=== PATIENT | female | born 1990 | race Caucasian/White ===

== ENCOUNTER 2023-03-25 12:40 | Emergency (ER) | payer OTHER, SELFPAY ==
[2023-03-25 12:46] VITALS: BP 124/87; PULSE 88; RESP 16; TEMP 36.7; O2SAT 98; BMI 32.5
--- NOTE | 2023-03-25 12:54 | PC.NURSE ---
sore throat and ear pain started yesterday, pt did not call her PCP
[2023-03-25] MEDS: DEXAMETHASONE SODIUM PHOSPHATE 10 MG/ML VIAL PO (13:25)
--- NOTE | 2023-03-25 13:35 | ED.URI1 ---
HPI - URI/Sore Throat General Chief Complaint: Upper Respiratory Infection Stated Complaint: SORE THROAT/EAR PAIN Time Seen by Provider: 03/25/23 13:11 Source: patient History of Present Illness HPI Narrative: patient is a 32-year-old female who presents to the emergency department for a one-day history of right ear pain, sore throat. She states her symptoms were much worse today. She has had no objective fevers, vomiting, diarrhea. She was states that her nose feels stuffy today and she has had a mild nonproductive cough. No sick contacts in the home. She is not concerned for . No medications taken prior to arrival. Related Data Home Medications Medication Instructions Recorded Confirmed atogepant 10 mg tablet (Qulipta) 10 mg PO DAILY 03/25/23 03/25/23 esomeprazole magnesium 40 mg 40 mg PO DAILY 03/25/23 03/25/23 capsule,delayed release fluoxetine 20 mg capsule 20 mg PO DAILY 03/25/23 03/25/23 hydroxyzine HCl 50 mg tablet 50 mg PO Q6H PRN itching 03/25/23 03/25/23 topiramate 100 mg tablet 100 mg PO BID 03/25/23 03/25/23 Previous Rx's Medication Instructions Recorded sofkhaeeruzydsy-jkupzahfqgntavr-LC 10 ml PO Q6H PRN cold symptoms 03/25/23 2 mg-30 mg-10 mg/5 mL oral syrup #200 mL (Bromfed DM) Allergies Allergy/AdvReac Type Severity Reaction Status Date / Time ciprofloxacin [From Cipro] Allergy Severe Verified 03/25/23 12:46 Review of Systems ROS Constitutional Denies: fever or chills Ears, nose, mouth, and throat Reports: throat pain and nasal congestion Cardiovascular Denies: chest pain Respiratory Reports: cough; Denies: shortness of breath Gastrointestinal Denies: nausea or vomiting Musculoskeletal Denies: back pain or neck pain Integumentary/Breast Denies: rash Neurological Denies: headache Allergic/Immunologic Denies: hives Exam Narrative Exam Narrative: Gen.: Awake, alert, in no distress Head: Normocephalic, atraumatic ENT: Moist mucous membranes, minimal pharyngeal erythema in the posterior pharynx with no tonsillar edema or exudate. Clear speech with no trismus or drooling. Airway widely open and patent with uvula midline. Left tympanic membrane with no erythema or drainage, green tympanic membrane tube visible in the left ear. Right tympanic membrane is clear, bulging Respiratory: No respiratory distress, lungs clear bilaterally Cardio: Regular rate and rhythm Extremities: Moves extremities equally Psych: Normal mood and affect Neuro: No focal neuro deficit Skin: Warm, dry, intact Constitutional Vital Signs, click to edit/add: Last Vital Signs Temp 98.1 F 03/25/23 12:46 Pulse 88 03/25/23 12:46 Resp 16 03/25/23 12:46 BP 124/87 03/25/23 12:46 Pulse Ox 98 03/25/23 12:46 O2 Del Method Room Air 03/25/23 12:55 Course Vital Signs Vital signs: Vital Signs Temperature 98.1 F 03/25/23 12:46 Pulse Rate 88 03/25/23 12:46 Respiratory Rate 16 03/25/23 12:46 Blood Pressure 124/87 03/25/23 12:46 Pulse Oximetry 98 03/25/23 12:46 Oxygen Delivery Method Room Air 03/25/23 12:46 Temperature 98.1 F 03/25/23 12:46 Pulse Rate 88 03/25/23 12:46 Respiratory Rate 16 03/25/23 12:46 Blood Pressure 124/87 03/25/23 12:46 Pulse Oximetry 98 03/25/23 12:46 Oxygen Delivery Method Room Air 03/25/23 12:55 MDM - URI/Sore Throat MDM Narrative Medical decision making narrative: strep screen is negative, vital signs are unremarkable and the patient has had symptoms for one day. Consistent with viral upper respiratory infection and the patient is discharged home to follow-up with PCP. Bromfed-DM given for home. Return to the Emergency Room if symptoms change or worsen. Medical Records Attestation: I reviewed the patient's medical records. Lab Data Attestation: I reviewed the patient's lab results. Labs: Lab Results 03/25/23 Range/Units 13:15 Streptococcus Screen Negative Discharge Plan Discharge Chief Complaint: Upper Respiratory Infection Clinical Impression: Upper respiratory infection Patient Disposition: Home, Self-Care Time of Disposition Decision: 14:03 Condition: Good Prescriptions / Home Meds: New xkmgrcroafcxjbr-xhyqekyxk-VG [Bromfed DM] 2-30-10 mg/5 mL syrup 10 ml PO Q6H PRN (Reason: cold symptoms) Qty: 200 0RF No Action Qulipta 10 mg tablet 10 mg PO DAILY esomeprazole magnesium 40 mg capsule,delayed release(DR/EC) 40 mg PO DAILY fluoxetine 20 mg capsule 20 mg PO DAILY hydroxyzine HCl 50 mg tablet 50 mg PO Q6H PRN (Reason: itching) topiramate 100 mg tablet 100 mg PO BID Instructions: Upper Respiratory Infection (ED) Stand Alone Forms: Portal Instructions Referrals: Dillon Shipman MD [Primary Care Provider] - 1 week
[2023-03-25 14:01] LABS: Internal Control Within Normal Limits; Strep A Antigen Screen Negative
== END 2023-03-25 14:19 | disposition home or self-care (01) ==
PROVIDERS: Physician Assistant; Emergency Provider Emergency Medicine Emergency Medical Services; PCP Family Medicine
DX: J06.9 Acute upper respiratory infection, unspecified (principal); Z79.899 Other long term (current) drug therapy
CPT/HCPCS: 87070; 87880; 99283; J1100

== ENCOUNTER 2023-03-30 14:25 | Emergency (ER) | payer OTHER, SELFPAY ==
[2023-03-30 14:31] VITALS: BP 121/76; PULSE 87; RESP 16; TEMP 36.6; O2SAT 100; BMI 32.7
[2023-03-30 15:02] LABS: Internal Control Within Normal Limits; Strep A Antigen Screen Negative
[2023-03-30 15:07] LABS: SARS-CoV-2 Ag NEGATIVE (NEGATIVE)
--- NOTE | 2023-03-30 15:23 | ED.URI1 ---
HPI - URI/Sore Throat General Chief Complaint: Upper Respiratory Infection Stated Complaint: COUGH AND SORE THROAT Time Seen by Provider: 03/30/23 14:27 Source: patient Limitations: no limitations History of Present Illness HPI Narrative: nasal congestion and cough started 5 days ago. No fever but she had night sweats each of the last 3 nights. NO GI or symptoms. No skin rash. No meds taken for her symptoms. He daughter is sick with similar symptoms. Related Data Home Medications Medication Instructions Recorded Confirmed atogepant 10 mg tablet (Qulipta) 10 mg PO DAILY 03/25/23 03/25/23 esomeprazole magnesium 40 mg 40 mg PO DAILY 03/25/23 03/25/23 capsule,delayed release fluoxetine 20 mg capsule 20 mg PO DAILY 03/25/23 03/25/23 hydroxyzine HCl 50 mg tablet 50 mg PO Q6H PRN itching 03/25/23 03/25/23 topiramate 100 mg tablet 100 mg PO BID 03/25/23 03/25/23 Previous Rx's Medication Instructions Recorded lydttiqooiizbfl-gflbdodqjpymllz-ZQ 10 ml PO Q6H PRN cold symptoms 03/25/23 2 mg-30 mg-10 mg/5 mL oral syrup #200 mL (Bromfed DM) Allergies Allergy/AdvReac Type Severity Reaction Status Date / Time ciprofloxacin [From Cipro] Allergy Severe Verified 03/25/23 12:46 PFSH PFS Social History Smoking status: Current some day smoker Exam Narrative Exam Narrative: Nurses notes and vital signs reviewed and patient is not hypoxic. afebrile General: Well-appearing and in no apparent distress. Skin: Warm, dry, no pallor noted. No rash. Head: Normocephalic, atraumatic. Neck: Supple, non-tender. mild anterior cervical lymphadenopathy Eye: Pupils are equal, round and EOMI. No scleral icterus. Ears, Nose, Mouth, and Throat: TM are dull bilaterally, left tympanic membrane has tympanoplasty tube. Mild nasal mucosal hypertrophy. Oral mucosa is moist, no posterior oropharynx erythema, uvula is mid-line Cardiovascular: Regular Rate and Rhythm without murmur, gallop or rub. Respiratory: No accessory muscle use or respiratory distress. Lungs are clear to auscultation, no wheezing, rales or rhonchi Musculoskeletal: normal ROM, no calf or popliteal tenderness, no lower extremity edema/swelling GI: Abdomen is soft, non-distended. Normal bowel sounds. No tenderness to palpation. No rebound, guarding, or rigidity noted. Neurological: A&O x4. No cranial nerve dysfunction observed. No truncal ataxia. Moves all extremities. Sensation intact. Psychiatric: Cooperative and interactive. Normal mood and affect. Constitutional Vital Signs, click to edit/add: Last Vital Signs Temp 98 F 03/30/23 14:31 Pulse 87 03/30/23 14:31 Resp 16 03/30/23 14:31 BP 121/76 03/30/23 14:31 Pulse Ox 100 03/30/23 14:31 O2 Del Method Room Air 03/30/23 14:31 Course Vital Signs Vital signs: Vital Signs Temperature 98 F 03/30/23 14:31 Pulse Rate 87 03/30/23 14:31 Respiratory Rate 16 03/30/23 14:31 Blood Pressure 121/76 03/30/23 14:31 Pulse Oximetry 100 03/30/23 14:31 Oxygen Delivery Method Room Air 03/30/23 14:31 Temperature 98 F 03/30/23 14:31 Pulse Rate 87 03/30/23 14:31 Respiratory Rate 16 03/30/23 14:31 Blood Pressure 121/76 03/30/23 14:31 Pulse Oximetry 100 03/30/23 14:31 Oxygen Delivery Method Room Air 03/30/23 14:31 MDM - URI/Sore Throat MDM Narrative Medical decision making narrative: screens for both cold and strep were negative. The patient is informed of the negative results, diagnosis was discussed and I recommended mmip-qpf-jymyytn treatment for symptoms. Primary care physician follow-up as needed or emergency Department return if she worsens. Lab Data Labs: Lab Results 03/30/23 Range/Units 14:36 SARS-CoV-2 (PCR) Negative (NEGATIVE) Streptococcus Screen Negative Discharge Plan Discharge Chief Complaint: Upper Respiratory Infection Clinical Impression: Upper respiratory infection Patient Disposition: Home, Self-Care Time of Disposition Decision: 15:23 Prescriptions / Home Meds: No Action Qulipta 10 mg tablet 10 mg PO DAILY esomeprazole magnesium 40 mg capsule,delayed release(DR/EC) 40 mg PO DAILY fluoxetine 20 mg capsule 20 mg PO DAILY hydroxyzine HCl 50 mg tablet 50 mg PO Q6H PRN (Reason: itching) topiramate 100 mg tablet 100 mg PO BID iwsvztilseabvch-ytlkhniwf-HA [Bromfed DM] 2-30-10 mg/5 mL syrup 10 ml PO Q6H PRN (Reason: cold symptoms) Qty: 200 0RF Instructions: Upper Respiratory Infection (ED) Stand Alone Forms: Portal Instructions Referrals: Dillon Shipman MD [Primary Care Provider] - 1 week
[2023-04-01 15:30] LABS: SARS-CoV-2 NAA NOT DETECTED (NOT DETECTE)
== END 2023-03-30 15:32 | disposition home or self-care (01) ==
PROVIDERS: Emergency Provider Emergency Medicine; PCP Family Medicine
DX: J06.9 Acute upper respiratory infection, unspecified (principal); Z79.899 Other long term (current) drug therapy; F17.210 Nicotine dependence, cigarettes, uncomplicated; Z20.822 Contact with and (suspected) exposure to COVID-19
CPT/HCPCS: 87070; 87635; 87811; 87880; 99283; U0003

== ENCOUNTER 2024-08-10 19:43 | Emergency (ER) | payer SELFPAY ==
[2024-08-10 19:54] VITALS: BP 113/69; PULSE 70; TEMP 36.7; O2SAT 100; BMI 32.7
--- NOTE | 2024-08-10 20:11 | US_ITS ---
The [address] [address] Patient Name: LORIE ADAMS MRN: [id number] date: 1990 Sex: F Assigned Patient Location: ER Current Patient Location: ER Accession/Order Number: [id number] Exam Date: 08/10/2024 20:49 Report Date: 08/10/2024 21:24 At the request of: HEDY MARKER Procedure: US OB transvaginal EXAM: Pelvic ultrasound ultrasound CLINICAL INDICATION: + preg test, lower abd pain. COMPARISON: None TECHNIQUE: Transvaginal OB pelvic ultrasound was performed with grayscale and color Doppler images were obtained. FINDINGS: Intrauterine with gestational sac, yolk sac and fetus present. cardiac activity is present at [address] [place]-rump length measures 2.4 for estimated gestational age of 9 weeks 0 days. Cervix is closed and measures 3.1 cm length. No placental hematoma evident. Neither ovary was able to be visualized during the exam. No free fluid in the pelvis. US/US OB transvaginal IMPRESSION: 1. Single intrauterine with cardiac activity present and estimated gestational age of 9 weeks 0 days. 2. No acute sonographic abnormalities in the pelvis, however neither ovary was able to be visualized. Electronically authenticated by: MARCIO GLORIA Date: 08/10/2024 21:24
--- NOTE | 2024-08-10 20:12 | ED.ABDPAIN1 ---
HPI - Abdominal Pain General Chief Complaint: Abdominal Pain Stated Complaint: STOMACHE PAIN Time Seen by Provider: 08/10/24 20:01 Source: patient Mode of arrival: walk-in History of Present Illness HPI narrative: This 33-year-old female who recently found out she was presents for evaluation of intermittent lower abdominal pain. The patient states she does not have normal periods and her last menstrual period was in April. She took a home test that was positive. She called Dr. Malik's office and is supposed to have blood work done and see him but has not done this yet. The patient states that earlier tonight she was on the toilet trying to have a bowel movement and she felt nauseated like she may pass out. She did not pass out at that time. She denies that she is constipated. She is not having any pain at this time. She has not had any fevers or chills. She denies any chest pain or shortness of breath. She does have some mild breast tenderness. Her last was 15 years ago. She denies any vaginal bleeding odor or discharge. Related Data Home Medications ?Medication ?Instructions ?Recorded ?Confirmed atogepant 10 mg tablet (Qulipta) 10 mg PO DAILY 03/25/23 03/25/23 esomeprazole magnesium 40 mg 40 mg PO DAILY 03/25/23 03/25/23 capsule,delayed release fluoxetine 20 mg capsule 20 mg PO DAILY 03/25/23 03/25/23 hydroxyzine HCl 50 mg tablet 50 mg PO Q6H PRN itching 03/25/23 03/25/23 topiramate 100 mg tablet 100 mg PO BID 03/25/23 03/25/23 Previous Rx's ?Medication ?Instructions ?Recorded fuhxkeayerxbylv-zfrucadqgnldmcb-XQ 10 ml PO Q6H PRN cold symptoms 03/25/23 2 mg-30 mg-10 mg/5 mL oral syrup #200 mL (Bromfed DM) Allergies Allergy/AdvReac Type Severity Reaction Status Date / Time ciprofloxacin (From Cipro) Allergy Severe Verified 03/25/23 12:46 Review of Systems ROS Status of ROS 10 or more systems reviewed and unremarkable except as noted in history and below PFSH PFSH Social History Smoking status: Current some day smoker Little interest or pleasure in doing things: not at all Feeling down, depressed, or hopeless: not at all Exam Narrative Exam Narrative: Vital signs and Nursing Notes reviewed: Vital signs are stable, the patient is not hypoxic with pulse ox of 100% on room air General: Awake, alert, oriented, no acute distress, lying comfortably on the stretcher HEENT: Normocephalic atraumatic, mucous membranes are moist and pink, eyes are clear, normal conjunctiva, vision is grossly intact Chest: Lungs are clear to auscultation with good air entry, there is no wheezing rhonchi or rales appreciated no accessory muscle use, patient is speaking in complete sentences-no chest wall tenderness to palpation CVS: Regular rate and rhythm S1-S2, no murmurs rubs or gallops, pulses are brisk and equal bilaterally ABD: Soft, nondistended, mild tenderness over the urinary bladder and pelvis with no rebound guarding or rigidity, there is no right lower quadrant tenderness or tenderness at McBurney's point and there is a negative Cervantes sign. Extremities: Moving all extremities, no lower extremity tenderness or swelling noted, negative Homans' sign, pulses are brisk and equal bilaterally Skin: Normal in appearance without rash,pallor, petechiae or purpura Neuro: No focal deficits Constitutional Vital Signs, click to edit/add: Last Vital Signs Temp 98.0 F 08/10/24 19:54 Pulse 70 08/10/24 19:54 Resp 18 08/10/24 19:54 BP 113/69 08/10/24 19:54 Pulse Ox 100 08/10/24 19:54 O2 Del Method Room Air 08/10/24 19:54 Course Vital Signs Vital signs: Vital Signs Temperature 98.0 F 08/10/24 19:54 Pulse Rate 70 08/10/24 19:54 Respiratory Rate 18 08/10/24 19:54 Blood Pressure 113/69 08/10/24 19:54 Pulse Oximetry 100 08/10/24 19:54 Oxygen Delivery Method Room Air 08/10/24 19:54 Temperature 98.0 F 08/10/24 19:54 Pulse Rate 70 08/10/24 19:54 Respiratory Rate 18 08/10/24 19:54 Blood Pressure 113/69 08/10/24 19:54 Pulse Oximetry 100 08/10/24 19:54 Oxygen Delivery Method Room Air 08/10/24 19:54 MDM - Abdominal Pain MDM Narrative Medical decision making narrative: This 33-year-old female who recently found out she was presents for evaluation of lower abdominal pain. She denies any vomiting or diarrhea but has some mild nausea. She denied any pain upon arrival and declined the need for any pain medication. She has not had any blood work done but was supposed to get blood work done for confirmation of her and dating purposes. Her urine is negative for infection but her urine test was positive. She has a normal white count hemoglobin. Electrolytes are normal. Ultrasound was ordered and shows a single live intrauterine at 9 weeks with a normal heart rate. The results of the ultrasound were discussed with her and she was given a copy of the report. She requested some Tylenol prior to discharge. She was encouraged to follow-up with Dr. Malik. Lab Data Labs: Lab Results 08/10/24 08/10/24 Range/Units 20:21 20:24 WBC 9.0 (4.0-11.0) 10^3/uL RBC 4.22 (4.20-5.40) 10^6/uL Hgb 12.9 (12.0-16.0) g/dL Hct 39.2 (36.0-48.0) % MCV 92.9 (81.0-99.0) fL MCH 30.6 (26.7-34.0) pg MCHC 32.9 (29.9-35.2) g/dL RDW 13.2 (11.0-15.0) % Plt Count 283 (150-450) 10^3/uL MPV 9.5 (9.5-13.5) fL Neut % (Auto) 68.0 (43.0-75.0) % Lymph % (Auto) 19.6 L (20.5-60.0) % [place] % (Auto) 10.9 (1.7-12.0) % Eos % (Auto) 0.9 (0.9-7.0) % Baso % (Auto) 0.4 (0.2-2.0) % Neut # (Auto) 6.1 (1.4-6.5) 10^3/uL Lymph # (Auto) 1.8 (1.2-3.8) 10^3/uL [place] # (Auto) 1.0 H (0.3-0.8) 10^3/uL Eos # (Auto) 0.1 (0.0-0.7) 10^3/uL Baso # (Auto) 0.0 (0.0-0.1) 10^3/uL Abs Immat Gran (auto) 0.02 (0.00-0.03) 10^3/uL Imm/Tot Granulo (auto) 0.2 (0.0-0.5) % Sodium 140 (136-145) mmol/L Potassium 3.6 (3.5-5.1) mmol/L Chloride 107 (98-107) mmol/L Carbon Dioxide 22.2 (21.0-32.0) mmol/L Anion Gap 14.4 BUN 11.0 (7.0-18.0) mg/dL Creatinine 0.91 (0.55-1.02) mg/dL Est GFR ( Amer) >60 (>=60 mL/min/1.73m^2) Est GFR (Non-Af Amer) >60 (>=60 mL/min/1.73m^2) BUN/Creatinine Ratio 12.1 Glucose 61 L (74-106) mg/dL Calcium 8.6 (8.5-10.1) mg/dL Total Bilirubin 0.2 (0.2-1.0) mg/dL AST 7 L (15-37) U/L ALT 15 (14-59) U/L Alkaline Phosphatase 86 (46-116) U/L Total Protein 7.5 (6.4-8.2) g/dL Albumin 3.7 (3.4-5.0) g/dL Globulin 3.8 g/dL Albumin/Globulin Ratio 1.0 HCG, Quant 95038 mIU/mL Urine Color Yellow (YELLOW) Urine Clarity Clear (CLEAR) Urine pH 6.0 (5.0-9.0) Ur Specific [place] >=1.030 A (1.005-1.025) Urine Protein Negative (NEG/TRACE) mg/dL Urine Glucose (UA) Negative (NEGATIVE) mg/dL Urine Ketones Negative (NEGATIVE) mg/dL Urine Occult Blood Negative (NEGATIVE) Urine Nitrite Negative (NEGATIVE) Urine Bilirubin Negative (NEGATIVE) Urine Urobilinogen 0.2 (0.2-1.0) EU/dL Ur Leukocyte Esterase Negative (NEGATIVE) Urine RBC 0-2 (0-2) #/HPF Urine WBC 0-2 A (NONE SEEN) #/HPF Ur Squamous Epith Cells Few A (NONE/RARE) #/LPF Urine Crystals None seen (None Seen) #/HPF Urine Bacteria Small A (NONE SEEN) #/HPF Urine Casts None seen (NONE SEEN) #/LPF Urine Mucus Trace A (NONE SEEN) Ur Culture Indicated? Yes Urine HCG, Qual Positive A (NEGATIVE) Discharge Plan Discharge Chief Complaint: Abdominal Pain Clinical Impression: and not yet delivered in first trimester Patient Disposition: Home, Self-Care Time of Disposition Decision: 21:36 Condition: Good Prescriptions / Home Meds: No Action Qulipta 10 mg tablet 10 mg PO DAILY esomeprazole magnesium 40 mg capsule,delayed release(DR/EC) 40 mg PO DAILY fluoxetine 20 mg capsule 20 mg PO DAILY hydroxyzine HCl 50 mg tablet 50 mg PO Q6H PRN (Reason: itching) topiramate 100 mg tablet 100 mg PO BID rjjruwphpvzzisg-vdxtpdoyg-MP [Bromfed DM] 2-30-10 mg/5 mL syrup 10 ml PO Q6H PRN (Reason: cold symptoms) Qty: 200 0RF Print Language: Hungarian Instructions: at 7 to 10 Weeks (ED) Referrals: Dillon Shipman MD [Primary Care Provider] - 1 week
[2024-08-10 20:38] LABS: Basophils Percent Auto 0.4 % (0.2-2.0); Eosinophils Absolute Auto 0.1 10^3/uL (0.0-0.7); Eosinophils Percent Auto 0.9 % (0.9-7.0); Hematocrit 39.2 % (36.0-48.0); Hemoglobin 12.9 g/dL (12.0-16.0); Immature Granulocytes Abs Auto 0.02 10^3/uL (0.00-0.03); Immature Granulocytes Pct Auto 0.2 % (0.0-0.5); Lymphocytes Absolute Auto 1.8 10^3/uL (1.2-3.8); Lymphocytes Percent Auto 19.6 % (20.5-60.0); Mean Corpuscular HGB Conc 32.9 g/dL (29.9-35.2); Mean Corpuscular Hemoglobin 30.6 pg (26.7-34.0); Mean Corpuscular Volume 92.9 fL (81.0-99.0); Mean Platelet Volume 9.5 fL (9.5-13.5); Monocytes Percent Auto 10.9 % (1.7-12.0); Neutrophils Absolute Auto 6.1 10^3/uL (1.4-6.5); Platelet Count 283 10^3/uL (150-450); Red Blood Count 4.22 10^6/uL (4.20-5.40); Red Cell Distribution Width 13.2 % (11.0-15.0)
[2024-08-10 20:39] LABS: Bilirubin Urine NEGATIVE (NEGATIVE); Blood Urine NEGATIVE (NEGATIVE); Clarity Urine CLEAR (CLEAR); Color Urine YELLOW (YELLOW); Glucose Urine UA NEGATIVE (NEGATIVE); Ketones Urine NEGATIVE (NEGATIVE); Leukocyte Esterase Urine NEGATIVE (NEGATIVE); Nitrite Urine NEGATIVE (NEGATIVE); Protein Urine NEGATIVE (NEG/TRACE); Specific Gravity Urine >=1.030 (1.005-1.025); Urobilinogen Urine 0.2 EU/dL (0.2-1.0)
[2024-08-10 20:42] LABS: HCG Qualitative Urine* POSITIVE (NEGATIVE); Internal Control Within Normal Limits
[2024-08-10 20:46] LABS: Bacteria Urine SMALL #/HPF (NONE SEEN); Cast Seen? NONE SEEN #/LPF (NONE SEEN); Crystals Seen? None Seen #/HPF (None Seen); Mucus Urine TRACE (NONE SEEN); RBC Urine 0-2 #/HPF (0-2); Squamous Epithelial Cell Urine FEW #/LPF (NONE/RARE); Urine Culture Indicated YES; WBC Urine 0-2 #/HPF (NONE SEEN)
[2024-08-10 20:55] LABS: Alanine Aminotransferase 15 U/L (14-59); Albumin Level 3.7 g/dL (3.4-5.0); Alkaline Phosphatase 86 U/L (46-116); Anion Gap 14.4; Aspartate Amino Transferase 7 U/L (15-37); BUN Creatinine Ratio 12.1; Bilirubin Total 0.2 mg/dL (0.2-1.0); Calcium 8.6 mg/dL (8.5-10.1); Carbon Dioxide 22.2 mmol/L (21.0-32.0); Chloride 107 mmol/L (98-107); Estimated GFR (African America >60 (>=60 mL/min/1.73m^2); Estimated GFR (Non-African Ame >60 (>=60 mL/min/1.73m^2); Globulin 3.8 g/dL; Glucose 61 mg/dL (74-106); Potassium 3.6 mmol/L (3.5-5.1); Sodium 140 mmol/L (136-145); Total Protein 7.5 g/dL (6.4-8.2)
[2024-08-10 21:16] LABS: HCG Quantitative 96478 mIU/mL
[2024-08-10] MEDS: ACETAMINOPHEN 325 MG TABLET 650 MG PO (21:47)
== END 2024-08-10 21:49 | disposition home or self-care (01) ==
PROVIDERS: Emergency Provider Emergency Medicine; PCP Family Medicine
DX: O99.891 Other specified diseases and conditions complicating pregnancy (principal); R10.30 Lower abdominal pain, unspecified; O99.331 Smoking (tobacco) complicating pregnancy, first trimester; F17.200 Nicotine dependence, unspecified, uncomplicated; Z3A.09 9 weeks gestation of pregnancy
CPT/HCPCS: 36415; 76817; 80053; 81001; 84702; 84703; 85025; 87086; 99285

== ENCOUNTER 2024-10-08 09:38 | Outpatient (OUT) | payer OTHER, MEDICAID, SELFPAY ==
--- OUTSIDE RECORDS SUMMARY | 2024-10-08 09:52 | XMS_ITS | CCD ---
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 [Mass/Vol] 2.0 mg/dL 1.8 - 2.6 mg/dL [facility] Comment on above: PERFORMED AT [facility] [address],[place] [address] No Panel Informationon 05-04 [facility] TSH WITH REFLEXon 05-04-2024 TSH 1.40 uIU/mL Normal 0.49-4.67 [facility] Comment on above: Performed By: #### B MP, LIVR, 91472-6, TSHR, CBCA #### [facility] ([id number]) [address], [address] [place] [address] ER URINE PROFILEon 3 Bilirubin Ql (U) Negative Normal NEGATIVE [facility] Comment on above: Performed By: #### E RUR, PREGU, DRUGRPD #### [facility] [address] [place] [address] Dr. Gino Holt Clarity (U) CLEAR Normal CLEAR [facility] Comment on above: Performed By: #### E RUR, PREGU, DRUGRPD #### [facility] [address] [place] [address] Dr. Gino Holt Color (U) LT. YELLOW Normal YELLOW [facility] Comment on above: Performed By: #### E RUR, PREGU, DRUGRPD #### [facility] [address] [address] [address] Gino Holt ERUAHD A micrscopic examination will be performed if indicated. Normal [facility] Comment on above: Performed By: #### E RUR, PREGU, DRUGRPD #### [facility] [address] [address] [address] Gino Holt Glucose Ql (U) Negative Normal NEGATIVE [facility] Comment on above: Performed By: #### E RUR, PREGU, DRUGRPD #### [facility] [address] [address] [address] Gino Holt Hemoglobin Ql (U) Negative Normal NEGATIVE [facility] Comment on above: Performed By: #### E RUR, PREGU, DRUGRPD #### [facility] [address] [address] [address] Gino Holt Ketones Ql (U) Negative Normal NEGATIVE [facility] Comment on above: Performed By: #### E RUR, PREGU, DRUGRPD #### [facility] [address] [address] [address] Gino Holt LEUKOCYTES Negative Normal NEGATIVE [facility] Comment on above: Performed By: #### E RUR, PREGU, DRUGRPD #### [facility] [address] [place] [address] Dr. Gino Holt Nitrite Ql (U) Negative Normal NEGATIVE [facility] Comment on above: Performed By: #### E RUR, PREGU, DRUGRPD #### [facility] [address] [place] [address] Dr. Gino Holt pH (U) 6.5 [pH] Normal 5-9 [facility] Comment on above: Performed By: #### E RUR, PREGU, DRUGRPD #### [facility] [address] [place] [address] Dr. Gino Holt SPEC GRAVITY 1.020 Normal 1.005-<=1.025 [facility] Comment on above: Performed By: #### E RUR, PREGU, DRUGRPD #### [facility] [address] [place] [address] Dr. Gino Holt UA PROTEIN Negative Normal NEGATIVE/ TRACE [facility] Comment on above: Performed By: #### E RUR, PREGU, DRUGRPD #### [facility] [address] [place] [address] Dr. Gino Holt UR MICRO IND NOT INDICATED Normal [facility] Comment on above: Performed By: #### E RUR, PREGU, DRUGRPD #### [facility] [address] [address] [address] Gino Holt Urobilinogen Qn (U) 0.2 {Phillip'U}/dL Normal 0.2 - 1. 0 [facility] Comment on above: Performed By: #### E RUR, PREGU, DRUGRPD #### [facility] [address] [address] [address] Gino Holt URon 11-19-2022 , QUAL Negative Normal NEGATIVE [facility] Comment on above: Performed By: #### E RUR, PREGU, DRUGRPD #### [facility] [address] [address] [address] Gino Holt XR ABD FLAT UP_PA Courtney 11-19 XR ABD FLAT UP_PA CH EXAMINATION: XR ABD FLAT UP_PA CH HISTORY: CONSTIPATION, UNSPECIFIED ; left lower quadrant pain COMPARISON: No relevant comparison available. FINDINGS: LUNGS: No infiltrate, pneumothorax, or pleural effusion. MEDIASTINUM: No abnormal widening. BOWEL GAS PATTERN: Non-obstructed. Moderate stool burden. FREE AIR: None. CALCIFICATIONS: None significant. BONES: No fracture or visible bone lesion. OTHER: Negative. IMPRESSION: 1. No acute cardiopulmonary process. 2. No bowel obstruction or suspicious abdominal findings. Electronically authenticated by: KIN MORALES Date: 2022-11-19 08:53 Normal [facility] CBC W MANUAL DIFFon 10-26-19 23 ATYPICAL LYMPH # Normal [facility] Comment on above: Performed By: #### E RUR, PREGU, DRUGRPD #### [facility] [address] [place] [address] Dr. Gino Holt ATYPICAL LYMPH % Normal [facility] Comment on above: Performed By: #### E RUR, PREGU, DRUGRPD #### [facility] [address] [place] [address] Dr. Gino Holt BAND # 0.0 103/ul Normal 0.0-0.3 [facility] Comment on above: Performed By: #### E RUR, PREGU, DRUGRPD #### [facility] [address] [place] [address] Dr. Gino Holt BAND % 0 % Normal 0-5 [facility] Comment on above: Performed By: #### E RUR, PREGU, DRUGRPD #### [facility] [address] [place] [address] Dr. Gino Holt BASOM # 0.08 103/ul Normal 0.00-0.10 [facility] Comment on above: Performed By: #### E RUR, PREGU, DRUGRPD #### [facility] [address] [place] [address] Dr. Gino Holt BASOM % 1.0 % Normal 0.2-2.0 [facility] Comment on above: Performed By: #### E RUR, PREGU, DRUGRPD #### [facility] [address] [place] [address] Dr. Gino Holt BLAST # Normal [facility] Comment on above: Performed By: #### E RUR, PREGU, DRUGRPD #### [facility] [address] [place] [address] Dr. Gino Holt BLAST % Normal [facility] Comment on above: Performed By: #### E RUR, PREGU, DRUGRPD #### [facility] [address] [place] [address] Dr. Gino Holt CORRECTED WBC Normal 4.0-11.0 [facility] Comment on above: Performed By: #### E RUR, PREGU, DRUGRPD #### [facility] [address] [place] [address] Dr. Gino Holt EOS # 0.00 103/ul Normal 0.00-0.70 [facility] Comment on above: Performed By: #### E RUR, PREGU, DRUGRPD #### [facility] [address] [place] [address] Dr. Gino Holt EOS% 0.0 % Critically low 0.9-7.0 [facility] Comment on above: Performed By: #### E RUR, PREGU, DRUGRPD #### [facility] [address] [place] [address] Dr. Gino Holt HCT 39.0 % Normal 36.0-48.0 [facility] Comment on above: Performed By: #### E RUR, PREGU, DRUGRPD #### [facility] [address] [place] [address] Dr. Gino Holt HGB 13.0 g/dl Normal 12.0-16.0 [facility] Comment on above: Performed By: #### E RUR, PREGU, DRUGRPD #### [facility] [address] [address] [address] Gino Holt LYMPHM # 0.24 103/ul Critically low 1.20-3.80 [facility] Comment on above: Performed By: #### E RUR, PREGU, DRUGRPD #### [facility] [address] [place] [address] Dr. Gino Holt LYMPHM% 3.0 % Critically low 20.5-60.0 [facility] Comment on above: Performed By: #### E RUR, PREGU, DRUGRPD #### [facility] [address] [place] [address] Dr. Gino Holt MCH 30.0 pg Normal 26.7-34.0 [facility] Comment on above: Performed By: #### E RUR, PREGU, DRUGRPD #### [facility] [address] [place] [address] Dr. Gino Holt MCHC 33.3 g/dl Normal 29.9-35.2 [facility] Comment on above: Performed By: #### E RUR, PREGU, DRUGRPD #### [facility] [address] [place] [address] Dr. Gino Holt MCV 90.1 fL Normal 81.0-99.0 [facility] Comment on above: Performed By: #### E RUR, PREGU, DRUGRPD #### [facility] [address] [place] [address] Dr. Gino Holt METAMYELOCYTE # Normal [facility] Comment on above: Performed By: #### E RUR, PREGU, DRUGRPD #### [facility] [address] [place] [address] Dr. Gino Holt METAMYELOCYTE % Normal [facility] Comment on above: Performed By: #### E RUR, PREGU, DRUGRPD #### [facility] [address] [place] [address] Dr. Gino Holt MONOM# 0.00 103/ul Critically low 0.30-0.80 [facility] Comment on above: Performed By: #### E RUR, PREGU, DRUGRPD #### [facility] [address] [place] [address] Dr. Gino Holt MONOM% 0.0 % Critically low 1.7-12.0 [facility] Comment on above: Performed By: #### E RUR, PREGU, DRUGRPD #### [facility] [address] [place] [address] Dr. Gino Holt MPV 9.1 fL Critically low 9.5-13.5 [facility] Comment on above: Performed By: #### E RUR, PREGU, DRUGRPD #### [facility] [address] [place] [address] Dr. Gino Holt MYELOCYTE # Normal [facility] Comment on above: Performed By: #### E RUR, PREGU, DRUGRPD #### [facility] [address] [place] [address] Dr. Gino Holt MYELOCYTE % Normal [facility] Comment on above: Performed By: #### E RUR, PREGU, DRUGRPD #### [facility] [address] [place] [address] Dr. Gino Holt NRBC Normal [facility] Comment on above: Performed By: #### E RUR, PREGU, DRUGRPD #### [facility] [address] [place] [address] Dr. Gino Holt PLT 288 103/ul Normal 150-450 [facility] Comment on above: Performed By: #### E RUR, PREGU, DRUGRPD #### [facility] [address] [place] [address] Dr. Gino Holt RBC 4.33 106/ul Normal 4.20-5.40 [facility] Comment on above: Performed By: #### E RUR, PREGU, DRUGRPD #### [facility] [address] [address] [address] Gino Holt RDW 13.4 % Normal 11.0-15.0 [facility] Comment on above: Performed By: #### E RUR, PREGU, DRUGRPD #### [facility] [address] [address] [address] Gino Holt SEG # 7.58 103/ul Critically high 1.40-6.50 [facility] Comment on above: Performed By: #### E RUR, PREGU, DRUGRPD #### [facility] [address] [place] [address] Dr. Gino Holt SEG % 96.0 % Critically high 43.0-75.0 [facility] Comment on above: Performed By: #### E RUR, PREGU, DRUGRPD #### [facility] [address] [address] [address] Gino Holt WBC 7.9 103/ul Normal 4.0-11.0 [facility] Comment on above: Performed By: #### E RUR, PREGU, DRUGRPD #### [facility] [address] [place] [address] Dr. Gino Holt PROF 14(COMP METB)on 023 Albumin [Mass/Vol] 4.0 g/dL Normal 3.4-5.0 [facility] Comment on above: Performed By: #### E RUR, PREGU, DRUGRPD #### [facility] [address] [address] [address] Gino Holt Albumin/Globulin [Mass ratio] 1.0 {ratio} Normal [facility] Comment on above: Performed By: #### E RUR, PREGU, DRUGRPD #### [facility] [address] [address] [address] Gino Holt ALP [Catalytic activity/Vol] 90 U/L Normal 46-116 [facility] Comment on above: Performed By: #### E RUR, PREGU, DRUGRPD #### [facility] [address] [place] [address] Dr. Gino Holt ALT [Catalytic activity/Vol] 17 U/L Normal 14-59 [facility] Comment on above: Performed By: #### E RUR, PREGU, DRUGRPD #### [facility] [address] [place] [address] Dr. Gino Holt Anion gap [Moles/Vol] 15.6 mmol/L Normal [facility] Comment on above: Performed By: #### E RUR, PREGU, DRUGRPD #### [facility] [address] [place] [address] Dr. Gino Holt AST [Catalytic activity/Vol] 12 U/L Critically low 15-37 [facility] Comment on above: Performed By: #### E RUR PREGU, DRUGRPD #### [facility] [address] [place] [address] Dr. Gino Holt Bilirubin [Mass/Vol] 0.1 mg/dL Critically low 0.2-1.0 [facility] Comment on above: Performed By: #### E RUR, PREGU, DRUGRPD #### [facility] [address] [place] [address] Dr. Gino Holt Calcium [Mass/Vol] 9.0 mg/dL Normal 8.5-10.1 [facility] Comment on above: Performed By: #### E RUR, PREGU, DRUGRPD #### [facility] [address] [place] [address] Dr. Gino Holt Chloride [Moles/Vol] 108 mmol/L Critically high 98-107 [facility] Comment on above: Performed By: #### E RUR, PREGU, DRUGRPD #### [facility] [address] [place] [address] Dr. Gino Holt CO2 [Moles/Vol] 21.4 mmol/L Normal 21.0-32.0 [facility] Comment on above: Performed By: #### E RUR, PREGU, DRUGRPD #### [facility] [address] [address] [address] Gino Holt Creatinine [Mass/Vol] 0.82 mg/dL Normal 0.55-1.02 [facility] Comment on above: Performed By: #### E RUR, PREGU, DRUGRPD #### [facility] [address] [place] [address] Dr. Gino Holt EGFR-AF [place] >60 Normal >=60 [facility] Comment on above: Performed By: #### E RUR, PREGU, DRUGRPD #### [facility] [address] [place] [address] Dr. Gino Holt EGFR-NON AF [place] >60 Normal >=60 [facility] Comment on above: Performed By: #### E RUR, PREGU, DRUGRPD #### [facility] [address] [place] [address] Dr. Gino Holt Globulin (S) [Mass/Vol] 4.0 g/dL Normal [facility] Comment on above: Performed By: #### E RUR, PREGU, DRUGRPD #### [facility] [address] [place] [address] Dr. Gino Holt Glucose [Mass/Vol] 136 mg/dL Critically high 74-106 [facility] Comment on above: Performed By: #### E RUR, PREGU, DRUGRPD #### [facility] [address] [place] [address] Dr. Gino Holt Potassium [Moles/Vol] 4.0 mmol/L Normal 3.5-5.1 [facility] Comment on above: Performed By: #### E RUR, PREGU, DRUGRPD #### [facility] [address] [place] [address] Dr. Gino Holt Protein [Mass/Vol] 8.0 g/dL Normal 6.4-8.2 [facility] Comment on above: Performed By: #### E RUR, PREGU, DRUGRPD #### [facility] [address] [place] [address] Dr. Gino Holt Sodium [Moles/Vol] 141 mmol/L Normal 136-145 [facility] Comment on above: Performed By: #### E RUR, PREGU, DRUGRPD #### [facility] [address] [place] [address] Dr. Gino Holt Urea nitrogen [Mass/Vol] 18.0 mg/dL Normal 7.0-18.0 [facility] Comment on above: Performed By: #### E RUR, PREGU, DRUGRPD #### [facility] [address] [place] [address] Dr. Gino Holt Urea nitrogen/Creatinine [Mass ratio] 22.0 mg/mg Normal [facility] Comment on above: Performed By: #### E RUR, PREGU, DRUGRPD #### [facility] [address] [place] [address] Dr. Gino Holt CBC AUTO DIFFon 10-12-2022 BASO # 0.0 103/ul Normal 0.0-0.1 [facility] Comment on above: Performed By: #### E RUR, PREGU, DRUGRPD #### [facility] [address] [place] [address] Dr. Gino Holt Basophils/100 WBC (Bld) 0.7 % Normal 0.2-2.0 [facility] Comment on above: Performed By: #### E RUR, PREGU, DRUGRPD #### [facility] [address] [place] [address] Dr. Gino Holt EO # 0.1 103/ul Normal 0.0-0.7 [facility] Comment on above: Performed By: #### E RUR, PREGU, DRUGRPD #### [facility] [address] [place] [address] Dr. Gino Holt Eosinophils/100 WBC (Bld) 1.6 % Normal 0.9-7.0 [facility] Comment on above: Performed By: #### E RUR, PREGU, DRUGRPD #### [facility] [address] [place] [address] Dr. Gino Holt Erythrocyte distribution width (RBC) [Ratio] 13.7 % Normal 11.0-15.0 [facility] Comment on above: Performed By: #### E RUR, PREGU, DRUGRPD #### [facility] [address] [place] [address] Dr. Gino Holt Hematocrit (Bld) [Volume fraction] 37.2 % Normal 36.0-48.0 [facility] Comment on above: Performed By: #### E RUR, PREGU, DRUGRPD #### [facility] [address] [place] [address] Dr. Gino Holt Hemoglobin (Bld) [Mass/Vol] 12.0 g/dL Normal 12.0-16.0 [facility] Comment on above: Performed By: #### E RUR, PREGU, DRUGRPD #### [facility] [address] [place] [address] Dr. Gino Holt IG # 0.02 10e3/ul Normal 0.00-0.03 [facility] Comment on above: Performed By: #### E RUR, PREGU, DRUGRPD #### [facility] [address] [place] [address] Dr. Gino Holt IG % 0.3 % Normal 0.0-0.5 [facility] Comment on above: Performed By: #### E RUR, PREGU, DRUGRPD #### [facility] [address] [place] [address] Dr. Gino Holt LYMPH # 2.3 103/ul Normal 1.2-3.8 [facility] Comment on above: Performed By: #### E RUR, PREGU, DRUGRPD #### [facility] [address] [place] [address] Dr. Gino Holt Lymphocytes/100 WBC (Bld) 37.3 % Normal 20.5-60.0 [facility] Comment on above: Performed By: #### E RUR, PREGU, DRUGRPD #### [facility] [address] [place] [address] Dr. Gino Holt MANUAL DIFF REQ NO Normal [facility] Comment on above: Performed By: #### E RUR, PREGU, DRUGRPD #### [facility] [address] [place] [address] Dr. Gino Holt MCH (RBC) [Entitic mass] 29.9 pg Normal 26.7-34.0 [facility] Comment on above: Performed By: #### E RUR, PREGU, DRUGRPD #### [facility] [address] [place] [address] Dr. Gino Holt MCHC (RBC) [Mass/Vol] 32.3 g/dL Normal 29.9-35.2 [facility] Comment on above: Performed By: #### E RUR, PREGU, DRUGRPD #### [facility] [address] [place] [address] Dr. Gino Holt MCV (RBC) [Entitic vol] 92.8 fL Normal 81.0-99.0 [facility] Comment on above: Performed By: #### E RUR, PREGU, DRUGRPD #### [facility] [address] [place] [address] Dr. Gino Holt MONO # 0.7 103/ul Normal 0.3-0.8 [facility] Comment on above: Performed By: #### E RUR, PREGU, DRUGRPD #### [facility] [address] [place] [address] Dr. Gino Holt Monocytes/100 WBC (Bld) 11.3 % Normal 1.7-12.0 [facility] Comment on above: Performed By: #### E RUR, PREGU, DRUGRPD #### [facility] [address] [place] [address] Dr. Gino Holt NEUT # 3.0 103/ul Normal 1.4-6.5 [facility] Comment on above: Performed By: #### E RUR, PREGU, DRUGRPD #### [facility] [address] [place] [address] Dr. Gino Holt Neutrophils/100 WBC (Bld) 48.8 % Normal 43.0-75.0 [facility] Comment on above: Performed By: #### E RUR, PREGU, DRUGRPD #### [facility] [address] [place] [address] Dr. Gino Holt Platelet mean volume (Bld) [Entitic vol] 8.9 fL Critically low 9.5-13.5 [facility] Comment on above: Performed By: #### E RUR, PREGU, DRUGRPD #### [facility] [address] [place] [address] Dr. Gino Holt PLT 312 103/ul Normal 150-450 [facility] Comment on above: Performed By: #### E RUR, PREGU, DRUGRPD #### [facility] [address] [place] [address] Dr. Gino Holt RBC 4.01 106/ul Critically low 4.20-5.40 [facility] Comment on above: Performed By: #### E RUR, PREGU, DRUGRPD #### [facility] [address] [place] [address] Dr. Gino Holt WBC 6.1 103/ul Normal 4.0-11.0 [facility] Comment on above: Performed By: #### E RUR, PREGU, DRUGRPD #### [facility] [address] [place] [address] Dr. Gino Holt CRPon 10-12-2022 CRP 0.6 mg/dL Normal <=1.0 [facility] Comment on above: Performed By: #### E RUR, PREGU, DRUGRPD #### [facility] [address] [place] [address] Dr. Gino Holt DRUG SCREEN RAPID (URINE)on 10-12-2022 AMP Negative Normal NEGATIVE [facility] Comment on above: Performed By: #### E RUR, PREGU, DRUGRPD #### [facility] [address] [place] [address] Dr. Gino Holt BAR Negative Normal NEGATIVE [facility] Comment on above: Performed By: #### E RUR, PREGU, DRUGRPD #### [facility] [address] [place] [address] Dr. Gino Holt BUP Negative Normal NEGATIVE [facility] Comment on above: Performed By: #### E RUR, PREGU, DRUGRPD #### [facility] [address] [place] [address] Dr. Gino Holt BZO Negative Normal NEGATIVE [facility] Comment on above: Performed By: #### E RUR, PREGU, DRUGRPD #### [facility] [address] [place] [address] Dr. Gino Holt RAMONA Negative Normal NEGATIVE [facility] Comment on above: Performed By: #### E RUR, PREGU, DRUGRPD #### [facility] [address] [place] [address] Dr. Gino Holt CUT-OFFS SEE BELOW Normal [facility] Comment on above: Result Comment: AMP (Amphetamine): 500ng/mL, BAR (Barbituates): 200 ng/mL, BZO (Benzodiazepines): 150 ng/mL, BUP (Buprenorphine): 10 ng/mL, RAMONA (Cocaine): 150 ng/mL, mAMP (Methamphetamine): 500 ng/mL, MTD (Methadone): 200 ng/mL, OPI (Opiates): 100 ng/mL, OXY (Oxycodone): 100 ng/mL, PCP (Phencyclidine): 25 ng/mL, PPX (Propoxyphene): 300 ng/mL, THC (Cannabinoids): 50 ng/mL, TCA (Trycyclic Antidepressants): 300 ng/mL Performed By: #### E RUR, PREGU, DRUGRPD #### [facility] [address] [place] [address] Dr. Gino Holt DRUG CUT HEADER DRUG CLASS TEST SYST EM CUT-OFF CONCENTRATIONS ARE FOLLOWS: Normal [facility] Comment on above: Performed By: #### E RUR, PREGU, DRUGRPD #### [facility] [address] [place] [address] Dr. Gino Holt mAMP Negative Normal NEGATIVE [facility] Comment on above: Performed By: #### E RUR, PREGU, DRUGRPD #### [facility] [address] [place] [address] Dr. Gino Holt MTD Negative Normal NEGATIVE [facility] Comment on above: Performed By: #### E RUR, PREGU, DRUGRPD #### [facility] [address] [place] [address] Dr. Gino Holt OPI Positive Abnormal NEGATIVE [facility] Comment on above: Performed By: #### E RUR, PREGU, DRUGRPD #### [facility] [address] [address] [address] Gino Holt OXY Negative Normal NEGATIVE [facility] Comment on above: Performed By: #### E RUR, PREGU, DRUGRPD #### [facility] [address] [place] [address] Dr. Gino Holt PCP Negative Normal NEGATIVE [facility] Comment on above: Performed By: #### E RUR, PREGU, DRUGRPD #### [facility] [address] [place] [address] Dr. Gino Holt PPX Negative Normal NEGATIVE [facility] Comment on above: Performed By: #### E RUR, PREGU, DRUGRPD #### [facility] [address] [place] [address] Dr. Gino Holt TCA Negative Normal NEGATIVE [facility] Comment on above: Performed By: #### E RUR, PREGU, DRUGRPD #### [facility] [address] [place] [address] Dr. Gino Holt THC Negative Normal NEGATIVE [facility] Comment on above: Performed By: #### E RUR, PREGU, DRUGRPD #### [facility] [address] [place] [address] Dr. Gino Holt ER URINE PROFILEon 3 Bilirubin Ql (U) Negative Normal NEGATIVE [facility] Comment on above: Performed By: #### E RUR, PREGU, DRUGRPD #### [facility] [address] [place] [address] Dr. Gino Holt Clarity (U) CLEAR Normal CLEAR [facility] Comment on above: Performed By: #### E RUR, PREGU, DRUGRPD #### [facility] [address] [address] [address] Gino Holt Color (U) LT. YELLOW Normal YELLOW [facility] Comment on above: Performed By: #### E RUR, PREGU, DRUGRPD #### [facility] [address] [place] [address] Dr. Gino Holt ERUARNIE A micrscopic examination will be performed if indicated. Normal [facility] Comment on above: Performed By: #### E RUR, PREGU, DRUGRPD #### [facility] [address] [address] [address] Gino Holt Glucose Ql (U) Negative Normal NEGATIVE [facility] Comment on above: Performed By: #### E RUR, PREGU, DRUGRPD #### [facility] [address] [place] [address] Dr. Gino Holt Hemoglobin Ql (U) Negative Normal NEGATIVE [facility] Comment on above: Performed By: #### E RUR, PREGU, DRUGRPD #### [facility] [address] [place] [address] Dr. Gino Holt Ketones Ql (U) Negative Normal NEGATIVE [facility] Comment on above: Performed By: #### E RUR, PREGU, DRUGRPD #### [facility] [address] [place] [address] Dr. Gino Holt LEUKOCYTES Negative Normal NEGATIVE [facility] Comment on above: Performed By: #### E RUR, PREGU, DRUGRPD #### [facility] [address] [address] [address] Gino Holt Nitrite Ql (U) Negative Normal NEGATIVE [facility] Comment on above: Performed By: #### E RUR, PREGU, DRUGRPD #### [facility] [address] [address] [address] Gino Holt pH (U) 7.0 [pH] Normal 5-9 [facility] Comment on above: Performed By: #### E RUR, PREGU, DRUGRPD #### [facility] [address] [place] [address] Dr. Gino Holt SPEC GRAVITY 1.010 Normal 1.005-<=1.025 [facility] Comment on above: Performed By: #### E RUR, PREGU, DRUGRPD #### [facility] [address] [place] [address] Dr. Gino Holt UA PROTEIN Negative Normal NEGATIVE/ TRACE [facility] Comment on above: Performed By: #### E RUR, PREGU, DRUGRPD #### [facility] [address] [address] [address] Gino Holt UR MICRO IND NOT INDICATED Normal [facility] Comment on above: Performed By: #### E RUR, PREGU, DRUGRPD #### [facility] [address] [place] [address] Dr. Gino Holt Urobilinogen Qn (U) 0.2 {Phillip'U}/dL Normal 0.2 - 1. 0 [facility] Comment on above: Performed By: #### Snehal RUR, PREGU, DRUGRPD #### [facility] [address] [place] [address] Dr. Gino Holt URon 10-12-2022 , QUAL Negative Normal NEGATIVE [facility] Comment on above: Performed By: #### Snehal RUR, PREGU, DRUGRPD #### [facility] [address] [place] [address] Dr. Gino Holt PROF CHEM 8 (BAS METB)on Anion gap [Moles/Vol] 12.9 mmol/L Normal [facility] Comment on above: Performed By: #### E RUR, PREGU, DRUGRPD #### [facility] [address] [place] [address] Dr. Gino Holt Calcium [Mass/Vol] 8.6 mg/dL Normal 8.5-10.1 [facility] Comment on above: Performed By: #### E RUR, PREGU, DRUGRPD #### [facility] [address] [address] [address] Gino Holt Chloride [Moles/Vol] 106 mmol/L Normal 98-107 [facility] Comment on above: Performed By: #### E RUR, PREGU, DRUGRPD #### [facility] [address] [place] [address] Dr. Gino Holt CO2 [Moles/Vol] 24.0 mmol/L Normal 21.0-32.0 [facility] Comment on above: Performed By: #### E RUR, PREGU, DRUGRPD #### [facility] [address] [place] [address] Dr. Gino Holt Creatinine [Mass/Vol] 0.61 mg/dL Normal 0.55-1.02 [facility] Comment on above: Performed By: #### E RUR, PREGU, DRUGRPD #### [facility] [address] [place] [address] Dr. Gino Holt EGFR-AF [place] >60 Normal >=60 [facility] Comment on above: Performed By: #### E RUR, PREGU, DRUGRPD #### [facility] [address] [place] [address] Dr. Gino Holt EGFR-NON AF [place] >60 Normal >=60 [facility] Comment on above: Performed By: #### Snehal RUR PREGU, DRUGRPD #### [facility] [address] [place] [address] Dr. Gino Holt Glucose [Mass/Vol] 80 mg/dL Normal 74-106 [facility] Comment on above: Performed By: #### E RUR, PREGU, DRUGRPD #### [facility] [address] [place] [address] Dr. Gino Holt Potassium [Moles/Vol] 3.9 mmol/L Normal 3.5-5.1 [facility] Comment on above: Performed By: #### E RUR, PREGU, DRUGRPD #### [facility] [address] [place] [address] Dr. Gino Holt Sodium [Moles/Vol] 139 mmol/L Normal 136-145 [facility] Comment on above: Performed By: #### E RUR, PREGU, DRUGRPD #### [facility] [address] [place] [address] Dr. Gino Holt Urea nitrogen [Mass/Vol] 15.0 mg/dL Normal 7.0-18.0 [facility] Comment on above: Performed By: #### JACOB GUDINO DRUGRPD #### [facility] [address] [place] [address] Dr. Gino Holt Urea nitrogen/Creatinine [Mass ratio] 24.6 mg/mg Normal [facility] Comment on above: Performed By: #### JACOB GUDINO DRUGRPD #### [facility] [address] [place] [address] Dr. Gino Holt XR CHEST 2 Von 10-12-2022 XR CHEST 2 V XR CHEST 2 V 10/13/19 12:48 AM EDT CLINICAL INDICATION: Chest pain COMPARISON: 02/07/2022 TECHNIQUE: PA and lateral views of the chest. FINDINGS: There are no tubes or implants noted. The cardiomediastinal silhouette and pulmonary vasculature are within normal limits. No focal parenchymal opacities. No pneumothorax or pleural effusion. No displaced rib fractures. Osseous structures demonstrate mild degenerative changes. Soft tissues are grossly normal. IMPRESSION: No acute cardiopulmonary abnormality. Electronically authenticated by: DOMINIK JOSHI Date: 2022-10-12 02:46 Normal [facility] CBC AUTO DIFFon 08-24-2022 BASO # 0.0 103/ul Normal 0.0-0.1 [facility] Comment on above: Performed By: #### JACOB GUDINO DRUGRPD #### [facility] [address] [place] [address] Dr. Gino Holt Basophils/100 WBC (Bld) 0.7 % Normal 0.2-2.0 [facility] Comment on above: Performed By: #### JACOB GUDINO DRUGRPD #### [facility] [address] [place] [address] Dr. Gino Holt EO # 0.0 103/ul Normal 0.0-0.7 [facility] Comment on above: Performed By: #### JACOB GUDINO DRUGRPD #### [facility] [address] [place] [address] Dr. Gino Holt Eosinophils/100 WBC (Bld) 0.6 % Critically low 0.9-7.0 [facility] Comment on above: Performed By: #### E RUR, PREGU, DRUGRPD #### [facility] [address] [place] [address] Dr. Gino Holt Erythrocyte distribution width (RBC) [Ratio] 13.2 % Normal 11.0-15.0 [facility] Comment on above: Performed By: #### E RUR, PREGU, DRUGRPD #### [facility] [address] [place] [address] Dr. Gino Holt Hematocrit (Bld) [Volume fraction] 37.5 % Normal 36.0-48.0 [facility] Comment on above: Performed By: #### E RUR, PREGU, DRUGRPD #### [facility] [address] [place] [address] Dr. Gino Holt Hemoglobin (Bld) [Mass/Vol] 12.8 g/dL Normal 12.0-16.0 [facility] Comment on above: Performed By: #### Snehal RUR PREGU, DRUGRPD #### [facility] [address] [place] [address] Dr. Gino Holt IG # 0.02 10e3/ul Normal 0.00-0.03 [facility] Comment on above: Performed By: #### E RUR, PREGU, DRUGRPD #### [facility] [address] [place] [address] Dr. Gino Holt IG % 0.4 % Normal 0.0-0.5 [facility] Comment on above: Performed By: #### E RUR, PREGU, DRUGRPD #### [facility] [address] [place] [address] Dr. Gino Holt LYMPH # 1.7 103/ul Normal 1.2-3.8 [facility] Comment on above: Performed By: #### E RUR, PREGU, DRUGRPD #### [facility] [address] [place], [place] [id number] Dr. Gino Holt Lymphocytes/100 WBC (Bld) 30.6 % Normal 20.5-60.0 [facility] Comment on above: Performed By: #### E RUR, PREGU, DRUGRPD #### [facility] [address] [place] [address] Dr. Gino Holt MANUAL DIFF REQ NO Normal [facility] Comment on above: Performed By: #### E RUR, PREGU, DRUGRPD #### [facility] [address] [place] [address] Dr. Gino Holt MCH (RBC) [Entitic mass] 28.9 pg Normal 26.7-34.0 [facility] Comment on above: Performed By: #### E RUR, PREGU, DRUGRPD #### [facility] [address] [place] [address] Dr. Gino Holt MCHC (RBC) [Mass/Vol] 34.1 g/dL Normal 29.9-35.2 [facility] Comment on above: Performed By: #### E RUR, PREGU, DRUGRPD #### [facility] [address] [place] [address] Dr. Gino Holt MCV (RBC) [Entitic vol] 84.7 fL Normal 81.0-99.0 [facility] Comment on above: Performed By: #### E RUR, PREGU, DRUGRPD #### [facility] [address] [place] [address] Dr. Gino Holt MONO # 0.4 103/ul Normal 0.3-0.8 [facility] Comment on above: Performed By: #### E RUR, PREGU, DRUGRPD #### [facility] [address] [place] [address] Dr. Gino Holt Monocytes/100 WBC (Bld) 7.2 % Normal 1.7-12.0 [facility] Comment on above: Performed By: #### E RUR, PREGU, DRUGRPD #### [facility] [address] [place] [address] Dr. Gino Holt NEUT # 3.3 103/ul Normal 1.4-6.5 [facility] Comment on above: Performed By: #### MERRICK GUDINOU, DRUGRPD #### [facility] [address] [address] [address] Gino Holt Neutrophils/100 WBC (Bld) 60.5 % Normal 43.0-75.0 [facility] Comment on above: Performed By: #### Snehal IBANEZ PREGU, DRUGRPD #### [facility] [address] [address] [address] Gino Holt Platelet mean volume (Bld) [Entitic vol] 8.6 fL Critically low 9.5-13.5 [facility] Comment on above: Performed By: #### MERRICK GUDINOU, DRUGRPD #### [facility] [address] [place] [address] Dr. Gino Holt PLT 301 103/ul Normal 150-450 [facility] Comment on above: Performed By: #### Snehal IBANEZ PREGU, DRUGRPD #### [facility] [address] [place] [address] Dr. Gino Holt RBC 4.43 106/ul Normal 4.20-5.40 [facility] Comment on above: Performed By: #### Snehal IBANEZ PREGU, DRUGRPD #### [facility] [address] [place] [address] Dr. Gino Holt WBC 5.4 103/ul Normal 4.0-11.0 [facility] Comment on above: Performed By: #### Snehal IBANEZ PREGU, DRUGRPD #### [facility] [address] [place] [address] CSPINE WO CONon 3 CT CSPINE WO CON CT CERVICAL SPINE WITHOUT CONTRAST HISTORY: UNSPECIFIED INJURY OF HEAD, INITIAL ENCOUNTER. COMPARISON: None available. TECHNIQUE: Helical CT images were performed of the cervical spine without intravenous contrast. Dose reduction techniques were achieved by using automated exposure control and/or adjustment of mA and/or kV according to patient size and/or use of iterative reconstruction technique. FINDINGS: MINERALIZATION: Normal. No evidence of destructive lesions. CRANIOCERVICAL AND ATLANTOAXIAL ARTICULATIONS: Intact with no traumatic subluxation. VERTEBRAL BODIES: Normal in height with no acute compression fracture. DISC SPACES: Normal. ALIGNMENT: Normal. POSTERIOR ELEMENTS: Intact. ODONTOID PROCESS: Intact. VISUALIZED SKULL BASE: Unremarkable. SPINAL CANAL/NEURAL FORAMEN: No critical osseous spinal canal or neural foraminal stenosis seen. SOFT TISSUES OF THE NECK: Unremarkable. UPPER THORAX: No acute infiltrate or pneumothorax in the lung apices. IMPRESSION: No acute cervical spine fracture or traumatic malalignment. Electronically authenticated by: GAURAV ABDI Date: 2022-08-24 02:53 Normal [facility] CT FACIAL BONES WO CONon CT FACIAL BONES WO CON EXAM: CT FACIAL BONES WO CON HISTORY: UNSPECIFIED INJURY OF FACE, INITIAL ENCOUNTER COMPARISON: None. TECHNIQUE: CT examination of the facial bones without IV contrast. Multiplanar reformats generated. Dose reduction techniques were achieved by using automated exposure control and/or adjustment of mA and/or kV according to patient size and/or use of iterative reconstruction technique. FINDINGS: Facial bones: No evidence of an acute fracture in the visualized facial bones. Orbits: No evidence of an acute fracture. The globes appear intact. The soft tissue planes of the orbits are maintained. No retrobulbar hematoma is seen. Paranasal Sinuses: Mild mucosal thickening of the maxillary sinuses. Soft Tissues: Soft tissue laceration noted over the right forehead. No evidence of radiopaque foreign bodies. Other: None. IMPRESSION: No evidence of acute facial bone fracture. Soft tissue laceration over the right forehead. Electronically authenticated by: GAURAV ABDI Date: 2022-08-24 02:49 Normal [facility] CT HEAD WO CONon 08-24-2022 CT HEAD WO CON EXAMINATION: CT HEAD WO CON HISTORY: UNSPECIFIED INJURY OF HEAD, INITIAL ENCOUNTER COMPARISON: 02/07/2022 TECHNIQUE: CT examination of the head without IV contrast. Multiplanar reformats generated. Dose reduction techniques were achieved by using automated exposure control and/or adjustment of mA and/or kV according to patient size and/or use of iterative reconstruction technique. FINDINGS: Acute Findings: No evidence of acute intracranial hemorrhage, large acute territorial infarct, or suggestion of mass effect. No midline shift. MRI is more sensitive for detecting acute processes such as infarct, and may be considered if clinically warranted. Chronic Changes: None. White matter appears within normal limits for age. Ventricles and sulci: Appear within normal limits. Other: The skull appears grossly intact, without visualized fracture. No significant fluid is seen in the visualized paranasal sinuses. Mastoid air cells are clear. Visualized portions of the orbits show no gross abnormality. Soft tissue laceration noted over the right forehead. IMPRESSION: No CT evidence of an acute intracranial abnormality. Soft tissue laceration noted over the right forehead. Electronically authenticated by: GAURAV ABDI Date: 2022-08-24 02:43 Normal [facility] ETHANOL (BLD ALC)on 08-24-19 23 ALC NOTE NOTE: 80 mg/dl is th e legal limit for a blood alcohol level Normal [facility] Comment on above: Performed By: #### E JACOB IBANEZ, DRUGRPD #### [facility] [address] [place] [address] Dr. Gino Holt Ethanol [Mass/Vol] 271 mg/dL Normal [facility] Comment on above: Performed By: #### E JACOB IBANEZ DRUGRPD #### [facility] [address] [place] [address] Dr. Gino Holt URon 08-24-2022 , QUAL Negative Normal NEGATIVE [facility] Comment on above: Performed By: #### P REGU #### [facility] [address] [place] [address] Dr. Gino Holt PROF 14(COMP METB)on 023 Albumin [Mass/Vol] 4.1 g/dL Normal 3.4-5.0 [facility] Comment on above: Performed By: #### C MP #### [facility] [address] [place] [address] Dr. Gino Holt Albumin/Globulin [Mass ratio] 1.0 {ratio} Normal [facility] Comment on above: Performed By: #### C MP #### [facility] [address] [place] [address] Dr. Gino Holt ALP [Catalytic activity/Vol] 100 U/L Normal 46-116 [facility] Comment on above: Performed By: #### C MP #### [facility] [address] [address] [address] Gino Holt ALT [Catalytic activity/Vol] 29 U/L Normal 14-59 [facility] Comment on above: Performed By: #### C MP #### [facility] [address] [address] [address] Gino Holt Anion gap [Moles/Vol] 13.3 mmol/L Normal [facility] Comment on above: Performed By: #### C MP #### [facility] [address] [address] [address] Gino Holt AST [Catalytic activity/Vol] 22 U/L Normal 15-37 [facility] Comment on above: Performed By: #### C MP #### [facility] [address] [place] [address] Dr. Gino Holt Bilirubin [Mass/Vol] 0.1 mg/dL Critically low 0.2-1.0 [facility] Comment on above: Performed By: #### C MP #### [facility] [address] [address] [address] Gino Holt Calcium [Mass/Vol] 9.0 mg/dL Normal 8.5-10.1 [facility] Comment on above: Performed By: #### C MP #### [facility] [address] [address] [address] Gino Holt Chloride [Moles/Vol] 111 mmol/L Critically high 98-107 [facility] Comment on above: Performed By: #### C MP #### [facility] [address] [address] [address] Gino Holt CO2 [Moles/Vol] 26.5 mmol/L Normal 21.0-32.0 [facility] Comment on above: Performed By: #### C MP #### [facility] [address] [address] [address] Gino Holt Creatinine [Mass/Vol] 0.65 mg/dL Normal 0.55-1.02 [facility] Comment on above: Performed By: #### C MP #### [facility] [address] [address] [address] Gino Holt EGFR-AF [place]ORE[place] >60 Normal >=60 [facility] Comment on above: Performed By: #### C MP #### [facility] [address] [place] [address] Dr. Gino Holt EGFR-NON AF [place] >60 Normal >=60 [facility] Comment on above: Performed By: #### C MP #### [facility] [facility] [address] [address] [address] Gino Holt Globulin (S) [Mass/Vol] 4.1 g/dL Normal [facility] Comment on above: Performed By: #### C MP #### [facility] [address] [place] [address] Dr. Gino Holt Glucose [Mass/Vol] 95 mg/dL Normal 74-106 [facility] Comment on above: Performed By: #### C MP #### [facility] [address] [place] [address] Dr. Gino Holt Potassium [Moles/Vol] 4.8 mmol/L Normal 3.5-5.1 [facility] Comment on above: Performed By: #### C MP #### [facility] [address] [place] [address] Dr. Gino Holt Protein [Mass/Vol] 8.2 g/dL Normal 6.4-8.2 [facility] Comment on above: Performed By: #### C MP #### [facility] [address] [place] [address] Dr. Gino Holt Sodium [Moles/Vol] 146 mmol/L Critically high 136-145 [facility] Comment on above: Performed By: #### C MP #### [facility] [address] [place] [address] Dr. Gino Holt Urea nitrogen [Mass/Vol] 11.0 mg/dL Normal 7.0-18.0 [facility] Comment on above: Performed By: #### C MP #### [facility] [address] [place] [address] Dr. Gino Holt Urea nitrogen/Creatinine [Mass ratio] 16.9 mg/mg Normal [facility] Comment on above: Performed By: #### C MP #### [facility] [address] [address] [address] Gino Holt XR KNEE RT 4V or >on 023 XR KNEE RT 4V or > EXAM: XR KNEE RT 4V or > HISTORY: Pain COMPARISON: None. TECHNIQUE: 4 views of the knee. FINDINGS: No evidence of fracture or significant malalignment. Joint spaces are maintained. Soft tissues are unremarkable. No sizable knee joint effusion suggested. No radiopaque foreign body is seen. IMPRESSION: No evidence of acute fracture or dislocation. Electronically authenticated by: GAURAV ABDI Date: 2022-08-24 03:02 Normal [facility] CBC AUTO DIFFon 02-07-2022 BASO # 0.1 103/ul Normal 0.0-0.1 [facility] Comment on above: Performed By: #### C BC #### [facility] [address] [place] [address] Dr. Gino Holt Basophils/100 WBC (Bld) 0.6 % Normal 0.2-2.0 [facility] Comment on above: Performed By: #### C BC #### [facility] [address] [place] [address] Dr. Gino Holt EO # 0.1 103/ul Normal 0.0-0.7 [facility] Comment on above: Performed By: #### C BC #### [facility] [address] [address] [address] Gino Holt Eosinophils/100 WBC (Bld) 0.7 % Critically low 0.9-7.0 [facility] Comment on above: Performed By: #### C BC #### [facility] [address] [place] [address] Dr. Gino Holt Erythrocyte distribution width (RBC) [Ratio] 12.8 % Normal 11.0-15.0 [facility] Comment on above: Performed By: #### C BC #### [facility] [address] [place] [address] Dr. Gino Holt Hematocrit (Bld) [Volume fraction] 38.9 % Normal 36.0-48.0 [facility] Comment on above: Performed By: #### C BC #### [facility] [address] [place] [address] Dr. Gino Holt Hemoglobin (Bld) [Mass/Vol] 12.7 g/dL Normal 12.0-16.0 [facility] Comment on above: Performed By: #### C BC #### [facility] [address] [place] [address] Dr. Gino Holt IG # 0.01 10e3/ul Normal 0.00-0.03 [facility] Comment on above: Performed By: #### C BC #### [facility] [address] [place] [address] Dr. Gino Holt IG % 0.1 % Normal 0.0-0.5 [facility] Comment on above: Performed By: #### C BC #### [facility] [address] [place] [address] Dr. Gino Holt LYMPH # 2.7 103/ul Normal 1.2-3.8 [facility] Comment on above: Performed By: #### C BC #### [facility] [address] [place] [address] Dr. Gino Holt Lymphocytes/100 WBC (Bld) 33.2 % Normal 20.5-60.0 [facility] Comment on above: Performed By: #### C BC #### [facility] [address] [place] [address] Dr. Gino Holt MANUAL DIFF REQ NO Normal [facility] Comment on above: Performed By: #### C BC #### [facility] [address] [place] [address] Dr. Gino Holt MCH (RBC) [Entitic mass] 29.3 pg Normal 26.7-34.0 [facility] Comment on above: Performed By: #### C BC #### [facility] [address] [place] [address] Dr. Gino Holt MCHC (RBC) [Mass/Vol] 32.6 g/dL Normal 29.9-35.2 [facility] Comment on above: Performed By: #### C BC #### [facility] [address] [address] [address] Gino Holt MCV (RBC) [Entitic vol] 89.8 fL Normal 81.0-99.0 [facility] Comment on above: Performed By: #### C BC #### [facility] [address] [address] [address] Gino Holt MONO # 0.7 103/ul Normal 0.3-0.8 [facility] Comment on above: Performed By: #### C BC #### [facility] [address] [address] [address] Gino Holt Monocytes/100 WBC (Bld) 8.4 % Normal 1.7-12.0 [facility] Comment on above: Performed By: #### C BC #### [facility] [address] [address] [address] Gino Holt NEUT # 4.7 103/ul Normal 1.4-6.5 [facility] Comment on above: Performed By: #### C BC #### [facility] [address] [address] [address] Gino Holt Neutrophils/100 WBC (Bld) 57.0 % Normal 43.0-75.0 [facility] Comment on above: Performed By: #### C BC #### [facility] [address] [address] [address] Gino Holt Platelet mean volume (Bld) [Entitic vol] 8.9 fL Critically low 9.5-13.5 [facility] Comment on above: Performed By: #### C BC #### [facility] [address] [address] [address] Gino Holt PLT 305 103/ul Normal 150-450 [facility] Comment on above: Performed By: #### C BC #### [facility] [address] [address] [address] Gino Holt RBC 4.33 106/ul Normal 4.20-5.40 [facility] Comment on above: Performed By: #### C BC #### [facility] [address] [address] [address] Gino Holt WBC 8.2 103/ul Normal 4.0-11.0 [facility] Comment on above: Performed By: #### C BC #### [facility] [id number] Gino Holt CRPon 02-07-2022 CRP 0.3 mg/dL Normal <=1.0 [facility] Comment on above: Performed By: #### H STROPN, CRP, CMP #### [facility] [address] [address] HEAD WO CONon 02-07-2022 CT HEAD WO CON EXAMINATION: CT HEAD WO CON HISTORY: WEAKNESS COMPARISON: None. TECHNIQUE: CT examination of the head without IV contrast. Dose reduction techniques were achieved by using automated exposure control and/or adjustment of mA and/or kV according to patient size and/or use of iterative reconstruction technique. FINDINGS: The structures of the posterior fossa and supratentorial space are developmentally normal. Lomeli/white matter differentiation is preserved throughout. No evident skull fracture, hemorrhage or acute ischemia. No midline shift or mass. Normal size of the ventricles and sulci for age. Normal orbits. Pneumatized portions of the skull are clear. IMPRESSION: No acute intracranial abnormality. Electronically authenticated by: ROSA VALENTINE Date: 2022-02-07 05:17 Normal [facility] D-DIMERon 02-07-2022 D-DIMER 0.44 mg/L FEU Normal <=0.59 [facility] Comment on above: Performed By: #### E RUR, PREGU, DRUGRPD #### [facility] [address] [address] [address] Gino Holt D-DIMER COMMENTS SEE BELOW Normal [facility] Comment on above: Result Comment: Incr eases in D-Dimer concentration observed with thromboembolic events can be variable due to localization, size, and age of the thrombus. Therefore, a thromboembolic event cannot be diagnosed with certainty on the basis of the reference range. D-Dimers may also be elevated for a variety of disorders including: advanced age, , coronary disease, cancer, liver disease, infection, inflammation, hematoma, DIC, trauma, post-surgery, diabetes, thrombolytic or anticoagulant therapy, stress, and generalized hospitalization. Performed By: #### E RUR, PREGU, DRUGRPD #### [facility] [address] [place] [address] Dr. Gino Holt PREG HCG QUALon 02-07-2022 , QUAL Negative Normal NEGATIVE [facility] Comment on above: Performed By: #### P REG #### [facility] [address] [place] [address] Dr. Gino Holt PROF 14(COMP METB)on 022 Albumin [Mass/Vol] 3.9 g/dL Normal 3.4-5.0 [facility] Comment on above: Performed By: #### H STROPN, CRP, CMP #### [facility] [address] [place] [address] Dr. Gino Holt Albumin/Globulin [Mass ratio] 0.9 {ratio} Normal [facility] Comment on above: Performed By: #### H STROPN, CRP, CMP #### [facility] [address] [place] [address] Dr. Gino Holt ALP [Catalytic activity/Vol] 84 U/L Normal 46-116 [facility] Comment on above: Performed By: #### H STROPN, CRP, CMP #### [facility] [address] [place] [address] Dr. Gino Holt ALT [Catalytic activity/Vol] 20 U/L Normal 14-59 [facility] Comment on above: Performed By: #### H STROPN, CRP, CMP #### [facility] [address] [place] [address] Dr. Gino Holt Anion gap [Moles/Vol] 14.6 mmol/L Normal [facility] Comment on above: Performed By: #### H STROPN, CRP, CMP #### [facility] [address] [place] [address] Dr. Gino Holt AST [Catalytic activity/Vol] 10 U/L Critically low 15-37 [facility] Comment on above: Performed By: #### H STROPN, CRP, CMP #### [facility] [address] [address] [address] Gino Holt Bilirubin [Mass/Vol] 0.3 mg/dL Normal 0.2-1.0 [facility] Comment on above: Performed By: #### H STROPN, CRP, CMP #### [facility] [address] [address] [address] Gino Holt Calcium [Mass/Vol] 8.6 mg/dL Normal 8.5-10.1 [facility] Comment on above: Performed By: #### H STROPN, CRP, CMP #### [facility] [address] [address] [address] Gino Holt Chloride [Moles/Vol] 106 mmol/L Normal 98-107 [facility] Comment on above: Performed By: #### H STROPN, CRP, CMP #### [facility] [address] [address] [address] Gino Holt CO2 [Moles/Vol] 24.8 mmol/L Normal 21.0-32.0 [facility] Comment on above: Performed By: #### H STROPN, CRP, CMP #### [facility] [address] [address] [address] Gino Holt Creatinine [Mass/Vol] 0.83 mg/dL Normal 0.55-1.02 [facility] Comment on above: Performed By: #### H STROPN, CRP, CMP #### [facility] [address] [address] [address] Gino Holt EGFR-AF [place] >60 Normal >=60 [facility] Comment on above: Performed By: #### H STROPN, CRP, CMP #### [facility] [address] [address] [address] Gino Holt EGFR-NON AF [place] >60 Normal >=60 [facility] Comment on above: Performed By: #### H STROPN, CRP, CMP #### [facility] [address] [address] [address] Gino Holt Globulin (S) [Mass/Vol] 4.2 g/dL Normal [facility] Comment on above: Performed By: #### H STROPN, CRP, CMP #### [facility] [address] [address] [address] Gino Holt Glucose [Mass/Vol] 105 mg/dL Normal 74-106 [facility] Comment on above: Performed By: #### H STROPN, CRP, CMP #### [facility] [address] [address] [address] Gino Holt Potassium [Moles/Vol] 3.4 mmol/L Critically low 3.5-5.1 [facility] Comment on above: Performed By: #### H STROPN, CRP, CMP #### [facility] [address] [address] [address] Gino Holt Protein [Mass/Vol] 8.1 g/dL Normal 6.4-8.2 [facility] Comment on above: Performed By: #### H STROPN, CRP, CMP #### [facility] [address] [address] [address] Gino Holt Sodium [Moles/Vol] 142 mmol/L Normal 136-145 [facility] Comment on above: Performed By: #### H STROPN, CRP, CMP #### [facility] [address] [address] [address] Gino Holt Urea nitrogen [Mass/Vol] 15.0 mg/dL Normal 7.0-18.0 [facility] Comment on above: Performed By: #### H STROPN, CRP, CMP #### [facility] [address] [address] [address] Gino Holt Urea nitrogen/Creatinine [Mass ratio] 18.1 mg/mg Normal [facility] Comment on above: Performed By: #### H STROPN, CRP, CMP #### [facility] [address] [address] [address] Gino Holt TROPONIN, HIGH SENSITIVITYon 02-07-2022 HSTROP 4.6 pg/mL Normal 4.0-51.3 [facility] Comment on above: Result Comment: CUT- OFF POINTS HAVE BEEN ESTABLISHED BASED ON THE FOURTH UNIVERSAL DEFINITIONS OF MYOCARDIAL INFARCTION. THE UPPER REFERENCE LIMIT (URL) OF TROPONIN, DEFINED THE 99TH PERCENTILE OF cTnI DISTRIBUTION IN A REFERENCE POPULATION, HAS BEEN CONFIRMED THE DECISION THRESHOLD FOR MD DIAGNOSIS. Performed By: #### H STROPN, CRP, CMP #### [facility] [address] [place] [address] Dr. Gino Holt XR CHEST 1 Von 02-07-2022 XR CHEST 1 V XR CHEST 1 V 02/07/2022 4:44 AM EDT Indication: CHEST PAIN, UNSPECIFIED Technique: Portable AP radiograph of the chest was obtained. Comparison: None. Findings: The lungs are adequately inflated. No acute rib fractures, pneumothorax or mediastinal shift. No consolidation, edema, or effusion. Heart is normal in size and contour. Impression: No acute findings. Electronically authenticated by: ROAS VALENTINE Date: 2022-02-07 05:18 Normal [facility] CBC AUTO DIFFon 11-26-2021 BASO # 0.0 103/ul Normal 0.0-0.1 [facility] Comment on above: Performed By: #### E RUR PREGU, DRUGRPD #### [facility] [address] [place] [address] Dr. Gino Holt Basophils/100 WBC (Bld) 0.4 % Normal 0.2-2.0 [facility] Comment on above: Performed By: #### E RUR PREGU, DRUGRPD #### [facility] [address] [place] [address] Dr. Gino Holt EO # 0.1 103/ul Normal 0.0-0.7 [facility] Comment on above: Performed By: #### E RUR, PREGU, DRUGRPD #### [facility] [address] [place] [address] Dr. Gino Holt Eosinophils/100 WBC (Bld) 1.1 % Normal 0.9-7.0 [facility] Comment on above: Performed By: #### E RUR, PREGU, DRUGRPD #### [facility] [address] [place] [address] Dr. Gino Holt Erythrocyte distribution width (RBC) [Ratio] 12.5 % Normal 11.0-15.0 [facility] Comment on above: Performed By: #### E RUR, PREGU, DRUGRPD #### [facility] [address] [place] [address] Dr. Gino Holt Hematocrit (Bld) [Volume fraction] 40.9 % Normal 36.0-48.0 [facility] Comment on above: Performed By: #### E RUR, PREGU, DRUGRPD #### [facility] [address] [place] [address] Dr. Gino Holt Hemoglobin (Bld) [Mass/Vol] 13.3 g/dL Normal 12.0-16.0 [facility] Comment on above: Performed By: #### E RUR, PREGU, DRUGRPD #### [facility] [address] [place] [address] Dr. Gino Holt IG # 0.01 10e3/ul Normal 0.00-0.03 [facility] Comment on above: Performed By: #### E RUR, PREGU, DRUGRPD #### [facility] [address] [place] [address] Dr. Gino Holt IG % 0.2 % Normal 0.0-0.5 [facility] Comment on above: Performed By: #### E RUR, PREGU, DRUGRPD #### [facility] [address] [place] [address] Dr. Gino Holt LYMPH # 1.5 103/ul Normal 1.2-3.8 [facility] Comment on above: Performed By: #### E RUR, PREGU, DRUGRPD #### [facility] [address] [place] [address] Dr. Gino Holt Lymphocytes/100 WBC (Bld) 32.1 % Normal 20.5-60.0 [facility] Comment on above: Performed By: #### E RUR, PREGU, DRUGRPD #### [facility] [address] [place] [address] Dr. Gino Holt MANUAL DIFF REQ NO Normal [facility] Comment on above: Performed By: #### E RUR, PREGU, DRUGRPD #### [facility] [address] [place] [address] Dr. Gino Hotl MCH (RBC) [Entitic mass] 29.8 pg Normal 26.7-34.0 [facility] Comment on above: Performed By: #### E RUR, PREGU, DRUGRPD #### [facility] [address] [place] [address] Dr. Gino Holt MCHC (RBC) [Mass/Vol] 32.5 g/dL Normal 29.9-35.2 [facility] Comment on above: Performed By: #### E RUR, PREGU, DRUGRPD #### [facility] [address] [place] [address] Dr. Gino Holt MCV (RBC) [Entitic vol] 91.7 fL Normal 81.0-99.0 [facility] Comment on above: Performed By: #### E RUR, PREGU, DRUGRPD #### [facility] [address] [place] [address] Dr. Gino Holt MONO # 0.5 103/ul Normal 0.3-0.8 [facility] Comment on above: Performed By: #### E RUR, PREGU, DRUGRPD #### [facility] [address] [place] [address] Dr. Gino Holt Monocytes/100 WBC (Bld) 9.7 % Normal 1.7-12.0 [facility] Comment on above: Performed By: #### E RUR, PREGU, DRUGRPD #### [facility] [address] [place] [address] Dr. Gino Holt NEUT # 2.7 103/ul Normal 1.4-6.5 [facility] Comment on above: Performed By: #### E RUR, PREGU, DRUGRPD #### [facility] [address] [place] [address] Dr. Gino Holt Neutrophils/100 WBC (Bld) 56.5 % Normal 43.0-75.0 [facility] Comment on above: Performed By: #### E RUR, PREGU, DRUGRPD #### [facility] [address] [place] [address] Dr. Gino Holt Platelet mean volume (Bld) [Entitic vol] 9.9 fL Normal 9.5-13.5 [facility] Comment on above: Performed By: #### E RUR, PREGU, DRUGRPD #### [facility] [address] [place] [address] Dr. Gino Holt PLT 243 103/ul Normal 150-450 [facility] Comment on above: Performed By: #### E RUR, PREGU, DRUGRPD #### [facility] [address] [place] [address] Dr. Gino Holt RBC 4.46 106/ul Normal 4.20-5.40 [facility] Comment on above: Performed By: #### E RUR, PREGU, DRUGRPD #### [facility] [address] [place] [address] Dr. Gino Holt WBC 4.7 103/ul Normal 4.0-11.0 [facility] Comment on above: Performed By: #### Snehal RUR, PREGU, DRUGRPD #### [facility] [address] [place] [address] Dr. Gino Holt CULTURE URINEon 11-26-2021 CULTURE URINE Culture Observations : LIGHT GROWTH OF MIXED GENITAL KLAUDIA. NO POTENTIAL PATHOGENS SEEN. Normal [facility] Comment on above: Performed By: #### E RUR, PREGU, DRUGRPD #### [facility] [address] [place] [address] Dr. Gino Holt ER URINE PROFILEon 2 Bilirubin Ql (U) Negative Normal NEGATIVE [facility] Comment on above: Performed By: #### E RUR, PREGU, DRUGRPD #### [facility] [address] [place] [address] Dr. Gino Holt Clarity (U) CLEAR Normal CLEAR [facility] Comment on above: Performed By: #### E RUR, PREGU, DRUGRPD #### [facility] [address] [place] [address] Dr. Gino Holt Color (U) LT. YELLOW Normal YELLOW [facility] Comment on above: Performed By: #### E RUR, PREGU, DRUGRPD #### [facility] [address] [address] [address] Gino Holt ERUARNIE A micrscopic examination will be performed if indicated. Normal [facility] Comment on above: Performed By: #### E RUR, PREGU, DRUGRPD #### [facility] [address] [address] [address] Gino Holt Glucose Ql (U) Negative Normal NEGATIVE [facility] Comment on above: Performed By: #### E RUR, PREGU, DRUGRPD #### [facility] [address] [address] [address] Gino Holt Hemoglobin Ql (U) Negative Normal NEGATIVE [facility] Comment on above: Performed By: #### E RUR, PREGU, DRUGRPD #### [facility] [address] [address] [address] Gino Holt Ketones Ql (U) Negative Normal NEGATIVE [facility] Comment on above: Performed By: #### E RUR, PREGU, DRUGRPD #### [facility] [address] [address] [address] Gino Holt LEUKOCYTES TRACE Abnormal NEGATIVE [facility] Comment on above: Performed By: #### E RUR, PREGU, DRUGRPD #### [facility] [address] [address] [address] Gino Holt Nitrite Ql (U) Negative Normal NEGATIVE [facility] Comment on above: Performed By: #### E RUR, PREGU, DRUGRPD #### [facility] [address] [address] [address] Gino Holt pH (U) 7.0 [pH] Normal 5-9 [facility] Comment on above: Performed By: #### E RUR, PREGU, DRUGRPD #### [facility] [address] [address] [address] Gino Holt SPEC GRAVITY 1.010 Normal 1.005-<=1.025 [facility] Comment on above: Performed By: #### E RUR, PREGU, DRUGRPD #### [facility] [address] [place] [address] Dr. Gino Holt UA PROTEIN Negative Normal NEGATIVE/ TRACE [facility] Comment on above: Performed By: #### E RUR, PREGU, DRUGRPD #### [facility] [address] [place] [address] Dr. Gino Holt UR MICRO IND INDICATED Normal [facility] Comment on above: Performed By: #### E RUR, PREGU, DRUGRPD #### [facility] [address] [place] [address] Dr. Gino Holt Urobilinogen Qn (U) 0.2 {Phillip'U}/dL Normal 0.2 - 1. 0 [facility] Comment on above: Performed By: #### E RUR, PREGU, DRUGRPD #### [facility] [address] [place] [address] Dr. Gino Holt LIPASEon 11-26-2021 Lipase [Catalytic activity/Vol] 80.0 U/L Normal 73.0-393.0 [facility] Comment on above: Performed By: #### E RUR, PREGU, DRUGRPD #### [facility] [facility] [address] [place] [address] Dr. Gino Holt URon 11-26-2021 , QUAL Negative Normal NEGATIVE [facility] Comment on above: Performed By: #### E RUR, PREGU, DRUGRPD #### [facility] [address] [place] [address] Dr. Gino Holt PROF 14(COMP METB)on 022 Albumin [Mass/Vol] 4.0 g/dL Normal 3.4-5.0 [facility] Comment on above: Performed By: #### E RUR, PREGU, DRUGRPD #### [facility] [address] [place] [address] Dr. Gino Holt Albumin/Globulin [Mass ratio] 1.0 {ratio} Normal [facility] Comment on above: Performed By: #### E RUR, PREGU, DRUGRPD #### [facility] [address] [place] [address] Dr. Gino Holt ALP [Catalytic activity/Vol] 105 U/L Normal 46-116 [facility] Comment on above: Performed By: #### E RUR, PREGU, DRUGRPD #### [facility] [address] [place] [address] Dr. Gino Holt ALT [Catalytic activity/Vol] 26 U/L Normal 14-59 [facility] Comment on above: Performed By: #### E RUR, PREGU, DRUGRPD #### [facility] [address] [place] [address] Dr. Gino Holt Anion gap [Moles/Vol] 12.2 mmol/L Normal [facility] Comment on above: Performed By: #### E RUR, PREGU, DRUGRPD #### [facility] [address] [place] [address] Dr. Gino Holt AST [Catalytic activity/Vol] 16 U/L Normal 15-37 [facility] Comment on above: Performed By: #### E RUR, PREGU, DRUGRPD #### [facility] [address] [place] [address] Dr. Gino Holt Bilirubin [Mass/Vol] 0.5 mg/dL Normal 0.2-1.0 [facility] Comment on above: Performed By: #### E RUR, PREGU, DRUGRPD #### [facility] [address] [place] [address] Dr. Gino Holt Calcium [Mass/Vol] 8.3 mg/dL Critically low 8.5-10.1 [facility] Comment on above: Performed By: #### E RUR, PREGU, DRUGRPD #### [facility] [address] [place] [address] Dr. Gino Holt Chloride [Moles/Vol] 105 mmol/L Normal 98-107 [facility] Comment on above: Performed By: #### E RUR, PREGU, DRUGRPD #### [facility] [address] [address] [address] Gino Holt CO2 [Moles/Vol] 23.6 mmol/L Normal 21.0-32.0 [facility] Comment on above: Performed By: #### E RUR, PREGU, DRUGRPD #### [facility] [address] [address] [address] Gino Holt Creatinine [Mass/Vol] 0.85 mg/dL Normal 0.55-1.02 [facility] Comment on above: Performed By: #### E RUR, PREGU, DRUGRPD #### [facility] [address] [address] [address] Gino Holt EGFR-AF [place]OUTH [place]OREAN >60 Normal >=60 [facility] Comment on above: Performed By: #### E RUR, PREGU, DRUGRPD #### [facility] [address] [place] [address] Dr. Gino Holt EGFR-NON AF [place]ORE[place] >60 Normal >=60 [facility] Comment on above: Performed By: #### E RUR, PREGU, DRUGRPD #### [facility] [address] [address] [address] Gino Holt Globulin (S) [Mass/Vol] 4.1 g/dL Normal [facility] Comment on above: Performed By: #### E RUR, PREGU, DRUGRPD #### [facility] [address] [place] [address] Dr. Gino Holt Glucose [Mass/Vol] 84 mg/dL Normal 74-106 [facility] Comment on above: Performed By: #### E RUR, PREGU, DRUGRPD #### [facility] [address] [address] [address] Gino Holt Potassium [Moles/Vol] 3.8 mmol/L Normal 3.5-5.1 [facility] Comment on above: Performed By: #### E RUR, PREGU, DRUGRPD #### [facility] [address] [address] [address] Gino Holt Protein [Mass/Vol] 8.1 g/dL Normal 6.1-8.2 [facility] Comment on above: Performed By: #### E RUR PREGU, DRUGRPD #### [facility] [address] [place] [address] Dr. Gino Holt Sodium [Moles/Vol] 137 mmol/L Normal 136-145 [facility] Comment on above: Performed By: #### E RUR PREGU, DRUGRPD #### [facility] [address] [place] [address] Dr. Gino Holt Urea nitrogen [Mass/Vol] 10.0 mg/dL Normal 7.0-18.0 [facility] Comment on above: Performed By: #### Snehal IBANEZ PREGU, DRUGRPD #### [facility] [address] [place] [address] Dr. Gino Holt Urea nitrogen/Creatinine [Mass ratio] 11.8 mg/mg Normal [facility] Comment on above: Performed By: #### E RUR PREGU, DRUGRPD #### [facility] [address] [place] [address] Dr. Gino Holt URINE MICROSCOPIC ONLYon BACTERIA SMALL Abnormal NONE SEEN [facility] Comment on above: Performed By: #### Snehal RUR, PREGU, DRUGRPD #### [facility] [address] [place] [address] Dr. Gino Holt Bacteria identified Cx Nom (U) INDICATED Normal [facility] Comment on above: Performed By: #### E RUR, PREGU, DRUGRPD #### [facility] [address] [place] [address] Dr. Gino Holt CAST NONE SEEN Normal NONE SEEN [facility] Comment on above: Performed By: #### E RUR, PREGU, DRUGRPD #### [facility] [address] [place] [address] Dr. Gino Holt Crystals LM Nom (Urine sed) NONE SEEN Normal NONE SEEN [facility] Comment on above: Performed By: #### E RUR, PREGU, DRUGRPD #### [facility] [address] [place] [address] Dr. Gino Holt Epithelial cells LM Ql (Urine sed) FEW Abnormal NONE SEEN /RARE [facility] Comment on above: Performed By: #### E RUR, PREGU, DRUGRPD #### [facility] [address] [address] [address] Gino Holt MUCOUS MODERATE Abnormal NONE SEEN [facility] Comment on above: Performed By: #### E RUR, PREGU, DRUGRPD #### [facility] [address] [address] [address] Gino Holt RBC NONE SEEN Abnormal 0-2 [facility] Comment on above: Performed By: #### E RUR, PREGU, DRUGRPD #### [facility] [address] [address] [address] Gino Holt WBC 2-5 Abnormal NONE SEEN [facility] Comment on above: Performed By: #### E RUR, PREGU, DRUGRPD #### [facility] [address] [address] [address] Gino Holt XR KUB 1 VIEWon 11-26-2021 XR KUB 1 VIEW EXAM: XR KUB 1 VIEW HISTORY: Pain COMPARISON: None. TECHNIQUE: 2 views FINDINGS: The bowel gas pattern is nonobstructed. No free intraperitoneal air. No intra-abdominal calcification. The osseous structures are normal IMPRESSION: Normal x-ray Electronically authenticated by: ROBBY FORBES Date: 2021-11-26 15:50 Normal [facility] Vital Signs Date Time Vital Sign Value Performing Clinician Faci lity 05-18-2024 11:44-0400 Body mass index (BMI) [Ratio] 32.54 kg/m2 Dillon Silva MD Work Phone: [facility] 05-18-2024 11:44-0400 Body temperature 97.5 [degF] Dillon Silva MD Work Phone: [facility] 05-18-2024 11:44-0400 Body weight 97.07 kg Dillon Silva MD Work Phone: [facility] 05-18-2024 11:44-0400 Diastolic blood pressure 70 mm[Hg] Dillon Silva MD Work Phone: [facility] 05-18-2024 11:44-0400 Heart rate 78 /min Dillon Silva MD Work Phone: [facility] 05-18-2024 11:44-0400 SaO2% (BldA) [Mass fraction] 99 % Dillon Silva MD Work Phone: [facility] 05-18-2024 11:44-0400 Systolic blood pressure 118 mm[Hg] Dillon Silva MD Work Phone: [facility] 04-21-2024 09:35-0400 Body height 172.7 cm Dillon Silva MD Work Phone: [facility] 04-21-2024 09:35-0400 Body mass index (BMI) [Ratio] 32.39 kg/m2 Dillon Silva MD Work Phone: [facility] 04-21-2024 09:35-0400 Body temperature 97.5 [degF] Dillon Silva MD Work Phone: [facility] 04-21-2024 09:35-0400 Body weight 96.62 kg Dillon Silva MD Work Phone: [facility] 04-21-2024 09:35-0400 Diastolic blood pressure 58 mm[Hg] Dillon Silva MD Work Phone: [facility] 04-21-2024 09:35-0400 Heart rate 79 /min Dillon Silva MD Work Phone: [facility] 04-21-2024 09:35-0400 Respiratory rate 20 /min Dillon Silva MD Work Phone: [facility] 04-21-2024 09:35-0400 SaO2% (BldA) [Mass fraction] 99 % Dillon Silva MD Work Phone: [facility] 04-21-2024 09:35-0400 Systolic blood pressure 104 mm[Hg] Dillon Silva MD Work Phone: [facility] 03-25-2024 14:37-0400 Body height 172.7 cm Dillon Silva MD Work Phone: [facility] 03-25-2024 14:37-0400 Body mass index (BMI) [Ratio] 32.69 kg/m2 Dillon Silva MD Work Phone: [facility] 03-25-2024 14:37-0400 Body temperature 97.81 [degF] Dillon Silva MD Work Phone: [facility] 03-25-2024 14:37-0400 Body weight 97.52 kg Dillon Silva MD Work Phone: [facility] 03-25-2024 14:37-0400 Diastolic blood pressure 78 mm[Hg] Dillon Silva MD Work Phone: [facility] 03-25-2024 14:37-0400 Heart rate 95 /min Dillon Silva MD Work Phone: [facility] 03-25-2024 14:37-0400 Respiratory rate 22 /min Dillon Silva MD Work Phone: [facility] 03-25-2024 14:37-0400 SaO2% (BldA) [Mass fraction] 98 % Dillon Silva MD Work Phone: [facility] 03-25-2024 14:37-0400 Systolic blood pressure 138 mm[Hg] Dillon Silva MD Work Phone: [facility] Encounters Encounter Date Encounter Type Care Provider Facility Start: 08-10-2024 End: 08-13-2024 Clinisync Result Encounter Generic External Data Provider [facility] Unsolicited Start: 08-10-2024 End: 08-13-2024 Clinisync Result Encounter Generic External Data Provider [facility] Unsolicited Start: 06-16-2024 End: 06-16-2024 Refill Dillon Silva MD Work Phone: [facility] Comment on above: Generalized anxiety disorder (CMS/HCC) Start: 05-18-2024 End: 05-18-2024 Bamboo flowsheet Dillon Silva MD Work Phone: [facility] Start: 05-18-2024 End: 05-18-2024 Bamboo flowsheet Dillon Silva MD Work Phone: [facility] Start: 05-18-2024 End: 05-18-2024 Office outpatient visit 25 minutes Dillon Silva MD Work Phone: [facility] Comment on above: Palpitation (Primary Dx); Generalized anxiety disorder (CMS/HCC); Moderate major depression, single episode (HCC) (CMS/HCC); Migraine without aura and without status migrainosus, not intractable (CMS/HCC) Start: 05-18-2024 End: 05-18-2024 ambulatory DILLON SILVA Not Available Start: 05-04-2024 End: 05-04-2024 External Result Encounter Dillon Silva MD Work Phone: [facility] Unsolicited Start: 05-04-2024 End: 05-04-2024 External Result Encounter Dillon Silva MD Work Phone: [facility] Unsolicited Start: 05-04-2024 End: 05-04-2024 ambulatory [facility] Start: 05-04-2024 End: 05-04-2024 ambulatory [facility] Start: 05-04-2024 End: 05-04-2024 ambulatory DILLON SILVA [facility] Comment on above: Palpitation (Primary Dx) Start: 04-21-2024 End: 04-21-2024 Bamboo flowsheet Dillon Silva MD Work Phone: [facility] Start: 04-21-2024 End: 04-21-2024 Bamboo flowsheet Dillon Silva MD Work Phone: [facility] Start: 04-21-2024 End: 04-21-2024 Office outpatient visit 25 minutes Dillon Silva MD Work Phone: [facility] Comment on above: Chest pain, unspecif ied type (Primary Dx); SOB (shortness of breath) on exertion; Palpitation Start: 04-21-2024 End: 04-21-2024 ambulatory DILLON SILVA Not Available Start: 03-25-2024 End: 03-25-2024 Office outpatient visit 25 minutes Dillon Silva MD Work Phone: [facility] Comment on above: Migraine without aur a and without status migrainosus, not intractable (CMS/HCC) (Primary Dx); Vertigo; Moderate major depression, single episode (HCC) (CMS/HCC); Generalized anxiety disorder (CMS/HCC); Gastroesophageal reflux disease without esophagitis Start: 03-25-2024 End: 03-25-2024 ambulatory DILLON SILVA Not Available Start: 03-25-2024 End: 03-25-2024 Bamboo flowsheet Dillon Silva MD Work Phone: [facility] Start: 03-25-2024 End: 03-25-2024 Bamboo flowsheet Dillon Silva MD Work Phone: [facility] Start: 11-19-2022 End: 11-19-2022 ambulatory Kin Morales Facility:[facility] Start: 2022 End: [address] HEDY LEE . Facility:[facility] Start: 10-12-2022 End: 10-12-[address] DILLON SILVA Facility:[facility] Start: 09-24-2022 End: 09-24-2022 ambulatory PJ DUBON . Facility:[facility] Start: 08-24-2022 End: 08-24-2022 ambulatory KARSON SANTOS Facility:[facility] Start: 05-16-2022 End: 05-16-[address] HEDY LEE . Facility:[facility] Start: 02-13-2022 End: 02-14-[address] CARLI PIERRE Facility:[facility] Start: 02-07-2022 End: 02-07-[address] HEDY LEE . Facility:[facility] Start: 11-26-2021 End: 11-26-2021 ambulatory TORO CALVO . Facility:[facility] Procedures Date Procedure Procedure Detail Performing Clinician Start: 08-10-2024 Bacteria identified in Urine by Culture Generic External Data Provider Start: 05-04-2024 Basic metabolic pane l calcium total Dillon Silva MD Work Phone: Start: 05-04-2024 Hepatic function panel Dillon Silva MD Work Phone: Plan of Treatment Date Care Activity Detail Author Start: 06-23-2024 End: 06-23-2024 Patient encounter procedure 06/23/2024 10:30 AM EST Office Visit [facility] [address] [place] [address] Dillon Silva MD [address] [place] [phone] [facility] Start: 05-25-2024 End: 05-25-2024 Patient encounter procedure 05/25/2024 2:45 PM EDT Office Visit [facility] [address] [place] [address] Dillon Silva MD [address] [place] [phone] [facility] Start: 05-18-2024 End: 05-18-2024 Patient encounter procedure 05/18/2024 11:45 AM EDT Office Visit [facility] [address] [place] [address] Dillon Silva MD [address] [place] [phone] Arrived [facility] Comment on above: Arrived Start: 05-04-2024 End: 05-04-2025 Holter monitor study Holter monitor Imaging Routine Palpitation Expected: 05/04/2024 (Approximate), Expires: 05/04/2025 [facility] Work Phone: Comment on above: Expected: 05/04/2024 (Approximate), Expires: 05/04/2025 Start: 04-21-2024 End: 04-21-2025 Basic metabolic 1998 panel - Serum or Plasma Basic metabolic panel Lab Routine Chest pain, unspecified type Palpitation Expected: 04/21/2024 (Approximate), Expires: 04/21/2025 [facility] Work Phone: Comment on above: Expected: 04/21/2024 (Approximate), Expires: 04/21/2025 Start: 04-21-2024 End: 04-21-2025 Cardiac stress study Procedure STRESS TEST TREADMILL Imaging Routine Chest pain, unspecified type SOB (shortness of breath) on exertion Palpitation Expected: 04/21/2024 (Approximate), Expires: 04/21/2025 [facility] Comment on above: Expected: 04/21/2024 (Approximate), Expires: 04/21/2025 Start: 04-21-2024 End: 04-21-2025 CBC W Auto Differential panel - Blood CBC and differential Lab Routine SOB (shortness of breath) on exertion Palpitation Expected: 04/21/2024 (Approximate), Expires: 04/21/2025 [facility] Comment on above: Expected: 04/21/2024 (Approximate), Expires: 04/21/2025 Start: 04-21-2024 End: 04-21-2026 Echocardiogram 2D complete Echocardiogram 2D complete Echocardiography Routine SOB (shortness of breath) on exertion Palpitation Expected: 04/21/2024 (Approximate), Expires: 04/21/2026 [facility] Comment on above: Expected: 04/21/2024 (Approximate), Expires: 04/21/2026 Start: 04-21-2024 End: 04-21-2025 Hepatic function 2000 panel - Serum or Plasma Hepatic function panel Lab Routine Palpitation Expected: 04/21/2024 (Approximate), Expires: 04/21/2025 [facility] Comment on above: Expected: 04/21/2024 (Approximate), Expires: 04/21/2025 Start: 04-21-2024 End: 04-21-2025 Holter monitor study Holter monitor Imaging Routine Palpitation Expected: 04/21/2024 (Approximate), Expires: 04/21/2025 [facility] Comment on above: Expected: 04/21/2024 (Approximate), Expires: 04/21/2025 Start: 04-21-2024 End: 04-21-2025 Magnesium [Mass/volume] in Serum or Plasma Magnesium Lab Routine Palpitation Expected: 04/21/2024 (Approximate), Expires: 04/21/2025 [facility] Comment on above: Expected: 04/21/2024 (Approximate), Expires: 04/21/2025 Start: 04-21-2024 End: 04-21-2025 TSH W/REFLEX TO FT4 TSH W/REFLEX TO FT4 Lab Routine Palpitation Expected: 04/21/2024 (Approximate), Expires: 04/21/2025 [facility] Comment on above: Expected: 04/21/2024 (Approximate), Expires: 04/21/2025 Start: 04-21-2024 End: 04-21-2024 Patient encounter procedure 04/21/2024 9:15 AM EDT Office Visit [facility] [address] [place] [address] Dillon Silva MD [address] [place] [phone] Arrived [facility] Comment on above: Arrived Start: 03-28-2024 Influenza vaccination Influenza Vacc ine (#1) [facility] Start: 03-25-2024 End: 03-25-2024 Patient encounter procedure 03/25/2024 2:45 PM EDT Office Visit [facility] [address] [place] [address] Dillon Silva MD [address] [place] [phone] Arrived [facility] Comment on above: Arrived Start: 2020 Screening for malign ant neoplasm of cervix [facility] Start: 10-26-2011 Screening for malign ant neoplasm of cervix Pap Smear [facility] Pulmonary function report Pulmonary Function Test Imaging Routine SOB (shortness of breath) on exertion Ordered: 04/21/2024 [facility] Comment on above: Ordered: 04/21/2024 Immunizations Immunization Date Immunization Notes Care Provider Bernice alaniz 10-16-2022 influenza virus vacc ine, unspecified formulation Dillon Silva MD Work Phone: [facility] Payers Date Payer Category Payer Private Health Insurance [employer] ORTIZSHARIF [id number] 2023 Unknown RENATAJOESadi YASMEEN Torres [employer] [facility] [id number] 2023-Present [phone] [place] [phone] [id number] 2023 Unknown [id number] 2019 Medicaid [employer] [place] [employer] [id number] 2019-Present [address] [place] [phone] [id number] 2019 Medicaid (Managed Care) [employer] [id number] 1990 Unknown [id number] 2.16.840.1.561688.3.579.2. 593 1990 Unknown [id number] 2.16.840.1.123934.3.579.2. 593 1990 Unknown [id number] 2.16.840.1.522793.3.579.2. 593 1990 Unknown [id number] 2.16.840.1.991621.3.579.2. 593 1990 Unknown [id number] 2.16.840.1.189156.3.579.2. 593 1990 Unknown [id number] 2.16.840.1.957893.3.579.2. 593 1990 Unknown [id number] 2.16.840.1.985582.3.579.2. 593 1990 Unknown [id number] 2.16.840.1.990055.3.579.2. 593 1990 Unknown [id number] 2.16.840.1.172020.3.579.2. 593 1990 Unknown [id number] 2.16.840.1.461635.3.579.2. 1286 1990 Unknown [id number] 2.16.840.1.103776.3.579.2. 1286 1990 Unknown [id number] 2.16.840.1.727623.3.579.2. 1286 1990 Unknown [id number] 2.16.840.1.589617.3.579.2. 1286 1990 Unknown [id number] 2.16.840.1.342083.3.579.2. 1259 1990 Unknown [id number] 2.16.840.1.416320.3.579.2. 1259 1990 Unknown [id number] 2.16.840.1.377946.3.579.2. 1259 1959 Unknown [id number] Social History Date Type Detail Facility Start: 03-25-2024 Tobacco smoking stat [facility] Ex-smoker [facility] History of tobacco use Current smoker [facility] History of tobacco use Cigarette Smoker [facility] Start: 03-25-2024 Tobacco use and exposure Smokeless t obacco non-user [facility] Start: 03-25-2024 End: 05-18-2024 History of Social function [facility] Start: 03-25-2024 End: 05-18-2024 [id number] Health Literacy [facility] How often do you nee d to have someone help you when you read instructions, pamphlets, or other written material from your doctor or pharmacy [SILS] Sometimes [facility] Are you now , , , , never or living with a partner? Never [facility] How often to you hav e a drink containing alcohol? Monthly or less [facility] How many standard dr inks containing alcohol do you have on a typical day? 3 or 4 [facility] Do you feel stress - tense, restless, nervous, or anxious, or unable to sleep at night because your mind is troubled all the time - these days [OSQ] Rather much [facility] (I/We) worried wheth er (my/our) food would run out before (I/we) got money to buy more. Never true [facility] In the past 12 month s, was there a time when you were not able to pay the mortgage or rent on time? No [facility] Start: 1990 Sex assigned at Not on file [facility] History of Present illness Narrative 05-18-2024 Dillon Silva MD - 05/18/2024 12:12 PM Ngoc Silva MD - 05/18/2024 12:12 PM Ngoc Silva MD - 05/18/2024 12:12 PM Ngoc Silva MD - 05/18/2024 12:11 PM EDT Note Date & Type Note Facility 05-18-2024 History of Presen t illness Narrative Associated Problem(s): Palpitation Holter with sinus tach and likely related to anxiety. Monitor. Associated Problem(s): Moderate major depression, single episode (HCC) (CMS/HCC) Symptoms stable with prozac and continue. Associated Problem(s): Migraine without aura and without status migrainosus, not intractable (CMS/HCC) COOK stable and use medication PRN. Continue qulipta and topamax. Associated Problem(s): Generalized anxiety disorder (CMS/HCC) Continued symptoms and likely causing palpitations but improved. Continue prozac and use xanax PRN. Images from the original note were not included. Subjective Patient ID: Mirlande Luna is a 33 y.o. female who presents for Follow-up (Paperwork so she can go back to work ). Follow up test results. Seen 04/21 and c/o increased chest pain and SOB. Very lightheaded and dizzy. Frequent pain and not functioning well at the time. Testing ordered and echo and stress test negative. Holter with sinus tach and occasional PVC but otherwise normal. Reports feels better today. Off work since 04/19 due to symptoms. Feels like symptoms related to anxiety. Severe stress and not handling well. Nervous and worry all the time. Stressed out and overwhelmed. Thought racing and hard to clear mind. Fisher, irritable and snapping at others. Easily upset and overreact. Using hydroxyzine PRN but not helping. Depression controlled with prozac. Not down or sad and interacting well with others. Migraines stable and COOK 1-2 times a week. Throbbing pain in entire head associated with photophobia, phonophobia and nausea. Using medication PRN and helps when needed. Review of Systems Respiratory: Negative for cough, shortness of breath and wheezing. Cardiovascular: Negative for chest pain and palpitations. Gastrointestinal: Negative for abdominal pain, diarrhea, nausea and vomiting. Genitourinary: Negative for dysuria. Objective Physical Exam Constitutional: General: She is not in acute distress. Appearance: Normal appearance. HENT: Head: Normocephalic. Right Ear: Tympanic membrane normal. Left Ear: Tympanic membrane normal. Eyes: Extraocular Movements: Extraocular movements intact. Pupils: Pupils are equal, round, and reactive to light. Cardiovascular: Rate and Rhythm: Normal rate and regular rhythm. Heart sounds: No murmur heard. No friction rub. No gallop. Pulmonary: Effort: Pulmonary effort is normal. Breath sounds: Normal breath sounds. No wheezing, rhonchi or rales. Abdominal: General: Bowel sounds are normal. There is no distension. Palpations: Abdomen is soft. Tenderness: There is no abdominal tenderness. There is no guarding or rebound. Musculoskeletal: Cervical back: Neck supple. Right lower leg: No edema. Left lower leg: No edema. Neurological: Mental Status: She is alert. Assessment/Plan Problem List Items Addressed This Visit Migraine without aura and without status migrainosus, not intractable (CMS/HCC) COOK stable and use medication PRN. Continue qulipta and topamax. Generalized anxiety disorder (CMS/HCC) Continued symptoms and likely causing palpitations but improved. Continue prozac and use xanax PRN. Relevant Medications ALPRAZolam (Xanax) 0.5 MG tablet Moderate major depression, single episode (HCC) (CMS/HCC) Symptoms stable with prozac and continue. Palpitation - Primary Holter with sinus tach and likely related to anxiety. Monitor. documented in this encounter [facility] History of Present illness Narrative 04-21-2024 Dillon Silva MD - 04/21/2024 10:15 AM Ngoc Silva MD - 04/21/2024 10:15 AM Ngoc Silva MD - 04/21/2024 10:14 AM EDTMeitan Silva MD - 04/21/2024 9:15 AM EDT Note Date & Type Note Facility 04-21-2024 History of Presen t illness Narrative Associated Problem(s): SOB (shortness of breath) on exertion Unclear cause of symptoms. Check echo and PFTs. Check labs. Use albuterol PRN. Associated Problem(s): Palpitation Frequent symptoms and check Holter Associated Problem(s): Chest pain Unclear cause of symptoms and check stress test and echo. Images from the original note were not included. Subjective Patient ID: Mirlande Luna is a 33 y.o. female who presents for Follow-up (Trouble breathing/chest feels heavy). C/o not feeling well for over a week. Developed SOB and fatigue with exertion. Chest tight and hard to take a deep breath. C/o heaviness in mid chest worse with walking and activity. No radiation of pain to arm or neck. Pain associated with SOB and diaphoresis. Severe fatigue and run down. Often feels like will pass out. Feels heart racing and at times skipping beats. Occasional cough but no sputum. Using albuterol and not helping. Hard to stay active due to SOB and chest pain. Doesn't feel sick but feels like something isn't right. Review of Systems Respiratory: Negative for cough, shortness of breath and wheezing. Cardiovascular: Negative for chest pain and palpitations. Gastrointestinal: Negative for abdominal pain, diarrhea, nausea and vomiting. Genitourinary: Negative for dysuria. Objective Physical Exam Constitutional: General: She is not in acute distress. Appearance: Normal appearance. HENT: Head: Normocephalic. Right Ear: Tympanic membrane normal. Left Ear: Tympanic membrane normal. Eyes: Extraocular Movements: Extraocular movements intact. Pupils: Pupils are equal, round, and reactive to light. Cardiovascular: Rate and Rhythm: Normal rate and regular rhythm. Heart sounds: No murmur heard. No friction rub. No gallop. Pulmonary: Effort: Pulmonary effort is normal. Breath sounds: Normal breath sounds. No wheezing, rhonchi or rales. Abdominal: General: Bowel sounds are normal. There is no distension. Palpations: Abdomen is soft. Tenderness: There is no abdominal tenderness. There is no guarding or rebound. Musculoskeletal: Cervical back: Neck supple. Right lower leg: No edema. Left lower leg: No edema. Neurological: Mental Status: She is alert. Assessment/Plan Problem List Items Addressed This Visit SOB (shortness of breath) on exertion Unclear cause of symptoms. Check echo and PFTs. Check labs. Use albuterol PRN. Relevant Orders CBC and differential Echocardiogram 2D complete Pulmonary Function Test STRESS TEST TREADMILL Chest pain - Primary Unclear cause of symptoms and check stress test and echo. Relevant Orders Basic metabolic panel STRESS TEST TREADMILL Palpitation Frequent symptoms and check Holter Relevant Orders Basic metabolic panel CBC and differential Hepatic function panel Magnesium TSH W/REFLEX TO FT4 Echocardiogram 2D complete STRESS TEST TREADMILL Holter monitor documented in this encounter [facility] History of Present illness Narrative 03-25-2024 Dillon Silva MD - 03/25/2024 4:12 PM EDKeith Silva MD - 03/25/2024 4:11 PM Ngoc Silva MD - 03/25/2024 4:11 PM EDKeith Silva MD - 03/25/2024 4:11 PM EDT Note Date & Type Note Facility 03-25-2024 History of Presen t illness Narrative Associated Problem(s): Vertigo Recent symptoms and use meclizine PRN. Off work 03/21-03/29 and return 03/30. Associated Problem(s): Migraine without aura and without status migrainosus, not intractable (CMS/HCC) COOK worse and use fioricet PRN. Imitrex not helping and stop. Try maxalt. Continue qulipta and topamax. Associated Problem(s): Generalized anxiety disorder (CMS/HCC) Symptoms worse and increase prozac. Warned will take 2-3 weeks to notice improvement in mood. Use hydroxyzine PRN. Associated Problem(s): Moderate major depression, single episode (HCC) (CMS/HCC) Symptoms worse and increase prozac. Warned will take 2-3 weeks to notice improvement in mood. Associated Problem(s): Gastroesophageal reflux disease without esophagitis Symptoms controlled with nexium and continue. Images from the original note were not included. Subjective Patient ID: Mirlande Luna is a 33 y.o. female who presents for Follow-up ([facility] paperwork). Follow up migraines, depression, anxiety, and GERD. Patient not doing well today. Migraines worse and 2-3 times a week. Throbbing pain in entire head associated with photophobia, phonophobia and nausea. Uses fioricet PRN and typically helps. Imitrex no longer helping. Frequent vertigo and often dizzy and room spinning. Using meclizine and helps. Not able to work this past week due to symptoms. Depression worse. Down, sad, and no motivation. Not want to do anything or be around others. Doesn't feels happy. Anxiety worse. Severe stress and not handling well. Nervous and worry all the time. Stressed out and overwhelmed. Thought racing and hard to clear mind. Fisher, irritable and snapping at others. Easily upset and overreact. Using hydroxyzine PRN and helps when needed. GERD controlled with nexium. Denies epigastric pain or burning and not waking up with symptoms. Review of Systems Respiratory: Negative for cough, shortness of breath and wheezing. Cardiovascular: Negative for chest pain and palpitations. Gastrointestinal: Negative for abdominal pain, diarrhea, nausea and vomiting. Genitourinary: Negative for dysuria. Objective Physical Exam Constitutional: General: She is not in acute distress. Appearance: Normal appearance. HENT: Head: Normocephalic. Right Ear: Tympanic membrane normal. Left Ear: Tympanic membrane normal. Eyes: Extraocular Movements: Extraocular movements intact. Pupils: Pupils are equal, round, and reactive to light. Cardiovascular: Rate and Rhythm: Normal rate and regular rhythm. Heart sounds: No murmur heard. No friction rub. No gallop. Pulmonary: Effort: Pulmonary effort is normal. Breath sounds: Normal breath sounds. No wheezing, rhonchi or rales. Abdominal: General: Bowel sounds are normal. There is no distension. Palpations: Abdomen is soft. Tenderness: There is no abdominal tenderness. There is no guarding or rebound. Musculoskeletal: Cervical back: Neck supple. Right lower leg: No edema. Left lower leg: No edema. Neurological: Mental Status: She is alert. Assessment/Plan Problem List Items Addressed This Visit Migraine without aura and without status migrainosus, not intractable (CMS/HCC) - Primary COOK worse and use fioricet PRN. Imitrex not helping and stop. Try maxalt. Continue qulipta and topamax. Relevant Medications rizatriptan APARTMENT MAINTENANCE MANAGER (Maxalt-APARTMENT MAINTENANCE MANAGER) 10 MG disintegrating tablet Generalized anxiety disorder (CMS/HCC) Symptoms worse and increase prozac. Warned will take 2-3 weeks to notice improvement in mood. Use hydroxyzine PRN. Gastroesophageal reflux disease without esophagitis Symptoms controlled with nexium and continue. Moderate major depression, single episode (HCC) (CMS/HCC) Symptoms worse and increase prozac. Warned will take 2-3 weeks to notice improvement in mood. Relevant Medications FLUoxetine (PROzac) 40 MG capsule Vertigo Recent symptoms and use meclizine PRN. Off work 03/21-03/29 and return 03/30. documented in this encounter [facility] Evaluation note Note Date & Type Note Facility Evaluation note Diagnosis Palpitation- Primary Palpitations documented in this encounter [facility] Evaluation note Note Date & Type Note Facility Evaluation note Diagnosis Migraine without aura and without status migrainosus, not intractable (CMS/HCC)- Primary Vertigo Dizziness and giddiness Moderate major depression, single episode (HCC) (CMS/HCC) Major depressive disorder, single episode, moderate Generalized anxiety disorder (CMS/HCC) Generalized anxiety disorder Gastroesophageal reflux disease without esophagitis Esophageal reflux Chest pain, unspecified type- Primary SOB (shortness of breath) on exertion Shortness of breath Palpitation Palpitations Palpitation- Primary Palpitations Generalized anxiety disorder (CMS/HCC) Generalized anxiety disorder Moderate major depression, single episode (HCC) (CMS/HCC) Major depressive disorder, single episode, moderate Migraine without aura and without status migrainosus, not intractable (CMS/HCC) documented in this encounter [facility] Evaluation note Note Date & Type Note Facility Evaluation note Diagnosis Migraine without aura and without status migrainosus, not intractable (CMS/HCC)- Primary Vertigo Dizziness and giddiness Moderate major depression, single episode (HCC) (CMS/HCC) Major depressive disorder, single episode, moderate Generalized anxiety disorder (CMS/HCC) Generalized anxiety disorder Gastroesophageal reflux disease without esophagitis Esophageal reflux Chest pain, unspecified type- Primary SOB (shortness of breath) on exertion Shortness of breath Palpitation Palpitations Palpitation- Primary Palpitations Generalized anxiety disorder (CMS/HCC) Generalized anxiety disorder Moderate major depression, single episode (HCC) (CMS/HCC) Major depressive disorder, single episode, moderate Migraine without aura and without status migrainosus, not intractable (CMS/HCC) Generalized anxiety disorder ([facility]/HCC) Generalized anxiety disorder documented in this encounter [facility] Evaluation note Note Date & Type Note Facility Evaluation note Diagnosis Migraine without aura and without status migrainosus, not intractable (CMS/HCC)- Primary Vertigo Dizziness and giddiness Moderate major depression, single episode (HCC) (CMS/HCC) Major depressive disorder, single episode, moderate Generalized anxiety disorder (CMS/HCC) Generalized anxiety disorder Gastroesophageal reflux disease without esophagitis Esophageal reflux documented in this encounter [facility] Evaluation note Note Date & Type Note Facility Evaluation note Diagnosis Chest pain, unspecified type- Primary SOB (shortness of breath) on exertion Shortness of breath Palpitation Palpitations documented in this encounter [facility] Summary Purpose Family History No Family History Records FoundNo Family History Records FoundNo Family History Records Found Advance Directives No Advanced Directives Records FoundNo Advanced Directives Records FoundNo Advanced Directives Records Found Reason for Referral Specialty Diagnoses / Procedures Referred By Huber t Referred To Contact Radiology Diagnoses Palpitation Procedures Holter monitor Dillon Silva MD [address] [place] [address] Referral ID Status Reason Start Date Expiration Date V isits Requested Visits Authorized [id number] Pending Review 05/04/2024 10/31/2024 1 1 Referral ID Status Reason Start Date Expiration Date V isits Requested Visits Authorized [id number] Pending Review 04/21/2024 10/18/2024 1 1 Specialty Diagnoses / Procedures Referred By Huber t Referred To Contact Radiology Diagnoses Chest pain, unspecified type SOB (shortness of breath) on exertion Palpitation Procedures STRESS TEST TREADMILL Dillon Silva MD [address] [place] [address] Referral ID Status Reason Start Date Expiration Date V isits Requested Visits Authorized [id number] Authorized 04/21/2024 10/18/2024 1 1 Specialty Diagnoses / Procedures [facility] Referred To Contact Cardiology Diagnoses SOB (shortness of breath) on exertion Palpitation Procedures Echocardiogram 2D complete Dillon Silva MD [address] [place] [address] Referral ID Status Reason Start Date Expiration Date Visits Requested Visits Authorized [id number] Pending Review Perform Procedure 04/21/2024 10/18/2024 1 1 Additional Source Comments INFORMATION SOURCE (unrecogn ized section and content) DATE CREATED AUTHOR 11/20/[address] 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 Mechanic Relationship Specialty Start Date End Date Dillon Silva MD [address] [place] [address] PCP - General Family Medicine 02/11/24 Elevator Repair Mechanic Relationship Specialty Start Date End Date Dillon Silva MD [address] [place] [address] PCP - General Family Medicine 02/11/24 Elevator Repair Mechanic Relationship Specialty Start Date End Date Dillon Silva MD [address] [place] [phone] PCP - General Family Medicine 02/11/24 Elevator Repair Mechanic Relationship Specialty Start Date End Date Dillon Silva MD [address] [place] [phone] PCP - General Family Medicine 02/11/24 Elevator Repair Mechanic Relationship Specialty Start Date End Date Dillon Silva MD [address] [place] [phone] PCP - General Family Medicine 02/11/24 Elevator Repair Mechanic Relationship Specialty Start Date End Date Dillon Silva MD [address] [place] [address] PCP - General Family Medicine 02/11/24 Elevator Repair Mechanic Relationship Specialty Start Date End Date Dillon Silva MD [address] [place] [address] PCP - General Family Medicine 02/11/24 Elevator Repair Mechanic Relationship Specialty Start Date End Date Dillon Silva MD [address] [place] [address] PCP - General Family Medicine 02/11/24 Elevator Repair Mechanic Relationship Specialty Start Date End Date Dillon Silva MD [address] [place] [phone] PCP - General Family Medicine 02/11/24 Reason for Visit (unrecogniz ed section and content) Reason Comments Follow-up Paperwork so she can go back to work Reason Comments Med Refill Reason Comments Follow-up [facility] paperwork Reason Comments Follow-up Trouble breathing/ch est feels heavy FOR RECORDS PERTAINING TO PATIENTS WHO ARE OR HAVE BEEN ENROLLED IN A CHEMICAL DEPENDENCY/SUBSTANCEABUSE PROGRAM, SOME INFORMATION MAY BE OMITTED. This clinical summary was aggregated from multiple sources. Caution should be exercised in using it in the provision of clinical care. This summary normalizes information from multiple sources, and as a consequence, information in this document may materially change the coding, format and clinical context of patient data. In addition, data may be omitted in some cases. CLINICAL DECISIONS SHOULD BE BASED ON THE PRIMARY CLINICAL RECORDS. [employer] [facility]. provides no warranty or guarantee of the accuracy or completeness of information in this document.
[2024-10-08 10:16] LABS: Basophils Percent Auto 0.4 % (0.2-2.0); Eosinophils Absolute Auto 0.1 10^3/uL (0.0-0.7); Eosinophils Percent Auto 0.8 % (0.9-7.0); Hemoglobin 11.6 g/dL (12.0-16.0); Immature Granulocytes Abs Auto 0.02 10^3/uL (0.00-0.03); Immature Granulocytes Pct Auto 0.3 % (0.0-0.5); Lymphocytes Absolute Auto 1.5 10^3/uL (1.2-3.8); Lymphocytes Percent Auto 21.4 % (20.5-60.0); Mean Corpuscular HGB Conc 33.1 g/dL (29.9-35.2); Mean Corpuscular Hemoglobin 30.5 pg (26.7-34.0); Mean Corpuscular Volume 92.1 fL (81.0-99.0); Mean Platelet Volume 9.6 fL (9.5-13.5); Monocytes Absolute Auto 0.7 10^3/uL (0.3-0.8); Monocytes Percent Auto 9.4 % (1.7-12.0); Neutrophils Absolute Auto 4.8 10^3/uL (1.4-6.5); Neutrophils Percent Auto 67.7 % (43.0-75.0); Platelet Count 279 10^3/uL (150-450); Red Cell Distribution Width 12.7 % (11.0-15.0); White Blood Count 7.2 10^3/uL (4.0-11.0)
[2024-10-08 10:31] LABS: Estimated Average Glucose 94 mg/dL; Glycohemoglobin A1C 4.9 % (4.5-6.2)
[2024-10-08 10:46] LABS: BOX Test Reference Lab UNITY; BOX Test Sent Out UNITY
[2024-10-08 11:17] LABS: Amphetamine Screen Urine NEGATIVE (NEGATIVE); Barbiturates Screen Urine NEGATIVE (NEGATIVE); Benzodiazepines Screen Urine POSITIVE (NEGATIVE); Cannabinoid Screen Urine NEGATIVE (NEGATIVE); Cocaine Screen Urine NEGATIVE (NEGATIVE); Methadone Screen Urine NEGATIVE (NEGATIVE); Methamphetamines Screen Urine NEGATIVE (NEGATIVE); Opiate Screen Urine NEGATIVE (NEGATIVE); Oxycodone Screen Urine NEGATIVE (NEGATIVE); Phencyclidine Screen Urine NEGATIVE (NEGATIVE); Tricyclic Antidepressant Urine NEGATIVE (NEGATIVE)
[2024-10-08 11:18] LABS: Buprenorphine Screen Urine NEGATIVE (NEGATIVE)
[2024-10-09 06:07] LABS: Rubella Antibodies, IgG <0.90 index (Immune >0.99)
[2024-10-09 07:07] LABS: HBsAg Screen Negative (Negative); HCV Ab Non Reactive (Non Reactive); HIV Ab/p24 Ag Screen Non Reactive (Non Reactive)
[2024-10-09 11:14] LABS: Rapid Plasma Reagin, Quant Non Reactive titer (NonRea<1:1)
[2024-10-09 23:07] LABS: AFP Value 22.3 ng/mL (.); Gest. Age on Collection Date 17.4 weeks (.); Gestat. Age Based On Ultrasound (.); Insulin Dep Diabetes No (.); Maternal Age At EDD 34.3 yr (.); OSBR Risk 1 IN 10000 (.); Results Report (.)
[2024-10-12 10:12] LABS: Buprenorphine Negative (Cutoff=10)
== END 2024-10-08 09:39 | disposition home or self-care (01) ==
LOC: LAB 09:40
PROVIDERS: PCP Family Medicine; Visit Provider Obstetrics & Gynecology
DX: Z34.92 Encounter for supervision of normal pregnancy, unspecified, second trimester (principal); Z36.0 Encounter for antenatal screening for chromosomal anomalies; Z3A.17 17 weeks gestation of pregnancy; N92.6 Irregular menstruation, unspecified
CPT/HCPCS: 36415; 80299; 80307; 82105; 83036; 85025; 86592; 86762; 86803; 86850; 86900; 86901; 87086; 87340; 87389

== ENCOUNTER 2024-12-07 17:31 | Outpatient (REF) | payer OTHER, SELFPAY ==
--- OUTSIDE RECORDS SUMMARY | 2024-12-07 17:40 | XMS_ITS | CCD ---
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 [facility] Comment on above: Performed By: #### E RUR, PREGU, DRUGRPD #### [facility] [address] [place] [address] Dr. Gino Holt EOS% 0.0 % Critically low 0.9-7.0 [facility] Comment on above: Performed By: #### E RUR, PREGU, DRUGRPD #### [facility] [address] [place] [address] Dr. Gino Holt HCT 39.0 % Normal 36.0-48.0 [facility] Comment on above: Performed By: #### E RUR, PREGU, DRUGRPD #### [facility] [address] [place] [address] Dr. Gino Holt HGB 13.0 g/dl Normal 12.0-16.0 [facility] Comment on above: Performed By: #### E RUR, PREGU, DRUGRPD #### [facility] [address] [place] [address] Dr. iGno Holt LYMPHM # 0.24 103/ul Critically low 1.20-3.80 [facility] Comment on above: Performed By: #### E RUR, PREGU, DRUGRPD #### [facility] [address] [place] [address] Dr. Gino Holt LYMPHM% 3.0 % Critically low 20.5-60.0 [facility] Comment on above: Performed By: #### E RUR, PREGU, DRUGRPD #### [facility] [address] [address] [address] Gino Holt MCH 30.0 pg Normal 26.7-34.0 [facility] Comment on above: Performed By: #### E RUR, PREGU, DRUGRPD #### [facility] [address] [address] [address] Gino Holt MCHC 33.3 g/dl Normal 29.9-35.2 [facility] Comment on above: Performed By: #### E RUR, PREGU, DRUGRPD #### [facility] [address] [address] [address] Gino Holt MCV 90.1 fL Normal 81.0-99.0 [facility] Comment on above: Performed By: #### E RUR, PREGU, DRUGRPD #### [facility] [address] [address] [address] Gino Holt METAMYELOCYTE # Normal [facility] Comment on above: Performed By: #### E RUR, PREGU, DRUGRPD #### [facility] [address] [address] [address] Gino Holt METAMYELOCYTE % Normal [facility] Comment on above: Performed By: #### E RUR, PREGU, DRUGRPD #### [facility] [address] [address] [address] Gino Holt MONOM# 0.00 103/ul Critically low 0.30-0.80 [facility] Comment on above: Performed By: #### E RUR, PREGU, DRUGRPD #### [facility] [address] [address] [address] Gino Holt MONOM% 0.0 % Critically low 1.7-12.0 [facility] Comment on above: Performed By: #### E RUR, PREGU, DRUGRPD #### [facility] [address] [address] [address] Gino Holt MPV 9.1 fL Critically low 9.5-13.5 [facility] Comment on above: Performed By: #### E RUR, PREGU, DRUGRPD #### [facility] [address] [address] [address] Gino Holt MYELOCYTE # Normal [facility] Comment on above: Performed By: #### E RUR, PREGU, DRUGRPD #### [facility] [address] [address] [address] Gino Holt MYELOCYTE % Normal [facility] Comment on above: Performed By: #### E RUR, PREGU, DRUGRPD #### [facility] [address] [place] [address] Dr. Gino Holt NRBC Normal [facility] Comment on above: Performed By: #### E RUR, PREGU, DRUGRPD #### [facility] [address] [place] [address] Dr. Gino Holt PLT 288 103/ul Normal 150-450 [facility] Comment on above: Performed By: #### E RUR, PREGU, DRUGRPD #### [facility] [address] [place] [address] Dr. Gino Holt RBC 4.33 106/ul Normal 4.20-5.40 [facility] Comment on above: Performed By: #### E RUR, PREGU, DRUGRPD #### [facility] [address] [place] [address] Dr. Gino Holt RDW 13.4 % Normal 11.0-15.0 [facility] Comment on above: Performed By: #### E RUR, PREGU, DRUGRPD #### [facility] [address] [place] [address] Dr. Gino Holt SEG # 7.58 103/ul Critically high 1.40-6.50 [facility] Comment on above: Performed By: #### E RUR, PREGU, DRUGRPD #### [facility] [address] [place] [address] Dr. Gino Holt SEG % 96.0 % Critically high 43.0-75.0 [facility] Comment on above: Performed By: #### E RUR, PREGU, DRUGRPD #### [facility] [address] [address] [address] Gino Holt WBC 7.9 103/ul Normal 4.0-11.0 [facility] Comment on above: Performed By: #### E RUR, PREGU, DRUGRPD #### [facility] [address] [address] [address] Gino Holt PROF 14(COMP METB)on 023 Albumin [Mass/Vol] 4.0 g/dL Normal 3.4-5.0 [facility] Comment on above: Performed By: #### E RUR, PREGU, DRUGRPD #### [facility] [address] [place] [address] Dr. Gino Hotl Albumin/Globulin [Mass ratio] 1.0 {ratio} Normal [facility] Comment on above: Performed By: #### E RUR, PREGU, DRUGRPD #### [facility] [address] [place] [address] Dr. Gino Holt ALP [Catalytic activity/Vol] 90 U/L Normal 46-116 [facility] Comment on above: Performed By: #### Jerald RUSadi, PREGU, DRUGRPD #### [facility] [address] [place] [address] Dr. Gino Holt ALT [Catalytic activity/Vol] 17 U/L Normal 14-59 [facility] Comment on above: Performed By: #### E RUR, PREGU, DRUGRPD #### [facility] [address] [place] [address] Dr. Gino Holt Anion gap [Moles/Vol] 15.6 mmol/L Normal [facility] Comment on above: Performed By: #### E RUR, PREGU, DRUGRPD #### [facility] [address] [place] [address] Dr. Gino Holt AST [Catalytic activity/Vol] 12 U/L Critically low 15-37 [facility] Comment on above: Performed By: #### E RUR, PREGU, DRUGRPD #### [facility] [address] [address] [address] Gino Holt Bilirubin [Mass/Vol] 0.1 mg/dL Critically low 0.2-1.0 [facility] Comment on above: Performed By: #### E RUR, PREGU, DRUGRPD #### [facility] [address] [place] [address] Dr. Gino Holt Calcium [Mass/Vol] 9.0 mg/dL Normal 8.5-10.1 [facility] Comment on above: Performed By: #### E RUR, PREGU, DRUGRPD #### [facility] [address] [place] [address] Dr. Gino Holt Chloride [Moles/Vol] 108 mmol/L Critically high 98-107 [facility] Comment on above: Performed By: #### E RUR, PREGU, DRUGRPD #### [facility] [address] [place] [address] Dr. Gino Holt CO2 [Moles/Vol] 21.4 mmol/L Normal 21.0-32.0 [facility] Comment on above: Performed By: #### E RUR, PREGU, DRUGRPD #### [facility] [address] [place] [address] Dr. Gino Holt Creatinine [Mass/Vol] 0.82 mg/dL Normal 0.55-1.02 [facility] Comment on above: Performed By: #### E RUR, PREGU, DRUGRPD #### [facility] [address] [place] [address] Dr. Gino Holt EGFR-AF PAP[place] >60 Normal >=60 [facility] Comment on above: Performed By: #### E RUR, PREGU, DRUGRPD #### [facility] [address] [place] [address] Dr. Gino Holt EGFR-NON AF P[place] >60 Normal >=60 [facility] Comment on above: Performed By: #### E RUR, PREGU, DRUGRPD #### [facility] [address] [place] [address] Dr. Gino Holt Globulin (S) [Mass/Vol] 4.0 g/dL Normal [facility] Comment on above: Performed By: #### E MARCELLE PREGU, DRUGRPD #### [facility] [address] [place] [address] Dr. Gino Holt Glucose [Mass/Vol] 136 mg/dL Critically high 74-106 [facility] Comment on above: Performed By: #### E RUR, PREGU, DRUGRPD #### [facility] [address] [place] [address] Dr. Gino Holt Potassium [Moles/Vol] 4.0 mmol/L Normal 3.5-5.1 [facility] Comment on above: Performed By: #### E RUSadi PREGU, DRUGRPD #### [facility] [address] [place] [address] Dr. Gino Holt Protein [Mass/Vol] 8.0 g/dL Normal 6.4-8.2 [facility] Comment on above: Performed By: #### E RUR, PREGU, DRUGRPD #### [facility] [address] [place] [address] Dr. Gino Holt Sodium [Moles/Vol] 141 mmol/L Normal 136-145 [facility] Comment on above: Performed By: #### E RUR, PREGU, DRUGRPD #### [facility] [address] [place] [address] Dr. Gino Holt Urea nitrogen [Mass/Vol] 18.0 mg/dL Normal 7.0-18.0 [facility] Comment on above: Performed By: #### E RUR, PREGU, DRUGRPD #### [facility] [address] [place] [address] Dr. Gino Holt Urea nitrogen/Creatinine [Mass ratio] 22.0 mg/mg Normal [facility] Comment on above: Performed By: #### E RUR, PREGU, DRUGRPD #### [facility] [address] [place] [address] Dr. Gino Holt CBC AUTO DIFFon 10-12-2022 BASO # 0.0 103/ul Normal 0.0-0.1 [facility] Comment on above: Performed By: #### E RUR, PREGU, DRUGRPD #### [facility] [address] [place] [address] Dr. Gino Holt Basophils/100 WBC (Bld) 0.7 % Normal 0.2-2.0 [facility] Comment on above: Performed By: #### E RUR, PREGU, DRUGRPD #### [facility] [address] [place] [address] Dr. Gino Holt EO # 0.1 103/ul Normal 0.0-0.7 [facility] Comment on above: Performed By: #### E RUR, PREGU, DRUGRPD #### [facility] [address] [place] [address] Dr. Gino Holt Eosinophils/100 WBC (Bld) 1.6 % Normal 0.9-7.0 [facility] Comment on above: Performed By: #### E RUR, PREGU, DRUGRPD #### [facility] [address] [place] [address] Dr. Gino Holt Erythrocyte distribution width (RBC) [Ratio] 13.7 % Normal 11.0-15.0 [facility] Comment on above: Performed By: #### E RUR, PREGU, DRUGRPD #### [facility] [address] [place] [address] Dr. Gino Holt Hematocrit (Bld) [Volume fraction] 37.2 % Normal 36.0-48.0 [facility] Comment on above: Performed By: #### E RUR, PREGU, DRUGRPD #### [facility] [address] [place] [address] Dr. Gino Holt Hemoglobin (Bld) [Mass/Vol] 12.0 g/dL Normal 12.0-16.0 [facility] Comment on above: Performed By: #### E RUR, PREGU, DRUGRPD #### [facility] [address] [place] [address] Dr. Gino Holt IG # 0.02 10e3/ul Normal 0.00-0.03 [facility] Comment on above: Performed By: #### E RUR PREGU, DRUGRPD #### [facility] [address] [place] [address] Dr. Gino Holt IG % 0.3 % Normal 0.0-0.5 [facility] Comment on above: Performed By: #### E RUR, PREGU, DRUGRPD #### [facility] [address] [place] [address] Dr. Gino Holt LYMPH # 2.3 103/ul Normal 1.2-3.8 [facility] Comment on above: Performed By: #### E RUR PREGU, DRUGRPD #### [facility] [address] [place] [address] Dr. Gino Holt Lymphocytes/100 WBC (Bld) 37.3 % Normal 20.5-60.0 [facility] Comment on above: Performed By: #### Jerald RUR PREGU, DRUGRPD #### [facility] [address] [place] [address] Dr. Gino Holt MANUAL DIFF REQ NO Normal [facility] Comment on above: Performed By: #### Jerald RUR, PREGU, DRUGRPD #### [facility] [address] [place] [address] Dr. Gino Holt MCH (RBC) [Entitic mass] 29.9 pg Normal 26.7-34.0 [facility] Comment on above: Performed By: #### Jerald RUR, PREGU, DRUGRPD #### [facility] [address] [place] [address] Dr. Gino Holt MCHC (RBC) [Mass/Vol] 32.3 g/dL Normal 29.9-35.2 [facility] Comment on above: Performed By: #### E RUR, PREGU, DRUGRPD #### [facility] [address] [place] [address] Dr. Gino Holt MCV (RBC) [Entitic vol] 92.8 fL Normal 81.0-99.0 [facility] Comment on above: Performed By: #### E RUR, PREGU, DRUGRPD #### [facility] [address] [place] [address] Dr. Gino Holt MONO # 0.7 103/ul Normal 0.3-0.8 [facility] Comment on above: Performed By: #### E RUR, PREGU, DRUGRPD #### [facility] [address] [place] [address] Dr. Gino Holt Monocytes/100 WBC (Bld) 11.3 % Normal 1.7-12.0 [facility] Comment on above: Performed By: #### E RUR, PREGU, DRUGRPD #### [facility] [address] [place] [address] Dr. Gino Holt NEUT # 3.0 103/ul Normal 1.4-6.5 [facility] Comment on above: Performed By: #### E RUR, PREGU, DRUGRPD #### [facility] [address] [place] [address] Dr. Gino Holt Neutrophils/100 WBC (Bld) 48.8 % Normal 43.0-75.0 [facility] Comment on above: Performed By: #### E RUR, PREGU, DRUGRPD #### [facility] [address] [place] [address] Dr. Gino Holt Platelet mean volume (Bld) [Entitic vol] 8.9 fL Critically low 9.5-13.5 [facility] Comment on above: Performed By: #### E RUR, PREGU, DRUGRPD #### [facility] [address] [place] [address] Dr. Gino Holt PLT 312 103/ul Normal 150-450 [facility] Comment on above: Performed By: #### E RUR, PREGU, DRUGRPD #### [facility] [address] [place] [address] Dr. Gino Holt RBC 4.01 106/ul Critically low 4.20-5.40 [facility] Comment on above: Performed By: #### E RUR, PREGU, DRUGRPD #### [facility] [address] [address] [address] Gino Holt WBC 6.1 103/ul Normal 4.0-11.0 [facility] Comment on above: Performed By: #### E RUR, PREGU, DRUGRPD #### [facility] [address] [place] [address] Dr. Gino Holt CRPon 10-12-2022 CRP 0.6 mg/dL Normal <=1.0 [facility] Comment on above: Performed By: #### E RUR, PREGU, DRUGRPD #### [facility] [address] [place] [address] Dr. Gino Holt DRUG SCREEN RAPID (URINE)on 10-12-2022 AMP Negative Normal NEGATIVE [facility] Comment on above: Performed By: #### E RUR, PREGU, DRUGRPD #### [facility] [address] [place] [address] Dr. Gino Holt BAR Negative Normal NEGATIVE [facility] Comment on above: Performed By: #### E RUR, PREGU, DRUGRPD #### [facility] [address] [place] [address] Dr. Gino Holt BUP Negative Normal NEGATIVE [facility] Comment on above: Performed By: #### E RUR, PREGU, DRUGRPD #### [facility] [address] [place] [address] Dr. Gino Holt BZO Negative Normal NEGATIVE [facility] Comment on above: Performed By: #### E RUR, PREGU, DRUGRPD #### [facility] [address] [place] [address] Dr. Gino Holt RAMONA Negative Normal NEGATIVE [facility] Comment on above: Performed By: #### E RUR, PREGU, DRUGRPD #### [facility] [address] [place] [address] Dr. Gino Holt CUT-OFFS SEE BELOW Normal [facility] Comment on above: Result Comment: AMP (Amphetamine): [...] By: #### E RUR, PREGU, DRUGRPD #### [facility] [address] [place] [address] Dr. Gino Holt DRUG CUT HEADER DRUG CLASS TEST SYST EM CUT-OFF CONCENTRATIONS ARE FOLLOWS: Normal [facility] Comment on above: Performed By: #### E RUR, PREGU, DRUGRPD #### [facility] [address] [place] [address] Dr. Gino Holt mAMP Negative Normal NEGATIVE [facility] Comment on above: Performed By: #### E RUR, PREGU, DRUGRPD #### [facility] [address] [place] [address] Dr. Gino Holt MTD Negative Normal NEGATIVE [facility] Comment on above: Performed By: #### E RUR, PREGU, DRUGRPD #### [facility] [address] [place] [address] Dr. Gino Holt OPI Positive Abnormal NEGATIVE [facility] Comment on above: Performed By: #### E RUR, PREGU, DRUGRPD #### [facility] [address] [place] [address] Dr. Gino Holt OXY Negative Normal NEGATIVE [facility] Comment on above: Performed By: #### E RUR, PREGU, DRUGRPD #### [facility] [address] [place] [address] Dr. Gino Holt PCP Negative Normal NEGATIVE [facility] Comment on above: Performed By: #### E RUR, PREGU, DRUGRPD #### [facility] [address] [place] [address] Dr. Gino Holt PPX Negative Normal NEGATIVE [facility] Comment on above: Performed By: #### E RUR, PREGU, DRUGRPD #### [facility] [address] [address] [address] Gino Holt TCA Negative Normal NEGATIVE [facility] Comment on above: Performed By: #### E RUR, PREGU, DRUGRPD #### [facility] [address] [address] [address] Gino Holt THC Negative Normal NEGATIVE [facility] Comment on above: Performed By: #### E RUR, PREGU, DRUGRPD #### [facility] [address] [address] [address] Gino Holt ER URINE PROFILEon 3 Bilirubin Ql (U) Negative Normal NEGATIVE [facility] Comment on above: Performed By: #### E RUR, PREGU, DRUGRPD #### [facility] [address] [place] [address] Dr. Gino Holt Clarity (U) CLEAR Normal CLEAR [facility] Comment on above: Performed By: #### E RUR, PREGU, DRUGRPD #### [facility] [address] [address] [address] Gino Holt Color (U) LT. YELLOW Normal YELLOW [facility] Comment on above: Performed By: #### E RUR, PREGU, DRUGRPD #### [facility] [address] [address] [address] Gino Holt ERUAHD A micrscopic examination will be performed if indicated. Normal [facility] Comment on above: Performed By: #### E RUR, PREGU, DRUGRPD #### [facility] [address] [address] [address] Gino Holt Glucose Ql (U) Negative Normal NEGATIVE [facility] Comment on above: Performed By: #### E RUR, PREGU, DRUGRPD #### [facility] [address] [address] [address] Gino Holt Hemoglobin Ql (U) Negative Normal NEGATIVE [facility] Comment on above: Performed By: #### E RUR, PREGU, DRUGRPD #### [facility] [address] [place] [address] Dr. Gino Holt Ketones Ql (U) Negative Normal NEGATIVE [facility] Comment on above: Performed By: #### E RUR, PREGU, DRUGRPD #### [facility] [address] [place] [address] Dr. Gino Holt LEUKOCYTES Negative Normal NEGATIVE [facility] Comment on above: Performed By: #### E RUR, PREGU, DRUGRPD #### [facility] [address] [address] [address] Gino Holt Nitrite Ql (U) Negative Normal NEGATIVE [facility] Comment on above: Performed By: #### E RUR, PREGU, DRUGRPD #### [facility] [address] [place] [address] Dr. Gino Holt pH (U) 7.0 [pH] Normal 5-9 [facility] Comment on above: Performed By: #### E RUR, PREGU, DRUGRPD #### [facility] [address] [place] [address] Dr. Gino Holt SPEC GRAVITY 1.010 Normal 1.005-<=1.025 [facility] Comment on above: Performed By: #### E RUR, PREGU, DRUGRPD #### [facility] [address] [place] [address] Dr. Gino Holt UA PROTEIN Negative Normal NEGATIVE/ TRACE [facility] Comment on above: Performed By: #### E RUR, PREGU, DRUGRPD #### [facility] [address] [place] [address] Dr. Gino Holt UR MICRO IND NOT INDICATED Normal [facility] Comment on above: Performed By: #### E RUR, PREGU, DRUGRPD #### [facility] [address] [place] [address] Dr. Gino Holt Urobilinogen Qn (U) 0.2 {Phillip'U}/dL Normal 0.2 - 1. 0 [facility] Comment on above: Performed By: #### E RUR, PREGU, DRUGRPD #### [facility] [address] [address] [address] Gino Holt URon 10-12-2022 , QUAL Negative Normal NEGATIVE [facility] Comment on above: Performed By: #### E RUR, PREGU, DRUGRPD #### [facility] [address] [address] [address] Gino Holt PROF CHEM 8 (BAS METB)on Anion gap [Moles/Vol] 12.9 mmol/L Normal [facility] Comment on above: Performed By: #### E RUR, PREGU, DRUGRPD #### [facility] [address] [place] [address] Dr. Gino Holt Calcium [Mass/Vol] 8.6 mg/dL Normal 8.5-10.1 [facility] Comment on above: Performed By: #### E RUR, PREGU, DRUGRPD #### [facility] [address] [address] [address] Gino Holt Chloride [Moles/Vol] 106 mmol/L Normal 98-107 [facility] Comment on above: Performed By: #### E RUR, PREGU, DRUGRPD #### [facility] [address] [place] [address] Dr. Gino Holt CO2 [Moles/Vol] 24.0 mmol/L Normal 21.0-32.0 [facility] Comment on above: Performed By: #### E RUR, PREGU, DRUGRPD #### [facility] [address] [address] [address] Gino Holt Creatinine [Mass/Vol] 0.61 mg/dL Normal 0.55-1.02 [facility] Comment on above: Performed By: #### E RUR, PREGU, DRUGRPD #### [facility] [address] [place] [address] Dr. Gino Holt EGFR-AF PAPUA NEW GUINEAN >60 Normal >=60 [facility] Comment on above: Performed By: #### E RUR, PREGU, DRUGRPD #### [facility] [address] [place] [address] Dr. Gino Holt EGFR-NON AF PAPUA NEW GUINEAN >60 Normal >=60 [facility] Comment on above: Performed By: #### E RUR, PREGU, DRUGRPD #### [facility] [address] [place] [address] Dr. Gino Holt Glucose [Mass/Vol] 80 mg/dL Normal 74-106 [facility] Comment on above: Performed By: #### E RUR, PREGU, DRUGRPD #### [facility] [address] [place] [address] Dr. Gino Holt Potassium [Moles/Vol] 3.9 mmol/L Normal 3.5-5.1 [facility] Comment on above: Performed By: #### E RUR, PREGU, DRUGRPD #### [facility] [address] [place] [address] Dr. Gino Holt Sodium [Moles/Vol] 139 mmol/L Normal 136-145 [facility] [place] [facility] Comment on above: Performed By: #### E RUR, PREGU, DRUGRPD #### [facility] [address] [address] [address] Gino Holt Urea nitrogen [Mass/Vol] 15.0 mg/dL Normal 7.0-18.0 [facility] Comment on above: Performed By: #### E RUR, PREGU, DRUGRPD #### [facility] [address] [place] [address] Dr. Gino Holt Urea nitrogen/Creatinine [Mass ratio] 24.6 mg/mg Normal [facility] Comment on above: Performed By: #### E RUR, PREGU, DRUGRPD #### [facility] [address] [place] [address] Dr. Gino Holt XR CHEST 2 Von [...] DOMINIK JOSHI Date: 2022-10-12 02:46 Normal [facility] CBC AUTO DIFFon 08-24-2022 BASO # 0.0 103/ul Normal 0.0-0.1 [facility] Comment on above: Performed By: #### E RUR, PREGU, DRUGRPD #### [facility] [address] [place] [address] Dr. Gino Holt Basophils/100 WBC (Bld) 0.7 % Normal 0.2-2.0 [facility] Comment on above: Performed By: #### E RUR, PREGU, DRUGRPD #### [facility] [address] [place] [address] Dr. Gino Holt EO # 0.0 103/ul Normal 0.0-0.7 [facility] Comment on above: Performed By: #### E RUR, PREGU, DRUGRPD #### [facility] [address] [place] [address] Dr. Gino Holt Eosinophils/100 WBC (Bld) 0.6 % Critically low 0.9-7.0 [facility] Comment on above: Performed By: #### E RUR, PREGU, DRUGRPD #### [facility] [address] [place] [address] Dr. Gnio Holt Erythrocyte distribution width (RBC) [Ratio] 13.2 % Normal 11.0-15.0 [facility] Comment on above: Performed By: #### E RUR, PREGU, DRUGRPD #### [facility] [address] [place] [address] Dr. Gino Holt Hematocrit (Bld) [Volume fraction] 37.5 % Normal 36.0-48.0 [facility] Comment on above: Performed By: #### E RUR, PREGU, DRUGRPD #### [facility] [address] [place] [address] Dr. Gino Holt Hemoglobin (Bld) [Mass/Vol] 12.8 g/dL Normal 12.0-16.0 [facility] Comment on above: Performed By: #### E RUR, PREGU, DRUGRPD #### [facility] [address] [address] [address] Gino Holt IG # 0.02 10e3/ul Normal 0.00-0.03 [facility] Comment on above: Performed By: #### E RUR, PREGU, DRUGRPD #### [facility] [address] [address] [address] Gino Holt IG % 0.4 % Normal 0.0-0.5 [facility] Comment on above: Performed By: #### E RUR, PREGU, DRUGRPD #### [facility] [address] [place] [address] Dr. Gino Holt LYMPH # 1.7 103/ul Normal 1.2-3.8 [facility] Comment on above: Performed By: #### E RUR, PREGU, DRUGRPD #### [facility] [address] [address] [address] Gino Holt Lymphocytes/100 WBC (Bld) 30.6 % Normal 20.5-60.0 [facility] Comment on above: Performed By: #### E RUR, PREGU, DRUGRPD #### [facility] [address] [place] [address] Dr. Gino Holt MANUAL DIFF REQ NO Normal [facility] Comment on above: Performed By: #### E RUR, PREGU, DRUGRPD #### [facility] [address] [place] [address] Dr. Gino Holt MCH (RBC) [Entitic mass] 28.9 pg Normal 26.7-34.0 [facility] Comment on above: Performed By: #### E RUR, PREGU, DRUGRPD #### [facility] [address] [place] [address] Dr. Gino Holt MCHC (RBC) [Mass/Vol] 34.1 g/dL Normal 29.9-35.2 [facility] Comment on above: Performed By: #### E RUR, PREGU, DRUGRPD #### [facility] [address] [place] [address] Dr. Gino Holt MCV (RBC) [Entitic vol] 84.7 fL Normal 81.0-99.0 [facility] Comment on above: Performed By: #### E RUR, PREGU, DRUGRPD #### [facility] [address] [place] [address] Dr. Gino Holt MONO # 0.4 103/ul Normal 0.3-0.8 [facility] Comment on above: Performed By: #### E RUR, PREGU, DRUGRPD #### [facility] [address] [place] [address] Dr. Gino Holt Monocytes/100 WBC (Bld) 7.2 % Normal 1.7-12.0 [facility] Comment on above: Performed By: #### E RUR, PREGU, DRUGRPD #### [facility] [address] [place] [address] Dr. Gino Holt NEUT # 3.3 103/ul Normal 1.4-6.5 [facility] Comment on above: Performed By: #### E RUR, PREGU, DRUGRPD #### [facility] [address] [place] [address] Dr. Gino Holt Neutrophils/100 WBC (Bld) 60.5 % Normal 43.0-75.0 [facility] Comment on above: Performed By: #### E RUR, PREGU, DRUGRPD #### [facility] [address] [place] [address] Dr. Gino Holt Platelet mean volume (Bld) [Entitic vol] 8.6 fL Critically low 9.5-13.5 [facility] Comment on above: Performed By: #### E RUR, PREGU, DRUGRPD #### [facility] [address] [place] [address] Dr. Gino Holt PLT 301 103/ul Normal 150-450 [facility] Comment on above: Performed By: #### E RUR, PREGU, DRUGRPD #### [facility] [address] [address] [address] Gino Holt RBC 4.43 106/ul Normal 4.20-5.40 [facility] Comment on above: Performed By: #### E RUR, PREGU, DRUGRPD #### [facility] [address] [address] [address] Gino Holt WBC 5.4 103/ul Normal 4.0-11.0 [facility] Comment on above: Performed By: #### E RUR, PREGU, DRUGRPD #### [facility] [address] CSPINE WO CONon CT CSPINE WO CON CT CERVICAL SPINE [...] GAURAV ABDI Date: 2022-08-24 02:53 Normal [facility] CT FACIAL BONES WO CONon CT FACIAL [...] GAURAV ABDI Date: 2022-08-24 02:49 Normal [facility] CT HEAD WO CONon 08-24-2022 CT HEAD [...] GAURAV ABDI Date: 2022-08-24 02:43 Normal [facility] ETHANOL (BLD ALC)on 08-24-19 23 ALC NOTE NOTE: 80 mg/dl is th e legal limit for a blood alcohol level Normal [facility] Comment on above: Performed By: #### E JACOB IBANEZ, DRUGRPD #### [facility] [address] [address] [address] Gino Holt Ethanol [Mass/Vol] 271 mg/dL Normal [facility] Comment on above: Performed By: #### E RUR, PREGU, DRUGRPD #### [facility] [address] [address] [address] Gino Holt URon 08-24-2022 , QUAL Negative Normal NEGATIVE [facility] Comment on above: Performed By: #### P REGU #### [facility] [address] [address] [address] Gino Holt PROF 14(COMP METB)on 023 Albumin [Mass/Vol] 4.1 g/dL Normal 3.4-5.0 [facility] Comment on above: Performed By: #### C MP #### [facility] [address] [place] [address] Dr. Gino Holt Albumin/Globulin [Mass ratio] 1.0 {ratio} Normal [facility] Comment on above: Performed By: #### C MP #### [facility] [address] [address] [address] Gino Holt ALP [Catalytic activity/Vol] 100 U/L Normal 46-116 [facility] Comment on above: Performed By: #### C MP #### [facility] [address] [place] [address] Dr. Gino Holt ALT [Catalytic activity/Vol] 29 U/L Normal 14-59 [facility] Comment on above: Performed By: #### C MP #### [facility] [address] [address] [address] Gino Holt Anion gap [Moles/Vol] 13.3 mmol/L Normal [facility] Comment on above: Performed By: #### C MP #### [facility] [address] [address] [address] Gino Holt AST [Catalytic activity/Vol] 22 U/L Normal 15-37 [facility] Comment on above: Performed By: #### C MP #### [facility] [address] [place] [address] Dr. Gino Holt Bilirubin [Mass/Vol] 0.1 mg/dL Critically low 0.2-1.0 [facility] Comment on above: Performed By: #### C MP #### [facility] [address] [address] [address] Gino Holt Calcium [Mass/Vol] 9.0 mg/dL Normal 8.5-10.1 [facility] Comment on above: Performed By: #### C MP #### [facility] [address] [address] [address] Gino Holt Chloride [Moles/Vol] 111 mmol/L Critically high 98-107 [facility] Comment on above: Performed By: #### C MP #### [facility] [address] [address] [address] Gino Holt CO2 [Moles/Vol] 26.5 mmol/L Normal 21.0-32.0 [facility] Comment on above: Performed By: #### C MP #### [facility] [address] [address] [address] Gino Holt Creatinine [Mass/Vol] 0.65 mg/dL Normal 0.55-1.02 [facility] Comment on above: Performed By: #### C MP #### [facility] [address] [address] [address] Gnio Holt EGFR-AF PAPUA NEW GUINEAN >60 Normal >=60 [facility] Comment on above: Performed By: #### C MP #### [facility] [address] [address] [address] Gino Holt EGFR-NON AF PAPUA NEW GUINEAN >60 Normal >=60 [facility] Comment on above: Performed By: #### C MP #### [facility] [address] [address] [address] Gino Holt Globulin (S) [Mass/Vol] 4.1 g/dL Normal [facility] Comment on above: Performed By: #### C MP #### [facility] [address] [address] [address] Gino Holt Glucose [Mass/Vol] 95 mg/dL Normal 74-106 [facility] Comment on above: Performed By: #### C MP #### [facility] [address] [address] [address] Gino Holt Potassium [Moles/Vol] 4.8 mmol/L Normal 3.5-5.1 [facility] Comment on above: Performed By: #### C MP #### [facility] [address] [place] [address] Dr. Gino Holt Protein [Mass/Vol] 8.2 g/dL Normal 6.4-8.2 [facility] Comment on above: Performed By: #### C MP #### [facility] [address] [address] [address] Gino Holt Sodium [Moles/Vol] 146 mmol/L Critically high 136-145 [facility] Comment on above: Performed By: #### C MP #### [facility] [address] [place] [address] Dr. Gino Holt Urea nitrogen [Mass/Vol] 11.0 mg/dL Normal 7.0-18.0 [facility] Comment on above: Performed By: #### C MP #### [facility] [address] [place] [address] Dr. Gino Holt Urea nitrogen/Creatinine [Mass ratio] 16.9 mg/mg Normal [facility] Comment on above: Performed By: #### C MP #### [facility] [address] [place] [address] Dr. Gino Holt XR KNEE RT 4V [...] by: GAURAV ABDI Date: 2022-08-24 03:02 Normal [facility] CBC AUTO DIFFon 02-07-2022 BASO # 0.1 103/ul Normal 0.0-0.1 [facility] Comment on above: Performed By: #### C BC #### [facility] [address] [place] [address] Dr. Gino Holt Basophils/100 WBC (Bld) 0.6 % Normal 0.2-2.0 [facility] Comment on above: Performed By: #### C BC #### [facility] [address] [place] [address] Dr. Gino Holt EO # 0.1 103/ul Normal 0.0-0.7 [facility] Comment on above: Performed By: #### C BC #### [facility] [address] [place] [address] Dr. Gino Holt Eosinophils/100 WBC (Bld) 0.7 % Critically low 0.9-7.0 [facility] Comment on above: Performed By: #### C BC #### [facility] [address] [place] [address] Dr. Gino Holt Erythrocyte distribution width (RBC) [Ratio] 12.8 % Normal 11.0-15.0 [facility] Comment on above: Performed By: #### C BC #### [facility] [address] [place] [address] Dr. Gino Holt Hematocrit (Bld) [Volume fraction] 38.9 % Normal 36.0-48.0 [facility] Comment on above: Performed By: #### C BC #### [facility] [address] [place] [address] Dr. Gino Holt Hemoglobin (Bld) [Mass/Vol] 12.7 g/dL Normal 12.0-16.0 [facility] Comment on above: Performed By: #### C BC #### [facility] [address] [place] [address] Dr. Gino Holt IG # 0.01 10e3/ul Normal 0.00-0.03 [facility] Comment on above: Performed By: #### C BC #### [facility] [address] [place] [address] Dr. Gino Holt IG % 0.1 % Normal 0.0-0.5 [facility] Comment on above: Performed By: #### C BC #### [facility] [address] [place] [address] Dr. Gino Holt LYMPH # 2.7 103/ul Normal 1.2-3.8 [facility] Comment on above: Performed By: #### C BC #### [facility] [address] [place] [address] Dr. Gino Holt Lymphocytes/100 WBC (Bld) 33.2 % Normal 20.5-60.0 [facility] Comment on above: Performed By: #### C BC #### [facility] [address] [place] [address] Dr. Gino Holt MANUAL DIFF REQ NO Normal [facility] Comment on above: Performed By: #### C BC #### [facility] [address] [place] [address] Dr. Gino Holt MCH (RBC) [Entitic mass] 29.3 pg Normal 26.7-34.0 [facility] Comment on above: Performed By: #### C BC #### [facility] [address] [place] [address] Dr. Gino Holt MCHC (RBC) [Mass/Vol] 32.6 g/dL Normal 29.9-35.2 [facility] Comment on above: Performed By: #### C BC #### [facility] [address] [place] [address] Dr. Gino Holt MCV (RBC) [Entitic vol] 89.8 fL Normal 81.0-99.0 [facility] Comment on above: Performed By: #### C BC #### [facility] [address] [place] [address] Dr. Gino Holt MONO # 0.7 103/ul Normal 0.3-0.8 [facility] Comment on above: Performed By: #### C BC #### [facility] [address] [place] [address] Dr. Gino Holt Monocytes/100 WBC (Bld) 8.4 % Normal 1.7-12.0 [facility] Comment on above: Performed By: #### C BC #### [facility] [address] [place] [address] Dr. Gino Holt NEUT # 4.7 103/ul Normal 1.4-6.5 [facility] Comment on above: Performed By: #### C BC #### [facility] [address] [place] [address] Dr. Gino Holt Neutrophils/100 WBC (Bld) 57.0 % Normal 43.0-75.0 [facility] Comment on above: Performed By: #### C BC #### [facility] [address] [place] [address] Dr. Gino Holt Platelet mean volume (Bld) [Entitic vol] 8.9 fL Critically low 9.5-13.5 [facility] Comment on above: Performed By: #### C BC #### [facility] [address] [place] [address] Dr. Gino Holt PLT 305 103/ul Normal 150-450 [facility] Comment on above: Performed By: #### C BC #### [facility] [address] [place] [address] Dr. Gino Holt RBC 4.33 106/ul Normal 4.20-5.40 [facility] Comment on above: Performed By: #### C BC #### [facility] [address] [place] [address] Dr. Gino Holt WBC 8.2 103/ul Normal 4.0-11.0 [facility] Comment on above: Performed By: #### C BC #### [facility] [address] [place] [address] Dr. Gino Holt CRPon 02-07-2022 CRP 0.3 mg/dL Normal <=1.0 [facility] Comment on above: Performed By: #### H STROPN, CRP, CMP #### [facility] [address] [place] [address] HEAD WO CONon [...] ROSA VALENTINE Date: 2022-02-07 05:17 Normal [facility] D-DIMERon 02-07-2022 D-DIMER 0.44 mg/L FEU Normal <=0.59 [facility] Comment on above: Performed By: #### E RUR, PREGU, DRUGRPD #### [facility] [address] [address] [address] Gino Holt D-DIMER COMMENTS SEE BELOW Normal [facility] Comment on above: Result Comment: Incr eases [...] By: #### E RUR, PREGU, DRUGRPD #### [facility] [address] [place], [place] [address] Dr. Gino Holt PREG HCG QUALon 02-07-2022 , QUAL Negative Normal NEGATIVE [facility] Comment on above: Performed By: #### P REG #### [facility] [address] [place], [place] [address] Dr. Gino Holt PROF 14(COMP METB)on 022 Albumin [Mass/Vol] 3.9 g/dL Normal 3.4-5.0 [facility] Comment on above: Performed By: #### H STROPN, CRP, CMP #### [facility] [address] [place], [place] [address] Dr. Gino Holt Albumin/Globulin [Mass ratio] 0.9 {ratio} Normal [facility] Comment on above: Performed By: #### H STROPN, CRP, CMP #### [facility] [address] [address] [address] Gino Holt ALP [Catalytic activity/Vol] 84 U/L Normal 46-116 [facility] Comment on above: Performed By: #### H STROPN, CRP, CMP #### [facility] [address] [address] [address] Gino Holt ALT [Catalytic activity/Vol] 20 U/L Normal 14-59 [facility] Comment on above: Performed By: #### H STROPN, CRP, CMP #### [facility] [address] [address] [address] Gino Holt Anion gap [Moles/Vol] 14.6 mmol/L Normal [facility] Comment on above: Performed By: #### H STROPN, CRP, CMP #### [facility] [address] [address] [address] Gino Holt AST [Catalytic activity/Vol] 10 U/L Critically low 15-37 [facility] Comment on above: Performed By: #### H STROPN, CRP, CMP #### [facility] [address] [place] [address] Dr. Gino Holt Bilirubin [Mass/Vol] 0.3 mg/dL Normal 0.2-1.0 [facility] Comment on above: Performed By: #### H STROPN, CRP, CMP #### [facility] [address] [place] [address] Dr. Gino Holt Calcium [Mass/Vol] 8.6 mg/dL Normal 8.5-10.1 [facility] Comment on above: Performed By: #### H STROPN, CRP, CMP #### [facility] [address] [place] [address] Dr. Gino Holt Chloride [Moles/Vol] 106 mmol/L Normal 98-107 [facility] Comment on above: Performed By: #### H STROPN, CRP, CMP #### [facility] [address] [place] [address] Dr. Gino Holt CO2 [Moles/Vol] 24.8 mmol/L Normal 21.0-32.0 [facility] Comment on above: Performed By: #### H STROPN, CRP, CMP #### [facility] [address] [address] [address] Gino Holt Creatinine [Mass/Vol] 0.83 mg/dL Normal 0.55-1.02 [facility] Comment on above: Performed By: #### H STROPN, CRP, CMP #### [facility] [address] [address] [address] Gino Holt EGFR-AF PAPUA NEW GUINEAN >60 Normal >=60 [facility] Comment on above: Performed By: #### H STROPN, CRP, CMP #### [facility] [address] [address] [address] Gino Holt EGFR-NON AF PAPUA NEW GUINEAN >60 Normal >=60 [facility] Comment on above: Performed By: #### H STROPN, CRP, CMP #### [facility] [address] [address] [address] Gino Holt Globulin (S) [Mass/Vol] 4.2 g/dL Normal [facility] Comment on above: Performed By: #### H STROPN, CRP, CMP #### [facility] [address] [address] [address] Gino Holt Glucose [Mass/Vol] 105 mg/dL Normal 74-106 [facility] Comment on above: Performed By: #### H STROPN, CRP, CMP #### [facility] [address] [address] [address] Gino Holt Potassium [Moles/Vol] 3.4 mmol/L Critically low 3.5-5.1 [facility] Comment on above: Performed By: #### H STROPN, CRP, CMP #### [facility] [address] [address] [address] Gino Holt Protein [Mass/Vol] 8.1 g/dL Normal 6.4-8.2 [facility] Comment on above: Performed By: #### H STROPN, CRP, CMP #### [facility] [address] [address] [address] Gino Holt Sodium [Moles/Vol] 142 mmol/L Normal 136-145 [facility] Comment on above: Performed By: #### H STROPN, CRP, CMP #### [facility] [address] [place], [place] [address] Dr. Gino Holt Urea nitrogen [Mass/Vol] 15.0 mg/dL Normal 7.0-18.0 [facility] Comment on above: Performed By: #### H STROPN, CRP, CMP #### [facility] [address] [address] [address] Gino Holt Urea nitrogen/Creatinine [Mass ratio] 18.1 mg/mg Normal [facility] Comment on above: Performed By: #### H STROPN, CRP, CMP #### [facility] [address] [address] [address] Gino Holt TROPONIN, HIGH SENSITIVITYon 02-07-2022 HSTROP 4.6 pg/mL Normal 4.0-51.3 [facility] Comment on above: Result Comment: CUT- OFF POINTS HAVE BEEN ESTABLISHED BASED ON THE FOURTH UNIVERSAL DEFINITIONS OF MYOCARDIAL INFARCTION. THE UPPER REFERENCE LIMIT (URL) OF TROPONIN, DEFINED THE 99TH PERCENTILE OF cTnI DISTRIBUTION IN A REFERENCE POPULATION, HAS BEEN CONFIRMED THE DECISION THRESHOLD FOR SC DIAGNOSIS. Performed By: #### H STROPN, CRP, CMP #### [facility] [address] [address] [address] Gino Holt XR CHEST 1 Von [...] Impression: No acute findings. Electronically authenticated by: ROSA VALENTINE Date: 2022-02-07 05:18 Normal [facility] CBC AUTO DIFFon 11-26-2021 BASO # 0.0 103/ul Normal 0.0-0.1 [facility] Comment on above: Performed By: #### E RUR, PREGU, DRUGRPD #### [facility] [address] [place] [address] Dr. Gino Holt Basophils/100 WBC (Bld) 0.4 % Normal 0.2-2.0 [facility] Comment on above: Performed By: #### E RUR, PREGU, DRUGRPD #### [facility] [address] [place] [address] Dr. Gino Holt EO # 0.1 103/ul Normal 0.0-0.7 [facility] Comment on above: Performed By: #### E RUR, PREGU, DRUGRPD #### [facility] [address] [place] [address] Dr. Gino Holt Eosinophils/100 WBC (Bld) 1.1 % Normal 0.9-7.0 [facility] Comment on above: Performed By: #### Jerald RUR PREGU, DRUGRPD #### [facility] [address] [place] [address] Dr. Gino Holt Erythrocyte distribution width (RBC) [Ratio] 12.5 % Normal 11.0-15.0 [facility] Comment on above: Performed By: #### Jerald RUR, PREGU, DRUGRPD #### [facility] [address] [place] [address] Dr. Gino Holt Hematocrit (Bld) [Volume fraction] 40.9 % Normal 36.0-48.0 [facility] Comment on above: Performed By: #### E RUR, PREGU, DRUGRPD #### [facility] [address] [place] [address] Dr. Gino Holt Hemoglobin (Bld) [Mass/Vol] 13.3 g/dL Normal 12.0-16.0 [facility] Comment on above: Performed By: #### E RUR, PREGU, DRUGRPD #### [facility] [address] [place] [address] Dr. Gino Holt IG # 0.01 10e3/ul Normal 0.00-0.03 [facility] Comment on above: Performed By: #### E RUR, PREGU, DRUGRPD #### [facility] [address] [address] [address] Gino Holt IG % 0.2 % Normal 0.0-0.5 [facility] Comment on above: Performed By: #### E RUR, PREGU, DRUGRPD #### [facility] [address] [place] [address] Dr. Gino Holt LYMPH # 1.5 103/ul Normal 1.2-3.8 [facility] Comment on above: Performed By: #### E RUR, PREGU, DRUGRPD #### [facility] [address] [place] [address] Dr. Gino Holt Lymphocytes/100 WBC (Bld) 32.1 % Normal 20.5-60.0 [facility] Comment on above: Performed By: #### E RUR, PREGU, DRUGRPD #### [facility] [address] [place] [address] Dr. Gino Holt MANUAL DIFF REQ NO Normal [facility] Comment on above: Performed By: #### E RUR, PREGU, DRUGRPD #### [facility] [address] [place] [address] Dr. Gino Holt MCH (RBC) [Entitic mass] 29.8 pg Normal 26.7-34.0 [facility] Comment on above: Performed By: #### E RUR, PREGU, DRUGRPD #### [facility] [address] [place] [address] Dr. Gino Holt MCHC (RBC) [Mass/Vol] 32.5 g/dL Normal 29.9-35.2 [facility] Comment on above: Performed By: #### E RUR, PREGU, DRUGRPD #### [facility] [address] [place] [address] Dr. Gino Holt MCV (RBC) [Entitic vol] 91.7 fL Normal 81.0-99.0 [facility] Comment on above: Performed By: #### E RUR, PREGU, DRUGRPD #### [facility] [address] [place] [address] Dr. Gino Holt MONO # 0.5 103/ul Normal 0.3-0.8 [facility] Comment on above: Performed By: #### E RUR, PREGU, DRUGRPD #### [facility] [address] [place] [address] Dr. Gino Holt Monocytes/100 WBC (Bld) 9.7 % Normal 1.7-12.0 [facility] Comment on above: Performed By: #### E RUR, PREGU, DRUGRPD #### [facility] [address] [place] [address] Dr. Gino Holt NEUT # 2.7 103/ul Normal 1.4-6.5 [facility] Comment on above: Performed By: #### E RUR, PREGU, DRUGRPD #### [facility] [address] [place] [address] Dr. Gino Holt Neutrophils/100 WBC (Bld) 56.5 % Normal 43.0-75.0 [facility] Comment on above: Performed By: #### E RUR, PREGU, DRUGRPD #### [facility] [address] [place] [address] Dr. Gino Holt Platelet mean volume (Bld) [Entitic vol] 9.9 fL Normal 9.5-13.5 [facility] Comment on above: Performed By: #### E RUR, PREGU, DRUGRPD #### [facility] [address] [place] [address] Dr. Gino Holt PLT 243 103/ul Normal 150-450 [facility] Comment on above: Performed By: #### E RUR, PREGU, DRUGRPD #### [facility] [address] [place] [address] Dr. Gino Holt RBC 4.46 106/ul Normal 4.20-5.40 [facility] Comment on above: Performed By: #### E RUR, PREGU, DRUGRPD #### [facility] [address] [place] [address] Dr. Gino Holt WBC 4.7 103/ul Normal 4.0-11.0 [facility] Comment on above: Performed By: #### Jerald RUR PREGU, DRUGRPD #### [facility] [address] [place] [address] Dr. Gino Holt CULTURE URINEon 11-26-2021 CULTURE URINE Culture Observations : LIGHT GROWTH OF MIXED GENITAL KLAUDIA. NO POTENTIAL PATHOGENS SEEN. Normal [facility] Comment on above: Performed By: #### Jerald RUR, PREGU, DRUGRPD #### [facility] [address] [place] [address] Dr. Gino Holt ER URINE PROFILEon Bilirubin Ql (U) Negative Normal NEGATIVE [facility] Comment on above: Performed By: #### Jerald RUR, PREGU, DRUGRPD #### [facility] [address] [place] [address] Dr. Gino Holt Clarity (U) CLEAR Normal CLEAR [facility] Comment on above: Performed By: #### Jerald RUR, PREGU, DRUGRPD #### [facility] [address] [place] [address] Dr. Gino Hlot Color (U) LT. YELLOW Normal YELLOW [facility] Comment on above: Performed By: #### Jerald RUR, PREGU, DRUGRPD #### [facility] [address] [place] [address] Dr. Gino Holt [facility]ERS[facility] A micrscopic examination will be performed if indicated. Normal [facility] Comment on above: Performed By: #### Jerald RUR, PREGU, DRUGRPD #### [facility] [address] [place] [address] Dr. Gino Holt Glucose Ql (U) Negative Normal NEGATIVE [facility] Comment on above: Performed By: #### E RUR, PREGU, DRUGRPD #### [facility] [address] [place] [address] Dr. Gino Holt Hemoglobin Ql (U) Negative Normal NEGATIVE [facility] Comment on above: Performed By: #### Jerald RUR, PREGU, DRUGRPD #### [facility] [address] [place] [address] Dr. Gino Holt Ketones Ql (U) Negative Normal NEGATIVE [facility] Comment on above: Performed By: #### E RUR PREGU, DRUGRPD #### [facility] [address] [place] [address] Dr. Gino Holt LEUKOCYTES TRACE Abnormal NEGATIVE [facility] Comment on above: Performed By: #### E RUR, PREGU, DRUGRPD #### [facility] [address] [address] [address] Gino Holt Nitrite Ql (U) Negative Normal NEGATIVE [facility] Comment on above: Performed By: #### E RUR PREGU, DRUGRPD #### [facility] [address] [place] [address] Dr. Gino Holt pH (U) 7.0 [pH] Normal 5-9 [facility] Comment on above: Performed By: #### Jerald RUR PREGU, DRUGRPD #### [facility] [address] [place] [address] Dr. Gino Holt SPEC GRAVITY 1.010 Normal 1.005-<=1.025 [facility] Comment on above: Performed By: #### Jerald RUR PREGU, DRUGRPD #### [facility] [address] [place] [address] Dr. Gino Holt UA PROTEIN Negative Normal NEGATIVE/ TRACE [facility] Comment on above: Performed By: #### Jerald RUR PREGU, DRUGRPD #### [facility] [address] [place] [address] Dr. Gino Holt UR MICRO IND INDICATED Normal [facility] Comment on above: Performed By: #### E RUR PREGU, DRUGRPD #### [facility] [address] [place] [address] Dr. Gino Holt Urobilinogen Qn (U) 0.2 {Phillip'U}/dL Normal 0.2 - 1. 0 [facility] Comment on above: Performed By: #### E RUR, PREGU, DRUGRPD #### [facility] [address] [place] [address] Dr. Gino Holt LIPASEon 11-26-2021 Lipase [Catalytic activity/Vol] 80.0 U/L Normal 73.0-393.0 [facility] Comment on above: Performed By: #### E RUR, PREGU, DRUGRPD #### [facility] [address] [place] [address] Dr. Gino Holt URon 11-26-2021 , QUAL Negative Normal NEGATIVE [facility] Comment on above: Performed By: #### E RUR, PREGU, DRUGRPD #### [facility] [address] [place] [address] Dr. Gino Holt PROF 14(COMP METB)on 022 Albumin [Mass/Vol] 4.0 g/dL Normal 3.4-5.0 [facility] Comment on above: Performed By: #### E RUR, PREGU, DRUGRPD #### [facility] [address] [place] [address] Dr. Gino Holt Albumin/Globulin [Mass ratio] 1.0 {ratio} Normal [facility] Comment on above: Performed By: #### E RUR, PREGU, DRUGRPD #### [facility] [address] [place] [address] Dr. Gino Holt ALP [Catalytic activity/Vol] 105 U/L Normal 46-116 [facility] Comment on above: Performed By: #### E RUR, PREGU, DRUGRPD #### [facility] [address] [place] [address] Dr. Gino Holt ALT [Catalytic activity/Vol] 26 U/L Normal 14-59 [facility] Comment on above: Performed By: #### E RUR, PREGU, DRUGRPD #### [facility] [address] [place] [address] Dr. Gino Holt Anion gap [Moles/Vol] 12.2 mmol/L Normal [facility] Comment on above: Performed By: #### E RUR, PREGU, DRUGRPD #### [facility] [address] [place] [address] Dr. Gino Holt AST [Catalytic activity/Vol] 16 U/L Normal 15-37 [facility] Comment on above: Performed By: #### E RUR, PREGU, DRUGRPD #### [facility] [address] [place] [address] Dr. Gino Holt Bilirubin [Mass/Vol] 0.5 mg/dL Normal 0.2-1.0 [facility] Comment on above: Performed By: #### E RUR, PREGU, DRUGRPD #### [facility] [address] [place] [address] Dr. Gino Holt Calcium [Mass/Vol] 8.3 mg/dL Critically low 8.5-10.1 [facility] Comment on above: Performed By: #### E RUR, PREGU, DRUGRPD #### [facility] [address] [place] [address] Dr. Gino Holt Chloride [Moles/Vol] 105 mmol/L Normal 98-107 [facility] Comment on above: Performed By: #### E RUR, PREGU, DRUGRPD #### [facility] [address] [place] [address] Dr. Gino Holt CO2 [Moles/Vol] 23.6 mmol/L Normal 21.0-32.0 [facility] Comment on above: Performed By: #### E RUR, PREGU, DRUGRPD #### [facility] [address] [place] [address] Dr. Gino Holt Creatinine [Mass/Vol] 0.85 mg/dL Normal 0.55-1.02 [facility] Comment on above: Performed By: #### E RUR, PREGU, DRUGRPD #### [facility] [address] [place] [address] Dr. Gino Holt EGFR-AF PAPUA [place] GUINE[place] >60 Normal >=60 [facility] Comment on above: Performed By: #### E RUR, PREGU, DRUGRPD #### [facility] [address] [place] [address] Dr. Gino Holt EGFR-NON AF P[place] >60 Normal >=60 [facility] Comment on above: Performed By: #### E MARCELLE PREGU, DRUGRPD #### [facility] [address] [place] [address] Dr. Gino Holt Globulin (S) [Mass/Vol] 4.1 g/dL Normal [facility] Comment on above: Performed By: #### E RUSadi PREGU, DRUGRPD #### [facility] [address] [place] [address] Dr. Gino Holt Glucose [Mass/Vol] 84 mg/dL Normal 74-106 [facility] Comment on above: Performed By: #### Jerald IBANEZ PREGU, DRUGRPD #### [facility] [address] [place] [address] Dr. Gion Holt Potassium [Moles/Vol] 3.8 mmol/L Normal 3.5-5.1 [facility] Comment on above: Performed By: #### Jerald IBANEZ PREGU, DRUGRPD #### [facility] [address] [place] [address] Dr. Gino Holt Protein [Mass/Vol] 8.1 g/dL Normal 6.1-8.2 [facility] Comment on above: Performed By: #### Jerald IBANEZ PREGU, DRUGRPD #### [facility] [address] [place] [address] Dr. Gino Holt Sodium [Moles/Vol] 137 mmol/L Normal 136-145 [facility] Comment on above: Performed By: #### E RUR, PREGU, DRUGRPD #### [facility] [address] [place] [address] Dr. Gino Holt Urea nitrogen [Mass/Vol] 10.0 mg/dL Normal 7.0-18.0 [facility] Comment on above: Performed By: #### E RUR, PREGU, DRUGRPD #### [facility] [address] [place] [address] Dr. Gino Holt Urea nitrogen/Creatinine [Mass ratio] 11.8 mg/mg Normal [facility] Comment on above: Performed By: #### E RUR, PREGU, DRUGRPD #### [facility] [address] [address] [address] Gino Holt URINE MICROSCOPIC ONLYon BACTERIA SMALL Abnormal NONE SEEN [facility] Comment on above: Performed By: #### E RUR, PREGU, DRUGRPD #### [facility] [address] [address] [address] Gino Holt Bacteria identified Cx Nom (U) INDICATED Normal [facility] Comment on above: Performed By: #### E RUR, PREGU, DRUGRPD #### [facility] [address] [address] [address] Gino Holt CAST NONE SEEN Normal NONE SEEN [facility] Comment on above: Performed By: #### E RUR, PREGU, DRUGRPD #### [facility] [address] [place] [address] Dr. Gino Holt Crystals LM Nom (Urine sed) NONE SEEN Normal NONE SEEN [facility] Comment on above: Performed By: #### E RUR, PREGU, DRUGRPD #### [facility] [address] [address] [address] Gino Holt Epithelial cells LM Ql (Urine sed) FEW Abnormal NONE SEEN /RARE [facility] Comment on above: Performed By: #### E RUR, PREGU, DRUGRPD #### [facility] [address] [address] [address] Gino Holt MUCOUS MODERATE Abnormal NONE SEEN [facility] Comment on above: Performed By: #### E RUR, PREGU, DRUGRPD #### [facility] [address] [address] [address] Gino Holt RBC NONE SEEN Abnormal 0-2 [facility] Comment on above: Performed By: #### E RUR, PREGU, DRUGRPD #### [facility] [address] [place] [address] Dr. Gino Holt WBC 2-5 Abnormal NONE SEEN [facility] Comment on above: Performed By: #### E RUR, PREGU, DRUGRPD #### [facility] [address] [address] [address] Gino Holt XR KUB 1 VIEWon 11-26-2021 XR KUB 1 VIEW EXAM: XR KUB 1 VIEW HISTORY: Pain COMPARISON: None. TECHNIQUE: 2 views FINDINGS: The bowel gas pattern is nonobstructed. No free intraperitoneal air. No intra-abdominal calcification. The osseous structures are normal IMPRESSION: Normal x-ray Electronically authenticated by: ROBBY FORBES Date: 2021-11-26 15:50 Normal [facility] Vital Signs Date Time Vital Sign Value Performing Clinician Faci lity 12-07-2024 10:38-0400 Body mass index (BMI) [Ratio] 35.05 kg/m2 Tess Helena DO Work Phone: [facility] 12-07-2024 10:38-0400 Body weight 104.55 kg Tess Helena DO Work Phone: [facility] 12-07-2024 10:38-0400 Diastolic blood pressure 72 mm[Hg] Tess Helena DO Work Phone: [facility] 12-07-2024 10:38-0400 Systolic blood pressure 112 mm[Hg] Tess Helena DO Work Phone: [facility] 11-08-2024 09:47-0400 Body mass index (BMI) [Ratio] 34.21 kg/m2 Tess Helena DO Work Phone: [facility] 11-08-2024 09:47-0400 Body weight 102.06 kg Tess Helena DO Work Phone: [facility] 11-08-2024 09:47-0400 Diastolic blood pressure 70 mm[Hg] Tess Helena DO Work Phone: [facility] 11-08-2024 09:47-0400 Systolic blood pressure 118 mm[Hg] Tess Helena DO Work Phone: [facility] 05-18-2024 11:44-0400 Body mass index (BMI) [Ratio] 32.54 kg/m2 Dillon Silva MD Work Phone: [facility] 05-18-2024 11:44-0400 Body temperature 97.5 [degF] Dillon Silva MD Work Phone: [facility] 05-18-2024 11:44-0400 Body weight 97.07 kg Dillon Silva MD Work Phone: [facility] 05-18-2024 11:44-0400 Diastolic blood pressure 70 mm[Hg] Dillon Silva MD Work Phone: [facility] 05-18-2024 11:44-0400 Heart rate 78 /min Dillon Silva MD Work Phone: [facility] 05-18-2024 11:44-0400 SaO2% (BldA) [Mass fraction] 99 % Dillon Silva MD Work Phone: [facility] 05-18-2024 11:44-0400 Systolic blood pressure 118 mm[Hg] Dillon Silva MD Work Phone: [facility] 04-21-2024 09:35-0400 Body height 172.7 cm Dillon Silva MD Work Phone: [facility] 04-21-2024 09:35-0400 Body mass index (BMI) [Ratio] 32.39 kg/m2 Dillon Silva MD Work Phone: [facility] 04-21-2024 09:35-0400 Body temperature 97.5 [degF] Dillon Silva MD Work Phone: [facility] 04-21-2024 09:35-0400 Body weight 96.62 kg Dillon Silva MD Work Phone: [facility] 04-21-2024 09:35-0400 Diastolic blood pressure 58 mm[Hg] Dillon Silva MD Work Phone: [facility] 04-21-2024 09:35-0400 Heart rate 79 /min Dillon Silva MD Work Phone: [facility] 04-21-2024 09:35-0400 Respiratory rate 20 /min Dillon Silva MD Work Phone: [facility] 04-21-2024 09:35-0400 SaO2% (BldA) [Mass fraction] 99 % Dillon Silva MD Work Phone: [facility] 04-21-2024 09:35-0400 Systolic blood pressure 104 mm[Hg] Dillon Silva MD Work Phone: [facility] 03-25-2024 14:37-0400 Body height 172.7 cm Dillon Silva MD Work Phone: [facility] 03-25-2024 14:37-0400 Body mass index (BMI) [Ratio] 32.69 kg/m2 Dillon Silva MD Work Phone: [facility] 03-25-2024 14:37-0400 Body temperature 97.81 [degF] Dillon Silva MD Work Phone: [facility] 03-25-2024 14:37-0400 Body weight 97.52 kg Dillon Silva MD Work Phone: [facility] 03-25-2024 14:37-0400 Diastolic blood pressure 78 mm[Hg] Dillon Silva MD Work Phone: [facility] 03-25-2024 14:37-0400 Heart rate 95 /min Dillon Silva MD Work Phone: [facility] 03-25-2024 14:37-0400 Respiratory rate 22 /min Dillon Silva MD Work Phone: [facility] 03-25-2024 14:37-0400 SaO2% (BldA) [Mass fraction] 98 % Dillon Silva MD Work Phone: [facility] 03-25-2024 14:37-0400 Systolic blood pressure 138 mm[Hg] Dillon Silva MD Work Phone: [facility] Encounters Encounter Date Encounter Type Care Provider Facility Start: 12-07-2024 End: 12-07-2024 Bamboo flowsheet Tess Helena DO Work Phone: [facility] Start: 12-07-2024 End: 12-07-2024 Bamboo flowsheet Tess Helena DO Work Phone: [facility] Start: 12-07-2024 End: 12-07-2024 Office outpatient visit 15 minutes Tess Helena DO Work Phone: [facility] Comment on above: Well woman exam with routine gynecological exam; Second trimester ; 26 weeks gestation of ; Vaginal discharge; STD exposure; Diabetes mellitus screening Start: 12-07-2024 End: 12-07-2024 Patient encounter procedure Tess Helena DO Work Phone: [facility] Work Phone: Start: 11-08-2024 End: 11-08-2024 Office outpatient visit 15 minutes Tess Helena DO Work Phone: [facility] Comment on above: Second trimester pre gnancy Start: 11-08-2024 End: 11-08-2024 ambulatory TESS HELENA Not Available Start: 11-08-2024 End: 11-08-2024 ambulatory DILLON NADERER Not Available Start: 10-08-2024 End: 10-08-2024 ambulatory DILLON NADERESadi Not Available Start: 08-10-2024 End: 08-13-2024 Clinisync Result Encounter Generic External Data Provider [facility] Unsolicited Start: 08-10-2024 End: 08-13-2024 Clinisync Result Encounter Generic External Data Provider [facility] Unsolicited Start: 06-16-2024 End: 06-16-2024 Refill Dillon Silva MD Work Phone: [facility] Comment on above: Generalized anxiety disorder (CMS/HCC) [...] Result Encounter Dillon Silva MD Work Phone: [facility] External Department Unsolicited Start: 05-04-2024 End: 05-04-2024 ambulatory [facility] Start: 05-04-2024 End: 05-04-2024 ambulatory [facility] Start: 05-04-2024 End: 05-04-2024 [facility] Comment on above: Palpitation (Primary Dx) Start: [...] Phone: [facility] Comment on above: Migraine without aur a and without status migrainosus, not intractable (CMS/HCC) (Primary Dx); Vertigo; Moderate major depression, single episode (HCC) (CMS/HCC); Generalized anxiety disorder (CMS/HCC); Gastroesophageal reflux disease without esophagitis Start: 03-25-2024 End: 03-25-2024 ambulatory DILLON SLIVA Not Available Start: 03-25-2024 End: 03-25-2024 Bamboo flowsheet Dillon Silva MD Work Phone: [facility] Start: 03-25-2024 End: 03-25-2024 Bamboo [...] . Facility:[facility] Start: 11-26-2021 End: 11-26-2021 ambulatory SHERIE CALVO . Facility:[facility] Procedures Date Procedure Procedure Detail Performing Clinician Start: 12-07-2024 Urnls dip stick/tabl et rgnt non-auto w/o micrscp Tess Malik DO Work Phone: Start: 11-08-2024 Urnls dip stick/tabl et rgnt non-auto w/o micrscp Tess Helena DO Work Phone: Start: 08-10-2024 Bacteria identified in Urine by Culture Generic External Data Provider Start: 05-04-2024 Basic metabolic pane l calcium total Dillon Silva MD Work Phone: Start: 05-04-2024 Hepatic function panel Dillon Silva MD Work Phone: Plan of Treatment Date Care Activity Detail Author Start: 04-11-2025 End: 04-11-2025 ambulatory 04/11/2025 10:20 AM EDT [facility] [address] [facility] [address] [place] [address] Tess Malik, DO [address], [place] [id number] [facility] Start: 03-28-2025 Influenza vaccination Influenz a Vaccine (Season Ended) [facility] Start: 12-22-2024 End: 12-22-2024 Patient encounter procedure 12/22/2024 10:20 AM EDT Routine [facility] [address] [place] [address] Sherie Calvo PA [address] [place], [place] [id number] [facility] Start: 12-07-2024 End: 12-07-2025 CBC panel - Blood by Automated count CBC Lab Routine Diabetes mellitus screening Expected: 12/07/2024 (Approximate), Expires: 12/07/2025 [facility] Comment on above: Expected: 12/07/2024 (Approximate), Expires: 12/07/2025 Start: 12-07-2024 End: 12-07-2025 Measurement of glucose 1 hour after glucose challenge for glucose tolerance test Glucose tolerance, 1 hour Lab Routine Diabetes mellitus screening Expected: 12/07/2024 (Approximate), Expires: 12/07/2025 [facility] Comment on above: Expected: 12/07/2024 (Approximate), Expires: 12/07/2025 Start: 12-07-2024 End: 12-07-2024 Patient encounter procedure [facility] Comment on above: Arrived Start: 06-23-2024 End: 06-23-2024 Patient encounter procedure 06/23/2024 10:30 AM EST Office Visit [facility] [address] [place] [address] Dillon Silva MD [address] [place] [phone] [facility] Start: 05-25-2024 End: 05-25-2024 Patient encounter procedure 05/25/2024 2:45 PM EDT Office Visit [facility] [address] [place] [address] Dillon Silva MD [address] [place] [phone] [facility] Start: 05-18-2024 End: 05-18-2024 Patient encounter procedure 05/18/2024 11:45 AM EDT Office Visit [facility] [address] [place] [address] Dillon Silva MD [address] [place] [phone] Arrived [facility] Comment on above: Arrived Start: 05-04-2024 End: 05-04-2025 Holter monitor study Holter monitor Imaging Routine Palpitation Expected: 05/04/2024 (Approximate), Expires: 05/04/2025 [facility] Work Phone: Comment on above: Expected: 05/04/2024 (Approximate), Expires: 05/04/2025 Start: 04-21-2024 End: 04-21-2025 Basic metabolic 1998 panel - Serum or Plasma Basic metabolic panel Lab Routine Chest pain, unspecified type Palpitation Expected: 04/21/2024 (Approximate), Expires: 04/21/2025 [facility] Work Phone: Comment on above: Expected: 04/21/2024 (Approximate), Expires: 04/21/2025 Start: 04-21-2024 End: 04-21-2025 Cardiac stress study Procedure STRESS TEST TREADMILL Imaging Routine Chest pain, unspecified type SOB (shortness of breath) on exertion Palpitation Expected: 04/21/2024 (Approximate), Expires: 04/21/2025 [facility] Comment on above: Expected: 04/21/2024 (Approximate), Expires: 04/21/2025 Start: 04-21-2024 End: 04-21-2025 CBC W Auto Differential panel - Blood CBC and differential Lab Routine SOB (shortness of breath) on exertion Palpitation Expected: 04/21/2024 (Approximate), Expires: 04/21/2025 [facility] Comment on above: Expected: 04/21/2024 (Approximate), Expires: 04/21/2025 Start: 04-21-2024 End: 04-21-2026 Echocardiogram 2D complete Echocardiogram 2D complete Echocardiography Routine SOB (shortness of breath) on exertion Palpitation Expected: 04/21/2024 (Approximate), Expires: 04/21/2026 [facility] Comment on above: Expected: 04/21/2024 (Approximate), Expires: 04/21/2026 Start: 04-21-2024 End: 04-21-2025 Hepatic function 2000 panel - Serum or Plasma Hepatic function panel Lab Routine Palpitation Expected: 04/21/2024 (Approximate), Expires: 04/21/2025 [facility] Comment on above: Expected: 04/21/2024 (Approximate), Expires: 04/21/2025 Start: 04-21-2024 End: 04-21-2025 Holter monitor study Holter monitor Imaging Routine Palpitation Expected: 04/21/2024 (Approximate), Expires: 04/21/2025 [facility] Comment on above: Expected: 04/21/2024 (Approximate), Expires: 04/21/2025 Start: 04-21-2024 End: 04-21-2025 Magnesium [Mass/volume] in Serum or Plasma Magnesium Lab Routine Palpitation Expected: 04/21/2024 (Approximate), Expires: 04/21/2025 [facility] Comment on above: Expected: 04/21/2024 (Approximate), Expires: 04/21/2025 Start: 04-21-2024 End: 04-21-2025 TSH W/REFLEX TO FT4 TSH W/REFLEX TO FT4 Lab Routine Palpitation Expected: 04/21/2024 (Approximate), Expires: 04/21/2025 [facility] Comment on above: Expected: 04/21/2024 (Approximate), Expires: 04/21/2025 Start: 04-21-2024 End: 04-21-2024 Patient encounter procedure 04/21/2024 9:15 AM EDT Office Visit [facility] [address] [place] [address] Dillon Silva MD [address] [place] [phone] Arrived [facility] Comment on above: Arrived Start: 03-28-2024 Influenza vaccination Influenza Vacc ine (#1) [facility] Start: 03-25-2024 End: 03-25-2024 Patient encounter procedure 03/25/2024 2:45 PM EDT Office Visit [facility] [address] [place] [address] Dillon Silva MD [address] [place] [address] Arrived [facility] Comment on above: Arrived Start: 2020 Screening for malign ant neoplasm of cervix [facility] Start: 10-26-2011 Screening for malign ant neoplasm of cervix Pap Smear [facility] CHLAMYDIA TRACHOMATI S (GENITO/STI) CHLAMYDIA TRACHOMATIS (GENITO/STI) Lab Routine STD exposure Ordered: 12/07/2024 [facility] Comment on above: Ordered: 12/07/2024 Cytology Cervical or vaginal smear or scraping study Pap Smear Pathology and Cytology Routine Well woman exam with routine gynecological exam Ordered: 12/07/2024 [facility] Work Phone: Comment on above: Ordered: 12/07/2024 Human papilloma viru s DNA [Presence] in Unspecified specimen by Probe with amplification HPV DNA probe, amplified Microbiology Routine Well woman exam with routine gynecological exam Ordered: 12/07/2024 [facility] Comment on above: Ordered: 12/07/2024 Neisseria gonorrhoea e DNA [Presence] in Unspecified specimen by SUKHJINDER with probe detection Neisseria gonorrhea DNA probe, direct Lab Routine STD exposure Ordered: 12/07/2024 [facility] Comment on above: Ordered: 12/07/2024 Pulmonary function report Pulmonary Function Test Imaging Routine SOB (shortness of breath) on exertion Ordered: 04/21/2024 [facility] Comment on above: Ordered: 04/21/2024 SURESWAB(R) ADVANCED VAGINITIS PLUS, TMA SURESWAB(R) ADVANCED VAGINITIS PLUS, TMA Pathology and Cytology Routine Vaginal discharge Ordered: 12/07/2024 [facility] Comment on above: Ordered: 12/07/2024 Immunizations Immunization Date Immunization Notes Care Provider [facility] 10-16-2022 influenza virus vacc ine, unspecified formulation Dillon Silva MD Work Phone: [facility] Payers Date Payer Category Payer Private Health Insurance CONSTANTINO ZAYAS [id number] 2023 Unknown [employer]INO [employer] [facility] [id number] 2023-Present [phone] [place] [address] [id number] 2023 Unknown [id number] 2019 Medicaid [employer] [place] [id number] 2019-Present [address] [place] [address] [id number] 2019 Medicaid (Managed Care) 1.2. [id number] 1990 Unknown [id number] 2.16.840.1.155640.3.579.2. 593 1990 Unknown [id number] 2.16.840.1.869271.3.579.2. 593 1990 Unknown [id number] 2.16.840.1.662252.3.579.2. 593 1990 Unknown [id number] 2.16.840.1.705942.3.579.2. 593 1990 Unknown [id number] 2.16.840.1.871593.3.579.2. 593 1990 Unknown [id number] 2.16.840.1.291165.3.579.2. 593 1990 Unknown [id number] 2.16.840.1.774740.3.579.2. 593 1990 Unknown [id number] 2.16.840.1.393658.3.579.2. 593 1990 Unknown [id number] 2.16.840.1.027920.3.579.2. 593 1990 Unknown [id number] 2.16.840.1.667053.3.579.2. 1286 1990 Unknown [id number] 2.16.840.1.867537.3.579.2. 1286 1990 Unknown [id number] 2.16.840.1.023827.3.579.2. 1286 1990 Unknown [id number] 2.16.840.1.989528.3.579.2. 1286 1990 Unknown [id number] 2.16.840.1.512017.3.579.2. 9 1990 Unknown [id number] 2.16.840.1.532622.3.579.2. 9 1990 Unknown [id number] 2.16.840.1.874024.3.579.2. 9 1990 Unknown [id number] 2.16.840.1.456447.3.579.2. 9 1990 Unknown [id number] 2.16.840.1.559056.3.579.2. 1258 1990 Unknown [id number] 2.16.840.1.362028.3.579.2. 1259 1959 Unknown [id number] Social History Date Type Detail Facility Start: 03-25-2024 Tobacco smoking stat [facility] Ex-smoker [facility] History of tobacco use [...] file [facility] Tobacco smoking stat [facility] Tobacco smoking consumption unknown [facility] How often do you nee d to have someone help you when you read instructions, pamphlets, or other written material from your doctor or pharmacy [SILS] Sometimes [facility] Start: 06-22-2024 [facility] Clinical Notes 03-25-2024 to 12-07-2024 Sinai Beach LPN - 12/07/2024 10:20 AM Breana Parker MA - 11/08/2024 9:20 AM Ngoc Silva MD - 05/18/2024 12:12 PM Ngoc Silva MD - 05/18/2024 12:12 PM EDT Note Date & Type Note Facility 12-07-2024 History of Presen t illness Narrative Reason for Appointment: Patient ID: Mirlande Luna is a 34 y.o. female who presents for Routine Visit, Well Women Visit, and STI Screening Patient presents today for Annual Exam., STD Check., and Return OB appointment. MEDICATIONS Current Outpatient Medications Medication Instructions albuterol HFA 90 mcg/act inhaler 2 puffs, Inhalation, Every 4 hours PRN ALPRAZolam (XANAX) 0.5 mg, Oral, 3 times daily PRN esomeprazole (NEXIUM) 40 mg, Oral, Daily meclizine (ANTIVERT) 25 mg, Oral, 4 times daily PRN topiramate (TOPAMAX) 100 mg, Oral, 2 times daily ALLERGIES Allergies Allergen Reactions Ciprofloxacin Nausea Only and GI intolerance PROBLEMS Active Ambulatory Problems Diagnosis Date Noted Migraine without aura and without status migrainosus, not intractable ([facility]) 07/11/2023 Generalized anxiety disorder ([facility]) 03/25/2024 Gastroesophageal reflux disease without esophagitis 03/25/2024 Allergic rhinitis due to pollen 03/25/2024 Moderate major depression, single episode (HCC) (CMS/HCC) 03/25/2024 Palpitation 04/21/2024 Resolved Ambulatory Problems Diagnosis Date Noted Vertigo 03/25/2024 SOB (shortness of breath) on exertion 04/21/2024 Chest pain 04/21/2024 No Additional Past Medical History HISTORY PAST MEDICAL HISTORY SOCIAL HISTORY History reviewed. No pertinent past medical history. Social History Tobacco Use Smoking status: Former Types: Cigarettes Smokeless tobacco: Never Substance Use Topics Alcohol use: Not on file Drug use: Not on file FAMILY HISTORY No family history on file. SURGICAL HISTORY History reviewed. No pertinent surgical history. REVIEW OF SYSTEMS Review of Systems: Review of Systems Constitutional: Negative. HENT: Negative. Eyes: Negative. Respiratory: Negative. Cardiovascular: Negative. Gastrointestinal: Negative. Genitourinary: Negative. Musculoskeletal: Negative. Skin: Negative. Neurological: Negative. All other systems reviewed and are negative. Hematological: Negative. Endocrine: Negative. Allergic/Immunologic: Negative. OBJECTIVE Objective: Physical Exam Constitutional: Appearance: Normal appearance. She is well-developed. Genitourinary: Vulva normal. Breasts: Breasts are soft. Right: Normal. Left: Normal. Cardiovascular: Rate and Rhythm: Normal rate and regular rhythm. Pulmonary: Effort: Pulmonary effort is normal. Breath sounds: Normal breath sounds. Abdominal: General: Bowel sounds are normal. There is no distension. Palpations: Abdomen is soft. Tenderness: There is no abdominal tenderness. There is no guarding or rebound. Musculoskeletal: General: No swelling. Normal range of motion. Right lower leg: No edema. Left lower leg: No edema. Neurological: Mental Status: She is alert and oriented to person, place, and time. Skin: General: Skin is warm and dry. Psychiatric: Mood and Affect: Mood normal. Behavior: Behavior normal. Vitals and nursing note reviewed. Exam conducted with a chief credit officer present. Vitals: Estimated body mass index is 35.05 kg/m as calculated from the following: Height as of 04/21/24: 5' 8 . Weight as of this encounter: 230 lb 8 oz. BP: 112/72 No LMP recorded. Patient is . ASSESSMENT & PLAN ICD-10-CM 1. Well woman exam with routine gynecological exam Z01.419 Pap Smear HPV DNA probe, amplified 2. Second trimester Z34.92 3. 26 weeks gestation of Z3A.26 POCT urinalysis dipstick manually resulted 4. Vaginal discharge N89.8 SURESWAB(R) ADVANCED VAGINITIS PLUS, TMA 5. STD exposure Z20.2 CHLAMYDIA TRACHOMATIS (GENITO/STI) Neisseria gonorrhea DNA probe, direct 6. Diabetes mellitus screening Z13.1 CBC Glucose tolerance, 1 hour CBC Glucose tolerance, 1 hour Return OB/Annual Exam: Patient presents today for a annual exam/routine obstetrics appointment. Patient is currently 26w0d . Patient states she is doing well but has complaints of nausea in the morning. Pap and cultures was obtained without difficulty and patient was given orders for glucola to be obtained. Orders Placed This Encounter Procedures HPV DNA probe, amplified CHLAMYDIA TRACHOMATIS (GENITO/STI) Neisseria gonorrhea DNA probe, direct CBC Glucose tolerance, 1 hour POCT urinalysis dipstick manually resulted Follow Up: Patient is to schedule annual exam for next year and return to office in 4 weeks for OB appointment. Documented by Sinai Beach LPN on behalf of: Tess Malik DO documented in this encounter [facility] 11-08-2024 History of Presen t illness Narrative Reason for Appointment: Patient ID: Mirlande Luna is a 34 y.o. female who presents for Routine Visit Patient presents today for Return OB appointment. MEDICATIONS Current Outpatient Medications Medication Instructions albuterol HFA 90 mcg/act inhaler 2 puffs, Inhalation, Every 4 hours PRN ALPRAZolam (XANAX) 0.5 mg, Oral, 3 times daily PRN esomeprazole (NEXIUM) 40 mg, Oral, Daily meclizine (ANTIVERT) 25 mg, Oral, 4 times daily PRN topiramate (TOPAMAX) 100 mg, Oral, 2 times daily ALLERGIES Allergies Allergen Reactions Ciprofloxacin Nausea Only and GI intolerance PROBLEMS Active Ambulatory Problems Diagnosis Date Noted Migraine without aura and without status migrainosus, not intractable ([facility]) 07/11/2023 Generalized anxiety disorder ([facility]) 03/25/2024 Gastroesophageal reflux disease without esophagitis 03/25/2024 Allergic rhinitis due to pollen 03/25/2024 Moderate major depression, single episode (HCC) (CMS/HCC) 03/25/2024 Palpitation 04/21/2024 Resolved Ambulatory Problems Diagnosis Date Noted Vertigo 03/25/2024 SOB (shortness of breath) on exertion 04/21/2024 Chest pain 04/21/2024 No Additional Past Medical History HISTORY PAST MEDICAL HISTORY SOCIAL HISTORY No past medical history on file. Social History Tobacco Use Smoking status: Former Types: Cigarettes Smokeless tobacco: Never Substance Use Topics Alcohol use: Not on file Drug use: Not on file FAMILY HISTORY No family history on file. SURGICAL HISTORY No past surgical history on file. REVIEW OF SYSTEMS Review of Systems: Review of Systems Constitutional: Negative. HENT: Negative. Eyes: Negative. Respiratory: Negative. Cardiovascular: Negative. Gastrointestinal: Negative. Genitourinary: Negative. Musculoskeletal: Negative. Skin: Negative. Neurological: Negative. All other systems reviewed and are negative. Hematological: Negative. Endocrine: Negative. Allergic/Immunologic: Negative. OBJECTIVE Objective: Physical Exam Constitutional: Appearance: Normal appearance. She is well-developed. Cardiovascular: Rate and Rhythm: Normal rate and regular rhythm. Pulmonary: Effort: Pulmonary effort is normal. Breath sounds: Normal breath sounds. Abdominal: General: Bowel sounds are normal. There is no distension. Palpations: Abdomen is soft. Tenderness: There is no abdominal tenderness. There is no guarding or rebound. Musculoskeletal: General: No swelling. Normal range of motion. Right lower leg: No edema. Left lower leg: No edema. Neurological: Mental Status: She is alert and oriented to person, place, and time. Skin: General: Skin is warm and dry. Psychiatric: Mood and Affect: Mood normal. Behavior: Behavior normal. Vitals and nursing note reviewed. Exam conducted with a chief credit officer present. Vitals: Estimated body mass index is 34.21 kg/m as calculated from the following: Height as of 04/21/24: 5' 8 . Weight as of this encounter: 225 lb. BP: 118/70 No LMP recorded. Patient is . ASSESSMENT & PLAN ICD-10-CM 1. Second trimester Z34.92 POCT urinalysis dipstick manually resulted Return OB: Patient presents today for a routine obstetrics appointment. Patient is currently 21w6d . Patient states she is doing well but has complaints of being tired due to current . Patient has verbalizes frequent movement. labor precautions was discussed/given and patient was instructed to perform kick counts three times a day. Orders Placed This Encounter Procedures POCT urinalysis dipstick manually resulted Follow Up: Patient is to return to office in 2 week for routine OB appointment. Patient is aware of having her pap and cx's at the next OB visit. Documented by Angelique Aviles LPN on behalf of DRE Delgadillo documented in this encounter [facility] 05-18-2024 History of Presen t illness Narrative [...] to anxiety. Monitor. documented in this encounter [facility] 04-21-2024 History of Presen t illness Narrative [...] TREADMILL Holter monitor documented in this encounter [facility] 03-25-2024 History of Presen t illness Narrative [...] 33 y.o. female who presents for Follow-up ([facility] paperwork). Follow up migraines, depression, anxiety, and [...] Continue qulipta and topamax. Relevant Medications rizatriptan [employer] ([employer]) 10 MG disintegrating tablet Generalized anxiety disorder [...] and return 03/30. documented in this encounter [facility] Healthcare Evaluation note Diagnosis Palpitation- Primary Palpitations [facility]* Diagnosis Migraine without aura and without status migrainosus, not intractable (CMS/HCC)- Primary Vertigo Dizziness and giddiness Moderate major depression, single episode (HCC) ([facility]/HCC) Major depressive disorder, single episode, moderate Generalized anxiety disorder (CMS/HCC) Generalized anxiety disorder Gastroesophageal reflux disease without esophagitis Esophageal reflux Chest pain, unspecified type- Primary SOB (shortness of breath) on exertion Shortness of breath Palpitation Palpitations Palpitation- Primary Palpitations Generalized anxiety disorder (CMS/HCC) Generalized anxiety disorder Moderate major depression, single episode (HCC) ([facility]) Major depressive disorder, single episode, moderate Migraine without aura and without status migrainosus, not intractable (CMS/HCC) [facility] Diagnosis Migraine without aura and without status migrainosus, not intractable (CMS/HCC)- Primary Vertigo Dizziness and giddiness Moderate major depression, single episode (HCC) ([facility]) Major depressive disorder, single episode, moderate Generalized anxiety disorder ([facility]/HCC) Generalized anxiety disorder Gastroesophageal reflux disease without esophagitis Esophageal reflux Chest pain, unspecified type- Primary SOB (shortness of breath) on exertion Shortness of breath Palpitation Palpitations Palpitation- Primary Palpitations Generalized anxiety disorder ([facility]/HCC) Generalized anxiety disorder Moderate major depression, single episode (HCC) ([facility]) Major depressive disorder, single episode, moderate Migraine without aura and without status migrainosus, not intractable ([facility]/HCC) Generalized anxiety disorder ([facility]) Generalized anxiety disorder [facility] Diagnosis Migraine without aura and without status migrainosus, not intractable ([facility]/HCC)- Primary Vertigo Dizziness and giddiness Moderate major depression, single episode (HCC) ([facility]) Major depressive disorder, single episode, moderate Generalized anxiety disorder ([facility]/HCC) Generalized anxiety disorder Gastroesophageal reflux disease without esophagitis Esophageal reflux documented [facility] Diagnosis Chest pain, unspecified type- Primary SOB (shortness of breath) on exertion Shortness of breath Palpitation Palpitations [facility] Diagnosis Migraine without aura and without status migrainosus, not intractable ([facility]/HCC)- Primary Vertigo Dizziness and giddiness Moderate major depression, single episode (HCC) ([facility]) Major depressive disorder, single episode, moderate Generalized anxiety disorder ([facility]/HCC) Generalized anxiety disorder Gastroesophageal reflux disease without esophagitis Esophageal reflux Chest pain, unspecified type- Primary SOB (shortness of breath) on exertion Shortness of breath Palpitation Palpitations Palpitation- Primary Palpitations Generalized anxiety disorder (CMS/HCC) Generalized anxiety disorder Moderate major depression, single episode (HCC) (CMS/HCC) Major depressive disorder, single episode, moderate Migraine without aura and without status migrainosus, not intractable (CMS/HCC) Second trimester state, incidental documented in this encounter [facility] HealthcareEvaluation note* Diagnosis Migraine without aura and without status [...] and without status migrainosus, not intractable (CMS/HCC) Well woman exam with routine gynecological exam Routine gynecological examination Second trimester state, incidental 26 weeks gestation of Vaginal discharge Leukorrhea, not specified as infective STD exposure Diabetes mellitus screening Screening for diabetes mellitus documented in this encounter [facility] Healthcare Summary Purpose Family History No Family History Records FoundNo Family History Records FoundNo Family History Records Found Advance Directives No Advanced Directives Records FoundNo Advanced Directives Records FoundNo Advanced Directives Records Found Reason for Referral Specialty Diagnoses / Procedures Referred By Huber brown Referred To Contact Radiology Diagnoses Palpitation Procedures Holter monitor Dillon Silva MD [address] [place] [address] Referral ID Status Reason Start Date Expiration Date V isits Requested Visits Authorized [id number] Pending Review 05/04/2024 10/31/2024 1 1 Referral ID Status Reason Start Date Expiration Date V isits Requested Visits Authorized [id number] Pending Review 04/21/2024 10/18/2024 1 1 Specialty Diagnoses / Procedures Referred By Contac t Referred To Contact Radiology Diagnoses Chest pain, unspecified type SOB (shortness of breath) on exertion Palpitation Procedures STRESS TEST TREADMILL Dillon Silva MD [address] [place] [address] Referral ID Status Reason Start Date Expiration Date V isits Requested Visits Authorized [id number] Authorized 04/21/2024 10/18/2024 1 1 Specialty Diagnoses / Procedures [facility] Referred To Contact Cardiology Diagnoses SOB (shortness of breath) on exertion Palpitation Procedures Echocardiogram 2D complete Dillon Silva MD [address] [place] [address] Referral ID Status Reason Start Date Expiration Date Visits Requested Visits Authorized [id number] Pending Review Perform Procedure 04/21/2024 10/18/2024 1 1 Additional Source Comments INFORMATION SOURCE (unrecogn ized section and content) DATE CREATED AUTHOR 11/20/2022 [facility] DATE CREATED AUTHOR AUTHOR'S ORGANIZ ATION 05/05/2024 [facility] DATE CREATED AUTHOR AUTHOR'S ORGANIZ ATION 11/10/2024 [facility] dical Specialists EPIC Care Teams (unrecognized sec tion and content) Bridge Rigger Relationship Specialty Start Date End Date Dillon Silva MD [address] [place] [address] PCP - General Family Medicine 02/11/24 Bridge Rigger Relationship Specialty Start Date End Date Dillon Silva MD [address] [place] [address] PCP - General Family Medicine 02/11/24 Bridge Rigger Relationship Specialty Start Date End Date Dillon Silva MD [address] [place] [address] PCP - General Family Medicine 02/11/24 Bridge Rigger Relationship Specialty Start Date End Date Dillon Silva MD [address] [place] [address] PCP - General Family Medicine 02/11/24 Bridge Rigger Relationship Specialty Start Date End Date Dillon Silva MD [address] [place] [address] PCP - General Family Medicine 02/11/24 Bridge Rigger Relationship Specialty Start Date End Date Dillon Silva MD [address] [place] [address] PCP - General Family Medicine 02/11/24 Bridge Rigger Relationship Specialty Start Date End Date Dillon Silva MD [address] [place] [address] PCP - General Family Medicine 02/11/24 Bridge Rigger Relationship Specialty Start Date End Date Dillon Silva MD [address] [place] [address] PCP - General Family Medicine 02/11/24 Bridge Rigger Relationship Specialty Start Date End Date Dillon Silva MD [address] [place] [address] PCP - General Family Medicine 02/11/24 Bridge Rigger Relationship Specialty Start Date End Date Dillon Silva MD [address] [place] [address] PCP - General Family Medicine 02/11/24 Dillon Silva MD [address] [place] [address] [facility] 07/28/24 Bridge Rigger Relationship Specialty Start Date End Date Dillon Silva MD [address] [place] [address] PCP [facility] 02/11/24 Dillon Silva MD [address] [place] [address] [facility] 07/28/24 Bridge Rigger Relationship Specialty Start Date End Date Dillon Silva MD [address] [place] [address] PCP [facility] 02/11/24 Dillon Silva MD [address] [place] [address] [facility] 07/28/24 Reason for Visit (unrecogniz ed section and content) Reason Comments Follow-up Paperwork so she can go back to work Reason Comments Med Refill Reason Comments Follow-up [facility] paperwork Reason Comments Follow-up Trouble breathing/ch est feels heavy Reason Comments Routine Visit Reason Comments Routine Visit Well Women Visit STI Screening FOR RECORDS PERTAINING TO PATIENTS WHO ARE [...] BE BASED ON THE PRIMARY CLINICAL RECORDS. [facility] [employer] [facility]. provides no warranty or guarantee of the accuracy or completeness of information in this document.
[2024-12-10 13:09] LABS: Age Gdln ACOG Testing Note (.); HPV Aptima Negative (Negative); IGP, Aptima HPV, rfx 16/18,45 Note (.)
== END 2024-12-07 17:32 | disposition home or self-care (01) ==
LOC: LAB 17:31
PROVIDERS: PCP Family Medicine; Visit Provider Obstetrics & Gynecology
DX: Z01.419 Encounter for gynecological examination (general) (routine) without abnormal findings (principal)
CPT/HCPCS: 87624; 88175

== ENCOUNTER 2024-12-08 09:06 | Outpatient (OUT) | payer OTHER, SELFPAY ==
--- OUTSIDE RECORDS SUMMARY | 2024-12-08 09:25 | XMS_ITS | CCD ---
Author Organization [facility] Care Team Providers Care Oiler And Greaser Name Role Phone MARKER ., DR KNOTT [...] SILVA Attending Unavailable TESS MALIK Attending Unavailable TESS MALIK Attending Unavailable DILLON SILVA Attending Unavailable Allergies Allergy Classification Reported Allergen(s) Allergy Type Date of Onset Reaction(s) Facility (1 source) Ciprofloxacin Drug Allergy 0 [facility] Repository (18 sources) Ciprofloxacin; Translations: [...] times a day as needed 07/31/2022 Active [id number] 200 actuat albuterol 0.09 mg/actuat metered dose [...] Start: 10-22-2023 take 1 capsule by mo [facility] once daily esomeprazole (NexIUM) [address] [...] and Serotonin-1d Receptor Agonist Start: 03-25-2024 rizatriptan 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 DIRECTOR (Maxalt-EDUCATIONAL FUNDRAISING DIRECTOR) 10 MG disintegrating tablet Indications: Migraine without [...] 3 Episodic Other aftercare (1 source) Other [place] [facility] (current) drug therapy; Translations: [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 DRUG THERAPY] Onset: 3 Episodic Other aftercare (1 source) 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 (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) use of hormonal contraceptives; Translations: [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 HORMONAL CONTRACEPTIVES] Onset: 3 Episodic Other female [...] UA Negative Negative - 4(70) +++ mg/dL [facility] Blood, UA Negative Negative - 50 Eulalio/mcL [facility] Clarity, UA Clear [facility] Color, UA Yellow [facility] Glucose, UA Negative Negative - 2000(110) ++++ mg/dL [facility] Interpretation and review of laboratory results Normal [facility] Ketones, UA Positive Negative - 160(16) ++++ mg/dL [facility] Leukocytes, UA Trace Negative - 500+++ Yancy/mcL [facility] Nitrite, UA Negative Negative - Positive [facility] pH, UA 6.5 5 - 9 [facility] Protein, UA Negative Negative - 2000(20) ++++ mg/dL [facility] Spec Grav, UA 1.02 1 - 1.03 [facility] Urobilinogen, UA 1.0 0.2 - 12 mg/dL [facility] US OB 14+ WEEKS ANATOMY SCAN on [...] II, MD, PHD at 08-Nov-2024 11:47:19 PM [facility] [place] [facility] Normal Not Available Comment on above: Order Comment: US OB ANATOMY SINGLE W US OB CERVICAL LENGTH Estimated Date of Delivery: 03/15/25 Gestational Age as of 10/08/2024: 17w3d Urinalysis macro (dipstick) panel (U)on 11-08-2024 Bilirubin, UA Negative Negative - 4(70) +++ mg/dL [facility] Blood, UA Negative Negative - 50 Eulalio/mcL [facility] Clarity, UA Clear [facility] Color, UA Yellow [facility] Glucose, UA Negative Negative - 2000(110) ++++ mg/dL [facility] Interpretation and review of laboratory results Normal [facility] Ketones, UA Negative Negative - 160(16) ++++ mg/dL [facility] Leukocytes, UA Positive Negative - 500+++ Yancy/mcL [facility] Comment on above: small Nitrite, UA Negative Negative - Positive [facility] pH, UA 7 5 - 9 [facility] Protein, UA Negative Negative - 2000(20) ++++ mg/dL [facility] Spec Grav, UA 1.01 1 - 1.03 [facility] Urobilinogen, UA 0.2 0.2 - 12 mg/dL [facility] URINE CULTURE, ROUTINEon Bacteria identified Cx Nom (U) Urine Culture, Routine [facility] Bacteria identified Cx Nom (U) Culture shows less than 10,000 colony forming units of bacteria per [facility] Bacteria identified Cx Nom (U) milliliter of urine. This colony count is not generally considered [facility] Bacteria identified Cx Nom (U) to be clinically significant. [facility] Bacteria identified Cx Nom (U) Performed at: - [facility] Bacteria identified Cx Nom (U) [address], [place] [id number] [facility] Bacteria identified Cx Nom (U) Cupola Operator: Osmin Joel PhD, Phone: [phone] [facility] BASIC METABOLIC PANLon 05-04 Anion gap [Moles/Vol] 10 mmol/L Normal 5-15 [facility] Comment on above: Performed By: #### B MP, LIVR, 48648-1, TSHR, CBCA #### [facility] ([id number]) [address] [place] [address] Calcium [Mass/Vol] 9.0 mg/dL Normal 8.5-10.5 [facility] Comment on above: Performed By: #### B MP, LIVR, 32758-7, TSHR, CBCA #### [facility] ([id number]) [address] [place] [address] Chloride [Moles/Vol] 110 mmol/L High 98-109 [facility] Comment on above: Performed By: #### B MP, LIVR, 66281-6, TSHR, CBCA #### [facility] ([id number]) [address] [address] CO2 [Moles/Vol] 21 mmol/L Low 22-32 [facility] Comment on above: Performed By: #### B MP, LIVR, 85362-4, TSHR, CBCA #### [facility] ([id number]) [address] [address] Creatinine [Mass/Vol] 0.78 mg/dL Normal 0.40-1.00 [facility] Comment on above: Result Comment: METH OD TRACEABLE TO IDMS STANDARD Performed By: #### B MP, LIVR, 76032-7, TSHR, CBCA #### [facility] ([id number]) [address] [place] [address] eGFR (CKD-EPI) NON-RACE DEPENDENT >90 Normal >59 [facility] Comment on above: Result Comment: Reported eGFR is based on the CKD-EPI 2020 equation that does not use a race coefficient. Performed By: #### B MP, LIVR, 80424-3, TSHR, CBCA #### [facility] ([id number]) [address] [place] [address] Glucose [Mass/Vol] 83 mg/dL Normal 65-99 [facility] Comment on above: Performed By: #### B MP, LIVR, , TSHR, CBCA #### [facility] ([id number]) [address] [place] [address] Potassium [Moles/Vol] 3.9 mmol/L Normal 3.5-5.0 [facility] Comment on above: Performed By: #### B MP, LIVR, , TSHR, CBCA #### [facility] ([id number]) [address] [place] [address] Sodium [Moles/Vol] 141 mmol/L Normal 134-146 [facility] Comment on above: Performed By: #### B MP, LIVR, , TSHR, CBCA #### [facility] ([id number]) [address] [place] [address] Urea nitrogen [Mass/Vol] 12 mg/dL Normal 5-23 [facility] Comment on above: Performed By: #### B MP, LIVR, , TSHR, CBCA #### [facility] ([id number]) [address] [place] [address] Basic metabolic 1998 panelon 05-04-2024 Anion gap [Moles/Vol] 10 mmol/L 5 - 15 mmol/L [facility] Calcium [Mass/Vol] 9.0 mg/dL 8.5 - 10. 5 mg/dL [facility] Chloride [Moles/Vol] 110 mmol/L High 98 - 109 mmol/L [facility] CO2 [Moles/Vol] 21 mmol/L Low 22 - 32 mmol/L [facility] Creatine [Mass/Vol] 0.78 mg/dL 0.40 - 1 .00 mg/dL [facility] Comment on above: METHOD TRACEABLE TO IDMS STANDARD GFR/1.73 sq M.predicted among non-blacks MDRD (S/P/Bld) [Vol rate/Area] mL/min/{1.73_m2} - PINF [facility] Comment on above: Reported eGFR is based on the CKD-EPI 2020 equation that does not use a race coefficient. PERFORMED AT [facility] [address] [facility],[place] [address] Glucose [Mass/Vol] 83 mg/dL 65 - 99 mg/dL [facility] Interpretation and review of laboratory results Abnormal [facility] Potassium [Moles/Vol] 3.9 mmol/L 3.5 - 5.0 mmol/L [facility] Sodium [Moles/Vol] 141 mmol/L 134 - 146 mmol/L [facility] Urea nitrogen [Mass/Vol] 12 mg/dL 5 - 23 mg/dL [facility] CBC AND AUTO DIFFon 05-04-20 24 ABSOLUTE BASOPHIL 0.1 X10E9/L Normal 0.0-0.2 [facility] Comment on above: Performed By: #### B MP, LIVR, , TSHR, CBCA #### [facility] ([id number]) [address] [address] ABSOLUTE NEUTROPHIL 4.1 X10E9/L Normal 1.5-6.6 [facility] Comment on above: Performed By: #### B MP, LIVR, , TSHR, CBCA #### [facility] ([id number]) [address] [address] Basophils/100 WBC (Bld) 1.3 % Normal [facility] Comment on above: Performed By: #### B MP, LIVR, , TSHR, CBCA #### [facility] ([id number]) [address] [address] Eosinophils (Bld) [#/Vol] 0.1 10*3/uL Normal 0.0-0.4 [facility] Comment on above: Performed By: #### B MP, LIVR, , TSHR, CBCA #### [facility] ([id number]) [address] [place] [address] Eosinophils/100 WBC (Bld) 1.1 % Normal [facility] Comment on above: Performed By: #### B MP, LIVR, , TSHR, CBCA #### [facility] ([id number]) [address] [place] [address] Erythrocyte distribution width (RBC) [Ratio] 14.0 % Normal 11.5-15.0 [facility] Comment on above: Performed By: #### B IVAN, LIVR, , TSHR, CBCA #### [facility] ([id number]) [address] [place] [address] Hematocrit (Bld) [Volume fraction] 42.3 % Normal 35-47 [facility] Comment on above: Performed By: #### B MP, LIVR, , TSHR, CBCA #### [facility] ([id number]) [address] [place] [address] Hemoglobin (Bld) [Mass/Vol] 14.4 g/dL Normal 11.7-15.5 [facility] Comment on above: Performed By: #### B MP, LIVR, , TSHR, CBCA #### [facility] ([id number]) [address] [address] Lymphocytes (Bld) [#/Vol] 1.4 10*3/uL Normal 1.0-3.5 [facility] Comment on above: Performed By: #### B MP, LIVR, , TSHR, CBCA #### [facility] ([id number]) [address] [address] Lymphocytes/100 WBC (Bld) 22.1 % Normal [facility] Comment on above: Performed By: #### B MP, LIVR, 12703-0, TSHR, CBCA #### [facility] ([id number]) [address] [place] [address] MCH (RBC) [Entitic mass] 31.1 pg Normal 27-34 [facility] Comment on above: Performed By: #### B MP, LIVR, 98862-5, TSHR, CBCA #### [facility] ([id number]) [address] [place] [address] MCHC (RBC) [Mass/Vol] 33.9 g/dL Normal 32-36 [facility] Comment on above: Performed By: #### B MP, LIVR, 00012-1, TSHR, CBCA #### [facility] ([id number]) [address] [place] [address] MCV (RBC) [Entitic vol] 92 fL Normal 80-100 [facility] Comment on above: Performed By: #### B MP, LIVR, 23907-2, TSHR, CBCA #### [facility] ([id number]) [address] [place] [address] Monocytes (Bld) [#/Vol] 0.6 10*3/uL Normal 0-0.9 [facility] Comment on above: Performed By: #### B MP, LIVR, 91362-6, TSHR, CBCA #### [facility] ([id number]) [address] [place] [address] Monocytes/100 WBC (Bld) 9.3 % Normal [facility] Comment on above: Performed By: #### B MP, LIVR, 25778-7, TSHR, CBCA #### [facility] ([id number]) [address] [place] [address] MPV PLATELET CLUMPS PRECLUDE COUNT Normal 7-12 [facility] Comment on above: Performed By: #### B MP, LIVR, , TSHR, CBCA #### [facility] ([id number]) [address] [address] Neutrophils/100 WBC (Bld) 66.2 % Normal [facility] Comment on above: Performed By: #### B MP, LIVR, , TSHR, CBCA #### [facility] ([id number]) [address] [address] PLATELET COUNT ESTIMATE OF PLATELET S, NORMAL Normal 150-450 [facility] Comment on above: Result Comment: PLAT ELET CLUMPS PRECLUDE COUNT Performed By: #### B MP, LIVR, , TSHR, CBCA #### [facility] ([id number]) [address] [address] RBC COUNT 4.62 X10E12/L Normal 3.80-5.20 [facility] Comment on above: Performed By: #### B MP, LIVR, , TSHR, CBCA #### [facility] ([id number]) [address] [address] WBC (Bld) [#/Vol] 6.2 10*3/uL Normal 4.0-11.0 [facility] Comment on above: Performed By: #### B MP, LIVR, , TSHR, CBCA #### [facility] ([id number]) [address], [facility] [address] [place] [address] Hepatic function 2000 panelo n 05-04-2024 Albumin [Mass/Vol] 4.5 g/dL 3.2 - 5.3 g/dL NO [facility] ALP [Catalytic activity/Vol] 97 U/L 39 - 130 U/L [facility] ALT No additional P-5'-P [Catalytic activity/Vol] 11 U/L 0 - 31 U/L [facility] AST [Catalytic activity/Vol] 12 U/L 0 - 41 U/L [facility] Bilirubin [Mass/Vol] 0.4 mg/dL 0.3 - 1.2 mg/dL [facility] Bilirubin.direct [Mass/Vol] 0.1 mg/dL 0.0 - 0.4 mg/dL [facility] Protein [Mass/Vol] 7.8 g/dL 6.0 - 8.0 g/dL [facility] Comment on above: PERFORMED AT [facility] [address],[place] [address] LIVER PANELon 05-04-2024 Albumin [Mass/Vol] 4.5 g/dL Normal 3.2-5.3 [facility] Comment on above: Performed By: #### B MP, LIVR, , TSHR, CBCA #### [facility] ([id number]) [address], [facility] [address] [place] [address] ALP [Catalytic activity/Vol] 97 U/L Normal 39-130 [facility] Comment on above: Performed By: #### B MP, LIVR, , TSHR, CBCA #### [facility] ([id number]) [address], [facility] [address] [place] [address] ALT [Catalytic activity/Vol] 11 U/L Normal 0-31 [facility] Comment on above: Performed By: #### B MP, LIVR, 97455-5, TSHR, CBCA #### [facility] ([id number]) [address] [place] [address] AST [Catalytic activity/Vol] 12 U/L Normal 0-41 [facility] Comment on above: Performed By: #### B MP, LIVR, 30069-4, TSHR, CBCA #### [facility] ([id number]) [address] [place] [address] Bilirubin [Mass/Vol] 0.4 mg/dL Normal 0.3-1.2 [facility] Comment on above: Performed By: #### B MP, LIVR, , TSHR, CBCA #### [facility] ([id number]) [address] [place] [address] Bilirubin.direct [Mass/Vol] 0.1 mg/dL Normal 0.0-0.4 [facility] Comment on above: Performed By: #### B MP, LIVR, , TSHR, CBCA #### [facility] ([id number]) [address] [place] [address] Protein [Mass/Vol] 7.8 g/dL Normal 6.0-8.0 [facility] Comment on above: Performed By: #### B MP, LIVR, , TSHR, CBCA #### [facility] ([id number]) [address] [place] [address] MAGNESIUMon 05-04-2024 Magnesium [Mass/Vol] 2.0 mg/dL Normal 1.8-2.6 [facility] Comment on above: Performed By: #### B MP, LIVR, , TSHR, CBCA #### [facility] ([id number]) [address] [place] [address] Magnesiumon 05-04-2024 Magnesium [Mass/Vol] 2.0 mg/dL 1.8 - 2.6 mg/dL [facility] Comment on above: PERFORMED AT [facility] [address],[place] [address] No Panel Informationon 05-04 [facility] TSH WITH REFLEXon 05-04-2024 TSH 1.40 uIU/mL Normal 0.49-4.67 [facility] Comment on above: Performed By: #### B MP, LIVR, 72947-1, TSHR, CBCA #### [facility] ([id number]) [address] [place] [address] ER URINE PROFILEon 3 Bilirubin Ql (U) Negative Normal NEGATIVE [facility] Comment on above: Performed By: #### E RUR, PREGU, DRUGRPD #### [facility] [address] [place] [address] Dr. Gino Holt Clarity (U) CLEAR Normal CLEAR [facility] Comment on above: Performed By: #### E RUR, PREGU, DRUGRPD #### [facility] [address] [address] [address] Gion Holt Color (U) LT. YELLOW Normal YELLOW [facility] Comment on above: Performed By: #### E RUR, PREGU, DRUGRPD #### [facility] [address] [place] [address] Dr. Gino LR A micrscopic examination will be performed if indicated. Normal [facility] Comment on above: Performed By: #### E RUR, PREGU, DRUGRPD #### [facility] [address] [place] [address] Dr. Gino Holt Glucose Ql (U) Negative Normal NEGATIVE [facility] Comment on above: Performed By: #### E RUR, PREGU, DRUGRPD #### [facility] [address] [place] [address] Dr. Gino Holt Hemoglobin Ql (U) Negative Normal NEGATIVE [facility] Comment on above: Performed By: #### E RUR, PREGU, DRUGRPD #### [facility] [address] [address] [address] Gino Holt Ketones Ql (U) Negative Normal NEGATIVE [facility] Comment on above: Performed By: #### E RUR, PREGU, DRUGRPD #### [facility] [address] [place] [address] Dr. Gino Holt LEUKOCYTES Negative Normal NEGATIVE [facility] Comment on above: Performed By: #### E RUR, PREGU, DRUGRPD #### [facility] [address] [place] [address] Dr. Gino Holt Nitrite Ql (U) Negative Normal NEGATIVE [facility] Comment on above: Performed By: #### E RUR, PREGU, DRUGRPD #### [facility] [address] [address] [address] Gino Holt pH (U) 6.5 [pH] Normal 5-9 [facility] Comment on above: Performed By: #### E RUR, PREGU, DRUGRPD #### [facility] [address] [place] [address] Dr. Gino Holt SPEC GRAVITY 1.020 Normal 1.005-<=1.025 [facility] Comment on above: Performed By: #### E RUR, PREGU, DRUGRPD #### [facility] [address] [place] [address] Dr. Gino Holt UA PROTEIN Negative Normal NEGATIVE/ TRACE [facility] Comment on above: Performed By: #### E RUR, PREGU, DRUGRPD #### [facility] [address] [place] [address] Dr. Gino Holt UR MICRO IND NOT INDICATED Normal [facility] Comment on above: Performed By: #### E RUR, PREGU, DRUGRPD #### [facility] [address] [place] [address] Dr. Gino Holt Urobilinogen Qn (U) 0.2 {Phillip'U}/dL Normal 0.2 - 1. 0 [facility] Comment on above: Performed By: #### E RUR, PREGU, DRUGRPD #### [facility] [address] [place] [address] Dr. Gino Holt URon 11-19-2022 , QUAL Negative Normal NEGATIVE [facility] Comment on above: Performed By: #### E RUR, PREGU, DRUGRPD #### [facility] [address] [place] [address] Dr. Gino Holt XR ABD FLAT UP_PA [...] KIN MORALES Date: 2022-11-19 08:53 Normal [facility] CBC W MANUAL DIFFon 10-26-19 23 ATYPICAL LYMPH # Normal [facility] Comment on above: Performed By: #### E RUR, PREGU, DRUGRPD #### [facility] [address] [address] [address] Gino Holt ATYPICAL LYMPH % Normal [facility] Comment on above: Performed By: #### E RUR, PREGU, DRUGRPD #### [facility] [address] [place] [address] Dr. Gino Holt BAND # 0.0 103/ul Normal 0.0-0.3 [facility] Comment on above: Performed By: #### E RUR, PREGU, DRUGRPD #### [facility] [address] [address] [address] Gino Holt BAND % 0 % Normal 0-5 [facility] Comment on above: Performed By: #### E RUR, PREGU, DRUGRPD #### [facility] [address] [address] [address] Gino Holt BASOM # 0.08 103/ul Normal 0.00-0.10 [facility] Comment on above: Performed By: #### E RUR, PREGU, DRUGRPD #### [facility] [address] [address] [address] Gino Holt BASOM % 1.0 % Normal 0.2-2.0 [facility] Comment on above: Performed By: #### E RUR, PREGU, DRUGRPD #### [facility] [address] [address] [address] Gino Holt BLAST # Normal [facility] Comment on above: Performed By: #### E RUR, PREGU, DRUGRPD #### [facility] [address] [address] [address] Gino Holt BLAST % Normal [facility] Comment on above: Performed By: #### E RUR, PREGU, DRUGRPD #### [facility] [address] [address] [address] Gino Holt CORRECTED WBC Normal 4.0-11.0 [facility] Comment on above: Performed By: #### E RUR, PREGU, DRUGRPD #### [facility] [address] [place] [address] Dr. Gino Holt EOS # 0.00 103/ul Normal 0.00-0.70 [facility] Comment on above: Performed By: #### E RUR, PREGU, DRUGRPD #### [facility] [address] [place] [address] Dr. Gino Holt EOS% 0.0 % Critically low 0.9-7.0 [facility] Comment on above: Performed By: #### E RUR, PREGU, DRUGRPD #### [facility] [address] [place] [address] Dr. Gino Holt HCT 39.0 % Normal 36.0-48.0 [facility] Comment on above: Performed By: #### E RUR, PREGU, DRUGRPD #### [facility] [address] [place] [address] Dr. Gino Holt HGB 13.0 g/dl Normal 12.0-16.0 [facility] Comment on above: Performed By: #### E RUR, PREGU, DRUGRPD #### [facility] [address] [place] [address] Dr. Gino Holt LYMPHM # 0.24 103/ul Critically low 1.20-3.80 [facility] Comment on above: Performed By: #### E RUR, PREGU, DRUGRPD #### [facility] [address] [place] [address] Dr. Gino Holt LYMPHM% 3.0 % Critically low 20.5-60.0 [facility] Comment on above: Performed By: #### E RUR, PREGU, DRUGRPD #### [facility] [address] [address] [address] Gino Holt MCH 30.0 pg Normal 26.7-34.0 [facility] Comment on above: Performed By: #### E RUR, PREGU, DRUGRPD #### [facility] [address] [address] [address] Gino Holt MCHC 33.3 g/dl Normal 29.9-35.2 [facility] Comment on above: Performed By: #### E RUR, PREGU, DRUGRPD #### [facility] [address] [place] [address] Dr. Gino Holt MCV 90.1 fL Normal 81.0-99.0 [facility] Comment on above: Performed By: #### E RUR, PREGU, DRUGRPD #### [facility] [address] [place] [address] Dr. Gino Holt METAMYELOCYTE # Normal [facility] Comment on above: Performed By: #### E RUR, PREGU, DRUGRPD #### [facility] [address] [place] [address] Dr. Gino Holt METAMYELOCYTE % Normal [facility] Comment on above: Performed By: #### E RUR, PREGU, DRUGRPD #### [facility] [address] [address] [address] Gino Holt MONOM# 0.00 103/ul Critically low 0.30-0.[address] [facility] Comment on above: Performed By: #### E RUR, PREGU, DRUGRPD #### [facility] [address] [place] [address] Dr. Gino Holt MONOM% 0.0 % Critically low 1.7-12.0 [facility] Comment on above: Performed By: #### E RUR, PREGU, DRUGRPD #### [facility] [address] [place] [address] Dr. Gino Holt MPV 9.1 fL Critically low 9.5-13.5 [facility] Comment on above: Performed By: #### E RUR, PREGU, DRUGRPD #### [facility] [address] [address] [address] Gino Holt MYELOCYTE # Normal [facility] Comment on above: Performed By: #### E RUR, PREGU, DRUGRPD #### [facility] [address] [address] [address] Gino Holt MYELOCYTE % Normal [facility] Comment on above: Performed By: #### E RUR, PREGU, DRUGRPD #### [facility] [address] [address] [address] Gino Holt NRBC Normal [facility] Comment on above: Performed By: #### E RUR, PREGU, DRUGRPD #### [facility] [address] [address] [address] Gino Holt PLT 288 103/ul Normal 150-450 [facility] Comment on above: Performed By: #### E RUR, PREGU, DRUGRPD #### [facility] [address] [address] [address] Gino Holt RBC 4.33 106/ul Normal 4.20-5.40 [facility] Comment on above: Performed By: #### E RUR, PREGU, DRUGRPD #### [facility] [address] [address] [address] Gino Holt RDW 13.4 % Normal 11.0-15.0 [facility] Comment on above: Performed By: #### E RUR, PREGU, DRUGRPD #### [facility] [address] [address] [address] Gino Holt SEG # 7.58 103/ul Critically high 1.40-6.50 [facility] Comment on above: Performed By: #### E RUR, PREGU, DRUGRPD #### [facility] [address] [address] [address] Gino Holt SEG % 96.0 % Critically high 43.0-75.[address] [facility] Comment on above: Performed By: #### E RUR, PREGU, DRUGRPD #### [facility] [address] [place] [address] Dr. Gino Holt WBC 7.9 103/ul Normal 4.0-11.0 [facility] Comment on above: Performed By: #### E RUR, PREGU, DRUGRPD #### [facility] [address] [place] [address] Dr. Gino Hotl PROF 14(COMP METB)on 023 Albumin [Mass/Vol] 4.0 g/dL Normal 3.4-5.0 [facility] Comment on above: Performed By: #### E RUR, PREGU, DRUGRPD #### [facility] [address] [place] [address] Dr. Gino Holt Albumin/Globulin [Mass ratio] 1.0 {ratio} Normal [facility] Comment on above: Performed By: #### E RUR, PREGU, DRUGRPD #### [facility] [address] [place] [address] Dr. Gino Holt ALP [Catalytic activity/Vol] 90 U/L Normal 46-116 [facility] Comment on above: Performed By: #### E RUR, PREGU, DRUGRPD #### [facility] [address] [place] [address] Dr. Gino Holt ALT [Catalytic activity/Vol] 17 U/L Normal 14-59 [facility] Comment on above: Performed By: #### E RUR, PREGU, DRUGRPD #### [facility] [address] [place] [address] Dr. Gino Holt Anion gap [Moles/Vol] 15.6 mmol/L Normal [facility] Comment on above: Performed By: #### E RUR, PREGU, DRUGRPD #### [facility] [address] [place] [address] Dr. Gino Holt AST [Catalytic activity/Vol] 12 U/L Critically low 15-37 [facility] Comment on above: Performed By: #### E RUR, PREGU, DRUGRPD #### [facility] [address] [place] [address] Dr. Gino Holt Bilirubin [Mass/Vol] 0.1 mg/dL Critically low 0.2-1.0 [facility] Comment on above: Performed By: #### E RUR, PREGU, DRUGRPD #### [facility] [address] [place] [address] Dr. Gino Holt Calcium [Mass/Vol] 9.0 mg/dL Normal 8.5-10.1 [facility] Comment on above: Performed By: #### E RUR, PREGU, DRUGRPD #### [facility] [address] [place] [address] Dr. Gino Holt Chloride [Moles/Vol] 108 mmol/L Critically high 98-107 [facility] Comment on above: Performed By: #### E RUR, PREGU, DRUGRPD #### [facility] [address] [place] [address] Dr. Gino Holt CO2 [Moles/Vol] 21.4 mmol/L Normal 21.0-32.0 [facility] Comment on above: Performed By: #### E RUR, PREGU, DRUGRPD #### [facility] [address] [place] [address] Dr. Gino Holt Creatinine [Mass/Vol] 0.82 mg/dL Normal 0.55-1.02 [facility] Comment on above: Performed By: #### E RUR, PREGU, DRUGRPD #### [facility] [address] [place] [address] Dr. Gino Holt EGFR-AF CENTRAL AFRICAN >60 Normal >=60 [facility] Comment on above: Performed By: #### E RUR, PREGU, DRUGRPD #### [facility] [address] [place] [address] Dr. Gino Holt EGFR-NON AF CENTRAL AFRICAN >60 Normal >=60 [facility] Comment on above: Performed By: #### E RUR, PREGU, DRUGRPD #### [facility] [address] [address] [address] Gino Holt Globulin (S) [Mass/Vol] 4.0 g/dL Normal [facility] Comment on above: Performed By: #### E RUR, PREGU, DRUGRPD #### [facility] [address] [place] [address] Dr. Gino Holt Glucose [Mass/Vol] 136 mg/dL Critically high 74-106 [facility] Comment on above: Performed By: #### E RUR, PREGU, DRUGRPD #### [facility] [address] [place] [address] Dr. Gino Holt Potassium [Moles/Vol] 4.0 mmol/L Normal 3.5-5.1 [facility] Comment on above: Performed By: #### E RUR, PREGU, DRUGRPD #### [facility] [address] [place] [address] Dr. Gino Holt Protein [Mass/Vol] 8.0 g/dL Normal 6.4-8.2 [facility] Comment on above: Performed By: #### E RUR, PREGU, DRUGRPD #### [facility] [address] [place] [address] Dr. Gino Holt Sodium [Moles/Vol] 141 mmol/L Normal 136-145 [facility] Comment on above: Performed By: #### E RUR, PREGU, DRUGRPD #### [facility] [address] [place] [address] Dr. Gino Holt Urea nitrogen [Mass/Vol] 18.0 mg/dL Normal 7.0-18.0 [facility] Comment on above: Performed By: #### E RUR, PREGU, DRUGRPD #### [facility] [address] [place] [address] Dr. Gino Holt Urea nitrogen/Creatinine [Mass ratio] 22.0 mg/mg Normal [facility] Comment on above: Performed By: #### E RUR, PREGU, DRUGRPD #### [facility] [address] [place] [address] Dr. Gino Holt CBC AUTO DIFFon 10-12-2022 BASO # 0.0 103/ul Normal 0.0-0.1 [facility] Comment on above: Performed By: #### E RUR, PREGU, DRUGRPD #### [facility] [address] [place] [address] Dr. Gino Holt Basophils/100 WBC (Bld) 0.7 % Normal 0.2-2.0 [facility] Comment on above: Performed By: #### E RUR, PREGU, DRUGRPD #### [facility] [address] [place] [address] Dr. Gino Holt EO # 0.1 103/ul Normal 0.0-0.7 [facility] Comment on above: Performed By: #### E RUR, PREGU, DRUGRPD #### [facility] [address] [place] [address] Dr. Gino Holt Eosinophils/100 WBC (Bld) 1.6 % Normal 0.9-7.0 [facility] Comment on above: Performed By: #### E RUR, PREGU, DRUGRPD #### [facility] [address] [place] [address] Dr. Gino Holt Erythrocyte distribution width (RBC) [Ratio] 13.7 % Normal 11.0-15.0 [facility] Comment on above: Performed By: #### E RUR, PREGU, DRUGRPD #### [facility] [address] [place] [address] Dr. Gino Holt Hematocrit (Bld) [Volume fraction] 37.2 % Normal 36.0-48.0 [facility] Comment on above: Performed By: #### E RUR, PREGU, DRUGRPD #### [facility] [address] [place] [address] Dr. Gino Holt Hemoglobin (Bld) [Mass/Vol] 12.0 g/dL Normal 12.0-16.0 [facility] Comment on above: Performed By: #### E RUR, PREGU, DRUGRPD #### [facility] [address] [place] [address] Dr. Gino Holt IG # 0.02 10e3/ul Normal 0.00-0.03 [facility] Comment on above: Performed By: #### Snehal RUMERRICK AvitiaU, DRUGRPD #### [facility] [address] [place] [address] Dr. Gino Holt IG % 0.3 % Normal 0.0-0.5 [facility] Comment on above: Performed By: #### Snehal IBANEZ PREGU, DRUGRPD #### [facility] [address] [place] [address] Dr. Gino Holt LYMPH # 2.3 103/ul Normal 1.2-3.8 [facility] Comment on above: Performed By: #### Snehal RUMERRICK AvitiaU, DRUGRPD #### [facility] [address] [place] [address] Dr. Gino Holt Lymphocytes/100 WBC (Bld) 37.3 % Normal 20.5-60.0 [facility] Comment on above: Performed By: #### Snehal RUSadi PREGU, DRUGRPD #### [facility] [address] [place] [address] Dr. Gino Hotl MANUAL DIFF REQ NO Normal [facility] Comment on above: Performed By: #### Snehal RUSadi PREGU, DRUGRPD #### [facility] [address] [place] [address] Dr. Gino Holt MCH (RBC) [Entitic mass] 29.9 pg Normal 26.7-34.0 [facility] Comment on above: Performed By: #### Snehal RUR, PREGU, DRUGRPD #### [facility] [address] [place] [address] Dr. Gino Holt MCHC (RBC) [Mass/Vol] 32.3 g/dL Normal 29.9-35.2 [facility] Comment on above: Performed By: #### E RUR, PREGU, DRUGRPD #### [facility] [address] [place] [address] Dr. Gino Holt MCV (RBC) [Entitic vol] 92.8 fL Normal 81.0-99.0 [facility] Comment on above: Performed By: #### E RUR, PREGU, DRUGRPD #### [facility] [address] [address] [address] Gino Holt MONO # 0.7 103/ul Normal 0.3-0.8 [facility] Comment on above: Performed By: #### E RUR, PREGU, DRUGRPD #### [facility] [address] [place] [address] Dr. Gino Holt Monocytes/100 WBC (Bld) 11.3 % Normal 1.7-12.0 [facility] Comment on above: Performed By: #### E RUR, PREGU, DRUGRPD #### [facility] [address] [place] [address] Dr. Gino Holt NEUT # 3.0 103/ul Normal 1.4-6.5 [facility] Comment on above: Performed By: #### E RUR, PREGU, DRUGRPD #### [facility] [address] [place] [address] Dr. Gino Holt Neutrophils/100 WBC (Bld) 48.8 % Normal 43.0-75.0 [facility] Comment on above: Performed By: #### E RUR, PREGU, DRUGRPD #### [facility] [address] [place] [address] Dr. Gino Holt Platelet mean volume (Bld) [Entitic vol] 8.9 fL Critically low 9.5-13.5 [facility] Comment on above: Performed By: #### E RUR, PREGU, DRUGRPD #### [facility] [address] [place] [address] Dr. Gino Holt PLT 312 103/ul Normal 150-450 [facility] Comment on above: Performed By: #### E RUR, PREGU, DRUGRPD #### [facility] [address] [place] [address] Dr. Gino Holt RBC 4.01 106/ul Critically low 4.20-5.40 [facility] Comment on above: Performed By: #### E RUR, PREGU, DRUGRPD #### [facility] [address] [address] [address] Gino Holt WBC 6.1 103/ul Normal 4.0-11.0 [facility] Comment on above: Performed By: #### E RUR, PREGU, DRUGRPD #### [facility] [address] [place] [address] Dr. Gino Holt CRPon 10-12-2022 CRP 0.6 mg/dL Normal <=1.0 [facility] Comment on above: Performed By: #### E RUR, PREGU, DRUGRPD #### [facility] [address] [address] [address] Gino Holt DRUG SCREEN RAPID (URINE)on 10-12-2022 AMP Negative Normal NEGATIVE [facility] Comment on above: Performed By: #### E RUR, PREGU, DRUGRPD #### [facility] [address] [place] [address] Dr. Gino Holt BAR Negative Normal NEGATIVE [facility] Comment on above: Performed By: #### E RUR, PREGU, DRUGRPD #### [facility] [address] [address] [address] Gino Holt BUP Negative Normal NEGATIVE [facility] Comment on above: Performed By: #### E RUR, PREGU, DRUGRPD #### [facility] [address] [place] [address] Dr. Gino Holt BZO Negative Normal NEGATIVE [facility] Comment on above: Performed By: #### E RUR, PREGU, DRUGRPD #### [facility] [address] [place] [address] Dr. Gino Holt RAMONA Negative Normal NEGATIVE [facility] Comment on above: Performed By: #### E RUR, PREGU, DRUGRPD #### [facility] [address] [place] [address] Dr. Gino Holt CUT-OFFS SEE BELOW Normal [facility] Comment on above: Result Comment: [...] By: #### E RUR, PREGU, DRUGRPD #### [facility] [address] [place] [address] Dr. Gino Holt DRUG CUT HEADER DRUG CLASS TEST SYST EM CUT-OFF CONCENTRATIONS ARE FOLLOWS: Normal [facility] Comment on above: Performed By: #### E RUR, PREGU, DRUGRPD #### [facility] [address] [place] [address] Dr. Gino Holt mAMP Negative Normal NEGATIVE [facility] Comment on above: Performed By: #### E RUR, PREGU, DRUGRPD #### [facility] [address] [place] [address] Dr. Gino Holt MTD Negative Normal NEGATIVE [facility] Comment on above: Performed By: #### E RUR, PREGU, DRUGRPD #### [facility] [address] [place] [address] Dr. Gino Holt OPI Positive Abnormal NEGATIVE [facility] Comment on above: Performed By: #### E RUR, PREGU, DRUGRPD #### [facility] [address] [place] [address] Dr. Gino Holt OXY Negative Normal NEGATIVE [facility] Comment on above: Performed By: #### E RUR, PREGU, DRUGRPD #### [facility] [address] [place] [address] Dr. Gino Holt PCP Negative Normal NEGATIVE [facility] Comment on above: Performed By: #### E RUR, PREGU, DRUGRPD #### [facility] [address] [place] [address] Dr. Gino Holt PPX Negative Normal NEGATIVE [facility] Comment on above: Performed By: #### E RUR, PREGU, DRUGRPD #### [facility] [address] [place] [address] Dr. Gino Holt TCA Negative Normal NEGATIVE [facility] Comment on above: Performed By: #### E RUR, PREGU, DRUGRPD #### [facility] [address] [place] [address] Dr. Gino Holt THC Negative Normal NEGATIVE [facility] Comment on above: Performed By: #### E RUR, PREGU, DRUGRPD #### [facility] [address] [place] [address] Dr. Gino Holt ER URINE PROFILEon 3 Bilirubin Ql (U) Negative Normal NEGATIVE [facility] Comment on above: Performed By: #### E RUR, PREGU, DRUGRPD #### [facility] [address] [place] [address] Dr. Gino Holt Clarity (U) CLEAR Normal CLEAR [facility] Comment on above: Performed By: #### E RUR, PREGU, DRUGRPD #### [facility] [address] [place] [address] Dr. Gino Holt Color (U) LT. YELLOW Normal YELLOW [facility] Comment on above: Performed By: #### E RUR, PREGU, DRUGRPD #### [facility] [address] [place] [address] Dr. Gino Holt ERUAHD A micrscopic examination will be performed if indicated. Normal [facility] Comment on above: Performed By: #### E RUR, PREGU, DRUGRPD #### [facility] [address] [place] [address] Dr. Gino Holt Glucose Ql (U) Negative Normal NEGATIVE [facility] Comment on above: Performed By: #### E RUR, PREGU, DRUGRPD #### [facility] [address] [place] [address] Dr. Gino Holt Hemoglobin Ql (U) Negative Normal NEGATIVE [facility] Comment on above: Performed By: #### E RUR, PREGU, DRUGRPD #### [facility] [address] [address] [address] Gino Holt Ketones Ql (U) Negative Normal NEGATIVE [facility] Comment on above: Performed By: #### E RUR, PREGU, DRUGRPD #### [facility] [address] [address] [address] Gino Holt LEUKOCYTES Negative Normal NEGATIVE [facility] Comment on above: Performed By: #### E RUR, PREGU, DRUGRPD #### [facility] [address] [address] [address] Gino Holt Nitrite Ql (U) Negative Normal NEGATIVE [facility] Comment on above: Performed By: #### E RUR, PREGU, DRUGRPD #### [facility] [address] [place] [address] Dr. Gino Holt pH (U) 7.0 [pH] Normal 5-9 [facility] Comment on above: Performed By: #### E RUR, PREGU, DRUGRPD #### [facility] [address] [address] [address] Gino Holt SPEC GRAVITY 1.010 Normal 1.005-<=1.025 [facility] Comment on above: Performed By: #### E RUR, PREGU, DRUGRPD #### [facility] [address] [address] [address] Gino Holt UA PROTEIN Negative Normal NEGATIVE/ TRACE [facility] Comment on above: Performed By: #### E RUR, PREGU, DRUGRPD #### [facility] [address] [address] [address] Gino Holt UR MICRO IND NOT INDICATED Normal [facility] Comment on above: Performed By: #### E RUR, PREGU, DRUGRPD #### [facility] [address] [address] [address] Gino Holt Urobilinogen Qn (U) 0.2 {Phillip'U}/dL Normal 0.2 - 1. 0 [facility] Comment on above: Performed By: #### E RUR, PREGU, DRUGRPD #### [facility] [address] [address] [address] Gino Holt URon 10-12-2022 , QUAL Negative Normal NEGATIVE [facility] Comment on above: Performed By: #### E RUR, PREGU, DRUGRPD #### [facility] [address] [place] [address] Dr. Gino Holt PROF CHEM 8 (BAS METB)on Anion gap [Moles/Vol] 12.9 mmol/L Normal [facility] Comment on above: Performed By: #### E RUR, PREGU, DRUGRPD #### [facility] [address] [place] [address] Dr. Gino Holt Calcium [Mass/Vol] 8.6 mg/dL Normal 8.5-10.1 [facility] Comment on above: Performed By: #### E RUR, PREGU, DRUGRPD #### [facility] [address] [place] [address] Dr. Gino Holt Chloride [Moles/Vol] 106 mmol/L Normal 98-107 [facility] Comment on above: Performed By: #### E RUR, PREGU, DRUGRPD #### [facility] [address] [place] [address] Dr. Gino Holt CO2 [Moles/Vol] 24.0 mmol/L Normal 21.0-32.0 [facility] Comment on above: Performed By: #### E RUR, PREGU, DRUGRPD #### [facility] [address] [place] [address] Dr. Gino Holt Creatinine [Mass/Vol] 0.61 mg/dL Normal 0.55-1.02 [facility] Comment on above: Performed By: #### E RUR, PREGU, DRUGRPD #### [facility] [address] [place] [address] Dr. Gino Holt EGFR-AF CENTRAL AFRICAN >60 Normal >=60 [facility] Comment on above: Performed By: #### E RUR, PREGU, DRUGRPD #### [facility] [address] [place] [address] Dr. Gino Holt EGFR-NON AF CENTRAL AFRICAN >60 Normal >=60 [facility] Comment on above: Performed By: #### E RUR, PREGU, DRUGRPD #### [facility] [address] [place] [address] Dr. Gino Holt Glucose [Mass/Vol] 80 mg/dL Normal 74-106 [facility] Comment on above: Performed By: #### E RUR, PREGU, DRUGRPD #### [facility] [address] [place] [address] Dr. Gino Holt Potassium [Moles/Vol] 3.9 mmol/L Normal 3.5-5.1 [facility] Comment on above: Performed By: #### E RUR, PREGU, DRUGRPD #### [facility] [address] [place] [address] Dr. Gino Holt Sodium [Moles/Vol] 139 mmol/L Normal 136-145 [facility] Comment on above: Performed By: #### E RUR, PREGU, DRUGRPD #### [facility] [address] [place] [address] Dr. Gino Holt Urea nitrogen [Mass/Vol] 15.0 mg/dL Normal 7.0-18.0 [facility] Comment on above: Performed By: #### E RUR, PREGU, DRUGRPD #### [facility] [address] [address] [address] Gino Holt Urea nitrogen/Creatinine [Mass ratio] 24.6 mg/mg Normal [facility] Comment on above: Performed By: #### E RUR, PREGU, DRUGRPD #### [facility] [address] [place] [address] Dr. Gino Holt XR CHEST 2 Von [...] DOMINIK JOSHI Date: 2022-10-12 02:46 Normal [facility] CBC AUTO DIFFon 08-24-2022 BASO # 0.0 103/ul Normal 0.0-0.1 [facility] Comment on above: Performed By: #### E RUR, PREGU, DRUGRPD #### [facility] [address] [place] [address] Dr. Gino Holt Basophils/100 WBC (Bld) 0.7 % Normal 0.2-2.0 [facility] Comment on above: Performed By: #### E RUR PREGU, DRUGRPD #### [facility] [address] [place] [address] Dr. Gino Holt EO # 0.0 103/ul Normal 0.0-0.7 [facility] Comment on above: Performed By: #### Snehal RUR PREGU, DRUGRPD #### [facility] [address] [place] [address] Dr. Gino Holt Eosinophils/100 WBC (Bld) 0.6 % Critically low 0.9-7.0 [facility] Comment on above: Performed By: #### E RUR PREGU, DRUGRPD #### [facility] [address] [place] [address] Dr. Gino Holt Erythrocyte distribution width (RBC) [Ratio] 13.2 % Normal 11.0-15.0 [facility] Comment on above: Performed By: #### E RUR PREGU, DRUGRPD #### [facility] [address] [place] [address] Dr. Gino Holt Hematocrit (Bld) [Volume fraction] 37.5 % Normal 36.0-48.0 [facility] Comment on above: Performed By: #### E RUR, PREGU, DRUGRPD #### [facility] [address] [place] [address] Dr. Gino Holt Hemoglobin (Bld) [Mass/Vol] 12.8 g/dL Normal 12.0-16.0 [facility] Comment on above: Performed By: #### E RUR, PREGU, DRUGRPD #### [facility] [address] [place] [address] Dr. Gino Holt IG # 0.02 10e3/ul Normal 0.00-0.03 [facility] Comment on above: Performed By: #### E RUR, PREGU, DRUGRPD #### [facility] [address] [place] [address] Dr. Gino Holt IG % 0.4 % Normal 0.0-0.5 [facility] Comment on above: Performed By: #### E RUR, PREGU, DRUGRPD #### [facility] [address] [place] [address] Dr. Gino Holt LYMPH # 1.7 103/ul Normal 1.2-3.8 [facility] Comment on above: Performed By: #### E RUR, PREGU, DRUGRPD #### [facility] [address] [place] [address] Dr. Gino Holt Lymphocytes/100 WBC (Bld) 30.6 % Normal 20.5-60.0 [facility] Comment on above: Performed By: #### E RUR, PREGU, DRUGRPD #### [facility] [address] [place] [address] Dr. Gino Holt MANUAL DIFF REQ NO Normal [facility] Comment on above: Performed By: #### E RUR, PREGU, DRUGRPD #### [facility] [address] [place] [address] Dr. Gino Holt MCH (RBC) [Entitic mass] 28.9 pg Normal 26.7-34.0 [facility] Comment on above: Performed By: #### E RUR, PREGU, DRUGRPD #### [facility] [address] [place] [address] Dr. Gino Holt MCHC (RBC) [Mass/Vol] 34.1 g/dL Normal 29.9-35.2 [facility] Comment on above: Performed By: #### E RUR, PREGU, DRUGRPD #### [facility] [address] [place] [address] Dr. Gino Holt MCV (RBC) [Entitic vol] 84.7 fL Normal 81.0-99.0 [facility] Comment on above: Performed By: #### E RUR, PREGU, DRUGRPD #### [facility] [address] [place] [address] Dr. Gino Holt MONO # 0.4 103/ul Normal 0.3-0.8 [facility] Comment on above: Performed By: #### E RUR, PREGU, DRUGRPD #### [facility] [address] [place] [address] Dr. Gino Holt Monocytes/100 WBC (Bld) 7.2 % Normal 1.7-12.0 [facility] Comment on above: Performed By: #### E RUR, PREGU, DRUGRPD #### [facility] [address] [place] [address] Dr. Gino Holt NEUT # 3.3 103/ul Normal 1.4-6.5 [facility] Comment on above: Performed By: #### E RUR, PREGU, DRUGRPD #### [facility] [address] [place] [address] Dr. Gino Holt Neutrophils/100 WBC (Bld) 60.5 % Normal 43.0-75.0 [facility] Comment on above: Performed By: #### E RUR, PREGU, DRUGRPD #### [facility] [address] [place] [address] Dr. Gino Holt Platelet mean volume (Bld) [Entitic vol] 8.6 fL Critically low 9.5-13.5 [facility] Comment on above: Performed By: #### E RUR, PREGU, DRUGRPD #### [facility] [address] [place] [address] Dr. Gnio Holt PLT 301 103/ul Normal 150-450 [facility] Comment on above: Performed By: #### E RUR, PREGU, DRUGRPD #### [facility] [address] [address] [address] Gino Holt RBC 4.43 106/ul Normal 4.20-5.40 [facility] Comment on above: Performed By: #### E RUR PREGU, DRUGRPD #### [facility] [address] [address] [address] Gino Holt WBC 5.4 103/ul Normal 4.0-11.0 [facility] Comment on above: Performed By: #### E RUR, PREGU, DRUGRPD #### [facility] [address] [place] [address] CSPINE WO CONon [...] GAURAV ABDI Date: 2022-08-24 02:53 Normal [facility] CT FACIAL BONES WO CONon [...] GAURAV ABDI Date: 2022-08-24 02:49 Normal [facility] CT HEAD WO CONon 08-24-2022 [...] GAURAV ABDI Date: 2022-08-24 02:43 Normal [facility] ETHANOL (BLD ALC)on 08-24-19 23 ALC NOTE NOTE: 80 mg/dl is th e legal limit for a blood alcohol level Normal [facility] Comment on above: Performed By: #### E RUR, PREGU, DRUGRPD #### [facility] [address] [address] [address] Gino Holt Ethanol [Mass/Vol] 271 mg/dL Normal [facility] Comment on above: Performed By: #### E RUR, PREGU, DRUGRPD #### [facility] [address] [place] [address] Dr. Gino Holt URon 08-24-2022 , QUAL Negative Normal NEGATIVE [facility] Comment on above: Performed By: #### P REGU #### [facility] [address] [place] [address] Dr. Gino Holt PROF 14(COMP METB)on 023 Albumin [Mass/Vol] 4.1 g/dL Normal 3.4-5.0 [facility] Comment on above: Performed By: #### C MP #### [facility] [address] [place] [address] Dr. Gino Holt Albumin/Globulin [Mass ratio] 1.0 {ratio} Normal [facility] Comment on above: Performed By: #### C MP #### [facility] [address] [place] [address] Dr. Gino Holt ALP [Catalytic activity/Vol] 100 U/L Normal 46-116 [facility] Comment on above: Performed By: #### C MP #### [facility] [address] [place] [address] Dr. Gino Holt ALT [Catalytic activity/Vol] 29 U/L Normal 14-59 [facility] Comment on above: Performed By: #### C MP #### [facility] [address] [place] [address] Dr. Gino Holt Anion gap [Moles/Vol] 13.3 mmol/L Normal [facility] Comment on above: Performed By: #### C MP #### [facility] [address] [place] [address] Dr. Gino Holt AST [Catalytic activity/Vol] 22 U/L Normal 15-37 [facility] Comment on above: Performed By: #### C MP #### [facility] [address] [place] [address] Dr. Gino Holt Bilirubin [Mass/Vol] 0.1 mg/dL Critically low 0.2-1.0 [facility] Comment on above: Performed By: #### C MP #### [facility] [address] [address] [address] Gino Holt Calcium [Mass/Vol] 9.0 mg/dL Normal 8.5-10.1 [facility] Comment on above: Performed By: #### C MP #### [facility] [address] [address] [address] Gino Holt Chloride [Moles/Vol] 111 mmol/L Critically high 98-107 [facility] Comment on above: Performed By: #### C MP #### [facility] [address] [address] [address] Gino Holt CO2 [Moles/Vol] 26.5 mmol/L Normal 21.0-32.0 [facility] Comment on above: Performed By: #### C MP #### [facility] [address] [address] [address] Gino Holt Creatinine [Mass/Vol] 0.65 mg/dL Normal 0.55-1.02 [facility] Comment on above: Performed By: #### C MP #### [facility] [address] [address] [address] Gino Holt EGFR-AF CENTRAL AFRICAN >60 Normal >=60 [facility] Comment on above: Performed By: #### C MP #### [facility] [address] [address] [address] Gino Holt EGFR-NON AF CENTRAL AFRICAN >60 Normal >=60 [facility] Comment on above: Performed By: #### C MP #### [facility] [address] [address] [address] Gino Holt Globulin (S) [Mass/Vol] 4.1 g/dL Normal [facility] Comment on above: Performed By: #### C MP #### [facility] [address] [address] [address] Gino Holt Glucose [Mass/Vol] 95 mg/dL Normal 74-106 [facility] Comment on above: Performed By: #### C MP #### [facility] [address] [address] [address] Gino Holt Potassium [Moles/Vol] 4.8 mmol/L Normal 3.5-5.1 [facility] Comment on above: Performed By: #### C MP #### [facility] [address] [address] [address] Gino Holt Protein [Mass/Vol] 8.2 g/dL Normal 6.4-8.2 [facility] Comment on above: Performed By: #### C MP #### [facility] [address] [address] [address] Gino Holt Sodium [Moles/Vol] 146 mmol/L Critically high 136-145 [facility] Comment on above: Performed By: #### C MP #### [facility] [address] [address] [address] Gino Holt Urea nitrogen [Mass/Vol] 11.0 mg/dL Normal 7.0-18.0 [facility] Comment on above: Performed By: #### C MP #### [facility] [address] [address] [address] Gino Holt Urea nitrogen/Creatinine [Mass ratio] 16.9 mg/mg Normal [facility] Comment on above: Performed By: #### C MP #### [facility] [address] [address] [address] Gion Holt XR KNEE RT 4V or >on [...] GAURAV ABDI Date: 2022-08-24 03:02 Normal [facility] CBC AUTO DIFFon 02-07-2022 BASO # 0.1 103/ul Normal 0.0-0.1 [facility] Comment on above: Performed By: #### C BC #### [facility] [address] [address] [address] Gino Holt Basophils/100 WBC (Bld) 0.6 % Normal 0.2-2.0 [facility] Comment on above: Performed By: #### C BC #### [facility] [address] [place] [address] Dr. Gino Holt EO # 0.1 103/ul Normal 0.0-0.7 [facility] Comment on above: Performed By: #### C BC #### [facility] [address] [place] [address] Dr. Gino Holt Eosinophils/100 WBC (Bld) 0.7 % Critically low 0.9-7.0 [facility] Comment on above: Performed By: #### C BC #### [facility] [address] [place] [address] Dr. Gino Holt Erythrocyte distribution width (RBC) [Ratio] 12.8 % Normal 11.0-15.0 [facility] Comment on above: Performed By: #### C BC #### [facility] [address] [place] [address] Dr. Gino Holt Hematocrit (Bld) [Volume fraction] 38.9 % Normal 36.0-48.0 [facility] Comment on above: Performed By: #### C BC #### [facility] [address] [place] [address] Dr. Gino Holt Hemoglobin (Bld) [Mass/Vol] 12.7 g/dL Normal 12.0-16.0 [facility] Comment on above: Performed By: #### C BC #### [facility] [address] [place] [address] Dr. Gino Holt IG # 0.01 10e3/ul Normal 0.00-0.03 [facility] Comment on above: Performed By: #### C BC #### [facility] [address] [place] [address] Dr. Gino Holt IG % 0.1 % Normal 0.0-0.5 [facility] Comment on above: Performed By: #### C BC #### [facility] [address] [place] [address] Dr. Gino Holt LYMPH # 2.7 103/ul Normal 1.2-3.8 [facility] Comment on above: Performed By: #### C BC #### [facility] [address] [place] [address] Dr. Gino Holt Lymphocytes/100 WBC (Bld) 33.2 % Normal 20.5-60.0 [facility] Comment on above: Performed By: #### C BC #### [facility] [address] [place] [address] Dr. Gino Holt MANUAL DIFF REQ NO Normal [facility] Comment on above: Performed By: #### C BC #### [facility] [address] [place] [address] Dr. Gino Holt MCH (RBC) [Entitic mass] 29.3 pg Normal 26.7-34.0 [facility] Comment on above: Performed By: #### C BC #### [facility] [address] [place] [address] Dr. Gino Holt MCHC (RBC) [Mass/Vol] 32.6 g/dL Normal 29.9-35.2 [facility] Comment on above: Performed By: #### C BC #### [facility] [address] [place] [address] Dr. Gino Holt MCV (RBC) [Entitic vol] 89.8 fL Normal 81.0-99.0 [facility] Comment on above: Performed By: #### C BC #### [facility] [address] [place] [address] Dr. Gino Holt MONO # 0.7 103/ul Normal 0.3-0.8 [facility] Comment on above: Performed By: #### C BC #### [facility] [address] [place] [address] Dr. Gino Holt Monocytes/100 WBC (Bld) 8.4 % Normal 1.7-12.0 [facility] Comment on above: Performed By: #### C BC #### [facility] [address] [place] [address] Dr. Gino Holt NEUT # 4.7 103/ul Normal 1.4-6.5 [facility] Comment on above: Performed By: #### C BC #### [facility] [address] [place] [address] Dr. Gino Holt Neutrophils/100 WBC (Bld) 57.0 % Normal 43.0-75.0 [facility] Comment on above: Performed By: #### C BC #### [facility] [address] [place] [address] Dr. Gino Holt Platelet mean volume (Bld) [Entitic vol] 8.9 fL Critically low 9.5-13.5 [facility] Comment on above: Performed By: #### C BC #### [facility] [address] [place] [address] Dr. Gino Holt PLT 305 103/ul Normal 150-450 [facility] Comment on above: Performed By: #### C BC #### [facility] [address] [place] [address] Dr. Gino Holt RBC 4.33 106/ul Normal 4.20-5.40 [facility] Comment on above: Performed By: #### C BC #### [facility] [address] [place] [address] Dr. Gino Holt WBC 8.2 103/ul Normal 4.0-11.0 [facility] Comment on above: Performed By: #### C BC #### [facility] [address] [place] [address] Dr. Gino Holt CRPon 02-07-2022 CRP 0.3 mg/dL Normal <=1.0 [facility] Comment on above: Performed By: #### H STROPN, CRP, CMP #### [facility] [address] [place] [address] HEAD WO CONon [...] ROSA VALENTINE Date: 2022-02-07 05:17 Normal [facility] D-DIMERon 02-07-2022 D-DIMER 0.44 mg/L FEU Normal <=0.59 [facility] Comment on above: Performed By: #### E RUR PREGU, DRUGRPD #### [facility] [address] [address] [address] Gino Holt D-DIMER COMMENTS SEE BELOW Normal [facility] Comment on above: Result Comment: Incr [...] By: #### E RUR, PREGU, DRUGRPD #### [facility] [address] [place], [place] [address] Dr. Gino Holt PREG HCG QUALon 02-07-2022 , QUAL Negative Normal NEGATIVE [facility] Comment on above: Performed By: #### P REG #### [facility] [address] [place], [place] [address] Dr. Gino Holt PROF 14(COMP METB)on 022 Albumin [Mass/Vol] 3.9 g/dL Normal 3.4-5.0 [facility] Comment on above: Performed By: #### H STROPN, CRP, CMP #### [facility] [address] [place], [place] [address] Dr. Gino Holt Albumin/Globulin [Mass ratio] 0.9 {ratio} Normal [facility] Comment on above: Performed By: #### H STROPN, CRP, CMP #### [facility] [address] [address] [address] Gino Holt ALP [Catalytic activity/Vol] 84 U/L Normal 46-116 [facility] Comment on above: Performed By: #### H STROPN, CRP, CMP #### [facility] [address] [address] [address] Gino Holt ALT [Catalytic activity/Vol] 20 U/L Normal 14-59 [facility] Comment on above: Performed By: #### H STROPN, CRP, CMP #### [facility] [address] [place] [address] Dr. Gino Holt Anion gap [Moles/Vol] 14.6 mmol/L Normal [facility] Comment on above: Performed By: #### H STROPN, CRP, CMP #### [facility] [address] [place] [address] Dr. Gino Holt AST [Catalytic activity/Vol] 10 U/L Critically low 15-37 [facility] Comment on above: Performed By: #### H STROPN, CRP, CMP #### [facility] [address] [place] [address] Dr. Gino Holt Bilirubin [Mass/Vol] 0.3 mg/dL Normal 0.2-1.0 [facility] Comment on above: Performed By: #### H STROPN, CRP, CMP #### [facility] [address] [address] [address] Gino Holt Calcium [Mass/Vol] 8.6 mg/dL Normal 8.5-10.1 [facility] Comment on above: Performed By: #### H STROPN, CRP, CMP #### [facility] [address] [place] [address] Dr. Gino Holt Chloride [Moles/Vol] 106 mmol/L Normal 98-107 [facility] Comment on above: Performed By: #### H STROPN, CRP, CMP #### [facility] [address] [address] [address] Gino Holt CO2 [Moles/Vol] 24.8 mmol/L Normal 21.0-32.0 [facility] Comment on above: Performed By: #### H STROPN, CRP, CMP #### [facility] [address] [address] [address] Gino Holt Creatinine [Mass/Vol] 0.83 mg/dL Normal 0.55-1.02 [facility] Comment on above: Performed By: #### H STROPN, CRP, CMP #### [facility] [address] [address] [address] Gino Holt EGFR-AF CENTRAL AFRICAN >60 Normal >=60 [facility] Comment on above: Performed By: #### H STROPN, CRP, CMP #### [facility] [address] [address] [address] Gino Holt EGFR-NON AF CENTRAL AFRICAN >60 Normal >=60 [facility] Comment on above: Performed By: #### H STROPN, CRP, CMP #### [facility] [address] [address] [address] Gino Holt Globulin (S) [Mass/Vol] 4.2 g/dL Normal [facility] Comment on above: Performed By: #### H STROPN, CRP, CMP #### [facility] [address] [address] [address] Gino Holt Glucose [Mass/Vol] 105 mg/dL Normal 74-106 [facility] Comment on above: Performed By: #### H STROPN, CRP, CMP #### [facility] [address] [address] [address] Gino Holt Potassium [Moles/Vol] 3.4 mmol/L Critically low 3.5-5.1 [facility] Comment on above: Performed By: #### H STROPN, CRP, CMP #### [facility] [address] [address] [address] Gino Holt Protein [Mass/Vol] 8.1 g/dL Normal 6.4-8.2 [facility] Comment on above: Performed By: #### H STROPN, CRP, CMP #### [facility] [address] [address] [address] Gino Holt Sodium [Moles/Vol] 142 mmol/L Normal 136-145 [facility] Comment on above: Performed By: #### H STROPN, CRP, CMP #### [facility] [address] [address] [address] Gino Holt Urea nitrogen [Mass/Vol] 15.0 mg/dL Normal 7.0-18.0 [facility] Comment on above: Performed By: #### H STROPN, CRP, CMP #### [facility] [address] [address] [address] Gino Holt Urea nitrogen/Creatinine [Mass ratio] 18.1 mg/mg Normal [facility] Comment on above: Performed By: #### H STROPN, CRP, CMP #### [facility] [address] [address] [address] Gino Holt TROPONIN, HIGH SENSITIVITYon 02-07-2022 HSTROP 4.6 pg/mL Normal 4.0-51.3 [facility] Comment on above: Result Comment: CUT- OFF POINTS HAVE BEEN ESTABLISHED BASED ON THE FOURTH UNIVERSAL DEFINITIONS OF MYOCARDIAL INFARCTION. THE UPPER REFERENCE LIMIT (URL) OF TROPONIN, DEFINED THE 99TH PERCENTILE OF cTnI DISTRIBUTION IN A REFERENCE POPULATION, HAS BEEN CONFIRMED THE DECISION THRESHOLD FOR TN DIAGNOSIS. Performed By: #### H STROPN, CRP, CMP #### [facility] [address] [place] [address] Dr. Gino Holt XR CHEST 1 Von [...] by: ROSA VALENTINE Date: 2022-02-07 05:18 Normal [facility] CBC AUTO DIFFon 11-26-2021 BASO # 0.0 103/ul Normal 0.0-0.1 [facility] Comment on above: Performed By: #### E RUR, PREGU, DRUGRPD #### [facility] [address] [place] [address] Dr. Gino Holt Basophils/100 WBC (Bld) 0.4 % Normal 0.2-2.0 [facility] Comment on above: Performed By: #### E RUR, PREGU, DRUGRPD #### [facility] [address] [place] [address] Dr. Gino Holt EO # 0.1 103/ul Normal 0.0-0.7 [facility] Comment on above: Performed By: #### E RUR, PREGU, DRUGRPD #### [facility] [address] [place] [address] Dr. Gino Holt Eosinophils/100 WBC (Bld) 1.1 % Normal 0.9-7.0 [facility] Comment on above: Performed By: #### E RUR, PREGU, DRUGRPD #### [facility] [address] [place] [address] Dr. Gino Hlot Erythrocyte distribution width (RBC) [Ratio] 12.5 % Normal 11.0-15.0 [facility] Comment on above: Performed By: #### E RUR, PREGU, DRUGRPD #### [facility] [address] [place] [address] Dr. Gino Holt Hematocrit (Bld) [Volume fraction] 40.9 % Normal 36.0-48.0 [facility] Comment on above: Performed By: #### E RUR, PREGU, DRUGRPD #### [facility] [address] [place] [address] Dr. Gino Holt Hemoglobin (Bld) [Mass/Vol] 13.3 g/dL Normal 12.0-16.0 [facility] Comment on above: Performed By: #### E RUR, PREGU, DRUGRPD #### [facility] [address] [place] [address] Dr. Gino Holt IG # 0.01 10e3/ul Normal 0.00-0.03 [facility] Comment on above: Performed By: #### E RUR, PREGU, DRUGRPD #### [facility] [address] [place] [address] Dr. Gino Holt IG % 0.2 % Normal 0.0-0.5 [facility] Comment on above: Performed By: #### E RUR, PREGU, DRUGRPD #### [facility] [address] [place] [address] Dr. Gino Holt LYMPH # 1.5 103/ul Normal 1.2-3.8 [facility] Comment on above: Performed By: #### E RUR, PREGU, DRUGRPD #### [facility] [address] [place] [address] Dr. Gino Holt Lymphocytes/100 WBC (Bld) 32.1 % Normal 20.5-60.0 [facility] Comment on above: Performed By: #### E RUR, PREGU, DRUGRPD #### [facility] [address] [place] [address] Dr. Gino Holt MANUAL DIFF REQ NO Normal [facility] Comment on above: Performed By: #### E RUR, PREGU, DRUGRPD #### [facility] [address] [place] [address] Dr. Gino Holt MCH (RBC) [Entitic mass] 29.8 pg Normal 26.7-34.0 [facility] Comment on above: Performed By: #### E RUR, PREGU, DRUGRPD #### [facility] [address] [place] [address] Dr. Gino Holt MCHC (RBC) [Mass/Vol] 32.5 g/dL Normal 29.9-35.2 [facility] Comment on above: Performed By: #### E RUR, PREGU, DRUGRPD #### [facility] [address] [place] [address] Dr. Gino Holt MCV (RBC) [Entitic vol] 91.7 fL Normal 81.0-99.0 [facility] Comment on above: Performed By: #### E RUR, PREGU, DRUGRPD #### [facility] [address] [place] [address] Dr. Gino Holt MONO # 0.5 103/ul Normal 0.3-0.8 [facility] Comment on above: Performed By: #### E RUR, PREGU, DRUGRPD #### [facility] [address] [place] [address] Dr. Gino Holt Monocytes/100 WBC (Bld) 9.7 % Normal 1.7-12.0 [facility] Comment on above: Performed By: #### E RUR, PREGU, DRUGRPD #### [facility] [address] [place] [address] Dr. Gino Holt NEUT # 2.7 103/ul Normal 1.4-6.5 [facility] Comment on above: Performed By: #### E RUR, PREGU, DRUGRPD #### [facility] [address] [place] [address] Dr. Gino Holt Neutrophils/100 WBC (Bld) 56.5 % Normal 43.0-75.0 [facility] Comment on above: Performed By: #### E RUR, PREGU, DRUGRPD #### [facility] [address] [place] [address] Dr. Gino Holt Platelet mean volume (Bld) [Entitic vol] 9.9 fL Normal 9.5-13.5 [facility] Comment on above: Performed By: #### E RUR, PREGU, DRUGRPD #### [facility] [address] [place] [address] Dr. Gino Holt PLT 243 103/ul Normal 150-450 [facility] Comment on above: Performed By: #### E RUR, PREGU, DRUGRPD #### [facility] [address] [place] [address] Dr. Gino Holt RBC 4.46 106/ul Normal 4.20-5.40 [facility] Comment on above: Performed By: #### E RUR, PREGU, DRUGRPD #### [facility] [address] [place] [address] Dr. Gino Holt WBC 4.7 103/ul Normal 4.0-11.0 [facility] Comment on above: Performed By: #### E RUR, PREGU, DRUGRPD #### [facility] [address] [place] [address] Dr. Gino Holt CULTURE URINEon 11-26-2021 CULTURE URINE Culture Observations : LIGHT GROWTH OF MIXED GENITAL KLAUDIA. NO POTENTIAL PATHOGENS SEEN. Normal [facility] Comment on above: Performed By: #### E RUR, PREGU, DRUGRPD #### [facility] [address] [place] [address] Dr. Gino Holt ER URINE PROFILEon Bilirubin Ql (U) Negative Normal NEGATIVE [facility] Comment on above: Performed By: #### E RUR, PREGU, DRUGRPD #### [facility] [address] [place] [address] Dr. Gino Holt Clarity (U) CLEAR Normal CLEAR [facility] [facility] Comment on above: Performed By: #### E RUR, PREGU, DRUGRPD #### [facility] [address] [place] [address] Dr. Gino Holt Color (U) LT. YELLOW Normal YELLOW [facility] Comment on above: Performed By: #### E RUR, PREGU, DRUGRPD #### [facility] [address] [place] [address] Dr. Gino Holt ERUMicah A micrscopic examination will be performed if indicated. Normal [facility] Comment on above: Performed By: #### E RUR, PREGU, DRUGRPD #### [facility] [address] [place] [address] Dr. Gino Holt Glucose Ql (U) Negative Normal NEGATIVE [facility] Comment on above: Performed By: #### E RUR, PREGU, DRUGRPD #### [facility] [address] [place] [address] Dr. Gino Holt Hemoglobin Ql (U) Negative Normal NEGATIVE [facility] Comment on above: Performed By: #### E RUR, PREGU, DRUGRPD #### [facility] [address] [address] [address] Gino Holt Ketones Ql (U) Negative Normal NEGATIVE [facility] Comment on above: Performed By: #### E RUR, PREGU, DRUGRPD #### [facility] [address] [address] [address] Gino Holt LEUKOCYTES TRACE Abnormal NEGATIVE [facility] Comment on above: Performed By: #### E RUR, PREGU, DRUGRPD #### [facility] [address] [address] [address] Gino Holt Nitrite Ql (U) Negative Normal NEGATIVE [facility] Comment on above: Performed By: #### E RUR PREGU, DRUGRPD #### [facility] [address] [place] [address] Dr. Gino Holt pH (U) 7.0 [pH] Normal 5-9 [facility] Comment on above: Performed By: #### E RUR PREGU, DRUGRPD #### [facility] [address] [place] [address] Dr. Gino Holt SPEC GRAVITY 1.010 Normal 1.005-<=1.025 [facility] Comment on above: Performed By: #### Snehal RUR PREGU, DRUGRPD #### [facility] [address] [place] [address] Dr. Gino Holt UA PROTEIN Negative Normal NEGATIVE/ TRACE [facility] Comment on above: Performed By: #### E RUR PREGU, DRUGRPD #### [facility] [address] [place] [address] Dr. Gino Holt UR MICRO IND INDICATED Normal [facility] Comment on above: Performed By: #### E RUR PREGU, DRUGRPD #### [facility] [address] [place] [address] Dr. Gino Holt Urobilinogen Qn (U) 0.2 {Phillip'U}/dL Normal 0.2 - 1. 0 [facility] Comment on above: Performed By: #### E RUR, PREGU, DRUGRPD #### [facility] [address] [place] [address] Dr. Gino Holt LIPASEon 11-26-2021 Lipase [Catalytic activity/Vol] 80.0 U/L Normal 73.0-393.0 [facility] Comment on above: Performed By: #### E RUR, PREGU, DRUGRPD #### [facility] [address] [address] [address] Gino Holt URon 11-26-2021 , QUAL Negative Normal NEGATIVE [facility] Comment on above: Performed By: #### E RUR, PREGU, DRUGRPD #### [facility] [address] [place] [address] Dr. Gino Holt PROF 14(COMP METB)on 022 Albumin [Mass/Vol] 4.0 g/dL Normal 3.4-5.0 [facility] Comment on above: Performed By: #### E RUR, PREGU, DRUGRPD #### [facility] [address] [place] [address] Dr. Gino Holt Albumin/Globulin [Mass ratio] 1.0 {ratio} Normal [facility] Comment on above: Performed By: #### E RUR, PREGU, DRUGRPD #### [facility] [address] [place] [address] Dr. Gino Holt ALP [Catalytic activity/Vol] 105 U/L Normal 46-116 [facility] Comment on above: Performed By: #### E RUR, PREGU, DRUGRPD #### [facility] [address] [place] [address] Dr. Gino Holt ALT [Catalytic activity/Vol] 26 U/L Normal 14-59 [facility] Comment on above: Performed By: #### E RUR, PREGU, DRUGRPD #### [facility] [address] [place] [address] Dr. Gino Holt Anion gap [Moles/Vol] 12.2 mmol/L Normal [facility] Comment on above: Performed By: #### E RUR, PREGU, DRUGRPD #### [facility] [address] [place] [address] Dr. Gino Holt AST [Catalytic activity/Vol] 16 U/L Normal 15-37 [facility] Comment on above: Performed By: #### E RUR, PREGU, DRUGRPD #### [facility] [address] [place] [address] Dr. Gino Holt Bilirubin [Mass/Vol] 0.5 mg/dL Normal 0.2-1.0 [facility] Comment on above: Performed By: #### E RUR, PREGU, DRUGRPD #### [facility] [address] [place] [address] Dr. Gino Holt Calcium [Mass/Vol] 8.3 mg/dL Critically low 8.5-10.1 [facility] Comment on above: Performed By: #### E RUR, PREGU, DRUGRPD #### [facility] [address] [place] [address] Dr. Gino Holt Chloride [Moles/Vol] 105 mmol/L Normal 98-107 [facility] Comment on above: Performed By: #### E RUR, PREGU, DRUGRPD #### [facility] [address] [place] [address] Dr. Gino Holt CO2 [Moles/Vol] 23.6 mmol/L Normal 21.0-32.0 [facility] Comment on above: Performed By: #### E RUR, PREGU, DRUGRPD #### [facility] [address] [place] [address] Dr. Gino Holt Creatinine [Mass/Vol] 0.85 mg/dL Normal 0.55-1.02 [facility] Comment on above: Performed By: #### E RUR, PREGU, DRUGRPD #### [facility] [address] [place] [address] Dr. Gino Holt EGFR-AF CENTRAL AFRICAN >60 Normal >=60 [facility] Comment on above: Performed By: #### E RUR, PREGU, DRUGRPD #### [facility] [address] [place] [address] Dr. Gnio Holt EGFR-NON AF CENTRAL AFRICAN >60 Normal >=60 [facility] Comment on above: Performed By: #### E MARCELLE PREGU, DRUGRPD #### [facility] [address] [place] [address] Dr. Gino Holt Globulin (S) [Mass/Vol] 4.1 g/dL Normal [facility] Comment on above: Performed By: #### E RUSadi PREGU, DRUGRPD #### [facility] [address] [address] [address] Gino Holt Glucose [Mass/Vol] 84 mg/dL Normal 74-106 [facility] Comment on above: Performed By: #### Snehal IBANEZ PREGU, DRUGRPD #### [facility] [address] [place] [address] Dr. Gino Holt Potassium [Moles/Vol] 3.8 mmol/L Normal 3.5-5.1 [facility] Comment on above: Performed By: #### Snehal IBANEZ PREGU, DRUGRPD #### [facility] [address] [place] [address] Dr. Gino Holt Protein [Mass/Vol] 8.1 g/dL Normal 6.1-8.2 [facility] Comment on above: Performed By: #### Snehal CRAIGR, PREGU, DRUGRPD #### [facility] [address] [place] [address] Dr. Gino Holt Sodium [Moles/Vol] 137 mmol/L Normal 136-145 [facility] Comment on above: Performed By: #### E RUR, PREGU, DRUGRPD #### [facility] [address] [place] [address] Dr. Gino Holt Urea nitrogen [Mass/Vol] 10.0 mg/dL Normal 7.0-18.0 [facility] Comment on above: Performed By: #### E RUR, PREGU, DRUGRPD #### [facility] [address] [place] [address] Dr. Gino Holt Urea nitrogen/Creatinine [Mass ratio] 11.8 mg/mg Normal [facility] Comment on above: Performed By: #### E RUR, PREGU, DRUGRPD #### [facility] [address] [address] [address] Gino Holt URINE MICROSCOPIC ONLYon BACTERIA SMALL Abnormal NONE SEEN [facility] Comment on above: Performed By: #### E RUR, PREGU, DRUGRPD #### [facility] [address] [address] [address] Gino Holt Bacteria identified Cx Nom (U) INDICATED Normal [facility] Comment on above: Performed By: #### E RUR, PREGU, DRUGRPD #### [facility] [address] [address] [address] Gino Holt CAST NONE SEEN Normal NONE SEEN [facility] Comment on above: Performed By: #### E RUR, PREGU, DRUGRPD #### [facility] [address] [address] [address] Gino Holt Crystals LM Nom (Urine sed) NONE SEEN Normal NONE SEEN [facility] Comment on above: Performed By: #### E RUR, PREGU, DRUGRPD #### [facility] [address] [address] [address] Gino Holt Epithelial cells LM Ql (Urine sed) FEW Abnormal NONE SEEN /RARE [facility] Comment on above: Performed By: #### E RUR, PREGU, DRUGRPD #### [facility] [address] [address] [address] Gino Holt MUCOUS MODERATE Abnormal NONE SEEN [facility] Comment on above: Performed By: #### E RUR, PREGU, DRUGRPD #### [facility] [address] [address] [address] Gino Holt RBC NONE SEEN Abnormal 0-2 [facility] Comment on above: Performed By: #### E RUR, PREGU, DRUGRPD #### [facility] [address] [address] [address] Gino Holt WBC 2-5 Abnormal NONE SEEN [facility] Comment on above: Performed By: #### E RUR, PREGU, DRUGRPD #### [facility] [address] [address] [address] Gino Holt XR KUB 1 VIEWon 11-26-2021 XR KUB 1 VIEW EXAM: XR KUB 1 VIEW HISTORY: Pain COMPARISON: None. TECHNIQUE: 2 views FINDINGS: The bowel gas pattern is nonobstructed. No free intraperitoneal air. No intra-abdominal calcification. The osseous structures are normal IMPRESSION: Normal x-ray Electronically authenticated by: ROBBY FORBES Date: 2021-11-26 15:50 Normal [facility] Vital Signs Date Time Vital Sign Value Performing Clinician Faci lity 12-07-2024 10:38-0400 Body mass index (BMI) [Ratio] 35.05 kg/m2 Tess Helena DO Work Phone: [facility] 12-07-2024 10:38-0400 Body weight 104.55 kg Tess Helena DO Work Phone: [facility] 12-07-2024 10:38-0400 Diastolic blood pressure 72 mm[Hg] Tess Helena DO Work Phone: [facility] 12-07-2024 10:38-0400 Systolic blood pressure 112 mm[Hg] Tess Helena DO Work Phone: [facility] 11-08-2024 09:47-0400 Body mass index (BMI) [Ratio] 34.21 kg/m2 Tess Helena DO Work Phone: [facility] 11-08-2024 09:47-0400 Body weight 102.06 kg Tess Helena DO Work Phone: [facility] 11-08-2024 09:47-0400 Diastolic blood pressure 70 mm[Hg] Tess Helena DO Work Phone: [facility] 11-08-2024 09:47-0400 Systolic blood pressure 118 mm[Hg] Tess Helena DO Work Phone: [facility] 05-18-2024 11:44-0400 Body mass index (BMI) [Ratio] 32.54 kg/m2 Dillon Silva MD Work Phone: [facility] 05-18-2024 11:44-0400 Body temperature 97.5 [degF] Dillon Silva MD Work Phone: [facility] 05-18-2024 11:44-0400 Body weight 97.07 kg Dillon Silva MD Work Phone: [facility] 05-18-2024 11:44-0400 Diastolic blood pressure 70 mm[Hg] Dillon Silva MD Work Phone: [facility] 05-18-2024 11:44-0400 Heart rate 78 /min Dillon Silva MD Work Phone: [facility] 05-18-2024 11:44-0400 SaO2% (BldA) [Mass fraction] 99 % Dillon Silva MD Work Phone: [facility] 05-18-2024 11:44-0400 Systolic blood pressure 118 mm[Hg] Dillon Silva MD Work Phone: [facility] 04-21-2024 09:35-0400 Body height 172.7 cm Dillon Silva MD Work Phone: [facility] 04-21-2024 09:35-0400 Body mass index (BMI) [Ratio] 32.39 kg/m2 Dillon Silva MD Work Phone: [facility] 04-21-2024 09:35-0400 Body temperature 97.5 [degF] Dillon Silva MD Work Phone: [facility] 04-21-2024 09:35-0400 Body weight 96.62 kg Dillon Silva MD Work Phone: [facility] 04-21-2024 09:35-0400 Diastolic blood pressure 58 mm[Hg] Dillon Silva MD Work Phone: [facility] 04-21-2024 09:35-0400 Heart rate 79 /min Dillon Silva MD Work Phone: [facility] 04-21-2024 09:35-0400 Respiratory rate 20 /min Dillon Silva MD Work Phone: [facility] 04-21-2024 09:35-0400 SaO2% (BldA) [Mass fraction] 99 % Dillon Silva MD Work Phone: [facility] 04-21-2024 09:35-0400 Systolic blood pressure 104 mm[Hg] Dillon Silva MD Work Phone: [facility] 03-25-2024 14:37-0400 Body height 172.7 cm Dillon Silva MD Work Phone: [facility] 03-25-2024 14:37-0400 Body mass index (BMI) [Ratio] 32.69 kg/m2 Dillon Silva MD Work Phone: [facility] 03-25-2024 14:37-0400 Body temperature 97.81 [degF] Dillon Silva MD Work Phone: [facility] 03-25-2024 14:37-0400 Body weight 97.52 kg Dillon Silva MD Work Phone: [facility] 03-25-2024 14:37-0400 Diastolic blood pressure 78 mm[Hg] Dillon Silva MD Work Phone: [facility] 03-25-2024 14:37-0400 Heart rate 95 /min Dillon Silva MD Work Phone: [facility] 03-25-2024 14:37-0400 Respiratory rate 22 /min Dillon Silva MD Work Phone: [facility] 03-25-2024 14:37-0400 SaO2% (BldA) [Mass fraction] 98 % Dillon Silva MD Work Phone: [facility] 03-25-2024 14:37-0400 Systolic blood pressure 138 mm[Hg] Dillon Silva MD Work Phone: [facility] Healthcare Encounters Encounter Date Encounter Type Care [...] Work Phone: [facility] Work Phone: Start: 12-07-2024 End: 12-07-2024 ambulatory TESS HELENA Not Available Start: 11-08-2024 End: 11-08-2024 Office outpatient visit 15 minutes Tess Helena DO Work Phone: [facility] Comment on above: Second trimester pre gnancy Start: 11-08-2024 End: 11-08-2024 ambulatory TESS HELENA Not Available Start: 11-08-2024 End: 11-08-2024 ambulatory DILLON NADERER Not Available Start: 10-08-2024 End: 10-08-2024 ambulatory DILLON NADERER Not Available Start: 08-10-2024 End: 08-13-2024 Clinisync [...] Department Unsolicited Start: 05-04-2024 End: 05-04-2024 ambulatory [facility] Start: 05-04-2024 End: 05-04-2024 ambulatory [facility] Start: 05-04-2024 End: 05-04-[facility] Comment on above: Palpitation (Primary Dx) [...] micrscp Tess Helena DO Work Phone: Start: 11-08-2024 Urnls dip stick/tabl et rgnt non-auto w/o micrscp Tess Malik DO Work Phone: Start: 08-10-2024 Bacteria identified in Urine by Culture Generic External Data Provider Start: 05-04-2024 Basic metabolic pane l calcium total Dillon Silva MD Work Phone: Start: 05-04-2024 Hepatic function panel Dillon Silva MD Work Phone: Plan of Treatment Date Care Activity Detail Author Start: 04-11-2025 End: 04-11-2025 ambulatory 04/11/2025 10:20 AM EDT Visit [facility] [address] [place] [phone] Tess Malik, DO [address], [place] [id number] [facility] Start: 03-28-2025 Influenza vaccination Influenz a Vaccine (Season Ended) [facility] Start: 12-22-2024 End: 12-22-2024 Patient encounter procedure 12/22/2024 10:20 AM EDT Routine [facility] [address] [place] [phone] Sherie Calvo PA [address] [place], [place] [id number] [facility] Start: 12-07-2024 End: 12-07-2025 CBC panel - Blood by Automated count CBC Lab Routine Diabetes mellitus screening Expected: 12/07/2024 (Approximate), Expires: 12/07/2025 [facility] Comment on above: Expected: 12/07/2024 (Approximate), Expires: 12/07/2025 Start: 12-07-2024 End: 12-07-2025 Measurement of glucose 1 hour after glucose challenge for glucose tolerance test Glucose tolerance, 1 hour Lab Routine Diabetes mellitus screening Expected: 12/07/2024 (Approximate), Expires: 12/07/2025 [facility] Comment on above: Expected: 12/07/2024 (Approximate), Expires: 12/07/2025 Start: 12-07-2024 End: 12-07-2024 Patient encounter procedure [facility] Comment on above: Arrived Start: 06-23-2024 End: 06-23-2024 Patient encounter procedure 06/23/2024 10:30 AM EST Office Visit [facility] [address] [place] [address] Dillon Silva MD [address] [place] [phone] [facility] Start: 05-25-2024 End: 05-25-2024 Patient encounter procedure 05/25/2024 2:45 PM EDT Office Visit [facility] [address] [place] [address] Dillon Silva MD [address] [place] [phone] [facility] Start: 05-18-2024 End: 05-18-2024 Patient encounter procedure 05/18/2024 11:45 AM EDT Office Visit [facility] [address] [place] [address] Dillon Silva MD [address] [place] [address] Arrived [facility] Comment on above: [...] type Palpitation Expected: 04/21/2024 (Approximate), Expires: 04/21/2025 [facility] Work Phone: Comment on above: Expected: 04/21/2024 (Approximate), Expires: 04/21/2025 Start: 04-21-2024 End: 04-21-2025 Cardiac stress study Procedure STRESS TEST TREADMILL Imaging Routine Chest pain, unspecified type SOB (shortness of breath) on exertion Palpitation Expected: 04/21/2024 (Approximate), Expires: 04/21/2025 [facility] Comment on above: Expected: 04/21/2024 (Approximate), Expires: 04/21/2025 Start: 04-21-2024 End: 04-21-2025 CBC W Auto Differential panel - Blood CBC and differential Lab Routine SOB (shortness of breath) on exertion Palpitation Expected: 04/21/2024 (Approximate), Expires: 04/21/2025 [facility] Comment on above: Expected: 04/21/2024 (Approximate), Expires: 04/21/2025 Start: 04-21-2024 End: 04-21-2026 Echocardiogram 2D complete Echocardiogram 2D complete Echocardiography Routine SOB (shortness of breath) on exertion Palpitation Expected: 04/21/2024 (Approximate), Expires: 04/21/2026 [facility] Comment on above: Expected: 04/21/2024 (Approximate), Expires: 04/21/2026 Start: 04-21-2024 End: 04-21-2025 Hepatic function 2000 panel - Serum or Plasma Hepatic function panel Lab Routine Palpitation Expected: 04/21/2024 (Approximate), Expires: 04/21/2025 [facility] Comment on above: Expected: 04/21/2024 (Approximate), Expires: 04/21/2025 Start: 04-21-2024 End: 04-21-2025 Holter monitor study Holter monitor Imaging Routine Palpitation Expected: 04/21/2024 (Approximate), Expires: 04/21/2025 [facility] Comment on above: Expected: 04/21/2024 (Approximate), Expires: 04/21/2025 Start: 04-21-2024 End: 04-21-2025 Magnesium [Mass/volume] in Serum or Plasma Magnesium Lab Routine Palpitation Expected: 04/21/2024 (Approximate), Expires: 04/21/2025 [facility] Comment on above: Expected: 04/21/2024 (Approximate), Expires: 04/21/2025 Start: 04-21-2024 End: 04-21-2025 TSH W/REFLEX TO FT4 TSH W/REFLEX TO FT4 Lab Routine Palpitation Expected: 04/21/2024 (Approximate), Expires: 04/21/2025 [facility] Comment on above: Expected: 04/21/2024 (Approximate), Expires: 04/21/2025 Start: 04-21-2024 End: 04-21-2024 Patient encounter procedure 04/21/2024 9:15 AM EDT Office Visit [facility] [address] [place] [address] Dillon Silva MD [address] [place] [phone] Arrived [facility] Comment on above: Arrived Start: 03-28-2024 Influenza vaccination Influenza Vacc ine (#1) [facility] Start: 03-25-2024 End: 03-25-2024 Patient encounter procedure 03/25/2024 2:45 PM EDT Office Visit [facility] [address] [place] [address] Dillon Silva MD [address] [place] [phone] Arrived [facility] Comment on above: Arrived Start: 2020 Screening for malign ant neoplasm of cervix [facility] Start: 10-26-2011 Screening for malign ant neoplasm of cervix Pap Smear [facility] CHLAMYDIA TRACHOMATI S (GENITO/STI) CHLAMYDIA TRACHOMATIS (GENITO/STI) Lab Routine STD exposure Ordered: 12/07/2024 [facility] Comment on above: Ordered: 12/07/2024 Cytology Cervical or vaginal smear or scraping study Pap Smear Pathology and Cytology Routine Well woman exam with routine gynecological exam Ordered: 12/07/2024 [facility] Work Phone: Comment on above: Ordered: 12/07/2024 Human papilloma viru s DNA [Presence] in Unspecified specimen by Probe with amplification HPV DNA probe, amplified Microbiology Routine Well woman exam with routine gynecological exam Ordered: 12/07/2024 [facility] Comment on above: Ordered: 12/07/2024 Neisseria gonorrhoea e DNA [Presence] in Unspecified specimen by SUKHJINDER with probe detection Neisseria gonorrhea DNA probe, direct Lab Routine STD exposure Ordered: 12/07/2024 [facility] Comment on above: Ordered: 12/07/2024 Pulmonary function report Pulmonary Function Test Imaging Routine SOB (shortness of breath) on exertion Ordered: 04/21/2024 [facility] Comment on above: Ordered: 04/21/2024 SURESWAB(R) ADVANCED VAGINITIS PLUS, TMA SURESWAB(R) ADVANCED VAGINITIS PLUS, TMA Pathology and Cytology Routine Vaginal discharge Ordered: 12/07/2024 [facility] Comment on above: Ordered: 12/07/2024 Immunizations Immunization Date Immunization Notes Care Provider Fa corbin 10-16-2022 influenza virus vacc ine, unspecified formulation Dillon Silva MD Work Phone: [facility] Payers Date Payer Category Payer Private Health Insurance CONSTANTINO ZAYAS [id number] 2023 Unknown CONSTANTINO MEEKS [place] [facility] [id number] 2023-Present [phone] [address] [place] [address] [id number] 2023 Unknown [id number] 2019 Medicaid [facility] MEDICAID [place] MEDICA[place] [id number] 2019-Present [address] [place] [address] [id number] 2019 Medicaid (Managed Care) 1.2. [id number] 1990 Unknown [id number] 2.16.840.1.126165.3.579.2. 593 1990 Unknown [id number] 2.16.840.1.282851.3.579.2. 593 1990 Unknown [id number] 2.16.840.1.522142.3.579.2. 593 1990 Unknown [id number] 2.16.840.1.507842.3.579.2. 593 1990 Unknown [id number] 2.16.840.1.897604.3.579.2. 593 1990 Unknown [id number] 2.16.840.1.329751.3.579.2. 593 1990 Unknown [id number] 2.16.840.1.076755.3.579.2. 593 1990 Unknown [id number] 2.16.840.1.441843.3.579.2. 593 1990 Unknown [id number] 2.16.840.1.196257.3.579.2. 593 1990 Unknown [id number] 2.16.840.1.016284.3.579.2. 1286 1990 Unknown [id number] 2.16.840.1.058509.3.579.2. 1286 1990 Unknown [id number] 2.16.840.1.331805.3.579.2. 6 1990 Unknown [id number] 2.16.840.1.075923.3.579.2. 6 1990 Unknown [id number] 2.16.840.1.962494.3.579.2. 9 1990 Unknown [id number] 2.16.840.1.680115.3.579.2. 9 1990 Unknown [id number] 2.16.840.1.922104.3.579.2. 9 1990 Unknown [id number] 2.16.840.1.263507.3.579.2. 1258 1990 Unknown [id number] 2.16.840.1.997353.3.579.2. 9 1990 Unknown [id number] 2.16.840.1.666785.3.579.2. 9 1990 Unknown [id number] 2.16.840.1.592855.3.579.2. 1259 1959 Unknown [id number] Social History Date Type Detail Facility Start: 03-25-2024 Tobacco smoking stat [facility] Ex-smoker [facility] History of [...] file [facility] Tobacco smoking stat [facility] Tobacco smoking consumption unknown [facility] [...] aura and without status migrainosus, not intractable ([facility]) 07/11/2023 Generalized anxiety disorder ([facility]) 03/25/2024 Gastroesophageal reflux disease without esophagitis 03/25/2024 Allergic rhinitis due to pollen 03/25/2024 Moderate major depression, single episode ([place]) [place] [place] 03/25/2024 Palpitation 04/21/2024 Resolved Ambulatory Problems Diagnosis [...] nursing note reviewed. Exam conducted with a materials coordinator present. Vitals: Estimated body mass index is [...] Tess Malik DO documented in this encounter [facility] 11-08-2024 History of Presen t illness Narrative [...] aura and without status migrainosus, not intractable ([facility]) 07/11/2023 Generalized anxiety disorder ([facility]) 03/25/2024 Gastroesophageal reflux disease without esophagitis 03/25/2024 Allergic rhinitis due to pollen 03/25/2024 Moderate major depression, single episode (HCC) ([facility]) 03/25/2024 Palpitation 04/21/2024 Resolved Ambulatory Problems Diagnosis [...] nursing note reviewed. Exam conducted with a materials coordinator present. Vitals: Estimated body mass index is [...] of DRE Delgadillo documented in this encounter [facility] 05-18-2024 History of Presen t illness Narrative [...] to anxiety. Monitor. documented in this encounter [facility] 04-21-2024 History of Presen t illness Narrative [...] TREADMILL Holter monitor documented in this encounter [facility] 03-25-2024 History of Presen t illness Narrative [...] 33 y.o. female who presents for Follow-up ([facility] paperwork). Follow up migraines, depression, anxiety, [...] Continue qulipta and topamax. Relevant Medications rizatriptan EDUCATIONAL FUNDRAISING DIRECTOR (Maxalt-EDUCATIONAL FUNDRAISING DIRECTOR) 10 MG disintegrating tablet Generalized anxiety disorder [...] and return 03/30. documented in this encounter [facility] Healthcare Evaluation note Diagnosis Palpitation- Primary Palpitations [...] migrainosus, not intractable (CMS/HCC) Generalized anxiety disorder (CMS/HCC) Generalized anxiety disorder documented in this encounter [...] trimester state, incidental documented in this encounter [facility] [...] for diabetes mellitus documented in this encounter [facility] Summary Purpose Family History No Family History Records FoundNo Family History Records FoundNo Family History Records Found Advance Directives No Advanced Directives Records FoundNo Advanced Directives Records FoundNo Advanced Directives Records Found Reason for Referral Specialty Diagnoses / Procedures Referred By Huber brown Referred To Contact Radiology Diagnoses Palpitation Procedures Holter monitor Dillon Silva MD [address] [place] [address] Referral ID Status Reason Start Date Expiration Date V isits Requested Visits Authorized [id number] Pending Review 05/04/2024 10/31/2024 1 1 Referral ID Status Reason Start Date Expiration Date V isits Requested Visits Authorized [id number] Pending Review 04/21/2024 10/18/2024 1 1 Specialty Diagnoses / Procedures Referred By Contac t Referred To Contact Radiology Diagnoses Chest pain, unspecified type SOB (shortness of breath) on exertion Palpitation Procedures STRESS TEST TREADMILL Dillon Silva MD [address] [place] [address] Referral ID Status Reason Start Date Expiration Date V isits Requested Visits Authorized [id number] Authorized 04/21/2024 10/18/2024 1 1 Specialty Diagnoses / Procedures Referred By Contac t Referred To Contact Cardiology Diagnoses SOB (shortness of breath) on exertion Palpitation Procedures Echocardiogram 2D complete Dillon Silva MD [address] [place] [address] Referral ID Status Reason Start Date Expiration Date Visits Requested Visits Authorized [id number] Pending Review Perform Procedure 04/21/2024 10/18/2024 1 1 Additional Source Comments INFORMATION SOURCE (unrecogn ized section and content) DATE CREATED AUTHOR 11/20/2022 [facility] DATE CREATED AUTHOR AUTHOR'S ORGANIZ ATION 05/05/2024 [facility] DATE CREATED AUTHOR AUTHOR'S ORGANIZ ATION 12/08/2024 [facility] EPIC Care Teams (unrecognized sec tion and content) Oiler And Greaser Relationship Specialty Start Date End Date Dillon Silva MD [address] [place] [address] PCP - General Family Medicine 02/11/24 Oiler And Greaser Relationship Specialty Start Date End Date Dillon Silva MD [address] [place] [address] PCP - General Family Medicine 02/11/24 Oiler And Greaser Relationship Specialty Start Date End Date Dillon Silva MD [address] [place] [address] PCP - General Family Medicine 02/11/24 Oiler And Greaser Relationship Specialty Start Date End Date Dillon Silva MD [address] [place] [address] PCP - General Family Medicine 02/11/24 Oiler And Greaser Relationship Specialty Start Date End Date Dillon Silva MD [address] [place] [address] PCP - General Family Medicine 02/11/24 Oiler And Greaser Relationship Specialty Start Date End Date Dillon Silva MD [address] [place] [address] PCP - General Family Medicine 02/11/24 Oiler And Greaser Relationship Specialty Start Date End Date Dillon Silva MD [address] [place] [address] PCP - General Family Medicine 02/11/24 Oiler And Greaser Relationship Specialty Start Date End Date Dillon Silva MD [address] [place] [address] PCP - General Family Medicine 02/11/24 Oiler And Greaser Relationship Specialty Start Date End Date Dillon Silva MD [address] [place] [address] PCP - General Family Medicine 02/11/24 Oiler And Greaser Relationship Specialty Start Date End Date Dillon Silva MD [address] [place] [address] [facility] 02/11/24 Dillon Silva MD [address] [place] [address] [facility] 07/28/24 Oiler And Greaser Relationship Specialty Start Date End Date Dillon Silva MD [address] [place] [address] [facility] 02/11/24 Dillon Silva MD [address] [place] [address] [facility] 07/28/24 Oiler And Greaser Relationship Specialty Start Date End Date Dillon Silva MD [address] [place] [address] [facility] 02/11/24 Dillon Silva MD [address] [place] [address] [facility] 07/28/24 Reason for Visit (unrecogniz ed [...] BE BASED ON THE PRIMARY CLINICAL RECORDS. [facility]. provides no warranty or guarantee of the accuracy or completeness of information in this document.
[2024-12-08 10:24] LABS: Basophils Percent Auto 0.2 % (0.2-2.0); Eosinophils Absolute Auto 0.1 10^3/uL (0.0-0.7); Eosinophils Percent Auto 0.8 % (0.9-7.0); Hematocrit 33.7 % (36.0-48.0); Hemoglobin 11.1 g/dL (12.0-16.0); Immature Granulocytes Abs Auto 0.04 10^3/uL (0.00-0.03); Immature Granulocytes Pct Auto 0.5 % (0.0-0.5); Lymphocytes Absolute Auto 1.7 10^3/uL (1.2-3.8); Mean Corpuscular HGB Conc 32.9 g/dL (29.9-35.2); Mean Corpuscular Hemoglobin 30.2 pg (26.7-34.0); Mean Corpuscular Volume 91.6 fL (81.0-99.0); Mean Platelet Volume 9.3 fL (9.5-13.5); Monocytes Percent Auto 11.4 % (1.7-12.0); Neutrophils Absolute Auto 5.9 10^3/uL (1.4-6.5); Neutrophils Percent Auto 68.1 % (43.0-75.0); Platelet Count 293 10^3/uL (150-450); Red Blood Count 3.68 10^6/uL (4.20-5.40); White Blood Count 8.7 10^3/uL (4.0-11.0)
[2024-12-08 10:59] LABS: Glucose 1 Hour 88 mg/dL (<130)
== END 2024-12-08 09:07 | disposition home or self-care (01) ==
LOC: LAB 09:07
PROVIDERS: PCP Family Medicine; Visit Provider Obstetrics & Gynecology
DX: Z13.1 Encounter for screening for diabetes mellitus (principal)
CPT/HCPCS: 36415; 82950; 85025

== ENCOUNTER 2025-02-15 12:18 | Outpatient (REF) | payer OTHER, SELFPAY ==
--- OUTSIDE RECORDS SUMMARY | 2025-02-15 08:40 | XMS_ITS | Encounter Summary ---
Author Organization [facility] Address [address] [place] [address] Care Team Providers Care Deicer Inspector Electric Name Role Phone Dillon Shipman MD Primary Care Provider [phone] Dillon Shipman MD Unavailable Reason for Visit * Reason Comments Routine Visit Encounter Details Date Type Department Care Team (Late st Contact Info) Description 02/15/2025 8:40 AM EDT Routine [facility] [address] [place] [address] Paul Malik, DO [address] [place], [place] [id number] 36 weeks gestation of ([facility]); Third trimester ([facility]); Restless leg; SGA (small for gestational age) ([facility]) Social History Tobacco Use Types Packs/Day Years Used Date Smoking Tobacco: Former Cigarettes Smokeless Tobacco: Never B1300 Health Literacy Answer Date Recor ded How often do you need to hav e someone help you when you read instructions, pamphlets, or other written material from your doctor or pharmacy? Sometimes 03/25/2024 Social Connection and Isolation Panel [NHANES] A nswer Date Recorded In a typical week, how many times do you talk on the phone with family, friends, or neighbors? Never 03/25/20 24 How often do you get togethe r with friends or relatives? Never 03/25/2024 How often do you attend [facility] or sabianist services? 1 to 4 times per year 03/25/2024 Do you belong to any clubs o r organizations such as muslim groups, unions, fraternal or athletic groups, or school groups? Patient declined 03/25/2024 How often do you attend meet ings of the clubs or organizations you belong to? Patient declined 03/25/2024 Are you , , di vorced, , never , or living with a partner? Never 03/25/2024 AUDIT-C Answer Date Recorded Q1: How often do you have a drink containing alc ohol? Monthly or less 03/25/2024 Q2: How many drinks containi ng alcohol do you have on a typical day when you are drinking? 3 or 4 03/25/2024 Q3: How often do you have si x or more drinks on one occasion? Patient declined 03/25/2024 Overall Financial Resource Strain (CARDIA) Answe r Date Recorded How hard is it for you to pa y for the very basics like food, housing, medical care, and heating? Not hard at all 03/25/2024 PHQ-2 Answer Date Recorded Patient Health Questionnaire-2 Score 0 02/14/2025 [facility] of Occupat ional Health - Occupational Stress Questionnaire Answer Date Recorded Do you feel stress - tense, restless, nervous, or anxious, or unable to sleep at night because your mind is troubled all the time - these days? Rather much 03/25/2024 Exercise Vital Sign Answer Date Recorde d On average, how many days pe r week do you engage in moderate to strenuous exercise (like a brisk walk)? 5 days 03/25/2024 On average, how many minutes do you engage in exercise at this level? 150+ min 03/25/2024 Hunger Vital Sign Answer Date Recorded Within the past 12 months, y ou worried that your food would run out before you got the money to buy more. Never true 03/25/20 24 Within the past 12 months, t he food you bought just didn't last and you didn't have money to get more. Never true 03/25/2024 PRAPARE - Transportation Answer Date Re corded In the past 12 months, has l ack of transportation kept you from medical appointments or from getting medications? No 02/26 In the past 12 months, has l ack of transportation kept you from meetings, work, or from getting things needed for daily living? No 03/25/2024 Housing Stability Vital Sign Answer Adalid e Recorded In the last 12 months, was t here a time when you were not able to pay the mortgage or rent on time? No 03/25/2024 In the past 12 months, how m any times have you moved where you were living? 0 03/25/2024 At any time in the past 12 m [facility], were you homeless or living in a fdc (including now)? No 03/25/2024 Estimated Date of Delivery Comme nts Yes 03/15/2025 Based on Ultraso und, FHR- 167 Sex and Gender Information Value Date Recorded Sex Assigned at Not on file Legal Sex Female 11:34 PM EDT Gender Identity Not on file Sexual Orientation Not on file documented as of this encounter Last Filed Vital Signs Vital Sign Reading Time Taken Comments Blood Pressure 120/82 02/15/2025 8:45 AM EDT Pulse - - Temperature - - Respiratory Rate - - Oxygen Saturation - - Inhaled Oxygen Concentration - - Weight 107 kg (235 lb) 02/15/2025 8:45 AM EDT Height - - Body Mass Index 35.73 04/21/2024 9:35 AM EDT documented in this encounter Plan of Treatment Upcoming Encounters Date Type Department Care Team (Late st Contact Info) Description 02/23/2025 8:50 AM EDT Routine [facility] [address] [place] [address] Sherie Donnelly PA [address] [place] [address] 03/31/2025 9:30 AM EDT Procedure Visit [facility] OB [address] [place] [address] Paul Malik DO [address] [place], [place] [id number] Scheduled Orders Name Type Priority Associated Diagnoses Orde r Schedule CULTURE, GROUP B STREP WITH SUSCEPTIBLITY Lab Routine Third trimester ([facility]) Expected: 02/15/2025, Expires: 02/15/2026 documented as of this encounter Procedures Procedure Name Priority Date/Time Associated Diagnosis Comments POCT URINALYSIS DIPSTICK Routine 02/15/2025 9:24 AM EDT 36 weeks gestation of ([facility]) Third trimester ([facility]) documented in this encounter Results * (ABNORMAL) POCT urinalysis dipstick manually resulted (02/15/2025 9:24 AM EDT) Color, UA Yellow Clarity, UA Cloudy Glucose, UA Negative Negative - 2000(110) ++++ mg/dL Bilirubin, UA Negative Negative - 4(70) +++ mg/dL Ketones, UA Negative Negative - 160(16) ++++ mg/dL Spec Grav, UA 1.010 1 - 1.03 Blood, UA Negative Negative - 50 Eulalio/mcL pH, UA 6.0 5 - 9 Protein, UA Trace Negative - 2000(20) ++++ mg/dL Urobilinogen, UA 1.0 0.2 - 12 mg/dL Leukocytes, UA Moderate Negative - 500+++ Yancy/mcL Nitrite, UA Negative Negative - Positive Urine 02/15/2025 9:24 AM EDT Paul Malik DO POINT OF CARE TEST ENTER/EDIT OR DERABLES Final Result documented in this encounter Visit Diagnoses Diagnosis 36 weeks gestation of ([facility]) Third trimester ([facility]) state, incidental Restless leg Restless legs syndrome (RLS) SGA (small for gestational age) ([facility]) Omoia-mih-rfpqj without mention of malnutrition, unspecified (weight) documented in this encounter Care Teams Deicer Inspector Electric Relationship Specialty Start Date End Date Dillon Shipman MD [address] [place] [address] PCP - General Family Medicine 02/11/24 Dillon Shipman MD [address] [place] [address] [facility] 07/28/24 documented as of this encounter
--- OUTSIDE RECORDS SUMMARY | 2025-02-15 12:21 | XMS_ITS | Encounter Summary ---
Author Organization [facility] Address [address] [place] [address] Care Team Providers Care Cleaner Assistant Name Role Phone Dillon Shipman MD Primary Care Provider [phone] Dillon Shipman MD Unavailable Encounter Details Date Type Department Care Team (Late st Contact Info) Description 02/15/[address] [facility] [address] [place] [phone] Sherie Rodriguez, COMMUNITY REINVESTMENT ACT OFFICER [address] [place] [address] Social History Tobacco Use Types Packs/Day Years [...] Never 03/25/2024 How often do you attend chur ch or catholic services? 1 to 4 times per year 03/25/2024 Do you belong to any clubs o r organizations such as christianity groups, unions, fraternal or athletic groups, or [...] Recorded Patient Health Questionnaire-2 Score 0 02/14/2025 [facility] [place] of Occupat ional Health - Occupational Stress [...] any time in the past 12 m [facility], were you homeless or living in a fdc (including now)? No 03/25/2024 Estimated Date of Delivery Comme nts Yes 03/15/2025 Based on Ultraso und, FHR- 167 Sex and Gender Information Value Date Recorded Sex Assigned at Not on file Legal Sex Female 11:34 PM EDT Gender Identity Not on file Sexual Orientation Not on file documented as of this encounter Plan of Treatment Upcoming Encounters Date Type Department Care Team (Late st Contact Info) Description 02/23/2025 8:50 AM EDT Routine [facility] [address] [place] [address] Sherie Donnelly PA [address] [facility] [address] [place], [place] [phone] 03/31/2025 9:30 AM EDT Procedure Visit [facility] OB [address] [place] [address] Paul Malik DO [address] [facility] [address] [place] [place], [place] [id number] documented as of this encounter Visit Diagnoses Not on filedocumented in this encounter Care Teams Cleaner Assistant Relationship Specialty Start Date End Date Dillon Shipman MD [address] [place] [address] PCP - General Family Medicine 02/11/24 Dillon Shipman MD [address] [place] [address] PCP - [facility] 07/28/24 documented as of this encounter
--- OUTSIDE RECORDS SUMMARY | 2025-02-15 12:21 | XMS_ITS | Encounter Summary ---
Author Organization [facility] Address [address] [place] [address] Care Team Providers Care Respiratory Medicine Physician Name Role Phone Dillon Shipman MD Primary Care Provider [phone] Dillon Shipman MD Unavailable Encounter Details Date Type Department Care Team (Late st Contact Info) Description 12/15/2024 Orders Only [facility] [address] [place] [address] Allie Parker[place], [place] [address] [place] [address] Social History Tobacco Use Types Packs/Day Years [...] often do you attend chur ch or jain services? 1 to 4 times per year 03/25/2024 Do you belong to any clubs o r organizations such as spiritism groups, unions, fraternal or athletic groups, or [...] and heating? Not hard at all 03/25/2024 [facility] [place] of Occupat ional Health - Occupational Stress [...] any time in the past [address] [facility], were you homeless or living in a chcf (including now)? No 03/25/2024 Estimated Date of [...] AM EDT Routine [facility] OB [address] [facility] [place] [address] Sherie Donnelly PA [address] [place], [place] [address] 03/31/2025 9:30 AM EDT Procedure Visit [facility] OB [address] [place] [address] Paul Malik DO [address] [place], [place] [id number] documented as of this encounter Procedures Procedure Name Priority Date/Time Associated Diagnosis Comments PAP SMEAR Routine 12/07/2024 12:00 AM EDT documented in this encounter Results * Pap Smear (12/07/2024 12:00 AM EDT) Swab Cervical swab / Unknown us Paul Malik DO LAB CYTOLOGY ORDERABLES Final Re sult EXTERNAL LAB documented in this encounter Visit Diagnoses Not on filedocumented in this encounter Care Teams Respiratory Medicine Physician Relationship Specialty Start Date End Date Dillon Shipman MD [address] [place] [address] PCP - General Family Medicine 02/11/24 Dillon Shipman MD [address] [place] [address] [facility] 07/28/24 documented as of this encounter
--- OUTSIDE RECORDS SUMMARY | 2025-02-15 12:21 | XMS_ITS | Encounter Summary ---
Author Organization [facility] Address [address] [place] [address] Care Team Providers Care Consumer Relations Complaint Clerk Name Role Phone Dillon Shipman MD Primary Care Provider [phone] Dillon Shipman MD Primary Care Provider [phone] Dillon Shipman MD Unavailable Encounter Details Date Type Department Care Team (Late st Contact Info) Description 11/17/2023 Abstract [facility] [address] [address] Estrella Slaughter LPN [address] [id number] Social History Tobacco Use Types Packs/Day Years Used Date Smoking Tobacco: Never Assessed Comments Unknown Sex and Gender Information Value Date Recorded Sex Assigned at Not on file Legal Sex Female 11:34 PM EDT Gender Identity Not on file Sexual Orientation Not on file documented as of this encounter Plan of Treatment Upcoming Encounters Date Type Department Care Team (Late st Contact Info) Description 02/23/2025 8:50 AM EDT Routine [facility] OB [address] [address] Sherie Donnelly PA [address] [place], [place] [address] 03/31/2025 9:30 AM EDT Procedure Visit [facility] OB [address] [place] [address] Paul Malik, [address] [place], [place] [address] documented as of this encounter Visit Diagnoses Not on filedocumented in this encounter Care Teams Consumer Relations Complaint Clerk Relationship Specialty Start Date End Date Dillon Shipman MD PCP - General [facility] 01/20/23 02/10/24 Dillon Shipman MD [address] [place] [address] PCP - [facility] 02/11/24 Dillon Shipman MD [address] [place] [address] PCP - [facility] 07/28/24 documented as of this encounter
--- OUTSIDE RECORDS SUMMARY | 2025-02-15 12:21 | XMS_ITS | Encounter Summary ---
Author Organization [facility] Address [address] [place] [address] Care Team Providers Care Maintenance Worker House Trailer Name Role Phone Dillon Shipman MD Primary Care Provider [phone] Dillon Shipman MD Unavailable Encounter Details Date Type Department Care Team (Late st Contact Info) Description 05/18/2024 Orders Only [facility] [address] [place] [place] [address] Dillon Shipman MD [address] [place] [address] Social History Tobacco Use Types Packs/Day Years [...] often do you attend chur ch or church services? 1 to 4 times per year 03/25/2024 Do you belong to any clubs o r organizations such as mormon groups, unions, fraternal or athletic groups, or [...] and heating? Not hard at all 03/25/2024 [facility] [place] of Occupat ional Health - Occupational Stress [...] any time in the past 12 m [facility], were you homeless or living in a penitentiary (including now)? No 03/25/2024 Comments Unknown Sex and Gender Information Value Date Recorded Sex Assigned at Not on file Legal Sex Female 11:34 PM EDT Gender Identity Not on file Sexual Orientation Not on file documented as of this encounter Plan of Treatment Upcoming Encounters Date Type Department Care Team (Late st Contact Info) Description 02/23/2025 8:50 AM EDT Routine [facility] OB [address] [place] [address] Sherie Donnelly PA [address] [place], [place] [phone] 03/31/2025 9:30 AM EDT Procedure Visit [facility] OB [address] [place] [address] Paul Malik DO [address] [place], [place] [address] documented as of this encounter Procedures Procedure Name Priority Date/Time Associated Diagnosis Comments HOLTER MONITOR 48HR Routine 05/18/2024 11:34 AM EDT documented in this encounter Results * HOLTER MONITOR 48HR (05/18/2024 11:34 AM EDT) Anatomical Region Laterality Modality Radiographic Samia ging Dillon Shipman MD IMG XR PROCEDURES Final Result documented in this encounter Visit Diagnoses Not on filedocumented in this encounter Care Teams Maintenance Worker House Trailer Relationship Specialty Start Date End Date Dillon Shipman MD [address] [place] [address] PCP - General Family Medicine 02/11/24 Dillon Shipman MD [address] [place] [address] [facility] 07/28/24 documented as of this encounter
--- OUTSIDE RECORDS SUMMARY | 2025-02-15 12:21 | XMS_ITS ---
Author Organization [facility] Address [address] [place] [address] Care Team Providers Care Snaker Tractor Driver Name Role Phone Dillon Shipman MD Primary Care Provider Dillon Shipman MD Unavailable [facility] ([facility]) Status:Enrolled (Active) Start date:02/14/2025 Enrollment date:02/14/2025 Enrollment reason:Identified by Health Plan Case Team Name Relationship Phone Sherie Rodriguez LPN(Responsible Staff) Licensed [facility] Nurse [phone] Continued Care and Services Coordination
--- OUTSIDE RECORDS SUMMARY | 2025-02-15 12:21 | XMS_ITS | Encounter Summary ---
Author Organization [facility] Address [address] [place] [address] Care Team Providers Care Elephant Tamer Name Role Phone Dillon Shipman MD Primary Care Provider [phone] Dillon Shipman MD Unavailable Encounter Details Date Type Department Care Team (Latest Contact Info) Description 02/14/2025 Travel Social History Tobacco Use Types Packs/Day Years [...] 03/25/2024 How often do you attend chur or lutheran services? 1 to 4 times per year 03/25/2024 Do you belong to any clubs o r organizations such as jain groups, unions, fraternal or athletic groups, or [...] Recorded Patient Health Questionnaire-2 Score 0 02/14/2025 [facility] of Occupat ional Health - Occupational Stress [...] any time in the past 12 m [facility], were you homeless or living in a chcf (including now)? No 03/25/2024 Estimated Date of Delivery Comme nts Yes 03/15/2025 Based on Ultraso und, FHR- 167 Sex and Gender Information Value Date Recorded Sex Assigned at Not on file Legal Sex Female 11:34 PM EDT Gender Identity Not on file Sexual Orientation Not on file documented as of this encounter Functional Status * Over the past 2 weeks, how often have you been bothered by any of the following problems? Question Answer Date of Assessment Author Little interest or pleasure in doing things Not at all 02/14/2025 3:33 PM EDT Sherie Rodriguez LPN Feeling down, depressed, or hopeless Not at all 02/14/2025 3:33 PM EDT Sherie Rodriguez LP N Patient Health Questionnaire -2 Score 0 02/14/2025 3:33 PM EDT Sherie Rodriguez LPN documented as of this encounter Plan of Treatment Upcoming Encounters Date Type Department Care Team (Late st Contact Info) Description 02/23/2025 8:50 AM EDT Routine [facility] [address] [place] [address] Sherie Donnelly PA [address] [facility] [place], [place] [id number] 03/31/2025 9:30 AM EDT Procedure Visit [facility] [address] [address] Paul Malik DO [address] [facility] [place] [place], [place] [id number] documented as of this encounter Visit Diagnoses Not on filedocumented in this encounter Care Teams Elephant Tamer Relationship Specialty Start Date End Date Dillon Shipman MD [address] [place] [address] PCP - General Family Medicine 02/11/24 Dillon Shipman MD [address] [place] [address] [facility] 07/28/24 documented as of this encounter
--- OUTSIDE RECORDS SUMMARY | 2025-02-15 12:21 | XMS_ITS | Encounter Summary ---
Author Organization [facility] Address [address] [place] [address] Care Team Providers Care Corrections Lieutenant Name Role Phone Dillon Shipman MD Primary Care Provider [phone] Dillon Shipman MD Primary Care Provider [phone] Dillon Shipman MD Unavailable Encounter Details Date Type Department Care Team (Late st Contact Info) Description 12/10/2023 Abstract [facility] OB [address] [place] [address] Estrella Slaughter LPN [address] [facility] Social History Tobacco Use Types Packs/Day Years [...] AM EDT Routine [facility] [address] [place] [address] Sherie Donnelly PA [address] [address] [facility] [address] [place], [place] [address] 03/31/2025 9:30 AM EDT Procedure Visit [facility] OB [address] [place] [address] Paul Malik, [address] [place], [place] [address] documented as of this encounter Visit Diagnoses Not on filedocumented in this encounter Care Teams Corrections Lieutenant Relationship Specialty Start Date End Date Dillon Shipman MD PCP - General [facility] 01/20/23 02/10/24 Dillon Shipman MD [address] [place] [address] PCP - [facility] 02/11/24 Dillon Shipman MD [address] [place] [address] PCP - [facility] 07/28/24 documented as of this encounter
--- OUTSIDE RECORDS SUMMARY | 2025-02-15 12:21 | XMS_ITS | Encounter Summary ---
Author Organization [facility] Address [address] [place] [address] Care Team Providers Care Seo Expert Name Role Phone Dillon Shipman MD Primary Care Provider [phone] Dillon Shipman MD Unavailable Encounter Details Date Type Department Care Team (Late st Contact Info) Description 08/30/2024 Abstract [facility] [address] [place] [address] Dillon Shipman MD [address] [place] [address] Social History Tobacco Use Types Packs/Day Years [...] often do you attend chur ch or latter-day services? 1 to 4 times per year 03/25/2024 Do you belong to any clubs o r organizations such as lutheran groups, unions, fraternal or athletic groups, or [...] and heating? Not hard at all 03/25/2024 [facility] of Occupat ional Health - Occupational Stress [...] any time in the past 12 m [facility], were you homeless or living in a long-term (including now)? No 03/25/2024 Comments Unknown Sex [...] AM EDT Routine [facility] [address] [place] [address] Sherie Donnelly PA [address] [facility] [address] [place], [place] [id number] 03/31/2025 9:30 AM EDT Procedure Visit [facility] OB [address] [facility] [place] [address] Paul Malik DO [address] [facility] [address] [place], [place] [address] documented as of this encounter Visit Diagnoses Not on filedocumented in this encounter Care Teams Seo Expert Relationship Specialty Start Date End Date Dillon Shipman MD [address] [place] [address] PCP - General Family Medicine 02/11/24 Dillon Shipman MD [address] [place] [address] PCP - [facility] 07/28/24 documented as of this encounter
--- OUTSIDE RECORDS SUMMARY | 2025-02-15 12:21 | XMS_ITS | Encounter Summary ---
Author Organization [facility] Address [address] [place] [address] Care Team Providers Care Finisher Machine Name Role Phone Dillon Shipman MD Primary Care Provider [phone] Dillon Shipman MD Unavailable Encounter Details Date Type Department Care Team (Late st Contact Info) Description 08/16/2024 Abstract [facility] [address] [place] [address] Dillon Shipman MD [address] [place] [address] Social History Tobacco Use Types Packs/Day Years [...] often do you attend chur ch or zoroastrianism services? 1 to 4 times per year 03/25/2024 Do you belong to any clubs o r organizations such as anabaptism groups, unions, fraternal or athletic groups, or [...] and heating? Not hard at all 03/25/2024 [facility] of Occupat ional Health - Occupational Stress [...] any time in the past 12 m [facility], were you homeless or living in a residential (including now)? No 03/25/2024 Comments Unknown Sex [...] AM EDT Routine [facility] OB [address] [place] [place] [address] Sherie Donnelly PA [address] [facility] [address] [place], [place] [id number] 03/31/2025 9:30 AM EDT Procedure Visit [facility] OB [address] [place] [address] Paul Malik DO [address] [facility] [address] [place] [place], [place] [address] documented as of this encounter Visit Diagnoses Not on filedocumented in this encounter Care Teams Finisher Machine Relationship Specialty Start Date End Date Dillon Shipman MD [address] [place] [address] PCP - General Family Medicine 02/11/24 Dillon Shipman MD [address] [place] [address] PCP - [facility] 07/28/24 documented as of this encounter
--- OUTSIDE RECORDS SUMMARY | 2025-02-15 12:21 | XMS_ITS | Encounter Summary ---
Author Organization [facility] Address [address] [place] [address] Care Team Providers Care Feed Research Technician Name Role Phone Dillon Shipman MD Primary Care Provider [phone] Dillon Shipman MD Unavailable Encounter Details Date Type Department Care Team (Late st Contact Info) Description 02/15/2025 Bamboo flowsheet [facility] [address] [place] [address] Paul Malik, DO [address] [facility] [address] [place], [place] [id number] Social History Tobacco Use Types Packs/Day Years [...] often do you attend chur ch or sikh services? 1 to 4 times per year 03/25/2024 Do you belong to any clubs o r organizations such as judaism groups, unions, fraternal or athletic groups, or [...] Recorded Patient Health Questionnaire-2 Score 0 02/14/2025 [facility] of Occupat ional [facility] - Occupational Stress Questionnaire Answer Date Recorded [...] any time in the past 12 m [facility], were you homeless or living in a penitentiary (including now)? No 03/25/2024 Estimated Date of [...] AM EDT Routine [facility] OB [address] [place] [place] [address] Sherie Donnelly PA [address] [place], [place] [id number] 03/31/2025 9:30 AM EDT Procedure Visit [facility] OB [address] [place] [address] Paul Malik DO [address] [facility] [place], [place] [address] documented as of this encounter Visit Diagnoses Not on filedocumented in this encounter Care Teams Feed Research Technician Relationship Specialty Start Date End Date Dillon Shipman MD [address] [place] [address] PCP - General Family Medicine 02/11/24 Dillon Shipman MD [address] [place] [address] PCP - [facility] 07/28/24 documented as of this encounter
--- OUTSIDE RECORDS SUMMARY | 2025-02-15 12:21 | XMS_ITS | Encounter Summary ---
Author Organization [facility] Address [address] [place] [address] Care Team Providers Care Blueprint Maker Name Role Phone Dillon Shipman MD Primary Care Provider [phone] Dillon Shipman MD Unavailable Encounter Details Date Type Department Care Team (Latest Contact Info) Description 02/01/2025 Travel Social History Tobacco Use Types Packs/Day [...] How often do you attend chur or baptist services? 1 to 4 times per year [...] and heating? Not hard at all 03/25/2024 [facility] of Occupat ional Health - Occupational [...] any time in the past 12 m [facility], were you homeless or living in a senior care (including now)? No 03/25/2024 Estimated Date of [...] AM EDT Routine [facility] OB [address] [place] [address] Sherie Donnelly PA [address] [facility] [place], [facility] 03/31/2025 9:30 AM EDT Procedure Visit [facility] OB [address] [place] [address] Paul Malik DO [address] [facility] [place] [place], [place] [address] documented as of this encounter Visit Diagnoses Not on filedocumented in this encounter Care Teams Blueprint Maker Relationship Specialty Start Date End Date Dillon Shipman MD [address] [place] [address] PCP - General Family Medicine 02/11/24 Dillon Shipman MD [address] [place] [address] PCP - [facility] 07/28/24 documented as of this encounter
--- OUTSIDE RECORDS SUMMARY | 2025-02-15 12:21 | XMS_ITS | Encounter Summary ---
Author Organization [facility] Address [address] [place] [address] Care Team Providers Care Signal Operator Linguist Name Role Phone Dillon Shipman MD Primary Care Provider [phone] Dillon Shipman MD Unavailable Reason for Visit * Reason Comments Med Refill Encounter Details Date Type Department Care Team (Late st Contact Info) Description 08/12/2024 Refill [facility] [address] [place] [address] Dillon Shipman MD [address] [place] [address] Generalized anxiety disorder Social History Tobacco Use Types Packs/Day Years [...] Never 03/25/2024 How often do you attend [facility] or sikh services? 1 to 4 times per year 03/25/2024 Do you belong to any clubs o r organizations such as orthodoxy groups, unions, fraternal or athletic groups, or [...] and heating? Not hard at all 03/25/2024 [facility] of Occupat ional Health - Occupational Stress [...] any time in the past 12 m [facility], were you homeless or living in a long term (including now)? No 03/25/2024 Comments Unknown Sex and Gender Information Value Date Recorded Sex Assigned at Not on file Legal Sex Female 11:34 PM EDT Gender Identity Not on file Sexual Orientation Not on file documented as of this encounter Miscellaneous Notes * Telephone Encounter - Dillon Shipman MD - 08/12/2024 12:20 PM EST Received ER note and US showing patient currently . Xanax needs to be weaned off and stopped during . Will fill but need to wean off of xanax. documented in this encounter Plan of Treatment Upcoming Encounters Date Type Department Care Team (Late st Contact Info) Description 02/23/2025 8:50 AM EDT Routine [facility] OB [address] [place] [address] Sherie Donnelly PA [address] [facility] [place] [address] 03/31/2025 9:30 AM EDT Procedure Visit [facility] OB [address] [place] [address] Paul Malik DO [address] [facility] [address] [place] [place], [place] [id number] documented as of this encounter Visit Diagnoses Diagnosis Generalized anxiety disorder Generalized anxiety disorder documented in this encounter Care Teams Signal Operator Linguist Relationship Specialty Start Date End Date Dillon Shipman MD [address] [place] [address] PCP - General Family Medicine 02/11/24 Dillon Shipman MD [address] [place] [address] [facility] 07/28/24 documented as of this encounter
--- OUTSIDE RECORDS SUMMARY | 2025-02-15 12:21 | XMS_ITS | Encounter Summary ---
Author Organization [facility] Address [address] [place] [address] Care Team Providers Care Graduation Coach Name Role Phone Dillon Shipman MD Primary Care Provider [phone] Dillon Shipman MD Unavailable Encounter Details Date Type Department Care Team (Late st Contact Info) Description 08/10/2024 Abstract [facility] OB [address] [place] [address] Paul Malik, DO [address] [facility] [address] [facility] [address] [place] [place], [place] [address] Social History Tobacco Use Types Packs/Day Years [...] often do you attend chur ch or confucianism services? 1 to 4 times per year 03/25/2024 Do you belong to any clubs o r organizations such as presybeterian groups, unions, fraternal or athletic groups, or [...] and heating? Not hard at all 03/25/2024 [facility] of Occupat ional Health - Occupational Stress [...] time in the past [address] [facility], were you homeless or living in a alf (including now)? No 03/25/2024 Comments Unknown Sex [...] [facility] OB [address] [facility] [place] [address] Sherie Donnelly PA [address] [facility] [address] [place], [place] [id number] 03/31/2025 9:30 AM EDT Procedure Visit [facility] OB [address] [facility] [place] [address] Paul Malik DO [address] [facility] [address] [place] [place], [place] [address] documented as of this encounter Visit Diagnoses Not on filedocumented in this encounter Care Teams Graduation Coach Relationship Specialty Start Date End Date Dillon Shipman MD [address] [place] [address] PCP - General Family Medicine 02/11/24 Dillon Shipman MD [address] [place] [address] PCP - [facility] 07/28/24 documented as of this encounter
--- OUTSIDE RECORDS SUMMARY | 2025-02-15 12:21 | XMS_ITS | Clinical Summary ---
Author Organization [facility] Healthcare Address [address] [place] [address] Care Team Providers Care Dementia Program Director Name Role Phone Dillon Shipman MD Primary Care Provider [phone] Dillon Shipman MD Unavailable Allergies Active Allergy Reactions Criticality Noted Date Comments Ciprofloxacin Nausea Only,GI intolerance 2019 Medications topiramate (Topamax) 100 MG tabletIndicatio ns:Migraine without aura and without status migrainosus, not intractable Take 1 tablet (100 mg) by mouth in the morning and 1 tablet (100 mg) before bedtime. 60 tablet 11 5 026 Active meclizine (Antivert) 25 MG tabletIndicatio ns:Dizziness and giddiness TAKE 1 TABLET BY MOUTH FOUR TIMES DAILY NEEDED 60 tablet 1 5 Active albuterol HFA 90 mcg/act inhalerIndicati ons:Shortness of breath INHALE 2 PUFFS BY MOUTH EVERY 4 HOURS NEEDED 18 g 2 5 Active magnesium oxide (Mag-Ox) 400 MG tabletIndicatio ns:Restless leg Take 1 tablet (400 mg) by mouth Daily 30 tablet 6 5 026 Active esomeprazole (NexIUM) [address] capsuleIndicati ons:Gastro-esop hageal reflux disease without esophagitis TAKE 1 CAPSULE BY MOUTH DAILY 30 capsule 5 5 Active esomeprazole (NexIUM) [address] capsuleIndicati ons:Gastro-esop hageal reflux disease without esophagitis TAKE 1 CAPSULE BY MOUTH DAILY 30 capsule 5 4 025 Discontinued Active Problems Problem Noted Date Diagnosed Date Palpitation 04/21/2024 Assessment & Plan (05/18/2024 12:12 PM EDT): Holter with sinus tach and likely related to anxiety. Monitor. Assessment & Plan (04/21/2024 10:15 AM EDT): Frequent symptoms and check Holter Generalized anxiety disorder 03/25/2024 Assessment & Plan (05/18/2024 12:11 PM EDT): Continued symptoms and likely causing palpitations but improved. Continue prozac and use xanax PRN. Assessment & Plan (03/25/2024 4:11 PM EDT): Symptoms worse and increase prozac. Warned will take 2-3 weeks to notice improvement in mood. Use hydroxyzine PRN. Gastroesophageal reflux disease without esophagi tis 03/25/2024 Assessment & Plan (03/25/2024 4:11 PM EDT): Symptoms controlled with nexium and continue. Allergic rhinitis due to pollen 03/25/2024 Moderate major depression, single episode 2023 Assessment & Plan (05/18/2024 12:12 PM EDT): Symptoms stable with prozac and continue. Assessment & Plan (03/25/2024 4:11 PM EDT): Symptoms worse and increase prozac. Warned will take 2-3 weeks to notice improvement in mood. Migraine without aura and wi thout status migrainosus, not intractable 07/11/2023 Assessment & Plan (05/18/2024 12:12 PM EDT): COOK stable and use medication PRN. Continue qulipta and topamax. Assessment & Plan (03/25/2024 4:11 PM EDT): COOK worse and use fioricet PRN. Imitrex not helping and stop. Try maxalt. Continue qulipta and topamax. Estimated Date of Delivery Comme nts Yes 03/15/2025 Based on Ultraso und, FHR- 167 Resolved Problems Problem Noted Date Diagnosed Date Resolved Date SOB (shortness of breath) on exertion 04/21/2024 05/18/2024 Assessment & Plan (04/21/2024 10:15 AM EDT): Unclear cause of symptoms. Check echo and PFTs. Check labs. Use albuterol PRN. Chest pain 04/21/2024 05/18/2024 Assessment & Plan (04/21/2024 10:14 AM EDT): Unclear cause of symptoms and check stress test and echo. Vertigo 03/25/2024 05/18/2024 Assessment & Plan (03/25/2024 4:12 PM EDT): Recent symptoms and use meclizine PRN. Off work 03/21-03/29 and return 03/30. Encounters Date Type Department Care Team Description 02/15/2025 8:40 AM EDT Routine [facility] [address] [place] [address] Paul Malik, 36 weeks gestation of ([facility]); Third trimester ([facility]); Restless leg; SGA (small for gestational age) ([facility]) 02/15/2025 Abstract [facility] [address] [place] [address] Sherie Rodriguez LPN 02/15/2025 Bamboo flowsheet [facility] [address] [address] Paul Malik DO 02/14/2025 Travel 02/14/2025 Patient Outreach [facility] [address] [address] Sherie Rodriguez LPN 02/01/2025 Travel 01/21/2025 Refill [facility] [address] [place] [address] Dillon Shipman MD Gastro-esophageal reflux disease without esophagitis 01/20/2025 10:00 AM EDT Routine [facility] [address] [facility] [address] Sherie Donnelly PA 32 weeks gestation of ([facility]); Third trimester ([facility]); Restless leg; SGA (small for gestational age) ([facility]) 01/20/2025 Bamboo flowsheet [facility] [address] [facility] [address] [address] Sherie Donnelly PA 01/17/2025 Travel 01/06/2025 9:20 AM EDT Routine [facility] [address] [address] Paul Malik DO Third trimester ([facility]); 30 weeks gestation of ([facility]) 01/06/2025 Bamboo flowsheet [facility] [address] [address] Paul Malik DO 01/05/2025 Travel 12/28/2024 8:00 AM EDT Ancillary Procedure [facility] [address] [facility] [address] size inconsistent with dates ([facility]) 12/27/2024 Travel 12/22/2024 10:20 AM EDT Routine [facility] OB [address] [facility] [address] [address] Sherie Donnelly PA Second trimester ([facility]); 28 weeks gestation of ([facility]); Restless leg; size inconsistent with dates ([facility]) 12/22/2024 Refill [facility] [address] [place] [address] Dillon Shipman MD Shortness of breath 12/22/2024 Bamboo flowsheet [facility] [address] [place] [address] Sherie Donnelly PA 12/21/2024 Telephone [facility] [address] [place] [phone] Dlilon Shipman MD 12/19/2024 Travel 12/15/2024 Orders Only [facility] [address] [place] [address] Erika Parker MA 12/13/2024 Refill [facility] [address] [place] [address] Dillon Shipman MD Dizziness and giddiness; Generalized anxiety disorder 12/08/2024 Clinisync Result Encounter [facility] External Department Unsolicited Provider, Generic External Data 12/07/2024 10:20 AM EDT Routine [facility] [address] [place] [address] Paul Malik DO Well woman exam with routine gynecological exam; Second trimester ([facility]); 26 weeks gestation of ([facility]); Vaginal discharge; STD exposure; Diabetes mellitus screening 12/07/2024 Clinisync Result Encounter [facility] External Department Unsolicited Provider, Generic External Data 12/07/2024 Bamboo flowsheet [facility] [address] [place] [address] Paul Malik DO 11/30/2024 Travel from Last 3 Months Social History Tobacco Use Types Packs/Day Years Used Date Smoking Tobacco: Former Cigarettes Smokeless Tobacco: Never Tobacco Cessation:Counseling Given: Not Answered B1300 Health Literacy Answer Date Recor ded How often do you need to hav e someone help you when you read instructions, pamphlets, or other written material from your doctor or pharmacy? Sometimes 03/25/2024 Social Connection and Isolation Panel [NHANES] A nswer Date Recorded In a typical week, how many times do you talk on the phone with family, friends, or neighbors? Never 08/29/20 24 How often do you get togethe r with friends or relatives? Never 03/25/2024 How often do you attend chur ch or christianity services? 1 to 4 times per year 03/25/2024 Do you belong to any clubs o r organizations such as oriental orthodox groups, unions, fraternal or athletic groups, or [...] Recorded Patient Health Questionnaire-2 Score 0 02/14/2025 [facility] - Occupational Stress Questionnaire Answer Date [...] any time in the past 12 m [facility], were you homeless or living in a usp (including now)? No 03/25/2024 Estimated Date of Delivery Comme nts Yes 03/15/2025 Based on Ultraso und, FHR- 167 Sex and Gender Information Value Date Recorded Sex Assigned at Not on file Legal Sex Female 11:34 PM EDT Gender Identity Not on file Sexual Orientation Not on file Last Filed Vital Signs Vital Sign Reading Time Taken Comments Blood Pressure 120/82 02/15/2025 8:45 AM EDT Pulse 78 05/18/2024 11:44 AM EDT Temperature 36.4 C (97.5 F) 05/18/2024 11:44 AM EDT Respiratory Rate 20 04/21/2024 9:35 AM EDT Oxygen Saturation 99% 05/18/2024 11:44 AM EDT Inhaled Oxygen Concentration - - Weight 107 kg (235 lb) 02/15/2025 8:45 AM EDT Height 172.7 cm (5' 8 ) 04/21/2024 9:35 AM EDT Body Mass Index 35.73 04/21/2024 9:35 AM EDT Plan of Treatment Upcoming Encounters Date Type Department Care Team (Late st Contact Info) Description 02/23/2025 8:50 AM EDT Routine [facility] [address] [place] [address] [place] [phone] Sherie Donnelly PA [address] [facility] [place] [address] 03/31/2025 9:30 AM EDT Procedure Visit [facility] [address] [address] [address] Paul Malik, DO [address] [facility] [place] [address] Health Maintenance Due Date Last Done Comments Influenza Vaccine (#1) 2025 10/16/2022 Cervical Cancer Screening 12/07/2029 HPV/Cotest 12/07/2029 Pap Smear 12/07/2029 12/07/2024 Procedures Procedure Name Priority Date/Time Associated Diagnosis Comments POCT URINALYSIS DIPSTICK Routine 02/15/2025 9:24 AM EDT 36 weeks gestation of ([facility]) Third trimester ([facility]) POCT URINALYSIS DIPSTICK Routine 01/20/2025 9:53 AM EDT 32 weeks gestation of ([facility]) Third trimester ([facility]) Restless leg SGA (small for gestational age) ([facility]) US OB FOLLOW UP TRANSABDOMINAL APPROACH Routine 12/28/2024 8:12 AM EDT size inconsistent with dates ([facility]) GLUCOSE 1 HOUR Routine 12/08/2024 10:15 AM EDT ALL CBC WITH AUTO DIFF Routine 10:15 AM EDT RECURRENT VAGINITIS (HTRX) Routine 12/07/2024 11:13 AM EDT POCT URINALYSIS DIPSTICK Routine 12/07/2024 10:45 AM EDT 26 weeks gestation of ([facility]) IGP,APTIMA HPV,AGE GDLN Routine 12/07/2024 10:15 AM EDT PAP SMEAR Routine 12/07/2024 12:00 AM EDT from Last 3 Months Results * (ABNORMAL) POCT urinalysis dipstick manually resulted (02/15/2025 9:24 AM EDT) Only the most recent of3 resultswithin the time period is included. Color, UA Yellow Clarity, UA Cloudy Glucose, UA Negative Negative - 1999(110) ++++ mg/dL Bilirubin, UA Negative Negative - 4(70) +++ mg/dL Ketones, UA Negative Negative - 160(16) ++++ mg/dL Spec Grav, UA 1.010 1 - 1.03 Blood, UA Negative Negative - 50 Eulalio/mcL pH, UA 6.0 5 - 9 Protein, UA Trace Negative - 1999(20) ++++ mg/dL Urobilinogen, UA 1.0 0.2 - 12 mg/dL Leukocytes, UA Moderate Negative - 500+++ Yancy/mcL Nitrite, UA Negative Negative - Positive Urine 02/15/2025 9:24 AM EDT us [facility] DO POINT OF CARE TEST ENTER/EDIT OR DERABLES Final Result * US OB follow up transabdominal approach (12/28/2024 8:12 AM EDT) Anatomical Region Laterality Modality Body Ultrasound 12/30/2024 8:50 AM EDT Narrative 12/30/2024 8:50 AM EDT EXAM: US OB FOLLOW UP TRANSABDOMINAL APPROACH HISTORY: Inconsistent size. COMPARISON: Ob ultrasound 11/08/2024. TECHNIQUE: Two-dimensional transabdominal grayscale ultrasound imaging of the pelvis was performed. FINDINGS: Gestation: Single Presentation: Cephalic Cardiac Activity: 141 beats per minute Cervical canal : Limited in visualization Amniotic Fluid Index: 13.4 cm MEASUREMENTS: BPD: 7.2 cm EGA: 28 weeks 5 days HC: 26.8 cm EGA: 29 weeks 1 days AC: 24.6 cm EGA: 28 weeks 6 days FL: 5.7 cm EGA: 30 weeks 1 days HC/AC Ratio: 1.09 The gestational age by today's ultrasound is 29 weeks 2 days (+/- 14 days gestation). Estimated Weight: 1365 grams, +/- 205 grams ( 3 lb 0 oz). Weight Percentile for gestational age: 47 % IMPRESSION: 1. Single, live intrauterine gestation 29 weeks, 0 days by LMP. Today's ultrasound measurements correlate with a gestational age of 29 weeks 2 days. Estimated weight is 1365 grams, +/- 205 grams ( 3 lb 0 oz) which correlates to 47 %. KADEN is 03/13/2025. Interpreted by: Electronically signed by LEANNA PENNINGTON II, MD, PHD at 30-Dec-2024 08:48:58 AM [facility] Procedure Note Leanna Pennington MD - 12/30/2024 EXAM: US OB FOLLOW UP TRANSABDOMINAL APPROACH HISTORY: Inconsistent size. COMPARISON: Ob ultrasound 11/08/2024. TECHNIQUE: Two-dimensional transabdominal grayscale ultrasound imaging ofthe pelvis was performed. FINDINGS: Gestation: Single Presentation: Cephalic Cardiac Activity: 141 beats per minute Cervical canal : Limited in visualization Amniotic Fluid Index: 13.4 cm MEASUREMENTS: BPD: 7.2 cm EGA: 28 weeks 5 days HC: 26.8 cm EGA: 29 weeks 1 days AC: 24.6 cm EGA: 28 weeks 6 days FL: 5.7 cm EGA: 30 weeks 1 days HC/AC Ratio: 1.09 The gestational age by today's ultrasound is 29 weeks 2 days (+/- 14 daysgestation). Estimated Weight: 1365 grams, +/- 205 grams ( 3 lb 0 oz). Weight Percentile for gestational age: 47 % IMPRESSION: 1. Single, live intrauterine gestation 29 weeks, 0 days by LMP. Today'sultrasound measurements correlate with a gestational age of 29 weeks 2days. Estimated weight is 1365 grams, +/- 205 grams ( 3 lb 0 oz)which correlates to 47 %. KADEN is 03/13/2025. Interpreted by: Electronically signed by LEANNA PENNINGTON II, MD, PHD [id number] 08:48:58 AM [facility] us Sherie OLIVA IMCindy OB US PROCEDURES Final Resul t * GLUCOSE 1 HOUR (12/08/2024 10:15 AM EDT) GLUCOSE 1 HOUR 88 <130 mg/dL [facility] 12/08/2024 10:1 5 AM EDT 12/08/2024 10:17 AM EDT Narrative [facility]ERESA[facility] - 12/08/2024 11:09 AM EDT us Generic External Data Provider LAB BLOOD ORDERAB LES Final Result [facility] * (ABNORMAL) ALL CBC WITH AUTO DIFF (12/08/2024 10:15 AM EDT) [facility] TB WBC 8.7 4.0 - 11.0 10 3/uL TBH TBH RBC 3.68(L) 4.20 - 5.40 10 6/uL TBH TBH HGB 11.1(L) 12.0 - 16.0 g/dL TBH TBH HCT 33.7(L) 36.0 - 48.0 % TBH TBH MCV 91.6 81.0 - 99.0 fL TBH TBH MCH 30.2 26.7 - 34.0 pg TBH TBH MCHC 32.9 29.9 - 35.2 g/dL TBH TBH RDW 13.0 11.0 - 15.0 % TBH TBH PLT 293 150 - 450 10 3/uL TBH TBH MPV 9.3(L) 9.5 - 13.5 fL [facility]H NEUTROPHILS PERCENT AUTO 68.1 43.0 - 75.0 % TBH LYMPHOCYTES PERCENT AUTO 19.0(L) 20.5 - 60.0 % TBH MONOCYTES PERCENT AUTO 11.4 1.7 - 12.0 % TBH TBH EO % 0.8(L) 0.9 - 7.0 % TBH BASOPHILS PERCENT AUTO 0.2 0.2 - 2.0 % [facility]H IMMATURE GRANULOCYTES PCT AUTO 0.5 0.0 - 0.5 % TBH NEUTROPHILS ABSOLUTE AUTO 5.9 1.4 - 6.5 10 3/uL TBH LYMPHOCYTES ABSOLUTE AUTO 1.7 1.2 - 3.8 10 3/uL TBH MONOCYTES ABSOLUTE AUTO 1.0(H) 0.3 - 0.8 10 3/uL TBH TBH EO # 0.1 0.0 - 0.7 10 3/uL TBH BASOPHILS ABSOLUTE AUTO 0.0 0.0 - 0.1 10 3/uL TBH IMMATURE GRANULOCYTES ABS AUTO 0.04(H) 0.00 - 0.03 10 3/uL [facility] 12/08/2024 10:1 5 AM EDT 12/08/2024 10:17 AM EDT Narrative [facility] - 12/08/2024 10:43 AM EDT us Paul Helena DO [facility] Final Result [facility] * RECURRENT VAGINITIS (HTRX) (12/07/2024 11:13 AM EDT) Pathologist [facility] ATOPOBIUM VAGINAE 0.000 19.961 - 24.689 ppm 12/08/2024 7:00 AM EDT [facility] ATOPOBIUM VAGINAE Not Detected 19.961 - 24.689 ppm 12/08/2024 7:00 AM EDT [facility] BVAB 2,3 (BACTERIAL VAGINOSIS ASSOCIATED BACTERIA 2, 3); MOBILUNCUS SPP 0.000 19.961 - 24.689 ppm 12/08/2024 7:00 AM EDT [facility] BVAB 2,3 (BACTERIAL VAGINOSIS ASSOCIATED BACTERIA 2, 3); MOBILUNCUS SPP Not Detected 19.961 - 24.689 ppm 12/08/2024 7:00 AM EDT [facility] RUFINA ALBICANS, PARAPSILOSIS, TROPICALIS 0.000 19.961 - 30.770 ppm 12/08/2024 7:00 AM EDT [facility] RUFINA ALBICANS, PARAPSILOSIS, TROPICALIS Not Detected 19.961 - 30.770 ppm 12/08/2024 7:00 AM EDT [facility] RUFINA GLABRATA 0.000 23.000 - 32.138 ppm 12/08/2024 7:00 AM EDT [facility] RUFINA GLABRATA Not Detected 23.000 - 32.138 ppm 12/08/2024 7:00 AM EDT [facility] RUFINA KRUSEI 0.000 23.000 - 32.271 ppm 12/08/2024 7:00 AM EDT [facility] RUFINA KRUSEI Not Detected 23.000 - 32.271 ppm 12/08/2024 7:00 AM EDT [facility] CHLAMYDIA TRACHOMATIS 0.000 23.000 - 31.467 ppm 12/08/2024 7:00 AM EDT [facility] CHLAMYDIA TRACHOMATIS Not Detected 23.000 - 31.467 ppm 12/08/2024 7:00 AM EDT [facility] GARDNERELLA VAGINALIS 0.000 19.961 - 24.689 ppm 12/08/2024 7:00 AM EDT [facility] GARDNERELLA VAGINALIS Not Detected 19.961 - 24.689 ppm 12/08/2024 7:00 AM EDT [facility] MEGASPHAERA (TYPES 1, 2) 0.000 19.961 - 24.689 ppm 12/08/2024 7:00 AM EDT [facility] MEGASPHAERA (TYPES 1, 2) Not Detected 19.961 - 24.689 ppm 12/08/2024 7:00 AM EDT [facility] NEISSERIA GONORRHOEAE 0.000 23.000 - 32.117 ppm 12/08/2024 7:00 AM EDT [facility] NEISSERIA GONORRHOEAE Not Detected 23.000 - 32.117 ppm 12/08/2024 7:00 AM EDT [facility] TRICHOMONAS VAGINALIS 0.000 23.000 - 32.119 ppm 12/08/2024 7:00 AM EDT [facility] TRICHOMONAS VAGINALIS Not Detected 23.000 - 32.119 ppm 12/08/2024 7:00 AM EDT [facility] MYCOPLASMA GENITALIUM 0.000 19.961 - 24.689 ppm 12/08/2024 7:00 AM EDT [facility] MYCOPLASMA GENITALIUM Not Detected 19.961 - 24.689 ppm 12/08/2024 7:00 AM EDT [facility] Tissue 12/07/2024 11:1 3 AM EDT 12/08/2024 2:36 AM EDT us Paul Malik DO LAB BLOOD ORDERABLES Final Resul t [id number] [place] [address] * IGP,APTIMA HPV,AGE GDLN (12/07/2024 10:15 AM EDT) AGE GDLN ACOG TESTING Note . [facility] Comment: TESTS RESULT FLAG UNITS REF RANGE LAB Clinician Provided Cytology Information Source.............Endocervix No. of containers..01 ThinPrep Vial Age Algo ACOG Dimple... 30-65 01 FLAG LEGEND: L-Low Normal,H-High Normal,LL-Alert Low,HH-Alert High <-Panic Low,>-Panic High,A-Abnormal,AA-Critical Abnormal Performed at: 01 =[facility] [address] [place] [address] Marimar Johnson MD, IGP, APTIMA HPV, RFX 16/18,45 Note . [facility] Comment: TESTS RESULT FLAG UNITS REF RANGE LAB DIAGNOSIS: 02 NEGATIVE FOR INTRAEPITHELIAL LESION OR MALIGNANCY. Specimen adequacy: 02 Satisfactory for evaluation. No endocervical component is identified. Performed by: 02 Shey Garvey, Auto Electrician ([facility]) . 02 Note: Note 02 The Pap smear is a screening test designed to aid in the detection of premalignant and malignant conditions of the uterine cervix. It is not a diagnostic procedure and should not be used as the sole means of detecting cervical cancer. Both false-positive and false-negative reports do occur. Test Methodology: Note 02 This liquid based ThinPrep(R) pap test was screened with the use of an image guided system. HPV Genotype Reflex Note 02 Criteria not met, HPV Genotype not performed. FLAG LEGEND: L-Low Normal,H-High Normal,LL-Alert Low,HH-Alert High <-Panic Low,>-Panic High,A-Abnormal,AA-Critical Abnormal Performed at: [address] [place] [address] Marimar Johnson MD, HPV APTIMA Negative Negative [facility] Comment: This nucleic acid amplification test detects fourteen high- risk HPV types (16,18,31,33,35,39,45,51,52,56,58,59,66,68) without differentiation. Performed at: = - [address], [place] [id number] Card Game Operator: Marimar Johnson MD, Phone: [phone] Performed at: WB - [facility], [place], [place] [id number] Card Game Operator: Marimar Johnson MD, Phone: [phone] 12/07/2024 10:1 5 AM EDT 12/08/2024 7:54 AM EDT Narrative [facility] - 12/10/2024 1:09 PM EDT SPATULA-ALONE ENDOCERVIX us Paul Helena DO LAB BLOOD ORDERABLES Final Resul t [facility] * Pap Smear (12/07/2024 12:00 AM EDT) Swab Cervical swab / Unknown us Paul Helena DO LAB CYTOLOGY ORDERABLES Final Re sult EXTERNAL LAB from Last 3 Months Insurance [employer] Care Teams Dementia Program Director Relationship Specialty Start Date End Date Dillon Shipman MD [address] [place] [phone] PCP - General Family Medicine 02/11/24 Dillon Shipman MD [address] [place] [phone] PCP - [facility] 07/28/24
--- OUTSIDE RECORDS SUMMARY | 2025-02-15 12:21 | XMS_ITS | Encounter Summary ---
Author Organization [facility] Address [address] [place] [address] Care Team Providers Care Human Resource Manager Name Role Phone Dillon Shipman MD Primary Care Provider [phone] Dillon Shipman MD Unavailable Encounter Details Date Type Department Care Team (Late st Contact Info) Description 08/11/2024 Orders Only [facility] [address] [place] [address] Dillon Shipman MD [address] [place] [phone] Social History Tobacco Use Types Packs/Day Years [...] often do you attend chur ch or yazidism services? 1 to 4 times per year [...] and heating? Not hard at all 03/25/2024 [facility] - Occupational Stress [...] any time in the past 12 [facility], were you homeless or living in a intermediate (including now)? No 03/25/2024 Comments Unknown Sex [...] Routine [facility] [address] [facility] [place] [phone] Sherie Donnelly PA [address] [facility] [address] [place], [place] [id number] 03/31/2025 9:30 AM EDT Procedure Visit [facility] [address] [place] [address] [place] [phone] Paul Malik DO [address] [facility] [address] [place] [address] documented as of this encounter Procedures Procedure Name Priority Date/Time Associated Diagnosis Comments ULTRASOUND : OB TRANSVAGINAL Routine 08/11/2024 2:13 PM EST documented in this encounter Results * ULTRASOUND : OB TRANSVAGINAL (08/11/2024 2:13 PM EST) Anatomical Region Laterality Modality Radiographic Samia ging Dillon Shipman MD IMG XR PROCEDURES Final Result documented in this encounter Visit Diagnoses Not on filedocumented in this encounter Care Teams Human Resource Manager Relationship Specialty Start Date End Date Dillon Shipman MD [address] [place] [address] PCP - General Family Medicine 02/11/24 Dillon Shipman MD [address] [place] [address] [facility] 07/28/24 documented as of this encounter
--- OUTSIDE RECORDS SUMMARY | 2025-02-15 12:21 | XMS_ITS | Encounter Summary ---
Author Organization [facility] Address [address] [place] [address] Care Team Providers Care Nurse Technician Name Role Phone Dillon Shipman MD Primary Care Provider [phone] Dillon Shipman MD Unavailable Encounter Details Date Type Department Care Team (Late st Contact Info) Description 02/14/2025 Patient Outreach [facility] [address] [place] [phone] Sherie Rodriguez, BENNIE [address], [place] [id number] Social History Tobacco Use Types Packs/Day Years [...] often do you attend chur ch or moravian services? 1 to 4 times per year 03/25/2024 Do you belong to any clubs o r organizations such as cheondoism groups, unions, fraternal or athletic groups, or [...] Recorded Patient Health Questionnaire-2 Score 0 02/14/2025 [facility] of Occupat ional Health - Occupational Stress [...] any time in the past 12 m [facility], were you homeless or living in a senior living (including now)? No 03/25/2024 Estimated Date of [...] 02/14/2025 3:33 PM EDT Sherie Rodriguez LPN Patient Health Questionnaire -2 Score 0 02/14/2025 3:33 PM EDT Sherie Rodriguez LPN documented as of this encounter Progress Notes * Sherie Rodriguez LPN - 02/14/2025 3:29 PM EDT Monthly Outreach. Call to pt. Pt reports she feels baby moving frequently. Appetite and sleep are adequate. Bowels are regular. Pt denies any depression or difficulty coping at this time. Pt reports she is established with [facility]. Pt denies any questions, concerns or needs today. Meds reconciled. NextOB OV pt has call into office. documented in this encounter Plan of Treatment Upcoming Encounters Date Type Department Care Team (Late st Contact Info) Description 02/23/2025 8:50 AM EDT Routine [facility] [address] [place] [address] Sherie Donnelly PA [address] [facility] [place] [address] 03/31/2025 9:30 AM EDT Procedure Visit [facility] [address] [facility] [place] [phone] Paul Malik, [address] [facility] [address] [place], [place] [id number] documented as of this encounter Visit Diagnoses Not on filedocumented in this encounter Care Teams Nurse Technician Relationship Specialty Start Date End Date Dillon Shipman MD [address] [place] [phone] PCP - General Family Medicine 02/11/24 Dillon Shipman MD [address] [place] [phone] PCP - [facility] 07/28/24 documented as of this encounter
== END 2025-02-15 12:19 | disposition home or self-care (01) ==
LOC: LAB 12:18
PROVIDERS: PCP Family Medicine; Visit Provider Obstetrics & Gynecology
DX: Z34.93 Encounter for supervision of normal pregnancy, unspecified, third trimester (principal); Z3A.36 36 weeks gestation of pregnancy
CPT/HCPCS: 87081

== ENCOUNTER 2025-02-26 02:12 | Observation (INO) | payer OTHER, SELFPAY ==
--- OUTSIDE RECORDS SUMMARY | 2025-02-26 02:20 | XMS_ITS | CCD ---
Author Organization [facility] Care Team Providers Care As400 Analyst Name Role Phone MARKER ., DR KNOTT [...] Primary Care Provider Dillon Silva MD Unavailable TESS MALIK Attending Unavailable HELENA, TESS Attending Unavailable LUBNA, SHERIE Attending Unavailable LUBNA, SHERIE Referring Unavailable DILLON SILVA Attending Unavailable DILLON SILVA Attending Unavailable DILLON SILVA Attending Unavailable HELENA, TESS Attending Unavailable LUBNA, SHERIE Attending Unavailable HELENA, TESS Attending Unavailable LUBNA, SHERIE Attending Unavailable Allergies Allergy Classification Reported Allergen(s) Allergy Type Date of Onset Reaction(s) Facility (1 source) Ciprofloxacin Drug Allergy 0 [facility] Repository (20 sources) Ciprofloxacin; Translations: [CIPROFLOXACIN] Drug Allergy 0 [...] times a day as needed 07/31/2022 Active [id number] 200 actuat albuterol 0.09 mg/actuat metered dose inhaler (20 sources) beta2-Adrenergic Agonist Start: 07-15-2024 End: 12-22-2024 take 2 puff(s) by mouth every four hours as needed albuterol HFA 90 mcg/act inhaler Indications: Shortness of breath INHALE 2 PUFFS BY MOUTH EVERY 4 HOURS NEEDED 18 g 2 12/22/2024 Active Start: 03-24-2024 take 2 puff(s) by mo uth every four hours as needed albuterol HFA 90 mcg/act inhaler Indications: Shortness of breath INHALE 2 PUFFS BY MOUTH EVERY 4 HOURS NEEDED 18 g 2 03/24/2024 Active ALPRAZolam 0.5 mg oral tablet (14 sources) Benzodiazepine Start: 08-12-2024 End: 12-22-2024 take 1 tablet by mouth three times daily as needed for anxiety ALPRAZolam (Xanax) 0.5 MG tablet Indications: Generalized anxiety disorder (CMS/HCC) TAKE 1 TABLET BY MOUTH THREE TIMES DAILY NEEDED FOR ANXIETY 60 tablet 08/12/2024 12/22/2024 Discontinued (Other) Start: 06-16-2024 take 1 tablet by [facility] three times daily as needed for anxiety [...] esomeprazole 40 mg delayed release oral capsule (20 sources) Proton Pump Inhibitor Start: take 1 capsule by mouth once daily esomeprazole (NexIUM) [address] capsule Indications: Gastro-esophageal reflux disease without esophagitis TAKE 1 CAPSULE BY MOUTH DAILY 30 capsule 5 01/21/2025 Active Start: 05-04-2024 take 1 capsule by [facility] once daily esomeprazole (NexIUM) [address] capsule Indications: Gastro-esophageal reflux disease without esophagitis TAKE 1 CAPSULE BY MOUTH DAILY 30 capsule 5 05/04/2024 Active Start: 10-22-2023 take 1 capsule by [facility] once daily esomeprazole (NexIUM) 40 [...] in the morning. 07/31/2022 Active hydrOXYzine hydrochloride 25 mg oral tablet (14 sources) Antihistamine Start: 12-14-2024 End: 12-22-2024 take 1 tablet by mouth four times daily as needed for anxiety hydrOXYzine HCl (Atarax) 25 MG tablet Indications: Generalized anxiety disorder (CMS/HCC) Take 1 tablet (25 mg) by mouth 4 (four) times a day as needed for anxiety 120 tablet 2 12/14/2024 12/22/2024 Discontinued (Other) Start: 01-15-2024 End: 05-18-2024 take 1 tablet by mouth four times daily as needed hydrOXYzine HCl (Atarax) 50 MG tablet Indications: Generalized anxiety disorder (CMS/HCC) TAKE 1 TABLET BY MOUTH FOUR TIMES DAILY NEEDED 60 tablet 5 01/15/2024 05/18/2024 Discontinued magnesium oxide 400 mg oral tablet (13 sources) Start: 12-22-2024 End: 12-22-2025 take 1 tablet by mouth once daily magnesium oxide (Mag-Ox) 400 MG tablet Indications: Restless leg Take 1 tablet (400 mg) by mouth Daily 30 tablet 6 12/22/2024 12/22/2025 Active meclizine hydrochloride 25 mg oral tablet (20 sources) Antiemetic Start: 12-14-2024 take 1 tablet by mouth four times daily as needed meclizine (Antivert) 25 MG tablet Indications: Dizziness and giddiness TAKE 1 TABLET BY MOUTH FOUR TIMES DAILY NEEDED 60 tablet 1 12/14/2024 Active Start: 04-19-2024 take 1 tablet by tio th four [...] and Serotonin-1d Receptor Agonist Start: 03-25-2024 rizatriptan ENROLLMENT PROCESSOR (Maxalt-ENROLLMENT PROCESSOR) 10 MG disintegrating tablet Indications: Migraine without aura and without status migrainosus, not intractable (CMS/HCC) Take 1 tablet (10 mg) by mouth 1 (one) time if needed for migraine May repeat in 2 hours if unresolved. Do not exceed 30 mg in 24 hours. 9 tablet 3 03/25/2024 Active topiramate 100 mg oral tablet (20 sources) Start: 10-07-2024 End: 10-07-2025 take 1 [...] 3 Episodic Other aftercare (1 source) Other [facility] (current) drug therapy; Translations: [OTH ASSISTED CURRENT DRUG THERAPY] Onset: 3 Episodic Other aftercare (1 source) prison (current) use of hormonal contraceptives; Translations: [ASSISTED HORMONAL CONTRACEPTIVES] Onset: 3 Episodic Other complications of (2 sources) size does not accord with dates; Translations: [Uterine size-date discrepancy, unspecified trimester] 12-22-2024 Episodic Other female genital disorders (2 sources) Vaginal discharge; Translations: [Other specified noninflammatory disorders of vagina] 12-07-2024 Episodic Other gastrointestinal disorders (5 sources) Constipation, unspecified; Translations: [CONSTIPATION UNSPECIFIED] Onset: 2 Episodic Other hereditary and degenerative nervous system conditions (4 sources) Restless legs; Translations: [Restless legs syndrome] 12-22-2024 Chronic Other injuries and conditions due to external [...] 3 Chronic Other and delivery including normal (12 sources) Second trimester ; Translations: [Encounter for supervision of normal , unspecified, second trimester] 11-08-2024 Episodic Other screening for suspected conditions (not mental disorders or infectious disease) (2 sources) Patient encounter status; Translations: [Encounter for screening for diabetes mellitus] 12-07-2024 Episodic Other upper respiratory disease (20 sources) Allergic rhinitis due to pollen; Translations: [Allergic rhinitis due to pollen] Onset: 4 03-25-2024 Chronic Residual codes; unclassified (2 sources) Gestation period, 26 weeks; Translations: [26 weeks gestation of ] 12-07-2024 Episodic Residual codes; unclassified (2 sources) Gestation period, 28 weeks; Translations: [28 weeks gestation of ] 12-22-2024 Episodic Residual codes; unclassified (2 sources) Gestation period, 30 weeks; Translations: [30 weeks gestation of ] 01-06-2025 Episodic Residual codes; unclassified (2 sources) Gestation period, 32 weeks; Translations: [32 weeks gestation of ] 01-20-2025 Episodic Residual codes; unclassified (2 sources) Gestation period, 37 weeks; Translations: [37 weeks gestation of ] 02-23-2025 Episodic Screening and history of mental health and substance abuse codes (1 source) Personal history of nicotine dependence; Translations: [PERSONAL HISTORY OF NICOTINE DEPEND] Onset: 3 Episodic Short gestation; low weight; and growth retardation (2 sources) [id number] baby; Translations: [Howard small for gestational age, unspecified weight] 01-20-2025 Episodic Spondylosis; intervertebral disc disorders; other back [...] unspecified; Translations: [Disorder of thyroid, unspecified] Onset: Episodic Past or Other Problems Problem Classification [...] Onset: 05-17-2022 Episodic Other lower respiratory disease (20 sources) Dyspnea on exertion; Translations: [Shortness of [...] Range Facility Urinalysis macro (dipstick) panel (U)on 02-23-2025 Bilirubin, UA Negative Negative - 4(70) +++ mg/dL [facility] Blood, UA Negative Negative - 50 Eulalio/mcL [facility] Clarity, UA Clear [facility] Color, UA Yellow [facility] Glucose, UA Negative Negative - 1999(110) ++++ mg/dL [facility] Interpretation and review of laboratory results Abnormal [facility] Ketones, UA Positive Negative - 160(16) ++++ mg/dL [facility] Leukocytes, UA Positive Negative - 500+++ Yancy/mcL [facility] Nitrite, UA Negative Negative - Positive [facility] pH, UA 6 5 - 9 [facility] Protein, UA Positive Negative - 2000(20) ++++ mg/dL [facility] Spec Grav, UA 1.02 1 - 1.03 [facility] Urobilinogen, UA 1.0 0.2 - 12 [facility] GP B CULTURE+RFLXon STREP GP B CULTURE+RFLX Strep Gp B Culture+Rflx [facility] STREP GP B CULTURE+RFLX Negative [facility] STREP GP B CULTURE+RFLX Centers for Disease Control and Prevention (CDC) and [facility] STREP GP B CULTURE+RFLX [place] [employer] [facility] STREP GP B CULTURE+RFLX (ACOG) guidelines for prevention of group B [facility] STREP GP B CULTURE+RFLX streptococcal (GBS) disease specify co-collection of [facility] STREP GP B CULTURE+RFLX a vaginal and rectal swab specimen to maximize [facility] STREP GP B CULTURE+RFLX sensitivity of GBS detection. Per the CDC and ACOG, [facility] Healthcare STREP GP B CULTURE+RFLX swabbing both the lower vagina and rectum [facility] STREP GP B CULTURE+RFLX substantially increases the yield of detection [facility] Healthcare STREP GP B CULTURE+RFLX compared with sampling the vagina alone. [facility] STREP GP B CULTURE+RFLX Penicillin G, ampicillin, or cefazolin are indicated [facility] STREP GP B CULTURE+RFLX for intrapartum prophylaxis of GBS [facility] STREP GP B CULTURE+RFLX colonization. Reflex susceptibility testing should be [facility] Healthcare STREP GP B CULTURE+RFLX performed prior to use of clindamycin only on GBS [facility] STREP GP B CULTURE+RFLX isolates from penicillin-allergic women who are [facility] STREP GP B CULTURE+RFLX considered a high risk for anaphylaxis. Treatment with [facility] STREP GP B CULTURE+RFLX vancomycin without additional testing is warranted if [facility] STREP GP B CULTURE+RFLX resistance to clindamycin is noted. [facility] STREP GP B CULTURE+RFLX Performed at: - [facility] STREP GP B CULTURE+RFLX [address] [place], [place] [id number] [facility] STREP GP B CULTURE+RFLX Hopper Attendant: Osmin Joel PhD, Phone: [phone] [facility] Urinalysis macro (dipstick) panel (U)on 01-20-2025 Bilirubin, UA Negative Negative - 4(70) +++ mg/dL [facility] Blood, UA Negative Negative - 50 Eulalio/mcL [facility] Clarity, UA Clear [facility] Color, UA Yellow [facility] Glucose, UA Negative Negative - 2000(110) ++++ mg/dL [facility] Interpretation and review of laboratory results Abnormal [facility] Ketones, UA Negative Negative - 160(16) ++++ mg/dL [facility] Leukocytes, UA Positive Negative - 500+++ Yancy/mcL [facility] Comment on above: small Nitrite, UA Negative Negative - Positive [facility] pH, UA 7.5 5 - 9 [facility] Protein, UA Positive Negative - 2000(20) ++++ mg/dL [facility] Comment on above: 30 Spec Grav, UA 1.025 1 - 1.03 [facility] Urobilinogen, UA 0.2 0.2 - 12 mg/dL [facility] US OB FOLLOW UP TRANSABDOMIN AL APPROACHon 12-28-2024 US OB FOLLOW UP TRANSABDOMINAL APPROACH EXAM: US OB FOLLOW UP TRANSABDOMINAL APPROACH [...] 03/13/2025. Interpreted by: Electronically signed by LEANNA HERRMANN II, MD, PHD at 30-Dec-2024 08:48:[address] [facility] Normal Not Available Comment on above: Order Comment: US OB SCAN FOR GROWTH Estimated Date of Delivery: 03/15/25 Gestational Age as of 12/22/2024: 28w1d IGP,APTIMA HPV,AGE GDLNon AGE GDLN ACOG TESTING Note . [facility] Comment on above: TESTS RESULT FLAG U NITS REF RANGE LAB Clinician Provided Cytology Information Source.............[employer] No. of containers..01 ThinPrep Vial Age Algo ACOG Dimple... 30-65 01 FLAG LEGEND: L-Low Normal,H-High Normal,LL-Alert Low,HH-Alert High <-Panic Low,>-Panic High,A-Abnormal,AA-Critical Abnormal Performed at: 01 [facility] [address] [place] [address] Marimar Johnson MD, HPV APTIMA Negative Negative [facility] Comment on above: This nucleic acid am plification test detects fourteen high- risk HPV types (16,18,31,33,35,39,45,51,52,56,58,59,66,68) without differentiation. Performed at: =G - [facility] [id number] Hopper Attendant: Marimar Johnson MD, Phone: [phone] Performed at: - [facility], [place] [id number] Hopper Attendant: Marimar Johnson MD, Phone: [phone] IGP, APTIMA HPV, RFX 16/18,45 Note . [facility] Comment on above: TESTS RESULT FLAG UN ITS REF RANGE LAB DIAGNOSIS: 02 NEGATIVE FOR INTRAEPITHELIAL LESION OR MALIGNANCY. Specimen adequacy: 02 Satisfactory for evaluation. No endocervical component is identified. Performed by: Hiram Garvey, Correctional Therapy Teacher ([facility]) . 02 Note: Note 02 The [...] <-Panic Low,>-Panic High,A-Abnormal,AA-Critical Abnormal Performed at: [address] [facility] [place] [address] Marimar Johnson MD, SPATULA-ALONE ENDOCERVIX [facility] ALL CBC WITH AUTO DIFFon BASOPHILS ABSOLUTE AUTO 0 [facility] Basophils/100 WBC (Bld) 0.2 % 0.2 - 2.0 % [facility] Eosinophils/100 WBC (Bld) 0.8 % Low 0.9 - 7.0 % [facility] Erythrocyte distribution width (RBC) [Ratio] 13 % 11.0 - 15.0 % [facility] Hematocrit (Bld) [Volume fraction] 33.7 % Low 36.0 - 48.0 % [facility] Hemoglobin (Bld) [Mass/Vol] 11.1 g/dL Low 12.0 - 16.0 g/dL [facility] IMMATURE GRANULOCYTES ABS AUTO 0.04 High [facility] Immature granulocytes/100 WBC (Bld) 0.5 % 0.0 - 0.5 % [facility] Interpretation and review of laboratory results Abnormal [facility] LYMPHOCYTES ABSOLUTE AUTO 1.7 [facility] Lymphocytes/100 WBC (Bld) 19 % Low 20.5 - 60.0 % [facility] MCH (RBC) [Entitic mass] 30.2 pg 26.7 - 34.0 pg [facility] MCHC (RBC) [Mass/Vol] 32.9 g/dL 29.9 - 35.2 g/dL [facility] MCV (RBC) [Entitic vol] 91.6 fL 81.0 - 99.0 fL [facility] MONOCYTES ABSOLUTE AUTO 1 High [facility] Monocytes/100 WBC (Bld) 11.4 % 1.7 - 12.0 % [facility] NEUTROPHILS ABSOLUTE AUTO 5.9 [facility] Neutrophils/100 WBC (Bld) 68.1 % 43.0 - 75.0 % [facility] Platelet mean volume (Bld) [Entitic vol] 9.3 fL Low 9.5 - 13.5 fL [facility] EO # 0.1 [facility] PLT 293 [facility] RBC 3.68 Low [facility] WBC 8.7 [facility] Urinalysis macro (dipstick) panel (U)on 12-07-2024 Bilirubin, UA Negative Negative - 4(70) +++ mg/dL [facility] Blood, UA Negative Negative - 50 Eulalio/mcL [facility] Clarity, UA Clear [facility] Color, UA Yellow [facility] Glucose, UA Negative Negative - 2000(110) ++++ mg/dL [facility] Interpretation and review of laboratory results Normal [facility] Ketones, UA Positive Negative - 160(16) ++++ mg/dL [facility] Leukocytes, UA Trace Negative - 500+++ Yancy/mcL [facility] Nitrite, UA Negative Negative - Positive [facility] pH, UA 6.5 5 - 9 [facility] Protein, UA Negative Negative - 2000(20) ++++ mg/dL [facility] Spec Grav, UA 1.02 1 - 1.03 [facility] Urobilinogen, UA 1.0 0.2 - 12 mg/dL [facility] US OB 14+ WEEKS ANATOMY SCAN [...] II, MD, PHD at 08-Nov-2024 11:47:[address] [facility] Normal Not Available Comment on above: Order Comment: US OB ANATOMY SINGLE W US OB CERVICAL LENGTH Estimated Date of Delivery: 03/15/25 Gestational Age as of 10/08/2024: 17w3d Urinalysis macro (dipstick) panel (U)on 11-08-2024 Bilirubin, UA Negative Negative - 4(70) +++ mg/dL [facility] Blood, UA Negative Negative - 50 Eulalio/mcL [facility] Clarity, UA Clear [facility] Color, UA Yellow [facility] Glucose, UA Negative Negative - 1999(110) ++++ mg/dL [facility] Interpretation and review of laboratory results Normal [facility] Ketones, UA Negative Negative - 160(16) ++++ mg/dL [facility] Leukocytes, UA Positive Negative - 500+++ Yancy/mcL [facility] Comment on above: small Nitrite, UA Negative Negative - Positive [facility] pH, UA 7 5 - 9 [facility] Protein, UA Negative Negative - 1999(20) ++++ mg/dL [facility] Spec Grav, UA 1.01 1 - 1.03 [facility] Urobilinogen, UA 0.2 0.2 - 12 mg/dL [facility] URINE CULTURE, ROUTINEon Bacteria identified Cx Nom (U) Urine Culture, Routine [facility] Bacteria identified Cx Nom (U) Culture shows less than 10,000 colony forming units of bacteria per [facility] Bacteria identified Cx Nom (U) milliliter of urine. This colony count is not generally considered [facility] Bacteria identified Cx Nom (U) to be clinically significant. [facility] Bacteria identified Cx Nom (U) Performed at: [facility] Bacteria identified Cx Nom (U) [address] [place], [place] [id number] [facility] Bacteria identified Cx Nom (U) Hopper Attendant: Osmin Joel PhD, Phone: [phone] [facility] BASIC METABOLIC PANLon 05-04 Anion gap [Moles/Vol] 10 mmol/L Normal 5-15 [facility] Comment on above: Performed By: #### B MP, LIVR, , TSHR, CBCA #### [facility] ([id number]) [address], [address] [place] [address] Calcium [Mass/Vol] 9.0 mg/dL Normal 8.5-10.5 [facility] Comment on above: Performed By: #### B IVAN, LIVR, , TSHR, CBCA #### [facility] ([id number]) [address], [address] [place] [address] Chloride [Moles/Vol] 110 mmol/L High 98-109 [facility] Comment on above: Performed By: #### B MP, LIVR, , TSHR, CBCA #### [facility] ([id number]) [address], [address] [place] [address] CO2 [Moles/Vol] 21 mmol/L Low 22-32 [facility] Comment on above: Performed By: #### B MP, LIVR, , TSHR, CBCA #### [facility] ([id number]) [address], [address] [place] [address] Creatinine [Mass/Vol] 0.78 mg/dL Normal 0.40-1.00 [facility] Comment on above: Result Comment: METH OD TRACEABLE TO IDMS STANDARD Performed By: #### B MP, LIVR, 01736-3, TSHR, CBCA #### [facility] ([id number]) [address], [address] [place] [address] eGFR (CKD-EPI) NON-RACE DEPENDENT >90 Normal >59 [facility] Comment on above: Result Comment: Reported eGFR is based on the CKD-EPI 2020 equation that does not use a race coefficient. Performed By: #### B MP, LIVR, 13830-8, TSHR, CBCA #### [facility] ([id number]) [address], [address] [place] [address] Glucose [Mass/Vol] 83 mg/dL Normal 65-99 [facility] Comment on above: Performed By: #### B MP, LIVR, 64934-1, TSHR, CBCA #### [facility] ([id number]) [address], [address] [place] [address] Potassium [Moles/Vol] 3.9 mmol/L Normal 3.5-5.0 [facility] Comment on above: Performed By: #### B MP, LIVR, 09958-4, TSHR, CBCA #### [facility] ([id number]) [address], [address] [place] [address] Sodium [Moles/Vol] 141 mmol/L Normal 134-146 [facility] Comment on above: Performed By: #### B MP, LIVR, 27630-2, TSHR, CBCA #### [facility] ([id number]) [address], [address] [place] [address] Urea nitrogen [Mass/Vol] 12 mg/dL Normal 5-23 [facility] Comment on above: Performed By: #### B MP, LIVR, 65803-7, TSHR, CBCA #### [facility] ([id number]) [address] [place] [address], [address] [place] [address] Basic metabolic 1998 panelon 05-04-2024 Anion gap [Moles/Vol] 10 mmol/L 5 - 15 mmol/L [facility] Calcium [Mass/Vol] 9.0 mg/dL 8.5 - 10. 5 mg/dL [facility] Chloride [Moles/Vol] 110 mmol/L High 98 - 109 mmol/L [facility] CO2 [Moles/Vol] 21 mmol/L Low 22 - 32 mmol/L [facility] Creatine [Mass/Vol] 0.78 mg/dL 0.40 - 1 .00 mg/dL [facility] Comment on above: METHOD TRACEABLE TO [facility] STANDARD GFR/1.73 sq M.predicted among non-blacks MDRD (S/P/Bld) [Vol rate/Area] mL/min/{1.73_m2} - PINF [facility] Comment on above: Reported eGFR is based on the CKD-EPI 2020 equation that does not use a race coefficient. PERFORMED AT [address],[place] [address] Glucose [Mass/Vol] 83 mg/dL 65 - 99 mg/dL [facility] Interpretation and review of laboratory results Abnormal [facility] Potassium [Moles/Vol] 3.9 mmol/L 3.5 - 5.0 mmol/L [facility] Sodium [Moles/Vol] 141 mmol/L 134 - 146 mmol/L [facility] Urea nitrogen [Mass/Vol] 12 mg/dL 5 - 23 mg/dL [facility] CBC AND AUTO DIFFon 05-04-20 24 ABSOLUTE BASOPHIL 0.1 X10E9/L Normal 0.0-0.2 [facility] Comment on above: Performed By: #### B MP, LIVR, , TSHR, CBCA #### [facility] ([id number]) [address] [place] [address], [address] [place] [address] ABSOLUTE NEUTROPHIL 4.1 X10E9/L Normal 1.5-6.6 [facility] Comment on above: Performed By: #### B MP, LIVR, , TSHR, CBCA #### [facility] ([id number]) [address] [address] [place] [address] Basophils/100 WBC (Bld) 1.3 % Normal [facility] Comment on above: Performed By: #### B MP, LIVR, 00853-8, TSHR, CBCA #### [facility] ([id number]) [address], [address] [place] [address] Eosinophils (Bld) [#/Vol] 0.1 10*3/uL Normal 0.0-0.4 [facility] Comment on above: Performed By: #### B MP, LIVR, 91804-8, TSHR, CBCA #### [facility] ([id number]) [address] [address] [place] [address] Eosinophils/100 WBC (Bld) 1.1 % Normal [facility] Comment on above: Performed By: #### B MP, LIVR, 81312-5, TSHR, CBCA #### [facility] ([id number]) [address] [address] [place] [address] Erythrocyte distribution width (RBC) [Ratio] 14.0 % Normal 11.5-15.0 [facility] Comment on above: Performed By: #### B MP, LIVR, 07656-3, TSHR, CBCA #### [facility] ([id number]) [address] [address] [place] [address] Hematocrit (Bld) [Volume fraction] 42.3 % Normal 35-47 [facility] Comment on above: Performed By: #### B MP, LIVR, 07333-2, TSHR, CBCA #### [facility] ([id number]) [address] [address] [place] [address] Hemoglobin (Bld) [Mass/Vol] 14.4 g/dL Normal 11.7-15.5 [facility] Comment on above: Performed By: #### B MP, LIVR, 61136-9, TSHR, CBCA #### [facility] ([id number]) [address] [address] [place] [address] Lymphocytes (Bld) [#/Vol] 1.4 10*3/uL Normal 1.0-3.5 [facility] Comment on above: Performed By: #### B MP, LIVR, 49663-7, TSHR, CBCA #### [facility] ([id number]) [address], [facility] [address] [place] [address] Lymphocytes/100 WBC (Bld) 22.1 % Normal [facility] Comment on above: Performed By: #### B MP, LIVR, 93273-0, TSHR, CBCA #### [facility] ([id number]) [address], [facility] [address] [place] [address] MCH (RBC) [Entitic mass] 31.1 pg Normal 27-34 [facility] Comment on above: Performed By: #### B MP, LIVR, 26902-3, TSHR, CBCA #### [facility] ([id number]) [address], [facility] [address] [place] [address] MCHC (RBC) [Mass/Vol] 33.9 g/dL Normal 32-36 [facility] Comment on above: Performed By: #### B MP, LIVR, 02187-2, TSHR, CBCA #### [facility] ([id number]) [address] [address] [place] [address] MCV (RBC) [Entitic vol] 92 fL Normal 80-100 [facility] Comment on above: Performed By: #### B MP, LIVR, 97717-4, TSHR, CBCA #### [facility] ([id number]) [address], [address] [place] [address] Monocytes (Bld) [#/Vol] 0.6 10*3/uL Normal 0-0.9 [facility] Comment on above: Performed By: #### B MP, LIVR, 00395-4, TSHR, CBCA #### [facility] ([id number]) [address], [address] [place] [address] Monocytes/100 WBC (Bld) 9.3 % Normal [facility] Comment on above: Performed By: #### B MP, LIVR, 50827-4, TSHR, CBCA #### [facility] ([id number]) [address], [facility] [address] [place] [address] MPV PLATELET CLUMPS PRECLUDE COUNT Normal 7-12 [facility] Comment on above: Performed By: #### B MP, LIVR, 65157-7, TSHR, CBCA #### [facility] ([id number]) [address], [address] [place] [address] Neutrophils/100 WBC (Bld) 66.2 % Normal [facility] Comment on above: Performed By: #### B MP, LIVR, 09155-3, TSHR, CBCA #### [facility] ([id number]) [address], [address] [place] [address] PLATELET COUNT ESTIMATE OF PLATELET S, NORMAL Normal 150-450 [facility] Comment on above: Result Comment: PLAT ELET CLUMPS PRECLUDE COUNT Performed By: #### B MP, LIVR, 79439-8, TSHR, CBCA #### [facility] ([id number]) [address], [address] [place] [address] RBC COUNT 4.62 X10E12/L Normal 3.80-5.20 [facility] Comment on above: Performed By: #### B MP, LIVR, 70455-9, TSHR, CBCA #### [facility] ([id number]) [address], [address] [place] [address] WBC (Bld) [#/Vol] 6.2 10*3/uL Normal 4.0-11.0 [facility] Comment on above: Performed By: #### B IVAN, LIVR, , TSHR, CBCA #### [facility] ([id number]) [address], [address] [place] [address] Hepatic function 2000 panelo n 05-04-2024 Albumin [Mass/Vol] 4.5 g/dL 3.2 - 5.3 g/dL NO [facility] ALP [Catalytic activity/Vol] 97 U/L 39 - 130 U/L [facility] ALT No additional P-5'-P [Catalytic activity/Vol] 11 U/L 0 - 31 U/L [facility] AST [Catalytic activity/Vol] 12 U/L 0 - 41 U/L [facility] Bilirubin [Mass/Vol] 0.4 mg/dL 0.3 - 1.2 mg/dL [facility] Bilirubin.direct [Mass/Vol] 0.1 mg/dL 0.0 - 0.4 mg/dL [facility] Protein [Mass/Vol] 7.8 g/dL 6.0 - 8.0 g/dL NO [facility] Comment on above: PERFORMED AT [facility] [address],[place] [address] LIVER PANELon 05-04-2024 Albumin [Mass/Vol] 4.5 g/dL Normal 3.2-5.3 [facility] Comment on above: Performed By: #### B IVAN, LIVR, , TSHR, CBCA #### [facility] ([id number]) [address], [address] [place] [address] ALP [Catalytic activity/Vol] 97 U/L Normal 39-130 [facility] Comment on above: Performed By: #### B IVAN, LIVR, , TSHR, CBCA #### [facility] ([id number]) [address], [address] [place] [address] ALT [Catalytic activity/Vol] 11 U/L Normal 0-31 [facility] Comment on above: Performed By: #### B MP, LIVR, 81862-3, TSHR, CBCA #### [facility] ([id number]) [address], [address] [place] [address] AST [Catalytic activity/Vol] 12 U/L Normal 0-41 [facility] Comment on above: Performed By: #### B MP, LIVR, 07217-8, TSHR, CBCA #### [facility] ([id number]) [address], [address] [place] [address] Bilirubin [Mass/Vol] 0.4 mg/dL Normal 0.3-1.2 [facility] Comment on above: Performed By: #### B MP, LIVR, 24674-4, TSHR, CBCA #### [facility] ([id number]) [address], [address] [place] [address] Bilirubin.direct [Mass/Vol] 0.1 mg/dL Normal 0.0-0.4 [facility] Comment on above: Performed By: #### B MP, LIVR, 08445-8, TSHR, CBCA #### [facility] ([id number]) [address], [address] [place] [address] Protein [Mass/Vol] 7.8 g/dL Normal 6.0-8.0 [facility] Comment on above: Performed By: #### B MP, LIVR, 33426-6, TSHR, CBCA #### [facility] ([id number]) [address], [address] [place] [address] MAGNESIUMon 05-04-2024 Magnesium [Mass/Vol] 2.0 mg/dL Normal 1.8-2.6 [facility] Comment on above: Performed By: #### B MP, LIVR, 08117-4, TSHR, CBCA #### [facility] ([id number]) [address], [address] [place] [address] Magnesiumon 05-04-2024 Magnesium [Mass/Vol] 2.0 mg/dL 1.8 - 2.6 mg/dL [facility] Comment on above: PERFORMED AT [facility] [address],[place] [address] No Panel Informationon 05-04 [facility] TSH WITH REFLEXon 05-04-2024 TSH 1.40 uIU/mL Normal 0.49-4.67 [facility] Comment on above: Performed By: #### B MP, LIVR, 91168-0, TSHR, CBCA #### [facility] ([id number]) [address], [address] [place] [address] ER URINE PROFILEon 3 Bilirubin Ql (U) Negative Normal NEGATIVE [facility] Comment on above: Performed By: #### E RUR, PREGU, DRUGRPD #### [facility] [address] [place] [address] Dr. Gino Holt Clarity (U) CLEAR Normal CLEAR [facility] Comment on above: Performed By: #### E RUR, PREGU, DRUGRPD #### [facility] [address] [address] [address] Gino Holt Color (U) LT. YELLOW Normal YELLOW [facility] Comment on above: Performed By: #### E RUR, PREGU, DRUGRPD #### [facility] [address] [address] [address] Gino Holt ERUAHD A micrscopic examination will be performed if indicated. Normal [facility] Comment on above: Performed By: #### E RUR, PREGU, DRUGRPD #### [facility] [address] [address] [address] Gino Holt Glucose Ql (U) Negative Normal NEGATIVE [facility] Comment on above: Performed By: #### E RUR, PREGU, DRUGRPD #### [facility] [address] [place] [address] Dr. Gino Holt Hemoglobin Ql (U) Negative Normal NEGATIVE [facility] Comment on above: Performed By: #### E RUR, PREGU, DRUGRPD #### [facility] [address] [address] [address] Gino Holt Ketones Ql (U) Negative Normal NEGATIVE [facility] Comment on above: Performed By: #### E RUR, PREGU, DRUGRPD #### [facility] [address] [address] [address] Gino Holt LEUKOCYTES Negative Normal NEGATIVE [facility] Comment on above: Performed By: #### E RUR, PREGU, DRUGRPD #### [facility] [address] [address] [address] Gino Holt Nitrite Ql (U) Negative Normal NEGATIVE [facility] Comment on above: Performed By: #### E RUR, PREGU, DRUGRPD #### [facility] [address] [address] [address] Gino Holt pH (U) 6.5 [pH] Normal 5-9 [facility] Comment on above: Performed By: #### E RUR, PREGU, DRUGRPD #### [facility] [address] [address] [address] Gino Holt SPEC GRAVITY 1.020 Normal 1.005-<=1.025 [facility] Comment on above: Performed By: #### E RUR, PREGU, DRUGRPD #### [facility] [address] [address] [address] Gino Holt UA PROTEIN Negative Normal NEGATIVE/ TRACE [facility] Comment on above: Performed By: #### E RUR, PREGU, DRUGRPD #### [facility] [address] [address] [address] Gino Holt UR MICRO IND NOT INDICATED Normal [facility] Comment on above: Performed By: #### E RUR, PREGU, DRUGRPD #### [facility] [address] [address] [address] Gino Holt Urobilinogen Qn (U) 0.2 {Phillip'U}/dL Normal 0.2 - 1. 0 [facility] Comment on above: Performed By: #### E RUR, PREGU, DRUGRPD #### [facility] [address] [address] [address] Gino Holt URon 11-19-2022 , QUAL Negative Normal NEGATIVE [facility] Comment on above: Performed By: #### E RUR, PREGU, DRUGRPD #### [facility] [address] [address] [address] Gino Holt XR ABD FLAT UP_PA [...] KIN MORALES Date: 2022-11-19 08:53 Normal [facility] CBC W MANUAL DIFFon 10-26-19 23 ATYPICAL LYMPH # Normal [facility] Comment on above: Performed By: #### E RUR, PREGU, DRUGRPD #### [facility] [address] [place] [address] Dr. Gino Holt ATYPICAL LYMPH % Normal [facility] Comment on above: Performed By: #### E RUR, PREGU, DRUGRPD #### [facility] [address] [address] [address] Gino Holt BAND # 0.0 103/ul Normal 0.0-0.3 [facility] Comment on above: Performed By: #### E RUR, PREGU, DRUGRPD #### [facility] [address] [address] [address] Gino Holt BAND % 0 % Normal 0-5 [facility] Comment on above: Performed By: #### E RUR, PREGU, DRUGRPD #### [facility] [address] [address] [address] Gino Holt BASOM # 0.08 103/ul Normal 0.00-0.10 [facility] Comment on above: Performed By: #### E RUR, PREGU, DRUGRPD #### [facility] [address] [address] [address] Gino Holt BASOM % 1.0 % Normal 0.2-2.0 [facility] Comment on above: Performed By: #### E RUR, PREGU, DRUGRPD #### [facility] [address] [address] [address] Gino Holt BLAST # Normal [facility] Comment on above: Performed By: #### E RUR, PREGU, DRUGRPD #### [facility] [address] [place] [address] Dr. Gino Holt BLAST % Normal [facility] Comment on above: Performed By: #### E RUR, PREGU, DRUGRPD #### [facility] [address] [place] [address] Dr. Gino Holt CORRECTED WBC Normal 4.0-11.0 [facility] Comment on above: Performed By: #### E RUR, PREGU, DRUGRPD #### [facility] [address] [place] [address] Dr. Gino Holt EOS # 0.00 103/ul Normal 0.00-0.70 [facility] Comment on above: Performed By: #### E RUR, PREGU, DRUGRPD #### [facility] [address] [place] [address] Dr. Gino Holt EOS% 0.0 % Critically low 0.9-7.0 [facility] Comment on above: Performed By: #### E RUR, PREGU, DRUGRPD #### [facility] [address] [place] [address] Dr. Gino Holt HCT 39.0 % Normal 36.0-48.0 [facility] Comment on above: Performed By: #### E RUR, PREGU, DRUGRPD #### [facility] [address] [address] [address] Gino Holt HGB 13.0 g/dl Normal 12.0-16.0 [facility] Comment on above: Performed By: #### E RUR, PREGU, DRUGRPD #### [facility] [address] [address] [address] Gino Holt LYMPHM # 0.24 103/ul Critically low 1.20-3.80 [facility] Comment on above: Performed By: #### E RUR, PREGU, DRUGRPD #### [facility] [address] [address] [address] Gino Holt LYMPHM% 3.0 % Critically low 20.5-60.0 [facility] Comment on above: Performed By: #### E RUR, PREGU, DRUGRPD #### [facility] [address] [place] [address] Dr. Gino Holt MCH 30.0 pg Normal 26.7-34.0 [facility] Comment on above: Performed By: #### E RUR, PREGU, DRUGRPD #### [facility] [address] [place] [address] Dr. Gino Holt MCHC 33.3 g/dl Normal 29.9-35.2 [facility] Comment on above: Performed By: #### E RUR, PREGU, DRUGRPD #### [facility] [address] [address] [address] Gino Holt MCV 90.1 fL Normal 81.0-99.0 [facility] Comment on above: Performed By: #### E RUR, PREGU, DRUGRPD #### [facility] [address] [address] [address] Gino Holt METAMYELOCYTE # Normal [facility] Comment on above: Performed By: #### E RUR, PREGU, DRUGRPD #### [facility] [address] [place] [address] Dr. Gino Holt METAMYELOCYTE % Normal [facility] Comment on above: Performed By: #### E RUR, PREGU, DRUGRPD #### [facility] [address] [address] [address] Gino Holt MONOM# 0.00 103/ul Critically low 0.30-0.80 [facility] Comment on above: Performed By: #### E RUR, PREGU, DRUGRPD #### [facility] [address] [place] [address] Dr. Gino Holt MONOM% 0.0 % Critically low 1.7-12.0 [facility] Comment on above: Performed By: #### E RUR, PREGU, DRUGRPD #### [facility] [address] [place] [address] Dr. Gino Holt MPV 9.1 fL Critically low 9.5-13.5 [facility] Comment on above: Performed By: #### E RUR, PREGU, DRUGRPD #### [facility] [address] [place] [address] Dr. Gino Holt MYELOCYTE # Normal [facility] Comment on above: Performed By: #### E RUR, PREGU, DRUGRPD #### [facility] [address] [place] [address] Dr. Gino Holt MYELOCYTE % Normal [facility] Comment on above: Performed By: #### E RUR, PREGU, DRUGRPD #### [facility] [address] [place] [address] Dr. Gino Holt NRBC Normal [facility] Comment on above: Performed By: #### E RUR, PREGU, DRUGRPD #### [facility] [address] [place] [address] Dr. Gino Holt PLT 288 103/ul Normal 150-450 [facility] Comment on above: Performed By: #### E RUR, PREGU, DRUGRPD #### [facility] [address] [place] [address] Dr. Gino Holt RBC 4.33 106/ul Normal 4.20-5.40 [facility] Comment on above: Performed By: #### E RUR, PREGU, DRUGRPD #### [facility] [address] [place] [address] Dr. Gino Holt RDW 13.4 % Normal 11.0-15.0 [facility] Comment on above: Performed By: #### E RUR, PREGU, DRUGRPD #### [facility] [address] [place] [address] Dr. Gino Holt SEG # 7.58 103/ul Critically high 1.40-6.50 [facility] Comment on above: Performed By: #### E RUR, PREGU, DRUGRPD #### [facility] [address] [place] [address] Dr. Gino Holt SEG % 96.0 % Critically high 43.0-75.0 [facility] Comment on above: Performed By: #### E RUR, PREGU, DRUGRPD #### [facility] [address] [place] [address] Dr. Gino Holt WBC 7.9 103/ul Normal 4.0-11.0 [facility] Comment on above: Performed By: #### E RUR, PREGU, DRUGRPD #### [facility] [address] [place] [address] Dr. Gino Holt PROF 14(COMP METB)on 023 Albumin [Mass/Vol] 4.0 g/dL Normal 3.4-5.0 [facility] Comment on above: Performed By: #### E RUR, PREGU, DRUGRPD #### [facility] [address] [place] [address] Dr. Gino Holt Albumin/Globulin [Mass ratio] 1.0 {ratio} Normal [facility] Comment on above: Performed By: #### E RUR, PREGU, DRUGRPD #### [facility] [address] [place] [address] Dr. Gino Holt ALP [Catalytic activity/Vol] 90 U/L Normal 46-116 [facility] Comment on above: Performed By: #### E RUR, PREGU, DRUGRPD #### [facility] [address] [address] [address] Gino Holt ALT [Catalytic activity/Vol] 17 U/L Normal 14-59 [facility] Comment on above: Performed By: #### E RUR, PREGU, DRUGRPD #### [facility] [address] [place] [address] Dr. Gino Holt Anion gap [Moles/Vol] 15.6 mmol/L Normal [facility] Comment on above: Performed By: #### E RUR, PREGU, DRUGRPD #### [facility] [address] [address] [address] Gino Holt AST [Catalytic activity/Vol] 12 U/L Critically low 15-37 [facility] Comment on above: Performed By: #### E RUR, PREGU, DRUGRPD #### [facility] [address] [place] [address] Dr. Gino Holt Bilirubin [Mass/Vol] 0.1 mg/dL Critically low 0.2-1.0 [facility] Comment on above: Performed By: #### E RUR, PREGU, DRUGRPD #### [facility] [address] [address] [address] Gino Holt Calcium [Mass/Vol] 9.0 mg/dL Normal 8.5-10.1 [facility] Comment on above: Performed By: #### E RUR, PREGU, DRUGRPD #### [facility] [address] [address] [address] Gino Holt Chloride [Moles/Vol] 108 mmol/L Critically high 98-107 [facility] Comment on above: Performed By: #### E RUR, PREGU, DRUGRPD #### [facility] [address] [address] [address] Gino Holt CO2 [Moles/Vol] 21.4 mmol/L Normal 21.0-32.0 [facility] Comment on above: Performed By: #### E RUR, PREGU, DRUGRPD #### [facility] [address] [address] [address] Gino Holt Creatinine [Mass/Vol] 0.82 mg/dL Normal 0.55-1.02 [facility] Comment on above: Performed By: #### E RUR PREGU, DRUGRPD #### [facility] [address] [place] [address] Dr. Gino Holt EGFR-AF BOTSWANAN >60 Normal >=60 [facility] Comment on above: Performed By: #### E RUR PREGU, DRUGRPD #### [facility] [address] [address] [address] Gino Holt EGFR-NON AF BOTSWANAN >60 Normal >=60 [facility] Comment on above: Performed By: #### Snehal IBANEZ PREGU, DRUGRPD #### [facility] [address] [place] [address] Dr. Gino Holt Globulin (S) [Mass/Vol] 4.0 g/dL Normal [facility] Comment on above: Performed By: #### Snehal IBANEZ PREGU, DRUGRPD #### [facility] [address] [place] [address] Dr. Gino Holt Glucose [Mass/Vol] 136 mg/dL Critically high 74-106 [facility] Comment on above: Performed By: #### Snehal IBANEZ PREGU, DRUGRPD #### [facility] [address] [place] [address] Dr. Gino Holt Potassium [Moles/Vol] 4.0 mmol/L Normal 3.5-5.1 [facility] Comment on above: Performed By: #### E RUR PREGU, DRUGRPD #### [facility] [address] [place] [address] Dr. Gino Holt Protein [Mass/Vol] 8.0 g/dL Normal 6.4-8.2 [facility] Comment on above: Performed By: #### E RUR, PREGU, DRUGRPD #### [facility] [address] [place] [address] Dr. Gino Holt Sodium [Moles/Vol] 141 mmol/L Normal 136-145 [facility] Comment on above: Performed By: #### E RUR PREGU, DRUGRPD #### [facility] [address] [place] [address] Dr. Gino Holt Urea nitrogen [Mass/Vol] 18.0 mg/dL Normal 7.0-18.0 [facility] Comment on above: Performed By: #### E RUR, PREGU, DRUGRPD #### [facility] [address] [place] [address] Dr. Gino Holt Urea nitrogen/Creatinine [Mass ratio] 22.0 mg/mg Normal [facility] Comment on above: Performed By: #### E RUR, PREGU, DRUGRPD #### [facility] [address] [place] [address] Dr. Gino Holt CBC AUTO DIFFon 10-12-2022 BASO # 0.0 103/ul Normal 0.0-0.1 [facility] Comment on above: Performed By: #### E RUR, PREGU, DRUGRPD #### [facility] [address] [place] [address] Dr. Gino Holt Basophils/100 WBC (Bld) 0.7 % Normal 0.2-2.0 [facility] Comment on above: Performed By: #### E RUR, PREGU, DRUGRPD #### [facility] [address] [place] [address] Dr. Gino Holt EO # 0.1 103/ul Normal 0.0-0.7 [facility] Comment on above: Performed By: #### E RUR, PREGU, DRUGRPD #### [facility] [address] [place] [address] Dr. Gino Holt Eosinophils/100 WBC (Bld) 1.6 % Normal 0.9-7.0 [facility] Comment on above: Performed By: #### E RUR, PREGU, DRUGRPD #### [facility] [address] [place] [address] Dr. Gino Holt Erythrocyte distribution width (RBC) [Ratio] 13.7 % Normal 11.0-15.0 [facility] Comment on above: Performed By: #### E RUR, PREGU, DRUGRPD #### [facility] [address] [place] [address] Dr. Gino Holt Hematocrit (Bld) [Volume fraction] 37.2 % Normal 36.0-48.0 [facility] Comment on above: Performed By: #### E RUR, PREGU, DRUGRPD #### [facility] [address] [place] [address] Dr. Gino Holt Hemoglobin (Bld) [Mass/Vol] 12.0 g/dL Normal 12.0-16.0 [facility] Comment on above: Performed By: #### E RUR, PREGU, DRUGRPD #### [facility] [address] [place] [address] Dr. Gino Holt IG # 0.02 10e3/ul Normal 0.00-0.03 [facility] Comment on above: Performed By: #### E RUR, PREGU, DRUGRPD #### [facility] [address] [place] [address] Dr. Gino Holt IG % 0.3 % Normal 0.0-0.5 [facility] Comment on above: Performed By: #### E RUR, PREGU, DRUGRPD #### [facility] [address] [place] [address] Dr. Gino Holt LYMPH # 2.3 103/ul Normal 1.2-3.8 [facility] Comment on above: Performed By: #### E RUR, PREGU, DRUGRPD #### [facility] [address] [place] [address] Dr. Gino Holt Lymphocytes/100 WBC (Bld) 37.3 % Normal 20.5-60.0 [facility] Comment on above: Performed By: #### E RUR, PREGU, DRUGRPD #### [facility] [address] [place] [address] Dr. Gino Holt MANUAL DIFF REQ NO Normal [facility] Comment on above: Performed By: #### E RUR, PREGU, DRUGRPD #### [facility] [address] [place] [address] Dr. Gino Holt MCH (RBC) [Entitic mass] 29.9 pg Normal 26.7-34.0 [facility] Comment on above: Performed By: #### E RUR, PREGU, DRUGRPD #### [facility] [address] [place] [address] Dr. Gino Holt MCHC (RBC) [Mass/Vol] 32.3 g/dL Normal 29.9-35.2 [facility] Comment on above: Performed By: #### E RUR, PREGU, DRUGRPD #### [facility] [address] [place] [address] Dr. Gino Holt MCV (RBC) [Entitic vol] 92.8 fL Normal 81.0-99.0 [facility] Comment on above: Performed By: #### E RUR, PREGU, DRUGRPD #### [facility] [address] [place] [address] Dr. Gino Holt MONO # 0.7 103/ul Normal 0.3-0.8 [facility] Comment on above: Performed By: #### E RUR, PREGU, DRUGRPD #### [facility] [address] [place] [address] Dr. Gino Holt Monocytes/100 WBC (Bld) 11.3 % Normal 1.7-12.0 [facility] Comment on above: Performed By: #### E RUR, PREGU, DRUGRPD #### [facility] [address] [place] [address] Dr. Gino Holt NEUT # 3.0 103/ul Normal 1.4-6.5 [facility] Comment on above: Performed By: #### E RUR, PREGU, DRUGRPD #### [facility] [address] [place] [address] Dr. Gino Holt Neutrophils/100 WBC (Bld) 48.8 % Normal 43.0-75.0 [facility] Comment on above: Performed By: #### E RUR, PREGU, DRUGRPD #### [facility] [address] [place] [address] Dr. Gino Holt Platelet mean volume (Bld) [Entitic vol] 8.9 fL Critically low 9.5-13.5 [facility] Comment on above: Performed By: #### E RUR, PREGU, DRUGRPD #### [facility] [address] [place] [address] Dr. Gino Holt PLT 312 103/ul Normal 150-450 [facility] Comment on above: Performed By: #### E RUR, PREGU, DRUGRPD #### [facility] [address] [address] [address] Gino Holt RBC 4.01 106/ul Critically low 4.20-5.40 [facility] Comment on above: Performed By: #### E RUR, PREGU, DRUGRPD #### [facility] [address] [place] [address] Dr. Gino Holt WBC 6.1 103/ul Normal 4.0-11.0 [facility] Comment on above: Performed By: #### E RUR, PREGU, DRUGRPD #### [facility] [address] [address] [address] Gino Holt CRPon 10-12-2022 CRP 0.6 mg/dL Normal <=1.0 [facility] Comment on above: Performed By: #### E RUR, PREGU, DRUGRPD #### [facility] [address] [place] [address] Dr. Gino Holt DRUG SCREEN RAPID (URINE)on 10-12-2022 AMP Negative Normal NEGATIVE [facility] Comment on above: Performed By: #### E RUR, PREGU, DRUGRPD #### [facility] [address] [place] [address] Dr. Gino Holt BAR Negative Normal NEGATIVE [facility] Comment on above: Performed By: #### E RUR, PREGU, DRUGRPD #### [facility] [address] [place] [address] Dr. Gino Holt BUP Negative Normal NEGATIVE [facility] Comment on above: Performed By: #### E RUR, PREGU, DRUGRPD #### [facility] [address] [address] [address] Gino Holt BZO Negative Normal NEGATIVE [facility] Comment on above: Performed By: #### E RUR, PREGU, DRUGRPD #### [facility] [address] [place] [address] Dr. Gino Holt RAMONA Negative Normal NEGATIVE [facility] Comment on above: Performed By: #### E RUR, PREGU, DRUGRPD #### [facility] [address] [address] [address] Gino Hotl CUT-OFFS SEE BELOW Normal [facility] Comment on above: Result Comment: AMP [...] By: #### E RUR, PREGU, DRUGRPD #### [facility] [address] [place] [address] Dr. Gino Holt DRUG CUT HEADER DRUG CLASS TEST SYST EM CUT-OFF CONCENTRATIONS ARE FOLLOWS: Normal [facility] Comment on above: Performed By: #### E RUR, PREGU, DRUGRPD #### [facility] [address] [place] [address] Dr. Gino Holt mAMP Negative Normal NEGATIVE [facility] Comment on above: Performed By: #### E RUR, PREGU, DRUGRPD #### [facility] [address] [place] [address] Dr. Gino Holt MTD Negative Normal NEGATIVE [facility] Comment on above: Performed By: #### E RUR, PREGU, DRUGRPD #### [facility] [address] [address] [address] Gino Holt OPI Positive Abnormal NEGATIVE [facility] Comment on above: Performed By: #### E RUR, PREGU, DRUGRPD #### [facility] [address] [place] [address] Dr. Gino Holt OXY Negative Normal NEGATIVE [facility] Comment on above: Performed By: #### E RUR, PREGU, DRUGRPD #### [facility] [address] [address] [address] Gino Holt PCP Negative Normal NEGATIVE [facility] Comment on above: Performed By: #### E RUR, PREGU, DRUGRPD #### [facility] [address] [place] [address] Dr. Gino Holt PPX Negative Normal NEGATIVE [facility] Comment on above: Performed By: #### E RUR, PREGU, DRUGRPD #### [facility] [address] [place] [address] Dr. Gino Holt TCA Negative Normal NEGATIVE [facility] Comment on above: Performed By: #### E RUR, PREGU, DRUGRPD #### [facility] [address] [place] [address] Dr. Gino Holt THC Negative Normal NEGATIVE [facility] Comment on above: Performed By: #### E RUR, PREGU, DRUGRPD #### [facility] [address] [place] [address] Dr. Gino Holt ER URINE PROFILEon 3 Bilirubin Ql (U) Negative Normal NEGATIVE [facility] Comment on above: Performed By: #### E RUR, PREGU, DRUGRPD #### [facility] [address] [place] [address] Dr. Gino Holt Clarity (U) CLEAR Normal CLEAR [facility] Comment on above: Performed By: #### E RUR, PREGU, DRUGRPD #### [facility] [address] [place] [address] Dr. Gino Holt Color (U) LT. YELLOW Normal YELLOW [facility] Comment on above: Performed By: #### E RUR, PREGU, DRUGRPD #### [facility] [address] [address] [address] Gino LR A micrscopic examination will be performed if indicated. Normal [facility] Comment on above: Performed By: #### E RUR, PREGU, DRUGRPD #### [facility] [address] [address] [address] iGno Holt Glucose Ql (U) Negative Normal NEGATIVE [facility] Comment on above: Performed By: #### E RUR, PREGU, DRUGRPD #### [facility] [address] [address] [address] Gino Holt Hemoglobin Ql (U) Negative Normal NEGATIVE [facility] Comment on above: Performed By: #### E RUR, PREGU, DRUGRPD #### [facility] [address] [place] [address] Dr. Gino Holt Ketones Ql (U) Negative Normal NEGATIVE [facility] Comment on above: Performed By: #### E RUR, PREGU, DRUGRPD #### [facility] [address] [address] [address] Gino Holt LEUKOCYTES Negative Normal NEGATIVE [facility] Comment on above: Performed By: #### E RUR, PREGU, DRUGRPD #### [facility] [address] [address] [address] Gino Holt Nitrite Ql (U) Negative Normal NEGATIVE [facility] Comment on above: Performed By: #### E RUR, PREGU, DRUGRPD #### [facility] [address] [address] [address] Gino Holt pH (U) 7.0 [pH] Normal 5-9 [facility] Comment on above: Performed By: #### E RUR, PREGU, DRUGRPD #### [facility] [address] [address] [address] Gino Holt SPEC GRAVITY 1.010 Normal 1.005-<=1.025 [facility] Comment on above: Performed By: #### E RUR, PREGU, DRUGRPD #### [facility] [address] [place] [address] Dr. Gino Holt UA PROTEIN Negative Normal NEGATIVE/ TRACE [facility] Comment on above: Performed By: #### E RUR, PREGU, DRUGRPD #### [facility] [address] [address] [address] Gino Holt UR MICRO IND NOT INDICATED Normal [facility] Comment on above: Performed By: #### E RUR, PREGU, DRUGRPD #### [facility] [address] [address] [address] Gino Holt Urobilinogen Qn (U) 0.2 {Phillip'U}/dL Normal 0.2 - 1. 0 [facility] Comment on above: Performed By: #### E RUR, PREGU, DRUGRPD #### [facility] [address] [place] [address] Dr. Gino Holt URon 10-12-2022 , QUAL Negative Normal NEGATIVE [facility] Comment on above: Performed By: #### E RUR, PREGU, DRUGRPD #### [facility] [address] [address] [address] Gino Holt PROF CHEM 8 (BAS METB)on Anion gap [Moles/Vol] 12.9 mmol/L Normal [facility] Comment on above: Performed By: #### E RUR, PREGU, DRUGRPD #### [facility] [address] [address] [address] Gino Holt Calcium [Mass/Vol] 8.6 mg/dL Normal 8.5-10.1 [facility] Comment on above: Performed By: #### E RUR, PREGU, DRUGRPD #### [facility] [address] [place] [address] Dr. Gino Holt Chloride [Moles/Vol] 106 mmol/L Normal 98-107 [facility] Comment on above: Performed By: #### E RUR, PREGU, DRUGRPD #### [facility] [address] [address] [address] Gino Holt CO2 [Moles/Vol] 24.0 mmol/L Normal 21.0-32.0 [facility] Comment on above: Performed By: #### E RUR, PREGU, DRUGRPD #### [facility] [address] [place] [address] Dr. Gino Holt Creatinine [Mass/Vol] 0.61 mg/dL Normal 0.55-1.02 [facility] Comment on above: Performed By: #### E RUR, PREGU, DRUGRPD #### [facility] [address] [place] [address] Dr. Gino Holt EGFR-AF BOTSWANAN >60 Normal >=60 [facility] Comment on above: Performed By: #### E RUR, PREGU, DRUGRPD #### [facility] [address] [place] [address] Dr. Gino Holt EGFR-NON AF BOTSWANAN >60 Normal >=60 [facility] Comment on above: Performed By: #### E RUR, PREGU, DRUGRPD #### [facility] [address] [place] [address] Dr. Gino Holt Glucose [Mass/Vol] 80 mg/dL Normal 74-106 [facility] Comment on above: Performed By: #### E RUR, PREGU, DRUGRPD #### [facility] [address] [place] [address] Dr. Gino Holt Potassium [Moles/Vol] 3.9 mmol/L Normal 3.5-5.1 [facility] Comment on above: Performed By: #### E RUR, PREGU, DRUGRPD #### [facility] [address] [place] [address] Dr. Gino Holt Sodium [Moles/Vol] 139 mmol/L Normal 136-145 [facility] Comment on above: Performed By: #### E RUR, PREGU, DRUGRPD #### [facility] [address] [place] [address] Dr. Gino Holt Urea nitrogen [Mass/Vol] 15.0 mg/dL Normal 7.0-18.0 [facility] Comment on above: Performed By: #### Snehal IBANEZ PREGU, DRUGRPD #### [facility] [address] [place] [address] Dr. Gino Holt Urea nitrogen/Creatinine [Mass ratio] 24.6 mg/mg Normal [facility] Comment on above: Performed By: #### E RUR PREGU, DRUGRPD #### [facility] [address] [place] [address] Dr. Gino Holt XR CHEST 2 Von [...] DOMINIK JOSHI Date: 2022-10-12 02:46 Normal [facility] CBC AUTO DIFFon 08-24-2022 BASO # 0.0 103/ul Normal 0.0-0.1 [facility] Comment on above: Performed By: #### Snehal IBANEZ PREGU, DRUGRPD #### [facility] [address] [place] [address] Dr. Gino Holt Basophils/100 WBC (Bld) 0.7 % Normal 0.2-2.0 [facility] Comment on above: Performed By: #### Snehal RUSadi PREGU, DRUGRPD #### [facility] [address] [place] [address] Dr. Gino Hotl EO # 0.0 103/ul Normal 0.0-0.7 [facility] Comment on above: Performed By: #### Snehal RUR, PREGU, DRUGRPD #### [facility] [address] [address] [address] Gino Holt Eosinophils/100 WBC (Bld) 0.6 % Critically low 0.9-7.0 [facility] Comment on above: Performed By: #### E RUR, PREGU, DRUGRPD #### [facility] [address] [place] [address] Dr. Gino Holt Erythrocyte distribution width (RBC) [Ratio] 13.2 % Normal 11.0-15.0 [facility] Comment on above: Performed By: #### E RUR, PREGU, DRUGRPD #### [facility] [address] [place] [address] Dr. Gino Holt Hematocrit (Bld) [Volume fraction] 37.5 % Normal 36.0-48.0 [facility] Comment on above: Performed By: #### Snehal RUSadi PREGU, DRUGRPD #### [facility] [address] [place] [address] Dr. Gino Holt Hemoglobin (Bld) [Mass/Vol] 12.8 g/dL Normal 12.0-16.0 [facility] Comment on above: Performed By: #### Snehal RUR, PREGU, DRUGRPD #### [facility] [address] [place] [address] Dr. Gino Holt IG # 0.02 10e3/ul Normal 0.00-0.03 [facility] Comment on above: Performed By: #### E RUR, PREGU, DRUGRPD #### [facility] [address] [place] [address] Dr. Gino Holt IG % 0.4 % Normal 0.0-0.5 [facility] Comment on above: Performed By: #### E RUR, PREGU, DRUGRPD #### [facility] [address] [place] [address] Dr. Gino Holt LYMPH # 1.7 103/ul Normal 1.2-3.8 [facility] Comment on above: Performed By: #### E RUR, PREGU, DRUGRPD #### [facility] [address] [place] [address] Dr. Gino Holt Lymphocytes/100 WBC (Bld) 30.6 % Normal 20.5-60.0 [facility] Comment on above: Performed By: #### E RUR, PREGU, DRUGRPD #### [facility] [address] [place] [address] Dr. Gino Holt MANUAL DIFF REQ NO Normal [facility] Comment on above: Performed By: #### E RUR, PREGU, DRUGRPD #### [facility] [address] [place] [address] Dr. Gino Holt MCH (RBC) [Entitic mass] 28.9 pg Normal 26.7-34.0 [facility] Comment on above: Performed By: #### E RUR, PREGU, DRUGRPD #### [facility] [address] [place] [address] Dr. Gino Holt MCHC (RBC) [Mass/Vol] 34.1 g/dL Normal 29.9-35.2 [facility] Comment on above: Performed By: #### E RUR, PREGU, DRUGRPD #### [facility] [address] [place] [address] Dr. Gino Holt MCV (RBC) [Entitic vol] 84.7 fL Normal 81.0-99.0 [facility] Comment on above: Performed By: #### E RUR, PREGU, DRUGRPD #### [facility] [address] [place] [address] Dr. Gino Holt MONO # 0.4 103/ul Normal 0.3-0.8 [facility] Comment on above: Performed By: #### E RUR, PREGU, DRUGRPD #### [facility] [address] [place] [address] Dr. Gino Holt Monocytes/100 WBC (Bld) 7.2 % Normal 1.7-12.0 [facility] Comment on above: Performed By: #### E RUR, PREGU, DRUGRPD #### [facility] [address] [place] [address] Dr. Gino Holt NEUT # 3.3 103/ul Normal 1.4-6.5 [facility] Comment on above: Performed By: #### E RUR, PREGU, DRUGRPD #### [facility] [address] [place] [address] Dr. Gino Holt Neutrophils/100 WBC (Bld) 60.5 % Normal 43.0-75.0 [facility] Comment on above: Performed By: #### E RUR, PREGU, DRUGRPD #### [facility] [address] [place] [address] Dr. Gino Holt Platelet mean volume (Bld) [Entitic vol] 8.6 fL Critically low 9.5-13.5 [facility] Comment on above: Performed By: #### E RUR, PREGU, DRUGRPD #### [facility] [address] [place] [address] Dr. Gino Holt PLT 301 103/ul Normal 150-450 [facility] Comment on above: Performed By: #### E RUR, PREGU, DRUGRPD #### [facility] [address] [place] [address] Dr. Gino Holt RBC 4.43 106/ul Normal 4.20-5.40 [facility] Comment on above: Performed By: #### E RUR, PREGU, DRUGRPD #### [facility] [address] [place] [address] Dr. Gino Holt WBC 5.4 103/ul Normal 4.0-11.0 [facility] Comment on above: Performed By: #### E RUR, PREGU, DRUGRPD #### [facility] [address] [place] [address] CSPINE WO CONon [address] [facility] CON CT CERVICAL SPINE WITHOUT CONTRAST HISTORY: [...] GAURAV ABDI Date: 2022-08-24 02:53 Normal [facility] CT FACIAL BONES WO CONon CT [...] GAURAV ABDI Date: 2022-08-24 02:49 Normal [facility] CT HEAD WO CONon 08-24-2022 CT [...] GAURAV ABDI Date: 2022-08-24 02:43 Normal [facility] ETHANOL (BLD ALC)on 08-24-19 23 ALC NOTE NOTE: 80 mg/dl is th e legal limit for a blood alcohol level Normal [facility] Comment on above: Performed By: #### E RUR, PREGU, DRUGRPD #### [facility] [address] [address] [address] Gino Holt Ethanol [Mass/Vol] 271 mg/dL Normal [facility] Comment on above: Performed By: #### E RUR, PREGU, DRUGRPD #### [facility] [address] [place] [address] Dr. Gino Holt URon 08-24-2022 , QUAL Negative Normal NEGATIVE [facility] Comment on above: Performed By: #### P REGU #### [facility] [address] [place] [address] Dr. Gino Holt PROF 14(COMP METB)on 023 Albumin [Mass/Vol] 4.1 g/dL Normal 3.4-5.0 [facility] Comment on above: Performed By: #### C MP #### [facility] [address] [place] [address] Dr. Gino Holt Albumin/Globulin [Mass ratio] 1.0 {ratio} Normal [facility] Comment on above: Performed By: #### C MP #### [facility] [address] [place] [address] Dr. Gino Holt ALP [Catalytic activity/Vol] 100 U/L Normal 46-116 [facility] Comment on above: Performed By: #### C MP #### [facility] [address] [place] [address] Dr. Gino Holt ALT [Catalytic activity/Vol] 29 U/L Normal 14-59 [facility] Comment on above: Performed By: #### C MP #### [facility] [address] [address] [address] Gino Holt Anion gap [Moles/Vol] 13.3 mmol/L Normal [facility] Comment on above: Performed By: #### C MP #### [facility] [address] [address] [address] Gino Holt AST [Catalytic activity/Vol] 22 U/L Normal 15-37 [facility] Comment on above: Performed By: #### C MP #### [facility] [address] [address] [address] Gino Holt Bilirubin [Mass/Vol] 0.1 mg/dL Critically low 0.2-1.0 [facility] Comment on above: Performed By: #### C MP #### [facility] [address] [address] [address] Gino Holt Calcium [Mass/Vol] 9.0 mg/dL Normal 8.5-10.1 [facility] Comment on above: Performed By: #### C MP #### [facility] [address] [address] [address] Gino Holt Chloride [Moles/Vol] 111 mmol/L Critically high 98-107 [facility] Comment on above: Performed By: #### C MP #### [facility] [address] [address] [address] Gino Holt CO2 [Moles/Vol] 26.5 mmol/L Normal 21.0-32.0 [facility] Comment on above: Performed By: #### C MP #### [facility] [address] [address] [address] Gino Holt Creatinine [Mass/Vol] 0.65 mg/dL Normal 0.55-1.02 [facility] Comment on above: Performed By: #### C MP #### [facility] [address] [address] [address] Gino Holt EGFR-AF BOTSWANAN >60 Normal >=60 [facility] Comment on above: Performed By: #### C MP #### [facility] [address] [address] [address] Gino Holt EGFR-NON AF BOTSWANAN >60 Normal >=60 [facility] Comment on above: Performed By: #### C MP #### [facility] [address] [address] [address] Gino Holt Globulin (S) [Mass/Vol] 4.1 g/dL Normal [facility] Comment on above: Performed By: #### C MP #### [facility] [address] [address] [address] Gino Holt Glucose [Mass/Vol] 95 mg/dL Normal 74-106 [facility] Comment on above: Performed By: #### C MP #### [facility] [address] [place] [address] Dr. Gino Holt Potassium [Moles/Vol] 4.8 mmol/L Normal 3.5-5.1 [facility] Comment on above: Performed By: #### C MP #### [facility] [address] [address] [address] Gino Holt Protein [Mass/Vol] 8.2 g/dL Normal 6.4-8.2 [facility] Comment on above: Performed By: #### C MP #### [facility] [address] [place] [address] Dr. Gino Holt Sodium [Moles/Vol] 146 mmol/L Critically high 136-145 [facility] Comment on above: Performed By: #### C MP #### [facility] [address] [place] [address] Dr. Gino Holt Urea nitrogen [Mass/Vol] 11.0 mg/dL Normal 7.0-18.0 [facility] Comment on above: Performed By: #### C MP #### [facility] [address] [place] [address] Dr. Gino Holt Urea nitrogen/Creatinine [Mass ratio] 16.9 mg/mg Normal [facility] Comment on above: Performed By: #### C MP #### [facility] [address] [place] [address] Dr. Gino Holt XR KNEE RT 4V [...] GAURAV ABDI Date: 2022-08-24 03:02 Normal [facility] CBC AUTO DIFFon 02-07-2022 BASO # 0.1 103/ul Normal 0.0-0.1 [facility] Comment on above: Performed By: #### C BC #### [facility] [address] [place] [address] Dr. Gino Holt Basophils/100 WBC (Bld) 0.6 % Normal 0.2-2.0 [facility] Comment on above: Performed By: #### C BC #### [facility] [address] [address] [address] Gino Holt EO # 0.1 103/ul Normal 0.0-0.7 [facility] Comment on above: Performed By: #### C BC #### [facility] [address] [address] [address] Gino Holt Eosinophils/100 WBC (Bld) 0.7 % Critically low 0.9-7.0 [facility] Comment on above: Performed By: #### C BC #### [facility] [address] [place] [address] Dr. Gino Holt Erythrocyte distribution width (RBC) [Ratio] 12.8 % Normal 11.0-15.0 [facility] Comment on above: Performed By: #### C BC #### [facility] [address] [place] [address] Dr. Gino Holt Hematocrit (Bld) [Volume fraction] 38.9 % Normal 36.0-48.0 [facility] Comment on above: Performed By: #### C BC #### [facility] [address] [place] [address] Dr. Gino Holt Hemoglobin (Bld) [Mass/Vol] 12.7 g/dL Normal 12.0-16.0 [facility] Comment on above: Performed By: #### C BC #### [facility] [address] [place] [address] Dr. Gino Holt IG # 0.01 10e3/ul Normal 0.00-0.03 [facility] Comment on above: Performed By: #### C BC #### [facility] [address] [place] [address] Dr. Gino Holt IG % 0.1 % Normal 0.0-0.5 [facility] Comment on above: Performed By: #### C BC #### [facility] [address] [place] [address] Dr. Gino Holt LYMPH # 2.7 103/ul Normal 1.2-3.8 [facility] Comment on above: Performed By: #### C BC #### [facility] [address] [place] [address] Dr. Gino Holt Lymphocytes/100 WBC (Bld) 33.2 % Normal 20.5-60.0 [facility] Comment on above: Performed By: #### C BC #### [facility] [address] [place] [address] Dr. Gino Holt MANUAL DIFF REQ NO Normal [facility] Comment on above: Performed By: #### C BC #### [facility] [address] [place] [address] Dr. Gino Holt MCH (RBC) [Entitic mass] 29.3 pg Normal 26.7-34.0 [facility] Comment on above: Performed By: #### C BC #### [facility] [address] [place] [address] Dr. Gino Holt MCHC (RBC) [Mass/Vol] 32.6 g/dL Normal 29.9-35.2 [facility] Comment on above: Performed By: #### C BC #### [facility] [address] [place] [address] Dr. Gino Holt MCV (RBC) [Entitic vol] 89.8 fL Normal 81.0-99.0 [facility] Comment on above: Performed By: #### C BC #### [facility] [address] [place] [address] Dr. Gino Holt MONO # 0.7 103/ul Normal 0.3-0.8 [facility] Comment on above: Performed By: #### C BC #### [facility] [address] [place] [address] Dr. Gino Holt Monocytes/100 WBC (Bld) 8.4 % Normal 1.7-12.0 [facility] Comment on above: Performed By: #### C BC #### [facility] [address] [place] [address] Dr. Gino Holt NEUT # 4.7 103/ul Normal 1.4-6.5 [facility] Comment on above: Performed By: #### C BC #### [facility] [address] [place] [address] Dr. Gino Holt Neutrophils/100 WBC (Bld) 57.0 % Normal 43.0-75.0 [facility] Comment on above: Performed By: #### C BC #### [facility] [address] [place] [address] Dr. Gino Holt Platelet mean volume (Bld) [Entitic vol] 8.9 fL Critically low 9.5-13.5 [facility] Comment on above: Performed By: #### C BC #### [facility] [address] [place] [address] Dr. Gino Holt PLT 305 103/ul Normal 150-450 [facility] Comment on above: Performed By: #### C BC #### [facility] [address] [place] [address] Dr. Gino Holt RBC 4.33 106/ul Normal 4.20-5.40 [facility] Comment on above: Performed By: #### C BC #### [facility] [address] [place] [address] Dr. Gino Holt WBC 8.2 103/ul Normal 4.0-11.0 [facility] Comment on above: Performed By: #### C BC #### [facility] [address] [address] [address] Gino Holt CRPon 02-07-2022 CRP 0.3 mg/dL Normal <=1.0 [facility] Comment on above: Performed By: #### H STROPN, CRP, CMP #### [facility] [address] [address] [address] HEAD WO CONon [...] ROSA VALENTINE Date: 2022-02-07 05:17 Normal [facility] D-DIMERon 02-07-2022 D-DIMER 0.44 mg/L FEU Normal <=0.59 [facility] Comment on above: Performed By: #### E JACOB IBANEZ DRUGRPD #### [facility] [address] [place] [address] Dr. Gino Holt D-DIMER COMMENTS SEE BELOW Normal [facility] Comment on above: Result Comment: [...] By: #### E RUR, PREGU, DRUGRPD #### [facility] [address] [address] [address] Gino Holt PREG HCG QUALon 02-07-2022 , QUAL Negative Normal NEGATIVE [facility] Comment on above: Performed By: #### P REG #### [facility] [address] [address] [address] Gino Holt PROF 14(COMP METB)on 022 Albumin [Mass/Vol] 3.9 g/dL Normal 3.4-5.0 [facility] Comment on above: Performed By: #### H STROPN, CRP, CMP #### [facility] [address] [address] [address] Gino Holt Albumin/Globulin [Mass ratio] 0.9 {ratio} Normal [facility] Comment on above: Performed By: #### H STROPN, CRP, CMP #### [facility] [address] [address] [address] Gino Holt ALP [Catalytic activity/Vol] 84 U/L Normal 46-116 [facility] Comment on above: Performed By: #### H STROPN, CRP, CMP #### [facility] [address] [address] [address] Gino Holt ALT [Catalytic activity/Vol] 20 U/L Normal 14-59 [facility] Comment on above: Performed By: #### H STROPN, CRP, CMP #### [facility] [address] [address] [address] Gino Holt Anion gap [Moles/Vol] 14.6 mmol/L Normal [facility] Comment on above: Performed By: #### H STROPN, CRP, CMP #### [facility] [address] [address] [address] Gino Holt AST [Catalytic activity/Vol] 10 U/L Critically low 15-37 [facility] Comment on above: Performed By: #### H STROPN, CRP, CMP #### [facility] [address] [address] [address] Gino Holt Bilirubin [Mass/Vol] 0.3 mg/dL Normal 0.2-1.0 [facility] Comment on above: Performed By: #### H STROPN, CRP, CMP #### [facility] [address] [place] [address] Dr. Gino Holt Calcium [Mass/Vol] 8.6 mg/dL Normal 8.5-10.1 [facility] Comment on above: Performed By: #### H STROPN, CRP, CMP #### [facility] [address] [place] [address] Dr. Gino Holt Chloride [Moles/Vol] 106 mmol/L Normal 98-107 [facility] Comment on above: Performed By: #### H STROPN, CRP, CMP #### [facility] [address] [place] [address] Dr. Gino Holt CO2 [Moles/Vol] 24.8 mmol/L Normal 21.0-32.0 [facility] Comment on above: Performed By: #### H STROPN, CRP, CMP #### [facility] [address] [place] [address] Dr. Gino Holt Creatinine [Mass/Vol] 0.83 mg/dL Normal 0.55-1.02 [facility] Comment on above: Performed By: #### H STROPN, CRP, CMP #### [facility] [address] [place] [address] Dr. Gino Holt EGFR-AF BOTSWANAN >60 Normal >=60 [facility] Comment on above: Performed By: #### H STROPN, CRP, CMP #### [facility] [address] [place] [address] Dr. Gino Holt EGFR-NON AF BOTSWANAN >60 Normal >=60 [facility] Comment on above: Performed By: #### H STROPN, CRP, CMP #### [facility] [address] [place] [address] Dr. Gino Holt Globulin (S) [Mass/Vol] 4.2 g/dL Normal [facility] Comment on above: Performed By: #### H STROPN, CRP, CMP #### [facility] [address] [place] [address] Dr. Gino Holt Glucose [Mass/Vol] 105 mg/dL Normal 74-106 [facility] Comment on above: Performed By: #### H STROPN, CRP, CMP #### [facility] [address] [address] [address] Gino Holt Potassium [Moles/Vol] 3.4 mmol/L Critically low 3.5-5.1 [facility] Comment on above: Performed By: #### H STROPN, CRP, CMP #### [facility] [address] [place] [address] Dr. Gino Holt Protein [Mass/Vol] 8.1 g/dL Normal 6.4-8.2 [facility] Comment on above: Performed By: #### H STROPN, CRP, CMP #### [facility] [address] [address] [address] Gino Holt Sodium [Moles/Vol] 142 mmol/L Normal 136-145 [facility] Comment on above: Performed By: #### H STROPN, CRP, CMP #### [facility] [address] [address] [address] Gino Holt Urea nitrogen [Mass/Vol] 15.0 mg/dL Normal 7.0-18.0 [facility] Comment on above: Performed By: #### H STROPN, CRP, CMP #### [facility] [address] [place] [address] Dr. Gino Holt Urea nitrogen/Creatinine [Mass ratio] 18.1 mg/mg Normal [facility] Comment on above: Performed By: #### H STROPN, CRP, CMP #### [facility] [address] [place] [address] Dr. Gino Holt TROPONIN, HIGH SENSITIVITYon 02-07-2022 HSTROP 4.6 pg/mL Normal 4.0-51.3 [facility] Comment on above: Result Comment: CUT- OFF POINTS HAVE BEEN ESTABLISHED BASED ON THE FOURTH UNIVERSAL DEFINITIONS OF MYOCARDIAL INFARCTION. THE UPPER REFERENCE LIMIT (URL) OF TROPONIN, DEFINED THE 99TH PERCENTILE OF cTnI DISTRIBUTION IN A REFERENCE POPULATION, HAS BEEN CONFIRMED THE DECISION THRESHOLD FOR SC DIAGNOSIS. Performed By: #### H STROPN, CRP, CMP #### [facility] [address] [place] [address] Dr. Gino Holt XR CHEST 1 Von [...] by: ROSA VALENTINE Date: 2022-02-07 05:18 Normal [facility] CBC AUTO DIFFon 11-26-2021 BASO # 0.0 103/ul Normal 0.0-0.1 [facility] Comment on above: Performed By: #### E RUR PREGU, DRUGRPD #### [facility] [address] [place] [address] Dr. Gino Holt Basophils/100 WBC (Bld) 0.4 % Normal 0.2-2.0 [facility] Comment on above: Performed By: #### E RUR PREGU, DRUGRPD #### [facility] [address] [place] [address] Dr. Gino Holt EO # 0.1 103/ul Normal 0.0-0.7 [facility] Comment on above: Performed By: #### E RUR PREGU, DRUGRPD #### [facility] [address] [place] [address] Dr. Gino Holt Eosinophils/100 WBC (Bld) 1.1 % Normal 0.9-7.0 [facility] Comment on above: Performed By: #### E RUR, PREGU, DRUGRPD #### [facility] [address] [place] [address] Dr. Gino Holt Erythrocyte distribution width (RBC) [Ratio] 12.5 % Normal 11.0-15.0 [facility] Comment on above: Performed By: #### E RUR, PREGU, DRUGRPD #### [facility] [address] [place] [address] Dr. Gino Holt Hematocrit (Bld) [Volume fraction] 40.9 % Normal 36.0-48.0 [facility] Comment on above: Performed By: #### E RUR, PREGU, DRUGRPD #### [facility] [address] [place] [address] Dr. Gino Holt Hemoglobin (Bld) [Mass/Vol] 13.3 g/dL Normal 12.0-16.0 [facility] Comment on above: Performed By: #### E RUR, PREGU, DRUGRPD #### [facility] [address] [place] [address] Dr. Gino Holt IG # 0.01 10e3/ul Normal 0.00-0.03 [facility] Comment on above: Performed By: #### E RUR, PREGU, DRUGRPD #### [facility] [address] [place] [address] Dr. Gino Holt IG % 0.2 % Normal 0.0-0.5 [facility] Comment on above: Performed By: #### E RUR, PREGU, DRUGRPD #### [facility] [address] [place] [address] Dr. Gino Holt LYMPH # 1.5 103/ul Normal 1.2-3.8 [facility] Comment on above: Performed By: #### E RUR, PREGU, DRUGRPD #### [facility] [address] [place] [address] Dr. Gino Holt Lymphocytes/100 WBC (Bld) 32.1 % Normal 20.5-60.0 [facility] Comment on above: Performed By: #### E RUR, PREGU, DRUGRPD #### [facility] [address] [place] [address] Dr. Gino Holt MANUAL DIFF REQ NO Normal [facility] Comment on above: Performed By: #### E RUR, PREGU, DRUGRPD #### [facility] [address] [place] [address] Dr. Gino Holt MCH (RBC) [Entitic mass] 29.8 pg Normal 26.7-34.0 [facility] Comment on above: Performed By: #### E RUR, PREGU, DRUGRPD #### [facility] [address] [place] [address] Dr. Gino Holt MCHC (RBC) [Mass/Vol] 32.5 g/dL Normal 29.9-35.2 [facility] Comment on above: Performed By: #### E RUR, PREGU, DRUGRPD #### [facility] [address] [place] [address] Dr. Gino Holt MCV (RBC) [Entitic vol] 91.7 fL Normal 81.0-99.0 [facility] Comment on above: Performed By: #### E RUR, PREGU, DRUGRPD #### [facility] [address] [place] [address] Dr. Gino Holt MONO # 0.5 103/ul Normal 0.3-0.8 [facility] Comment on above: Performed By: #### E RUR, PREGU, DRUGRPD #### [facility] [address] [place] [address] Dr. Gino Holt Monocytes/100 WBC (Bld) 9.7 % Normal 1.7-12.0 [facility] Comment on above: Performed By: #### E RUR, PREGU, DRUGRPD #### [facility] [address] [place] [address] Dr. Gino Holt NEUT # 2.7 103/ul Normal 1.4-6.5 [facility] Comment on above: Performed By: #### E RUR, PREGU, DRUGRPD #### [facility] [address] [place] [address] Dr. Gino Holt Neutrophils/100 WBC (Bld) 56.5 % Normal 43.0-75.0 [facility] Comment on above: Performed By: #### E RUR, PREGU, DRUGRPD #### [facility] [address] [place] [address] Dr. Gino Holt Platelet mean volume (Bld) [Entitic vol] 9.9 fL Normal 9.5-13.5 [facility] Comment on above: Performed By: #### E RUSadi PREGU, DRUGRPD #### [facility] [address] [place] [address] Dr. Gino Holt PLT 243 103/ul Normal 150-450 [facility] Comment on above: Performed By: #### E RUR PREGU, DRUGRPD #### [facility] [address] [place] [address] Dr. Gino Holt RBC 4.46 106/ul Normal 4.20-5.40 [facility] Comment on above: Performed By: #### Snehal IBANEZ PREGU, DRUGRPD #### [facility] [address] [place] [address] Dr. Gino Holt WBC 4.7 103/ul Normal 4.0-11.0 [facility] Comment on above: Performed By: #### Snehal IBANEZ PREGU, DRUGRPD #### [facility] [address] [place] [address] Dr. Gino Holt CULTURE URINEon 11-26-2021 CULTURE URINE Culture Observations : LIGHT GROWTH OF MIXED GENITAL KLAUDIA. NO POTENTIAL PATHOGENS SEEN. Normal [facility] Comment on above: Performed By: #### Snehal IBANEZ PREGU, DRUGRPD #### [facility] [address] [place] [address] Dr. Gino Holt ER URINE PROFILEon 2 Bilirubin Ql (U) Negative Normal NEGATIVE [facility] Comment on above: Performed By: #### Snehal RUR, PREGU, DRUGRPD #### [facility] [address] [place] [address] Dr. Gino Holt Clarity (U) CLEAR Normal CLEAR [facility] Comment on above: Performed By: #### Snehal RUR PREGU, DRUGRPD #### [facility] [address] [place] [address] Dr. Gino Holt Color (U) LT. YELLOW Normal YELLOW [facility] Comment on above: Performed By: #### Snehal RUR PREGU, DRUGRPD #### [facility] [address] [address] [address] Gino LR A micrscopic examination will be performed if indicated. Normal [facility] Comment on above: Performed By: #### E RUR, PREGU, DRUGRPD #### [facility] [address] [address] [address] Gino Holt Glucose Ql (U) Negative Normal NEGATIVE [facility] Comment on above: Performed By: #### E RUR, PREGU, DRUGRPD #### [facility] [address] [address] [address] Gino Holt Hemoglobin Ql (U) Negative Normal NEGATIVE [facility] Comment on above: Performed By: #### E RUR, PREGU, DRUGRPD #### [facility] [address] [place] [address] Dr. Gino Holt Ketones Ql (U) Negative Normal NEGATIVE [facility] Comment on above: Performed By: #### E RUR, PREGU, DRUGRPD #### [facility] [address] [place] [address] Dr. Gino Holt LEUKOCYTES TRACE Abnormal NEGATIVE [facility] Comment on above: Performed By: #### E RUR, PREGU, DRUGRPD #### [facility] [address] [place] [address] Dr. Gino Holt Nitrite Ql (U) Negative Normal NEGATIVE [facility] Comment on above: Performed By: #### E RUR, PREGU, DRUGRPD #### [facility] [address] [address] [address] Gino Holt pH (U) 7.0 [pH] Normal 5-9 [facility] Comment on above: Performed By: #### E RUR, PREGU, DRUGRPD #### [facility] [address] [address] [address] Gino Holt SPEC GRAVITY 1.010 Normal 1.005-<=1.025 [facility] Comment on above: Performed By: #### E RUR, PREGU, DRUGRPD #### [facility] [address] [place], [place] [id number] Dr. Gino Holt UA PROTEIN Negative Normal NEGATIVE/ TRACE [facility] Comment on above: Performed By: #### E RUR, PREGU, DRUGRPD #### [facility] [address] [place] [address] Dr. Gino Holt UR MICRO IND INDICATED Normal [facility] Comment on above: Performed By: #### E RUR, PREGU, DRUGRPD #### [facility] [address] [place] [address] Dr. Gino Holt Urobilinogen Qn (U) 0.2 {Phillip'U}/dL Normal 0.2 - 1. 0 [facility] Comment on above: Performed By: #### E RUR, PREGU, DRUGRPD #### [facility] [address] [place] [address] Dr. Gino Holt LIPASEon 11-26-2021 Lipase [Catalytic activity/Vol] 80.0 U/L Normal 73.0-393.0 [facility] Comment on above: Performed By: #### E RUR, PREGU, DRUGRPD #### [facility] [address] [place] [address] Dr. Gino Holt URon 11-26-2021 , QUAL Negative Normal NEGATIVE [facility] Comment on above: Performed By: #### E RUR, PREGU, DRUGRPD #### [facility] [address] [place] [address] Dr. Gino Holt PROF 14(COMP METB)on 022 Albumin [Mass/Vol] 4.0 g/dL Normal 3.4-5.0 [facility] Comment on above: Performed By: #### E RUR, PREGU, DRUGRPD #### [facility] [address] [place] [address] Dr. Gino Holt Albumin/Globulin [Mass ratio] 1.0 {ratio} Normal [facility] Comment on above: Performed By: #### E RUR, PREGU, DRUGRPD #### [facility] [address] [place] [address] Dr. Gino Holt ALP [Catalytic activity/Vol] 105 U/L Normal 46-116 [facility] Comment on above: Performed By: #### E RUSadi PREGU, DRUGRPD #### [facility] [address] [place] [address] Dr. Gino Holt ALT [Catalytic activity/Vol] 26 U/L Normal 14-59 [facility] Comment on above: Performed By: #### E RUSadi PREGU, DRUGRPD #### [facility] [address] [place] [address] Dr. Gino Holt Anion gap [Moles/Vol] 12.2 mmol/L Normal [facility] Comment on above: Performed By: #### E RUSadi PREGU, DRUGRPD #### [facility] [address] [place] [address] Dr. Gino Holt AST [Catalytic activity/Vol] 16 U/L Normal 15-37 [facility] Comment on above: Performed By: #### Snehal RUR PREGU, DRUGRPD #### [facility] [address] [place] [address] Dr. Gino Holt Bilirubin [Mass/Vol] 0.5 mg/dL Normal 0.2-1.0 [facility] Comment on above: Performed By: #### E RUR, PREGU, DRUGRPD #### [facility] [address] [place] [address] Dr. Gino Holt Calcium [Mass/Vol] 8.3 mg/dL Critically low 8.5-10.1 [facility] Comment on above: Performed By: #### E RUR, PREGU, DRUGRPD #### [facility] [address] [place] [address] Dr. Gino Holt Chloride [Moles/Vol] 105 mmol/L Normal 98-107 [facility] Comment on above: Performed By: #### E RUR, PREGU, DRUGRPD #### [facility] [address] [place] [address] Dr. Gino Holt CO2 [Moles/Vol] 23.6 mmol/L Normal 21.0-32.0 [facility] Comment on above: Performed By: #### E RUR, PREGU, DRUGRPD #### [facility] [address] [place] [address] Dr. Gino Holt Creatinine [Mass/Vol] 0.85 mg/dL Normal 0.55-1.02 [facility] Comment on above: Performed By: #### E RUR, PREGU, DRUGRPD #### [facility] [address] [place] [address] Dr. Gino Holt EGFR-AF BOTSWANAN >60 Normal >=60 [facility] Comment on above: Performed By: #### E RUR, PREGU, DRUGRPD #### [facility] [address] [place] [address] Dr. Gino Holt EGFR-NON AF BOTSWANAN >60 Normal >=60 [facility] Comment on above: Performed By: #### E RUR, PREGU, DRUGRPD #### [facility] [address] [place] [address] Dr. Gino Holt Globulin (S) [Mass/Vol] 4.1 g/dL Normal [facility] Comment on above: Performed By: #### E RUR, PREGU, DRUGRPD #### [facility] [address] [place] [address] Dr. Gino Holt Glucose [Mass/Vol] 84 mg/dL Normal 74-106 [facility] Comment on above: Performed By: #### E RUR, PREGU, DRUGRPD #### [facility] [address] [place] [address] Dr. Gino Holt Potassium [Moles/Vol] 3.8 mmol/L Normal 3.5-5.1 [facility] Comment on above: Performed By: #### E RUR, PREGU, DRUGRPD #### [facility] [address] [place] [address] Dr. Gino Holt Protein [Mass/Vol] 8.1 g/dL Normal 6.1-8.2 [facility] Comment on above: Performed By: #### E RUR, PREGU, DRUGRPD #### [facility] [address] [address] [address] Gino Holt Sodium [Moles/Vol] 137 mmol/L Normal 136-145 [facility] Comment on above: Performed By: #### E RUR, PREGU, DRUGRPD #### [facility] [address] [place] [address] Dr. Gino Holt Urea nitrogen [Mass/Vol] 10.0 mg/dL Normal 7.0-18.0 [facility] Comment on above: Performed By: #### E RUR, PREGU, DRUGRPD #### [facility] [address] [place] [address] Dr. Gino Holt Urea nitrogen/Creatinine [Mass ratio] 11.8 mg/mg Normal [facility] Comment on above: Performed By: #### E RUR, PREGU, DRUGRPD #### [facility] [address] [place] [address] Dr. Gino Holt URINE MICROSCOPIC ONLYon BACTERIA SMALL Abnormal NONE SEEN [facility] Comment on above: Performed By: #### E RUR, PREGU, DRUGRPD #### [facility] [address] [place] [address] Dr. Gino Holt Bacteria identified Cx Nom (U) INDICATED Normal [facility] Comment on above: Performed By: #### E RUR, PREGU, DRUGRPD #### [facility] [address] [place] [address] Dr. Gino Holt CAST NONE SEEN Normal NONE SEEN [facility] Comment on above: Performed By: #### E RUR, PREGU, DRUGRPD #### [facility] [address] [place] [address] Dr. Gino oHlt Crystals LM Nom (Urine sed) NONE SEEN Normal NONE SEEN [facility] Comment on above: Performed By: #### E RUR, PREGU, DRUGRPD #### [facility] [address] [place] [address] Dr. Gino Holt Epithelial cells LM Ql (Urine sed) FEW Abnormal NONE SEEN /RARE [facility] Comment on above: Performed By: #### E RUR, PREGU, DRUGRPD #### [facility] [address] [address] [address] Gino Holt MUCOUS MODERATE Abnormal NONE SEEN [facility] Comment on above: Performed By: #### E RUR, PREGU, DRUGRPD #### [facility] [address] [address] [address] Gino Holt RBC NONE SEEN Abnormal 0-2 [facility] Comment on above: Performed By: #### E RUR, PREGU, DRUGRPD #### [facility] [address] [address] [address] Gino Holt WBC 2-5 Abnormal NONE SEEN [facility] Comment on above: Performed By: #### E RUR, PREGU, DRUGRPD #### [facility] [address] [address] [address] Gino Holt XR KUB 1 VIEWon 11-26-2021 XR KUB 1 VIEW EXAM: XR KUB 1 VIEW HISTORY: Pain COMPARISON: None. TECHNIQUE: 2 views FINDINGS: The bowel gas pattern is nonobstructed. No free intraperitoneal air. No intra-abdominal calcification. The osseous structures are normal IMPRESSION: Normal x-ray Electronically authenticated by: ROBBY FORBES Date: 2021-11-26 15:50 Normal [facility] Vital Signs Date Time Vital Sign Value Performing Clinician Yury loya 02-23-2025 09:04-0400 Body mass index (BMI) [Ratio] 35.55 kg/m2 Sherie OLIVA Work Phone: [facility] 02-23-2025 09:04-0400 Body weight 106.05 kg Sherie OLIVA Work Phone: [facility] 02-23-2025 09:04-0400 Diastolic blood pressure 76 mm[Hg] Sherie OLIVA Work Phone: [facility] 02-23-2025 09:04-0400 Systolic blood pressure 116 mm[Hg] Sherie OLIVA Work Phone: [facility] 01-20-2025 09:48-0400 Body mass index (BMI) [Ratio] 35.29 kg/m2 Sherie OLIVA Work Phone: [facility] 01-20-2025 09:48-0400 Body weight 105.29 kg Sherie Lubna PA Work Phone: [facility] 01-20-2025 09:48-0400 Diastolic blood pressure 80 mm[Hg] Sherie Lubna PA Work Phone: [facility] 01-20-2025 09:48-0400 Systolic blood pressure 122 mm[Hg] Sherie Northome PA Work Phone: [facility] 01-06-2025 09:34-0400 Body mass index (BMI) [Ratio] 35.14 kg/m2 Tess Helena DO Work Phone: [facility] 01-06-2025 09:34-0400 Body weight 104.83 kg Tess Helena DO Work Phone: [facility] 01-06-2025 09:34-0400 Diastolic blood pressure 74 mm[Hg] Tess Helena DO Work Phone: [facility] 01-06-2025 09:34-0400 Systolic blood pressure 122 mm[Hg] Tess Helena DO Work Phone: [facility] 12-22-2024 10:07-0400 Body mass index (BMI) [Ratio] 35.73 kg/m2 Sherie Northome PA Work Phone: [facility] 12-22-2024 10:07-0400 Body weight 106.59 kg Sherie Lubna PA Work Phone: [facility] 12-22-2024 10:07-0400 Diastolic blood pressure 80 mm[Hg] Sherie Northome PA Work Phone: [facility] 12-22-2024 10:07-0400 Systolic blood pressure 128 mm[Hg] Sherie Northome PA Work Phone: [facility] 12-07-2024 10:38-0400 Body mass index (BMI) [Ratio] 35.05 kg/m2 Tess Helena DO Work Phone: [facility] 12-07-2024 10:38-0400 Body weight 104.55 kg Tess Helena DO Work Phone: [facility] 12-07-2024 10:38-0400 Diastolic blood pressure 72 mm[Hg] Tess Helena DO Work Phone: [facility] 12-07-2024 10:38-0400 Systolic blood pressure 112 mm[Hg] Tess Helena DO Work Phone: [facility] 11-08-2024 09:47-0400 Body mass index (BMI) [Ratio] 34.21 kg/m2 Tess Helena DO Work Phone: [facility] 11-08-2024 09:47-0400 Body weight 102.06 kg Tess Helena DO Work Phone: [facility] 11-08-2024 09:47-0400 Diastolic blood pressure 70 mm[Hg] Tess Helena DO Work Phone: [facility] 11-08-2024 09:47-0400 Systolic blood pressure 118 mm[Hg] Tess Helena DO Work Phone: [facility] 05-18-2024 11:44-0400 Body mass index (BMI) [Ratio] 32.54 kg/m2 Dillon Silva MD Work Phone: [facility] 05-18-2024 11:44-0400 Body temperature 97.5 [degF] Dillon Sivla MD Work Phone: [facility] 05-18-2024 11:44-0400 Body weight 97.07 kg Dillon Silva MD Work Phone: [facility] 05-18-2024 11:44-0400 Diastolic blood pressure 70 mm[Hg] Dillon Silva MD Work Phone: [facility] 05-18-2024 11:44-0400 Heart rate 78 /min Dillon Silva MD Work Phone: [facility] 05-18-2024 11:44-0400 SaO2% (BldA) [Mass fraction] 99 % Dillon Silva MD Work Phone: [facility] 05-18-2024 11:44-0400 Systolic blood pressure 118 mm[Hg] Dillon Silva MD Work Phone: [facility] 04-21-2024 09:35-0400 Body height 172.7 cm Dillon Silva MD Work Phone: [facility] 04-21-2024 09:35-0400 Body mass index (BMI) [Ratio] 32.39 kg/m2 Dillon Silva MD Work Phone: [facility] 04-21-2024 09:35-0400 Body temperature 97.5 [degF] Dillon Silva MD Work Phone: [facility] 04-21-2024 09:35-0400 Body weight 96.62 kg Dillon Silva MD Work Phone: [facility] 04-21-2024 09:35-0400 Diastolic blood pressure 58 mm[Hg] Dillon Silva MD Work Phone: [facility] 04-21-2024 09:35-0400 Heart rate 79 /min Dillon Silva MD Work Phone: [facility] 04-21-2024 09:35-0400 Respiratory rate 20 /min Dillon Silva MD Work Phone: [facility] 04-21-2024 09:35-0400 SaO2% (BldA) [Mass fraction] 99 % Dillon Silva MD Work Phone: [facility] 04-21-2024 09:35-0400 Systolic blood pressure 104 mm[Hg] Dillon Silva MD Work Phone: [facility] 03-25-2024 14:37-0400 Body height 172.7 cm Dillon Silva MD Work Phone: [facility] 03-25-2024 14:37-0400 Body mass index (BMI) [Ratio] 32.69 kg/m2 Dillon Silva MD Work Phone: [facility] 03-25-2024 14:37-0400 Body temperature 97.81 [degF] Dillon Silva MD Work Phone: [facility] 03-25-2024 14:37-0400 Body weight 97.52 kg Dillon Silva MD Work Phone: [facility] 03-25-2024 14:37-0400 Diastolic blood pressure 78 mm[Hg] Dillon Silva MD Work Phone: [facility] 03-25-2024 14:37-0400 Heart rate 95 /min Dillon Silva MD Work Phone: [facility] 03-25-2024 14:37-0400 Respiratory rate 22 /min Dillon Silva MD Work Phone: [facility] 03-25-2024 14:37-0400 SaO2% (BldA) [Mass fraction] 98 % Dillon Silva MD Work Phone: [facility] 03-25-2024 14:37-0400 Systolic blood pressure 138 mm[Hg] Dillon Silva MD Work Phone: [facility] Healthcare Encounters Encounter Date Encounter Type Care Provider Facility Start: 02-23-2025 End: 02-23-2025 Bamboo flowsheet Sherie OLIVA Work Phone: [facility] Start: 02-23-2025 End: 02-23-2025 Bamboo flowsheet Sherie OLIVA Work Phone: [facility] Start: 02-23-2025 End: 02-23-2025 Office outpatient visit 15 minutes Sherie OLIVA Work Phone: [facility] Comment on above: Third trimester preg jose luis ([facility]); 37 weeks gestation of ([facility]) Start: 02-23-2025 End: 02-23-2025 ambulatory SHERIE CALVO Not Available Start: 02-15-2025 End: 02-15-2025 Bamboo flowsheet Tess Helena DO Work Phone: [facility] Start: 02-15-2025 End: 02-19-2025 Bamboo flowsheet Tess Helena DO Work Phone: [facility] Start: 02-15-2025 End: 02-19-2025 Clinisync Result Encounter Generic External Data Provider [facility] Unsolicited Start: 02-15-2025 End: 02-15-2025 ambulatory TESS HELENA Not Available Start: 01-20-2025 End: 01-20-2025 Bamboo flowsheet Sherie OLIVA Work Phone: [facility] Start: 01-20-2025 End: 01-20-2025 Bamboo flowsheet Sherie OLIVA Work Phone: [facility] Start: 01-20-2025 End: 01-20-2025 Office outpatient visit 15 minutes Sherie OLIVA Work Phone: [facility] Comment on above: 32 weeks gestation o f ([facility]); Third trimester ([facility]); Restless leg; SGA (small for gestational age) ([facility]) Start: 01-20-2025 End: 01-20-2025 ambulatory SHERIE CALVO Not Available Start: 01-06-2025 End: 01-06-2025 Bamboo flowsheet Tess Helena DO Work Phone: [facility] Start: 01-06-2025 End: 01-06-2025 Bamboo flowsheet Tess Helena DO Work Phone: [facility] Start: 01-06-2025 End: 01-06-2025 Office outpatient visit 15 minutes Tess Helena DO Work Phone: [facility] Comment on above: Third trimester preg jose luis ([facility]); 30 weeks gestation of ([facility]) Start: 01-06-2025 End: 01-06-2025 ambulatory TESS HELENA Not Available Start: 12-28-2024 End: 12-28-2024 ambulatory SHERIE CALVO Not Available Start: 12-22-2024 End: 12-22-2024 Bamboo flowsheet Sherie Calvo PA Work Phone: [facility] Start: 12-22-2024 End: 12-22-2024 Bamboo flowsheet Sherie Northome PA Work Phone: [facility] Start: 12-22-2024 End: 12-22-2024 Office outpatient visit 15 minutes Sherie OLIVA Work Phone: [facility] Comment on above: Second trimester pre gnancy; 28 weeks gestation of ; Restless leg; size inconsistent with dates Start: 12-22-2024 End: 12-22-2024 ambulatory SHERIE CALVO Not Available Start: 12-08-2024 End: 12-08-2024 Clinisync Result Encounter Generic External Data Provider [facility] Unsolicited Start: 12-08-2024 End: 12-08-2024 Clinisync Result Encounter Generic External Data Provider [facility] Unsolicited Start: 12-07-2024 End: 12-07-2024 Bamboo flowsheet Tess Helena DO Work Phone: [facility] Start: 12-07-2024 End: 12-10-2024 Bamboo flowsheet Tess Helena DO Work Phone: [facility] Start: 12-07-2024 End: 12-10-2024 Clinisync Result Encounter Generic External Data Provider [facility] Unsolicited Start: 12-07-2024 End: 12-07-2024 Office outpatient visit [...] Not Available Start: 11-08-2024 End: 11-08-2024 ambulatory TESS HELENA Not Available Start: 10-08-2024 End: 10-08-2024 ambulatory TESS HELENA Not Available Start: 08-10-2024 End: 08-13-2024 Clinisync [...] Department Unsolicited Start: 05-04-2024 End: 05-04-2024 ambulatory DILLON SILVA [facility] Start: 05-04-2024 End: 05-04-2024 ambulatory DILLON SILVA [facility] Start: 05-04-2024 End: 05-04-2024 ambulatory DILLON SILVA [facility] Healthcare Comment on above: Palpitation (Primary Dx) [...] 11-26-2021 End: 11-26-2021 ambulatory SHERIE CALVO . Facility: Procedures Date Procedure Procedure Detail Performing Clinician Start: 02-23-2025 Urnls dip stick/tabl et rgnt non-auto w/o micrscp Sherie OLIVA Work Phone: Start: 02-15-2025 STREP GP B CULTURE+RFLX Generic External Data Provider Start: 01-20-2025 Urnls dip stick/tabl et rgnt non-auto w/o micrscp Sherie OLIVA Work Phone: Start: 12-08-2024 ALL CBC WITH AUTO DIFF Tess Helena DO Work Phone: Start: 12-07-2024 Urnls dip stick/tabl et rgnt non-auto w/o micrscp Tess Helena DO Work Phone: Start: 12-07-2024 IGP,APTIMA HPV,AGE GDLN Tess Helena DO Work Phone: Start: 12-07-2024 Microscopic observat ion [Identifier] in Cervix by Cyto stain Sherie OLIVA Work Phone: Start: 11-08-2024 Urnls dip stick/tabl et rgnt non-auto w/o micrscp Tess Malik DO Work Phone: Start: 08-10-2024 Bacteria identified in Urine by Culture Generic External Data Provider Start: 05-04-2024 Basic metabolic pane l calcium total Dillon Silva MD Work Phone: Start: 05-04-2024 Hepatic function panel Dillon Silva MD Work Phone: Plan of Treatment Date Care Activity Detail Author Start: 12-07-2029 Screening for malign ant neoplasm of cervix [facility] Start: 04-11-2025 End: 04-11-2025 ambulatory 04/11/2025 10:20 AM EDT Visit [facility] [address] [place] [phone] Tess Malik, DO [address], [place] [id number] [facility] Start: 03-31-2025 End: 03-31-2025 Patient encounter procedure 03/31/2025 9:30 AM EDT Procedure Visit [facility] [address] [place] [phone] Tess Malik, DO [address] [place] [address] [facility] Start: 03-28-2025 Influenza vaccination [facility] Start: 03-02-2025 End: 03-02-2025 Patient encounter procedure 03/02/2025 11:30 AM EDT Routine [facility] [address] [place] [phone] Tess Malik, DO [address] [place] [address] [facility] Start: 02-23-2025 End: 02-23-2025 Patient encounter procedure [facility] Comment on above: Arrived Start: 02-15-2025 End: 02-15-2025 Patient encounter procedure 02/15/2025 8:40 AM EDT Routine [facility] [address] [place] [phone] Tess Malik, DO [address] [place] [address] Arrived [facility] Comment on above: Arrived Start: 02-07-2025 End: 02-07-2025 Patient encounter procedure 02/07/2025 11:20 AM EDT Routine [facility] [address] [place] [phone] Tess Malik, DO [address] [place] [address] [facility] Start: 01-20-2025 End: 01-20-2025 Patient encounter procedure [facility] Comment on above: Arrived Start: 01-06-2025 End: 01-06-2025 Patient encounter procedure [facility] Comment on above: Arrived Start: 12-28-2024 End: 12-28-2024 Professional / ancillary services management 12/28/2024 8:00 AM EDT Ancillary Procedure [facility] [address] [place] [phone] [facility] Start: 12-22-2024 End: 04-24-2025 US for US OB follow up transabdominal approach Imaging Routine size inconsistent with dates Expected: 12/22/2024, Expires: 04/24/2025 [facility] Work Phone: Comment on above: Expected: 12/22/2024 , Expires: 04/24/2025 Start: 12-22-2024 End: 12-22-2024 Patient encounter procedure [facility] Comment on above: Arrived Start: 12-07-2024 End: 12-07-2025 CBC panel - [...] FM [address] [place] [address] Dillon Silva MD [address] [place] [phone] [facility] Start: 05-25-2024 End: 05-25-2024 Patient encounter procedure 05/25/2024 2:45 PM EDT Office Visit [facility] [address] [place] [address] Dillon Silva MD [address] [place] [phone] [facility] Start: 05-18-2024 End: 05-18-2024 Patient encounter procedure 05/18/2024 11:45 AM EDT Office Visit [facility] [address] [place] [address] Dillon Silva MD [address] [place] [phone] Arrived [facility] Comment on above: Arrived Start: 05-04-2024 End: 05-04-2025 Holter monitor study Holter monitor Imaging Routine Palpitation Expected: 05/04/2024 (Approximate), Expires: 05/04/2025 [facility] Work Phone: Comment on above: Expected: 05/04/2024 (Approximate), Expires: 05/04/2025 Start: 04-21-2024 End: 04-21-2025 Basic metabolic 1998 panel - Serum or Plasma Basic metabolic panel Lab Routine Chest pain, unspecified type Palpitation Expected: 04/21/2024 (Approximate), Expires: 04/21/2025 [facility] Work Phone: Comment on above: Expected: 04/21/2024 (Approximate), Expires: 04/21/2025 Start: 04-21-2024 End: 04-21-2025 Cardiac stress study Procedure STRESS TEST TREADMILL Imaging Routine Chest pain, unspecified type SOB (shortness of breath) on exertion Palpitation Expected: 04/21/2024 (Approximate), Expires: 04/21/2025 [facility] Comment on above: Expected: 04/21/2024 (Approximate), Expires: 04/21/2025 Start: 04-21-2024 End: 04-21-2025 CBC W Auto Differential panel - Blood CBC and differential Lab Routine SOB (shortness of breath) on exertion Palpitation Expected: 04/21/2024 (Approximate), Expires: 04/21/2025 [facility] Comment on above: Expected: 04/21/2024 (Approximate), Expires: 04/21/2025 Start: 04-21-2024 End: 04-21-2026 Echocardiogram 2D complete Echocardiogram 2D complete Echocardiography Routine SOB (shortness of breath) on exertion Palpitation Expected: 04/21/2024 (Approximate), Expires: 04/21/2026 [facility] Comment on above: Expected: 04/21/2024 (Approximate), Expires: 04/21/2026 Start: 04-21-2024 End: 04-21-2025 Hepatic function 2000 panel - Serum or Plasma Hepatic function panel Lab Routine Palpitation Expected: 04/21/2024 (Approximate), Expires: 04/21/2025 [facility] Comment on above: Expected: 04/21/2024 (Approximate), Expires: 04/21/2025 Start: 04-21-2024 End: 04-21-2025 Holter monitor study Holter monitor Imaging Routine Palpitation Expected: 04/21/2024 (Approximate), Expires: 04/21/2025 [facility] Comment on above: Expected: 04/21/2024 (Approximate), Expires: 04/21/2025 Start: 04-21-2024 End: 04-21-2025 Magnesium [Mass/volume] in Serum or Plasma Magnesium Lab Routine Palpitation Expected: 04/21/2024 (Approximate), Expires: 04/21/2025 [facility] Comment on above: Expected: 04/21/2024 (Approximate), Expires: 04/21/2025 Start: 04-21-2024 End: 04-21-2025 TSH W/REFLEX TO FT4 TSH W/REFLEX TO FT4 Lab Routine Palpitation Expected: 04/21/2024 (Approximate), Expires: 04/21/2025 [facility] Comment on above: Expected: 04/21/2024 (Approximate), Expires: 04/21/2025 Start: 04-21-2024 End: 04-21-2024 Patient encounter procedure 04/21/2024 9:15 AM EDT Office Visit [facility] [address] [place] [phone] Dillon Silva MD [address] [place] [phone] Arrived [facility] Comment on above: Arrived Start: 03-28-2024 Influenza vaccination Influenza Vacc ine (#1) [facility] Start: 03-25-2024 End: 03-25-2024 Patient encounter procedure 03/25/2024 2:45 PM EDT Office Visit [facility] [address] [place] [phone] Dillon Silva MD [address] [place] [phone] Arrived [facility] Comment on above: Arrived Start: 2020 Screening for malign ant neoplasm of cervix [facility] Start: 10-26-2011 Screening for malign ant neoplasm of cervix Pap Smear [facility] CHLAMYDIA TRACHOMATI S (GENITO/STI) CHLAMYDIA TRACHOMATIS (GENITO/STI) Lab Routine STD exposure Ordered: 12/07/2024 [facility] Comment on above: Ordered: 12/07/2024 Cytology Cervical or vaginal smear or scraping study Pap Smear Pathology and Cytology Routine Well woman exam with routine gynecological exam Ordered: 12/07/2024 [facility] Work Phone: Comment on above: Ordered: 12/07/2024 Human papilloma viru s DNA [Presence] in Unspecified specimen by Probe with amplification HPV DNA probe, amplified Microbiology Routine Well woman exam with routine gynecological exam Ordered: 12/07/2024 [facility] Comment on above: Ordered: 12/07/2024 Neisseria gonorrhoea e DNA [Presence] in Unspecified specimen by SUKHJINDER with probe detection Neisseria gonorrhea DNA probe, direct Lab Routine STD exposure Ordered: 12/07/2024 [facility] Comment on above: Ordered: 12/07/2024 Pulmonary function report Pulmonary Function Test Imaging Routine SOB (shortness of breath) on exertion Ordered: 04/21/2024 [facility] Comment on above: Ordered: 04/21/2024 SURESWAB(R) ADVANCED VAGINITIS PLUS, TMA SURESWAB(R) ADVANCED VAGINITIS PLUS, TMA Pathology and Cytology Routine Vaginal discharge Ordered: 12/07/2024 [facility] Comment on above: Ordered: 12/07/2024 Immunizations Immunization Date Immunization Notes Care Provider Fa cility 10-16-2022 influenza virus vacc ine, unspecified formulation Dillon Silva MD Work Phone: [facility] Payers Date Payer Category Payer Private Health Insurance CONSTANTINO ZAYAS [id number] 2023 Unknown CONSTANTINO YASMEEN Torres CONSTANTINO [facility] [id number] 2023-Present [phone] [address] [place] [address] [id number] 2023 Unknown [id number] 2019 Medicaid [facility] MEDICAID [place] MEDICA[place] [id number] 2019-Present [address] [facility] [place] [address] [id number] 2019 Medicaid (Managed Care) 1.2. [id number] 1990 Unknown [id number] 2.16.840.1.589841.3.579.2. 593 1990 Unknown [id number] 2.16.840.1.544991.3.579.2. 593 1990 Unknown [id number] 2.16.840.1.687547.3.579.2. 593 1990 Unknown [id number] 2.16.840.1.243502.3.579.2. 593 1990 Unknown [id number] 2.16.840.1.451649.3.579.2. 593 1990 Unknown [id number] 2.16.840.1.131194.3.579.2. 593 1990 Unknown [id number] 2.16.840.1.752508.3.579.2. 593 1990 Unknown [id number] 2.16.840.1.437401.3.579.2. 593 1990 Unknown [id number] 2.16.840.1.189816.3.579.2. 593 1990 Unknown [id number] 2.16.840.1.823039.3.579.2. 1286 1990 Unknown [id number] 2.16.840.1.863285.3.579.2. 1286 1990 Unknown [id number] 2.16.840.1.307671.3.579.2. 1286 1990 Unknown [id number] 2.16.840.1.755793.3.579.2. 1286 1990 Unknown [id number] 2.16.840.1.387833.3.579.2. 1259 1990 Unknown [id number] 2.16.840.1.999203.3.579.2. 1259 1990 Unknown [id number] 2.16.840.1.097559.3.579.2. 9 1990 Unknown [id number] 2.16.840.1.870828.3.579.2. 1259 1990 Unknown [id number] 2.16.840.1.512094.3.579.2. 1259 1990 Unknown [id number] 2.16.840.1.081658.3.579.2. 1259 1990 Unknown [id number] 2.16.840.1.028132.3.579.2. 1259 1990 Unknown [id number] 2.16.840.1.983098.3.579.2. 1259 1990 Unknown [id number] 2.16.840.1.960005.3.579.2. 1259 1990 Unknown [id number] 2.16.840.1.567339.3.579.2. 1259 1990 Unknown [id number] 2.16.840.1.871960.3.579.2. 1259 1990 Unknown [id number] 2.16.840.1.698908.3.579.2. 1259 1990 Unknown [id number] 2.16.840.1.615753.3.579.2. 1259 1959 Unknown [id number] Social History Date Type Detail Facility Start: 03-25-2024 Tobacco smoking stat [facility] Ex-smoker [facility] History of tobacco use Current smoker [facility] History of tobacco use Cigarette Smoker [facility] Start: 03-25-2024 Tobacco use and exposure Smokeless t obacco non-user [facility] Start: 03-25-2024 End: 02-14-2025 History of Social function [facility] Start: 03-25-2024 End: 02-14-2025 [id number] Health Literacy [facility] How often [...] file [facility] unknown [facility] How often do you nee d to have someone help you when you read instructions, pamphlets, or other written material from your doctor or pharmacy [SILS] Sometimes [facility] Start: 06-22-2024 [facility] Clinical Notes 03-25-2024 to 02-23-2025 PJ Wilson - 02/23/2025 8:50 AM PJ June - 01/20/2025 10:00 AM PJ June - 01/06/2025 9:20 AM PJ June - 12/22/2024 10:20 [place] LPN - 12/07/2024 10:20 AM EDT Note Date & Type Note Facility 02-23-2025 History of Presen t illness Narrative Reason [...] Vitals: Estimated body mass index is 35.55 kg/m as calculated from the following: Height as of 04/21/24: 5' 8 . Weight as of this encounter: 233 lb 12.8 oz. BP: 116/76 No LMP recorded. Patient is . ASSESSMENT & PLAN ICD-10-CM 1. Third trimester ([facility]) Z34.93 POCT urinalysis dipstick manually resulted 2. 37 weeks gestation of ([facility]) Z3A.37 POCT urinalysis dipstick manually resulted [...] of: PJ Wilson documented in this encounter [facility] 01-20-2025 History of Presen t illness Narrative Reason [...] Exam Constitutional: Appearance: Normal appearance. She is well-developed and normal weight. HENT: Head: Normocephalic. Cardiovascular: Rate and Rhythm: Normal rate and regular rhythm. Pulses: Normal pulses. Pulmonary: Effort: Pulmonary effort is normal. Breath sounds: Normal breath sounds. Abdominal: General: Bowel sounds are normal. There is no distension. Palpations: Abdomen is soft. Tenderness: There is no abdominal tenderness. There is no guarding or rebound. Musculoskeletal: General: No swelling. Normal range of motion. Right lower leg: No edema. Left lower leg: No edema. Neurological: General: No focal deficit present. Mental Status: She is alert and oriented to person, place, and time. Skin: General: Skin is warm and dry. Psychiatric: Mood and Affect: Mood normal. Behavior: Behavior normal. Thought Content: Thought content normal. Judgment: Judgment normal. Vitals and nursing note reviewed. Exam conducted with a settlement processor present. Vitals: Estimated body mass index is 35.29 kg/m as calculated from the following: Height as of 04/21/24: 5' 8 . Weight as of this encounter: 232 lb 1.9 oz. BP: 122/80 No LMP recorded. Patient is . ASSESSMENT & PLAN ICD-10-CM 1. 32 weeks gestation of ([facility]) Z3A.32 POCT urinalysis dipstick manually resulted 2. Third trimester ([facility]) Z34.93 POCT urinalysis dipstick manually resulted 3. Restless leg G25.81 POCT urinalysis dipstick manually resulted 4. SGA (small for gestational age) ([facility]) P05.10 POCT urinalysis dipstick manually resulted Return OB: Patient presents today for a routine obstetrics appointment. Patient is currently 32w2d . Patient states she is doing well but has complaints of being tired due to current . Patient has verbalizes frequent movement. labor precautions was discussed/given and patient was instructed to perform kick counts three times a day. Orders Placed This Encounter Procedures POCT urinalysis dipstick manually resulted Follow Up: Patient is to return to office in 2 week for routine OB appointment. Documented by Estrella Slaughter LPN on behalf of: PJ Wilson documented in this encounter [facility] 01-06-2025 History of Presen t illness Narrative Reason [...] reviewed. Vitals: Estimated body mass index is 35.14 kg/m as calculated from the following: Height as of 04/21/24: 5' 8 . Weight as of this encounter: 231 lb 1.9 oz. BP: 122/74 No LMP recorded. Patient is . ASSESSMENT & PLAN ICD-10-CM 1. Third trimester ([facility]) Z34.93 2. 30 weeks gestation of ([facility]) Z3A.30 Return OB: Patient presents today for a routine obstetrics appointment. Patient is currently 30w2d . Patient states she is doing well but has complaints of being tired due to current . Patient has verbalizes frequent movement. labor precautions was discussed/given and patient was instructed to perform kick counts three times a day. No orders of the defined types were placed in this encounter. Follow Up: Patient is to return to office in 2 week for routine OB appointment. Documented by PJ Wilson on behalf of: Tess Malik DO documented in this encounter [facility] 12-22-2024 History of Presen t illness Narrative Reason [...] aura and without status migrainosus, not intractable ([facility]) 07/11/2023 Generalized anxiety disorder ([facility]) 03/25/2024 Gastroesophageal reflux disease without esophagitis 03/25/2024 Allergic rhinitis due to pollen 03/25/2024 Moderate major depression, single episode (HCC) ([facility]) 03/25/2024 Palpitation 04/21/2024 Resolved Ambulatory Problems Diagnosis [...] reviewed. Vitals: Estimated body mass index is 35.73 kg/m as calculated from the following: Height as of 04/21/24: 5' 8 . Weight as of this encounter: 235 lb. BP: 128/80 No LMP recorded. Patient is . ASSESSMENT & PLAN ICD-10-CM 1. Second trimester Z34.92 2. 28 weeks gestation of Z3A.28 3. Restless leg G25.81 magnesium oxide (Mag-Ox) 400 MG tablet 4. size inconsistent with dates O26.849 US OB follow up transabdominal approach Return OB: Patient presents today for a routine obstetrics appointment. Patient is currently 28w1d . Patient states she is doing well but has complaints of being tired due to current . Patient has verbalizes frequent movement. labor precautions was discussed/given and patient was instructed to perform kick counts three times a day. Pt states tums with calcium not helping with restless leg. We will send in magnesium oxide. Orders Placed This Encounter Procedures US OB follow up transabdominal approach Follow Up: Patient is to return to office in 2 week for routine OB appointment. Documented by PJ Wilson on behalf of: PJ Wilson documented in this encounter [facility] 12-07-2024 History of Presen t illness Narrative [...] aura and without status migrainosus, not intractable ([facility]) 07/11/2023 Generalized anxiety disorder ([facility]) 03/25/2024 Gastroesophageal reflux disease without esophagitis 03/25/2024 Allergic rhinitis due to pollen 03/25/2024 Moderate major depression, single episode (HCC) ([facility]) 03/25/2024 Palpitation 04/21/2024 Resolved Ambulatory Problems Diagnosis [...] nursing note reviewed. Exam conducted with a settlement processor present. Vitals: Estimated body mass index is [...] Tess Malik DO documented in this encounter [facility] 11-08-2024 History of Presen t illness [...] aura and without status migrainosus, not intractable ([facility]) 07/11/2023 Generalized anxiety disorder ([facility]) 03/25/2024 Gastroesophageal reflux disease without esophagitis 03/25/2024 Allergic rhinitis due to pollen 03/25/2024 Moderate major depression, single episode (HCC) ([facility]) 03/25/2024 Palpitation 04/21/2024 Resolved Ambulatory Problems Diagnosis [...] nursing note reviewed. Exam conducted with a settlement processor present. Vitals: Estimated body mass index is [...] of DRE Delgadillo documented in this encounter [facility] 05-18-2024 History of Presen t illness Narrative Associated Problem(s): Palpitation Holter with sinus tach and likely related to anxiety. Monitor. Associated Problem(s): Moderate major depression, single episode (HCC) (CMS/HCC) Symptoms stable with prozac and continue. Associated Problem(s): Migraine without aura and without status migrainosus, not intractable ([facility]) COOK stable and use medication PRN. Continue qulipta and topamax. Associated Problem(s): Generalized anxiety disorder ([facility]) Continued symptoms and likely causing palpitations but [...] to anxiety. Monitor. documented in this encounter [facility] 04-21-2024 History of Presen t illness [...] TREADMILL Holter monitor documented in this encounter [facility] 03-25-2024 History of Presen t illness [...] 33 y.o. female who presents for Follow-up ([facility] paperwork). Follow up migraines, depression, anxiety, [...] Continue qulipta and topamax. Relevant Medications rizatriptan ENROLLMENT PROCESSOR (Maxalt-ENROLLMENT PROCESSOR) 10 MG disintegrating tablet Generalized anxiety disorder [...] in this encounter [facility] Evaluation note Diagnosis Palpitation- Primary Palpitations [...] disorder Moderate major depression, single episode (HCC) ([facility]) Major depressive disorder, single episode, moderate Migraine without aura and without status migrainosus, not intractable (CMS/HCC) Generalized anxiety disorder ([facility]) Generalized anxiety disorder [facility]* Diagnosis Migraine without aura and without status migrainosus, not intractable (CMS/HCC)- Primary Vertigo Dizziness and giddiness Moderate major depression, single episode (HCC) ([facility]) Major depressive disorder, single episode, [...] giddiness Moderate major depression, single episode (HCC) ([facility]) Major depressive disorder, single episode, moderate Generalized anxiety disorder (CMS/HCC) Generalized anxiety disorder Gastroesophageal reflux disease without esophagitis Esophageal reflux Chest pain, unspecified type- Primary SOB (shortness of breath) on exertion Shortness of breath Palpitation Palpitations Palpitation- Primary Palpitations Generalized anxiety disorder (CMS/HCC) Generalized anxiety disorder Moderate major depression, single episode (HCC) ([facility]) Major depressive disorder, single episode, moderate Migraine without aura and without status migrainosus, not intractable (CMS/HCC) Second trimester state, incidental [facility]* Diagnosis Migraine without aura and without status migrainosus, not intractable (CMS/HCC)- Primary Vertigo Dizziness and giddiness Moderate major depression, single episode (HCC) ([facility]/HCC) Major depressive disorder, single episode, moderate Generalized anxiety disorder (CMS/HCC) Generalized anxiety disorder Gastroesophageal reflux disease without esophagitis Esophageal reflux Chest pain, unspecified type- Primary SOB (shortness of breath) on exertion Shortness of breath Palpitation Palpitations Palpitation- Primary Palpitations Generalized anxiety disorder (CMS/HCC) Generalized anxiety disorder Moderate major depression, single episode (HCC) ([facility]) Major depressive disorder, single episode, moderate Migraine without aura and without status migrainosus, not intractable (CMS/HCC) Well woman exam with routine gynecological exam Routine gynecological examination Second trimester state, incidental 26 weeks gestation of Vaginal discharge Leukorrhea, not specified as infective STD exposure Diabetes mellitus screening Screening for diabetes mellitus documented [facility]* Diagnosis Migraine without aura and without status migrainosus, not intractable (CMS/HCC)- Primary Vertigo Dizziness and giddiness Moderate major depression, single episode (HCC) ([facility]CC) Major depressive disorder, single episode, moderate Generalized anxiety disorder (CMS/HCC) Generalized anxiety disorder Gastroesophageal reflux disease without esophagitis Esophageal reflux Chest pain, unspecified type- Primary SOB (shortness of breath) on exertion Shortness of breath Palpitation Palpitations Palpitation- Primary Palpitations Generalized anxiety disorder (CMS/HCC) Generalized anxiety disorder Moderate major depression, single episode (HCC) ([facility]/HCC) Major depressive disorder, single episode, moderate Migraine without aura and without status migrainosus, not intractable (CMS/HCC) Second trimester state, incidental 28 weeks gestation of Restless leg Restless legs syndrome (RLS) size inconsistent with dates documented [facility]* Diagnosis Migraine without aura and without status migrainosus, not intractable- Primary Vertigo Dizziness and giddiness Moderate major depression, single episode (HCC) Major depressive disorder, single episode, moderate Generalized anxiety disorder Generalized anxiety disorder Gastroesophageal reflux disease without esophagitis Esophageal reflux Chest pain, unspecified type- Primary SOB (shortness of breath) on exertion Shortness of breath Palpitation Palpitations Palpitation- Primary Palpitations Generalized anxiety disorder Generalized anxiety disorder Moderate major depression, single episode (HCC) Major depressive disorder, single episode, moderate Migraine without aura and without status migrainosus, not intractable Third trimester ([facility]) state, incidental 30 weeks gestation of ([facility]) documented [facility]* Diagnosis Migraine without aura and without status migrainosus, not intractable- Primary Vertigo Dizziness and giddiness Moderate major depression, single episode (HCC) Major depressive disorder, single episode, moderate Generalized anxiety disorder Generalized anxiety disorder Gastroesophageal reflux disease without esophagitis Esophageal reflux Chest pain, unspecified type- Primary SOB (shortness of breath) on exertion Shortness of breath Palpitation Palpitations Palpitation- Primary Palpitations Generalized anxiety disorder Generalized anxiety disorder Moderate major depression, single episode (HCC) Major depressive disorder, single episode, moderate Migraine without aura and without status migrainosus, not intractable 32 weeks gestation of ([facility]) Third trimester ([facility]) state, incidental Restless leg Restless legs syndrome (RLS) SGA (small for gestational age) ([facility]) [id number] without mention of malnutrition, unspecified (weight) documented [facility]* Diagnosis Migraine without aura and without status migrainosus, not intractable- Primary Vertigo Dizziness and giddiness Moderate major depression, single episode (HCC) Major depressive disorder, single episode, moderate Generalized anxiety disorder Generalized anxiety disorder Gastroesophageal reflux disease without esophagitis Esophageal reflux Chest pain, unspecified type- Primary SOB (shortness of breath) on exertion Shortness of breath Palpitation Palpitations Palpitation- Primary Palpitations Generalized anxiety disorder Generalized anxiety disorder Moderate major depression, single episode (HCC) Major depressive disorder, single episode, moderate Migraine without aura and without status migrainosus, not intractable Third trimester ([facility]) state, incidental 37 weeks gestation of ([facility]) documented in this encounter [facility] Summary Purpose Family History No Family History Records FoundNo Family History Records FoundNo Family History Records Found Advance Directives No Advanced Directives Records FoundNo Advanced Directives Records FoundNo Advanced Directives Records Found Reason for Referral Specialty Diagnoses / Procedures Referred By Contac t Referred To Contact Radiology Diagnoses Palpitation Procedures Holter monitor Dillon Silva MD [address] [place] [address] Referral ID Status Reason Start Date Expiration Date V isits Requested Visits Authorized [id number] Pending Review 05/04/2024 10/31/2024 1 1 Referral ID Status Reason Start Date Expiration Date V isits Requested Visits Authorized [id number] Pending Review 04/21/2024 10/18/2024 1 1 Specialty Diagnoses / Procedures Referred By Contac t Referred To Contact Radiology Diagnoses Chest pain, unspecified type SOB (shortness of breath) on exertion Palpitation Procedures STRESS TEST TREADMILL Dillon Silva MD [address] [place] [address] Referral ID Status Reason Start Date Expiration Date V isits Requested Visits Authorized [id number] Authorized 04/21/2024 10/18/2024 1 1 Specialty Diagnoses / Procedures Referred By Huber brown Referred To Contact Cardiology Diagnoses SOB (shortness of breath) on exertion Palpitation Procedures Echocardiogram 2D complete Dillon Silva MD [address] [place] [address] Referral ID Status Reason Start Date Expiration Date Visits Requested Visits Authorized [id number] Pending Review Perform Procedure 04/21/2024 10/18/2024 1 1 Additional Source Comments INFORMATION SOURCE (unrecogn ized section and content) DATE CREATED AUTHOR 11/20/2022 [facility] DATE CREATED AUTHOR AUTHOR'S ORGANIZ ATION 05/05/2024 [facility] DATE CREATED AUTHOR AUTHOR'S ORGANIZ ATION 02/25/2025 [facility] Care Teams (unrecognized sec tion and content) [id number] Analyst Relationship Specialty Start Date End Date Dillon Silva MD [address] [place] [address] PCP - General Family Medicine 02/11/24 As400 Analyst Relationship Specialty Start Date End Date Dillon Silva MD [address] [place] [address] PCP - General Family Medicine 02/11/24 As400 Analyst Relationship Specialty Start Date End Date Dillon Silva MD [address] [place] [address] PCP - General Family Medicine 02/11/24 As400 Analyst Relationship Specialty Start Date End Date Dillon Silva MD [address] [place] [address] PCP - General Family Medicine 02/11/24 As400 Analyst Relationship Specialty Start Date End Date Dillon Silva MD [address] [place] [address] PCP - General Family Medicine 02/11/24 As400 Analyst Relationship Specialty Start Date End Date Dillon Silva MD [address] [place] [address] PCP - General Family Medicine 02/11/24 As400 Analyst Relationship Specialty Start Date End Date Dillon Silva MD [address] [place] [address] PCP - General Family Medicine 02/11/24 As400 Analyst Relationship Specialty Start Date End Date Dillon Silva MD [address] [place] [address] PCP - General Family [facility] 02/11/24 As400 Analyst Relationship Specialty Start Date End Date Dillon Silva MD [address] [place] [address] PCP - General Family Medicine 02/11/24 As400 Analyst Relationship Specialty Start Date End Date Dillon Silva MD [address] [place] [address] PCP - General Family Medicine 02/11/24 Dillon Silva MD [address] [place] [address] [facility] 07/28/24 As400 Analyst Relationship Specialty Start Date End Date Dillon Silva MD [address] [place] [address] [facility] 02/11/24 Dillon Silva MD [address] [place] [address] [facility] 07/28/24 As400 Analyst Relationship Specialty Start Date End Date Dillon Silva MD [address] [place] [address] [facility] 02/11/24 Dillon Silva MD [address] [place] [address] [facility] 07/28/24 As400 Analyst Relationship Specialty Start Date End Date Dillon Silva MD [address] [place] [address] [facility] 02/11/24 Dillon Silva MD [address] [place] [address] [facility] 07/28/24 As400 Analyst Relationship Specialty Start Date End Date Dillon Silva MD [address] [place] [address] [facility] 02/11/24 Dillon Silva MD [address] [place] [address] [facility] 07/28/24 As400 Analyst Relationship Specialty Start Date End Date Dillon Silva MD [address] [place] [address] PCP [facility] 02/11/24 Dillon Silva MD [address] [place] [address] [facility] 07/28/24 As400 Analyst Relationship Specialty Start Date End Date Dillon Silva MD [address] [place] [address] [facility] 02/11/24 Dillon Silva MD [address] [place] [address] [facility] 07/28/24 As400 Analyst Relationship Specialty Start Date End Date Dillon Silva MD [address] [place] [address] [facility] 02/11/24 Dillon Silva MD [address] [place] [address] [facility] 07/28/24 Reason for Visit (unrecogniz ed [...] BE BASED ON THE PRIMARY CLINICAL RECORDS. [facility] [employer] [facility] provides no warranty or guarantee of the accuracy or completeness of information in this document.
[2025-02-26 02:34] VITALS: BP 126/87; PULSE 93; TEMP 36.6
[2025-02-26 02:35] LABS: Glucose Urine UA NEGATIVE (NEGATIVE)
[2025-02-26 02:42] LABS: Cast Seen? NONE SEEN #/LPF (NONE SEEN); Crystals Seen? None Seen #/HPF (None Seen); Urine Culture Indicated YES-LC
[2025-02-26] MEDS: NITROFURANTOIN MONOHYD/MAC-CRST 100 MG CAPSULE PO (03:10)
== END 2025-02-26 03:25 | disposition home or self-care (01) ==
PROVIDERS: Admitting Provider Obstetrics & Gynecology; PCP Family Medicine; Visit Provider Obstetrics & Gynecology
DX: O26.893 Other specified pregnancy related conditions, third trimester (principal); R39.9 Unspecified symptoms and signs involving the genitourinary system; Z3A.37 37 weeks gestation of pregnancy
CPT/HCPCS: 59025; 81001; 87086; G0378; G0379

== ENCOUNTER 2025-03-08 04:53 | Inpatient (IN) | payer OTHER, SELFPAY ==
--- OUTSIDE RECORDS SUMMARY | 2025-02-23 08:50 | XMS_ITS | Encounter Summary ---
Author Organization [facility] Address [address] [place] [address] Care Team Providers Care State Archivist Name Role Phone Dillon Shipman MD Primary Care Provider [phone] Dillon Shipman MD Unavailable Reason for Visit * Reason Comments Routine Visit Encounter Details Date Type Department Care Team (Late st Contact Info) Description 02/23/2025 8:50 AM EDT Routine [facility] [address] [place] [place] [address] Sherie Donnelly PA [address] [place], [facility] Third trimester ([facility] 37 weeks gestation of ([facility]) Social History Tobacco Use Types Packs/Day [...] Never 03/25/2024 How often do you attend [facility] or bahai services? 1 to 4 times per year [...] Recorded Patient Health Questionnaire-2 Score 0 02/14/2025 [facility] of Occupat ional Health - Occupational Stress [...] in the past [address] [facility], were you homeless or living [...] Sign Reading Time Taken Comments Blood Pressure 116/76 02/23/2025 9:04 AM EDT Pulse - - Temperature - - Respiratory Rate - - Oxygen Saturation - - Inhaled Oxygen Concentration - - Weight 106 kg (233 lb 12.8 oz) 02/23/2025 9:04 A M EDT Height - - Body Mass Index 35.55 04/21/2024 9:35 AM EDT documented in this encounter Progress Notes * PJ Wilson - 02/23/2025 8:50 AM EDT Reason for Appointment: Patient ID: Mirlande Luna is a 34 y.o. female who presents for Routine Visit Patient presents today for Return OB appointment. MEDICATIONS Current Outpatient Medications Medication Instructions albuterol HFA 90 mcg/act inhaler 2 puffs, Inhalation, Every 4 hours PRN esomeprazole (NEXIUM) 40 mg, Oral, Daily magnesium oxide (MAG-OX) 400 mg, Oral, Daily meclizine (ANTIVERT) 25 mg, Oral, Every 6 hours topiramate (TOPAMAX) 100 mg, Oral, 2 times daily ALLERGIES Allergies Allergen Reactions Ciprofloxacin Nausea Only and GI intolerance PROBLEMS Active Ambulatory Problems Diagnosis Date Noted Migraine without aura and without status migrainosus, not intractable 07/11/2023 Generalized anxiety disorder 03/25/2024 Gastroesophageal reflux disease without esophagitis 03/25/2024 Allergic rhinitis due to pollen 03/25/2024 Moderate major depression, single episode (HCC) 03/25/2024 Palpitation 04/21/2024 Resolved Ambulatory Problems Diagnosis [...] Exam Constitutional: Appearance: Normal appearance. She is normal weight. HENT: Head: Normocephalic. Cardiovascular: Rate and Rhythm: Normal rate. Pulses: Normal pulses. Pulmonary: Effort: Pulmonary effort is normal. Breath sounds: Normal breath sounds. Abdominal: Palpations: Abdomen is soft. Musculoskeletal: General: Normal range of motion. Neurological: General: No focal deficit present. Mental Status: She is alert and oriented to person, place, and time. Psychiatric: Mood and Affect: Mood normal. Behavior: Behavior normal. Thought Content: Thought content normal. Judgment: Judgment normal. Vitals and nursing note reviewed. Vitals: Estimated body mass index is 35.55 kg/m?? as calculated from the following: Height as of 04/21/24: 5' 8 . Weight as of this encounter: 233 lb 12.8 oz. BP: 116/76 No LMP recorded. Patient is . ASSESSMENT & PLAN ICD-10-CM 1. Third trimester ([facility]) Z34.93 POCT urinalysis dipstick manually resulted 2. 37 weeks gestation of ([facility]) Z3A.37 POCT urinalysis dipstick manually resulted Return OB: Patient presents today for a routine obstetrics appointment. Patient is currently 37w1d . Patient states she is doing well but has complaints of being tired due to current . Patient has verbalizes frequent movement. labor precautions was discussed/given and patient was instructed to perform kick counts three times a day. Orders Placed This Encounter Procedures POCT urinalysis dipstick manually resulted Follow Up: Patient is to return to office in 1 week for routine OB appointment. Documented by PJ Wilson on behalf of: PJ Wilson documented in this encounter Plan of Treatment Upcoming Encounters Date Type Department Care Team (Late st Contact Info) Description 03/31/2025 9:30 AM EDT Procedure Visit [facility] [address] [place] [phone] Paul Malik DO [address] [place] [address] documented as of this encounter Procedures Procedure Name Priority Date/Time Associated Diagnosis Comments POCT URINALYSIS DIPSTICK Routine 02/23/2025 9:47 AM EDT Third trimester ([facility]) 37 weeks gestation of ([facility]) documented in this encounter Results * (ABNORMAL) POCT urinalysis dipstick manually resulted (02/23/2025 9:47 AM EDT) Color, UA Yellow Clarity, UA Clear Glucose, UA Negative Negative - 2000(110) ++++ mg/dL Bilirubin, UA Negative Negative - 4(70) +++ mg/dL Ketones, UA Positive Negative - 160(16) ++++ mg/dL Spec Grav, UA 1.020 1 - 1.03 Blood, UA Negative Negative - 50 Eulalio/mcL pH, UA 6.0 5 - 9 Protein, UA Positive Negative - 2000(20) ++++ mg/dL Urobilinogen, UA 1.0 0.2 - 12 mg/dL Leukocytes, UA Positive Negative - 500+++ Yancy/mcL Nitrite, UA Negative Negative - Positive Urine 02/23/2025 9:47 AM EDT us Sherie OLIVA POINT OF CARE TEST ENTER/EDIT OR DERABLES Final Result documented in this encounter Visit Diagnoses Diagnosis Third trimester ([facility]) state, incidental 37 weeks gestation of ([facility]) documented in this encounter Care Teams State Archivist Relationship Specialty Start Date End Date Dillon Shipman MD [address] [place] [address] PCP - General Family Medicine 02/11/24 Dillon Shipman MD [address] [place] [phone] PCP - [facility] 07/28/24 documented as of this encounter
--- OUTSIDE RECORDS SUMMARY | 2025-03-02 11:30 | XMS_ITS | Encounter Summary ---
Author Organization [facility] Address [address] [place] [address] Care Team Providers Care Water Plumber Name Role Phone Dillon Shipman MD Primary Care Provider [phone] Dillon Shipman MD Unavailable Reason for Visit * Reason Comments Routine Visit Encounter Details Date Type Department Care Team (Late st Contact Info) Description 03/02/2025 11:30 AM EDT Routine [facility] [address] [place] [phone] Paul Malik DO [address] [place] [address] Third trimester ([facility] 38 weeks gestation of ([facility]); Urinary tract infection without hematuria, site unspecified Social History Tobacco Use Types Packs/Day Years [...] Never 03/25/2024 How often do you attend [facility] or islam services? 1 to 4 times per year 03/25/2024 Do you belong to any clubs o r organizations such as latter day groups, unions, fraternal or athletic groups, or [...] Recorded Patient Health Questionnaire-2 Score 0 02/14/2025 [facility] - Occupational Stress Questionnaire Answer Date [...] any time in the past 12 m [facility], were you homeless or living in a [place] health [place] facility (including now)? No 03/25/2024 Estimated Date of [...] Sign Reading Time Taken Comments Blood Pressure 122/78 03/02/2025 11:31 AM EDT Pulse - - Temperature - - Respiratory Rate - - Oxygen Saturation - - Inhaled Oxygen Concentration - - Weight 106 kg (234 lb) 03/02/2025 11:31 AM EDT Height - - Body Mass Index 35.58 04/21/2024 9:35 AM EDT documented in this encounter Progress Notes * Sinai Beach LPN - 03/02/2025 11:30 AM EDT Reason for Appointment: Patient ID: [...] appearance. She is well-developed. Genitourinary: Vulva normal. Cardiovascular: Rate and Rhythm: Normal rate and [...] nursing note reviewed. Exam conducted with a low voltage electrician present. Vitals: Estimated body mass index is 35.58 kg/m?? as calculated from the following: Height as of 04/21/24: 5' 8 . Weight as of this encounter: 234 lb. BP: 122/78 No LMP recorded. Patient is . ASSESSMENT & PLAN ICD-10-CM 1. Third trimester ([facility]) Z34.93 POCT urinalysis dipstick manually resulted 2. 38 weeks gestation of ([facility]) Z3A.38 3. Urinary tract infection without hematuria, site unspecified N39.0 Urine culture Return OB: Patient presents today for a routine obstetrics appointment. Patient is currently 38w1d . Patient states she is doing well but has complaints of being tired due to current . Patient has verbalizes frequent movement. labor precautions was discussed/given and patient was instructed to perform kick counts three times a day. Pt to be induced 03/08/25 at 0500. IOL signed Orders Placed This Encounter Procedures Urine culture POCT urinalysis dipstick manually resulted Follow Up: Patient is to return to office in 1 week for routine OB appointment. Documented by Sinai Beach LPN on behalf of: Paul Malik DO documented in this encounter Plan of Treatment Upcoming Encounters Date Type Department Care Team (Late st Contact Info) Description 03/31/2025 9:30 AM EDT Procedure Visit [facility] [address] [place] [phone] Paul Malik DO [address] [place] [address] Scheduled Orders Name Type Priority Associated Diagnoses Orde r Schedule Urine culture Microbiology Routine Urinary tract infection without hematuria, site unspecified Ordered: 03/02/2025 documented as of this encounter Procedures Procedure Name Priority Date/Time Associated Diagnosis Comments POCT URINALYSIS DIPSTICK Routine 03/02/2025 11:31 AM EDT Third trimester ([facility]) documented in this encounter Results * (ABNORMAL) POCT urinalysis dipstick manually resulted (03/02/2025 11:31 AM EDT) Color, UA Velia Clarity, UA Clear Glucose, UA Negative Negative - 2000(110) ++++ mg/dL Bilirubin, UA Negative Negative - 4(70) +++ mg/dL Ketones, UA Positive Negative - 160(16) ++++ mg/dL Comment:+ Spec Grav, UA 1.025 1 - 1.03 Blood, UA Negative Negative - 50 Eulalio/mcL pH, UA 6.0 5 - 9 Protein, UA 1+ Negative - 2000(20) ++++ mg/dL Urobilinogen, UA 1.0 0.2 - 12 mg/dL Leukocytes, UA 1+ Negative - 500+++ Yancy/mcL Nitrite, UA Negative Negative - Positive Urine 03/02/2025 11:3 1 AM EDT Paul Malik DO POINT OF CARE TEST ENTER/EDIT OR DERABLES Final Result documented in this encounter Visit Diagnoses Diagnosis Third trimester ([facility]) state, incidental 38 weeks gestation of ([facility]) Urinary tract infection without hematuria, site unspecified documented in this encounter Care Teams Water Plumber Relationship Specialty Start Date End Date Dillon Shipman MD [address] [place] [address] PCP - General Family Medicine 02/11/24 Dillon Shipman MD [address] [place] [address] PCP - [facility] 07/28/24 documented as of this encounter
[2025-03-08] VITALS (37 sets, daily range): BP systolic 83–171; BP diastolic 50–90; PULSE 46–81; TEMP 35.9–36.8
--- OUTSIDE RECORDS SUMMARY | 2025-03-08 04:58 | XMS_ITS | CCD ---
Author Organization [facility] Care Team Providers Care Flower Grower Name Role Phone MARKER ., DR KNOTT [...] Unavailable Dillon Silva MD Primary Care Provider [phone] Dillon Silva MD Unavailable HELENA, TESS Attending Unavailable HELENA, TESS Attending Unavailable LUBNA, SHERIE Attending Unavailable LUBNA, SHERIE Referring Unavailable HELENA, TESS Attending Unavailable LUBNA, SHERIE Attending Unavailable HELENA, TESS Attending Unavailable LUBNA, SHERIE Attending Unavailable HELENA, TESS Attending Unavailable DILLON SILVA Attending Unavailable RICARDO, DILLON Attending Unavailable RICARDO, DILLON Attending Unavailable Allergies Allergy Classification Reported Allergen(s) Allergy Type Date of Onset Reaction(s) Facility (1 source) Ciprofloxacin Drug Allergy 0 [facility] Repository (20 sources) Ciprofloxacin; Translations: [CIPROFLOXACIN] [...] times a day as needed 07/31/2022 Active [id number] 200 actuat albuterol 0.09 mg/actuat metered dose [...] (Other) Start: 06-16-2024 take 1 tablet by [facility] three times daily as needed for anxiety [...] Active Start: 05-04-2024 take 1 capsule by mo [facility] once daily esomeprazole (NexIUM) [address] capsule Indications: Gastro-esophageal reflux disease without esophagitis TAKE 1 CAPSULE BY MOUTH DAILY 30 capsule 5 05/04/2024 Active Start: 10-22-2023 take 1 capsule by mo [facility] once daily esomeprazole (NexIUM) [address] [...] Discontinued magnesium oxide 400 mg oral tablet (19 sources) Start: 12-22-2024 End: 12-22-2025 take 1 [...] and Serotonin-1d Receptor Agonist Start: 03-25-2024 rizatriptan COOK FISH AND CHIPS (Maxalt-COOK FISH AND CHIPS) 10 MG disintegrating tablet Indications: Migraine without [...] care facility (current) drug therapy; Translations: [OTH TICKET AGENT CURRENT DRUG THERAPY] Onset: 3 Episodic Other aftercare (1 source) detention (current) use of hormonal contraceptives; Translations: [JAIL HORMONAL CONTRACEPTIVES] Onset: 3 Episodic Other complications of (2 sources) size does not accord with dates; Translations: [Uterine size-date discrepancy, unspecified trimester] 12-22-2024 Episodic Other female genital disorders (2 sources) Vaginal discharge; Translations: [Other specified noninflammatory disorders of vagina] 12-07-2024 Episodic Other gastrointestinal disorders (5 sources) Constipation, unspecified; Translations: [CONSTIPATION UNSPECIFIED] Onset: 2 Episodic Other hereditary and degenerative nervous system conditions (6 sources) Restless legs; Translations: [Restless legs syndrome] [...] 3 Chronic Other and delivery including normal (16 sources) Second trimester ; Translations: [Encounter for [...] [37 weeks gestation of ] 02-23-2025 Episodic Residual codes; unclassified (2 sources) Gestation period, 36 weeks; Translations: [36 weeks gestation of ] 02-15-2025 Episodic Residual codes; unclassified (2 sources) Gestation period, 38 weeks; Translations: [38 weeks gestation of ] 03-02-2025 Episodic Screening and history of mental health and substance abuse codes (1 source) Personal history of nicotine dependence; Translations: [PERSONAL HISTORY OF NICOTINE DEPEND] Onset: 3 Episodic Short gestation; low weight; and growth retardation (4 sources) [id number] baby; Translations: [ small for gestational age, unspecified weight] 01-20-2025 [...] [Disorder of thyroid, unspecified] Onset: 4 Episodic Urinary tract infections (2 sources) Urinary tract infectious disease; Translations: [Urinary tract infection, site not specified] 03-02-2025 Episodic Past or Other Problems Problem Classification [...] Range Facility Urinalysis macro (dipstick) panel (U)on 03-02-2025 Bilirubin, UA Negative Negative - 4(70) +++ mg/dL [facility] Blood, UA Negative Negative - 50 Eulalio/mcL [facility] Clarity, UA Clear [facility] Color, UA Velia [facility] Glucose, UA Negative Negative - 1999(110) ++++ mg/dL [facility] Interpretation and review of laboratory results Abnormal [facility] Ketones, UA Positive Negative - 160(16) ++++ mg/dL [facility] Comment on above: + Leukocytes, UA 1+ Negative - 500+++ Yancy/mcL [facility] Nitrite, UA Negative Negative - Positive [facility] pH, UA 6 5 - 9 [facility] Protein, UA 1+ Negative - 1999(20) ++++ mg/dL [facility] Spec Grav, UA 1.025 1 - 1.03 [facility] Urobilinogen, UA 1.0 0.2 - 12 mg/dL [facility] URINE CULTURE, ROUTINEon Bacteria identified Cx Nom (U) Urine Culture, Routine [facility] Bacteria identified Cx Nom (U) Mixed urogenital klaudia [facility] Bacteria identified Cx Nom (U) 10,000-25,000 colony forming units per mL [facility] Bacteria identified Cx Nom (U) Performed [facility]: [facility] B[facility] identified Cx Nom (U) [address], [place] [id number] [facility] Bacteria identified Cx Nom (U) Meat Supervisor: Osmin Joel PhD, Phone: [phone] [facility] Urinalysis macro (dipstick) panel (U)on 02-23-2025 Bilirubin, UA Negative Negative - 4(70) +++ mg/dL [facility] Blood, UA Negative Negative - 50 Eulalio/mcL [facility] Clarity, UA Clear [facility] Color, UA Yellow [facility] Glucose, UA Negative Negative - 1999(110) ++++ mg/dL [facility] Interpretation and review of laboratory results Abnormal [facility] Ketones, UA Positive Negative - 160(16) ++++ mg/dL [facility] Leukocytes, UA Positive Negative - 500+++ Yancy/mcL [facility] Nitrite, UA Negative Negative - Positive [facility] pH, UA 6 5 - 9 [facility] Protein, UA Positive Negative - 2000(20) ++++ mg/dL [facility] Spec Grav, UA 1.02 1 - 1.03 [facility] Urobilinogen, UA 1.0 0.2 - 12 mg/dL [facility] CULTURE+RFLXon STREP GP B CULTURE+RFLX Strep Gp B Culture+Rflx [facility] Healthcare STREP GP B CULTURE+RFLX Negative [facility] STRE[facility] GP B CULTURE+RFLX Centers for Disease Control and Prevention (CDC) and [facility] Healthcare STREP GP B CULTURE+RFLX [place] [employer] [facility] Healthcare STREP GP B CULTURE+RFLX (ACOG) guidelines for prevention of group B [facility] STREP GP B CULTURE+RFLX streptococcal (GBS) disease specify co-collection of [facility] Healthcare STREP GP B CULTURE+RFLX a vaginal and rectal swab specimen to maximize [facility] STREP GP B CULTURE+RFLX sensitivity of GBS detection. Per the CDC and ACOG, [facility] Healthcare STREP GP B CULTURE+RFLX swabbing both the lower vagina and rectum [facility] STRE[facility] GP B CULTURE+RFLX substantially increases the yield of detection [facility] STREP GP B CULTURE+RFLX compared with sampling the vagina alone. [facility] STREP GP B CULTURE+RFLX Penicillin G, ampicillin, or cefazolin are indicated [facility] STRE[facility] GP B CULTURE+RFLX for intrapartum prophylaxis of GBS [facility] STREP GP B CULTURE+RFLX colonization. Reflex susceptibility testing should be [facility] Healthcare STREP GP B CULTURE+RFLX performed prior to use of clindamycin only on GBS [facility] Healthcare STREP GP B CULTURE+RFLX isolates from penicillin-allergic women who are [facility] STRE[facility] GP B CULTURE+RFLX considered a high risk for anaphylaxis. Treatment with [facility] Healthcare STREP GP B CULTURE+RFLX vancomycin without additional testing is warranted if [facility] STRE[facility] GP B CULTURE+RFLX resistance to clindamycin is noted. [facility] STREP GP B CULTURE+RFLX Performed at: [facility] STREP GP B CULTURE+RFLX [address], [place] [id number] [facility] STREP GP B CULTURE+RFLX Meat Supervisor: Osmin Joel PhD, Phone: [phone] [facility] Urinalysis macro (dipstick) panel (U)on 02-15-2025 Bilirubin, UA Negative Negative - 4(70) +++ mg/dL [facility] Blood, UA Negative Negative - 50 Eulalio/mcL [facility] Clarity, UA Cloudy [facility] Color, UA Yellow [facility] Glucose, UA Negative Negative - 1999(110) ++++ mg/dL [facility] Interpretation and review of laboratory results Abnormal [facility] Ketones, UA Negative Negative - 160(16) ++++ mg/dL [facility] Leukocytes, UA Moderate Negative - 500+++ Yancy/mcL [facility] Nitrite, UA Negative Negative - Positive [facility] pH, UA 6 5 - 9 [facility] Protein, UA Trace Negative - 1999(20) ++++ mg/dL [facility] Spec Grav, UA 1.01 1 - 1.03 [facility] Urobilinogen, UA 1.0 0.2 - 12 mg/dL [facility] Urinalysis macro (dipstick) panel (U)on 01-20-2025 Bilirubin, UA Negative Negative - 4(70) +++ mg/dL [facility] Blood, UA Negative Negative - 50 Eulalio/mcL [facility] Clarity, UA Clear [facility] Color, UA Yellow [facility] Glucose, UA Negative Negative - 1999(110) ++++ mg/dL [facility] Interpretation and review of laboratory results Abnormal [facility] Ketones, UA Negative Negative - 160(16) ++++ mg/dL [facility] Leukocytes, UA Positive Negative - 500+++ Yancy/mcL [facility] Comment on above: small Nitrite, UA Negative Negative - Positive [facility] pH, UA 7.5 5 - 9 [facility] Protein, UA Positive Negative - 1999(20) ++++ mg/dL [facility] Comment on above: 30 Spec Grav, UA 1.025 1 - 1.03 [facility] Urobilinogen, UA 0.2 0.2 - 12 mg/dL [facility] US OB FOLLOW UP TRANSABDOMIN AL [...] II, MD, PHD at 30-Dec-2024 08:48:58 AM [facility] Normal Not Available Comment on above: Order Comment: US OB SCAN FOR GROWTH Estimated Date of Delivery: 03/15/25 Gestational Age as of 12/22/2024: 28w1d IGP,APTIMA HPV,AGE GDLNon AGE GDLN ACOG TESTING Note . [facility] Comment on above: TESTS RESULT FLAG UN ITS REF RANGE LAB Clinician Provided Cytology Information Source.............[employer] No. of containers..01 ThinPrep Vial Age Algo ACOG Dimple... 30 FLAG LEGEND: L-Low Normal,H-High Normal,LL-Alert Low,HH-Alert High <-Panic Low,>-Panic High,A-Abnormal,AA-Critical Abnormal Performed at: 01 =[address] [address] Marimar Johnson MD, HPV APTIMA Negative Negative [facility] Comment on above: This nucleic acid am plification test detects fourteen high- risk HPV types (16,18,31,33,35,39,45,51,52,56,58,59,66,68) without differentiation. Performed at: =[address] [id number] Meat Supervisor: Marimar Johnson MD, Phone: [phone] Performed at: [address] [id number] Meat Supervisor: Marimar Johnson MD, Phone: [phone] IGP, APTIMA HPV, RFX 16/18,45 Note . [facility] Comment on above: TESTS RESULT FLAG UN ITS REF RANGE LAB DIAGNOSIS: 02 NEGATIVE FOR INTRAEPITHELIAL LESION OR MALIGNANCY. Specimen adequacy: 02 Satisfactory for evaluation. No endocervical component is identified. Performed by: Hiram Garvey, Regulatory Manager ([facility]) . 02 Note: Note 02 The Pap [...] <-Panic Low,>-Panic High,A-Abnormal,AA-Critical Abnormal Performed at: [address] [address] Marimar Johnson MD, SPATULA-ALONE [facility]ERV[facility] ALL CBC WITH AUTO DIFFon BASOPHILS ABSOLUTE AUTO 0 [facility] Basophils/100 WBC (Bld) 0.2 % 0.2 - 2.0 % [facility] Eosinophils/100 WBC (Bld) 0.8 % Low 0.9 - 7.0 % [facility] Erythrocyte distribution width (RBC) [Ratio] 13 % 11.0 - 15.0 % [facility] Hematocrit (Bld) [Volume fraction] 33.7 % Low 36.0 - 48.0 % [facility] Hemoglobin (Bld) [Mass/Vol] 11.1 g/dL Low 12.0 - 16.0 g/dL [facility] IMMATURE GRANULOCYTES ABS AUTO 0.04 High [facility] Immature granulocytes/100 WBC (Bld) 0.5 % 0.0 - 0.5 % [facility] Interpretation and review of laboratory results Abnormal [facility] LYMPHOCYTES ABSOLUTE AUTO 1.7 [facility] Lymphocytes/100 WBC (Bld) 19 % Low 20.5 - 60.0 % [facility] MCH (RBC) [Entitic mass] 30.2 pg 26.7 - 34.0 pg [facility] MCHC (RBC) [Mass/Vol] 32.9 g/dL 29.9 - 35.2 g/dL [facility] MCV (RBC) [Entitic vol] 91.6 fL 81.0 - 99.0 fL [facility] MONOCYTES ABSOLUTE AUTO 1 High [facility] Monocytes/100 WBC (Bld) 11.4 % 1.7 - 12.0 % [facility] NEUTROPHILS ABSOLUTE AUTO 5.9 [facility] Neutrophils/100 WBC (Bld) 68.1 % 43.0 - 75.0 % [facility] Platelet mean volume (Bld) [Entitic vol] 9.3 fL Low 9.5 - 13.5 fL [facility] TBH EO # 0.1 [facility] PLT 293 [facility] RBC 3.68 Low [facility] WBC 8.7 [facility] Urinalysis macro (dipstick) panel (U)on 12-07-2024 Bilirubin, UA Negative Negative - 4(70) +++ mg/dL [facility] Blood, UA Negative Negative - 50 Eulalio/mcL [facility] Clarity, UA Clear [facility] Color, UA Yellow [facility] Glucose, UA Negative Negative - 1999(110) ++++ mg/dL [facility] Interpretation and review of laboratory results Normal [facility] Ketones, UA Positive Negative - 160(16) ++++ mg/dL [facility] Leukocytes, UA Trace Negative - 500+++ Yancy/mcL [facility] Nitrite, UA Negative Negative - Positive [facility] pH, UA 6.5 5 - 9 [facility] Protein, UA Negative Negative - 2000(20) ++++ mg/dL [facility] Spec Grav, UA 1.02 1 - 1.03 [facility] Urobilinogen, UA 1.0 0.2 - 12 mg/dL [facility] US OB 14+ WEEKS ANATOMY SCAN [...] II, MD, PHD at 08-Nov-2024 11:47:19 PM [facility] Normal Not Available Comment on above: [...] UA Negative Negative - 1999(110) ++++ mg/dL [facility] Interpretation and review of laboratory results Normal [facility] Ketones, UA Negative Negative - 160(16) ++++ mg/dL [facility] Leukocytes, UA Positive Negative - 500+++ Yancy/mcL [facility] Comment on above: small Nitrite, UA Negative Negative - Positive [facility] pH, UA 7 5 - 9 [facility] Protein, UA Negative Negative - 1999(20) ++++ mg/dL [facility] Spec Grav, UA 1.01 1 - 1.03 [facility] Urobilinogen, UA 0.2 0.2 - 12 mg/dL [facility] URINE CULTURE, ROUTINEon Bacteria identified Cx Nom (U) Urine Culture, Routine [facility] Bacteria identified Cx Nom (U) Culture shows less than 10,000 colony forming units of bacteria per [facility] Bacteria identified Cx Nom (U) milliliter of urine. This colony count is not generally considered [facility] Bacteria identified Cx Nom (U) to be clinically significant. [facility] Bacteria identified Cx Nom (U) Performed at: [facility] Bacteria identified Cx Nom (U) [address] [place] [id number] [facility] Bacteria identified Cx Nom (U) Meat Supervisor: Osmin Joel PhD, Phone: [phone] [facility] BASIC METABOLIC PANLon 05-04 Anion gap [Moles/Vol] 10 mmol/L Normal 5-15 [facility] Comment on above: Performed By: #### B ANNETTE LOVE, , TSHR, CBCA #### [facility] ([id number]) [address], [address] [place] [address] Calcium [Mass/Vol] 9.0 mg/dL Normal 8.5-10.5 [facility] Comment on above: Performed By: #### B IVAN LIVR, , TSHR, CBCA #### [facility] ([id number]) [address], [address] [place] [address] Chloride [Moles/Vol] 110 mmol/L High 98-109 [facility] Comment on above: Performed By: #### B IVAN, LIVR, , TSHR, CBCA #### [facility] ([id number]) [address] [address] [place] [address] CO2 [Moles/Vol] 21 mmol/L Low 22-32 [facility] Comment on above: Performed By: #### B MP, LIVR, 10012-4, TSHR, CBCA #### [facility] ([id number]) [address] [address] Creatinine [Mass/Vol] 0.78 mg/dL Normal 0.40-1.00 [facility] Comment on above: Result Comment: METH OD TRACEABLE TO IDMS STANDARD Performed By: #### B IVAN, LIVR, , TSHR, CBCA #### [facility] ([id number]) [address], [address] [place] [address] eGFR (CKD-EPI) NON-RACE DEPENDENT >90 Normal >59 [facility] Comment on above: Result Comment: Reported eGFR is based on the CKD-EPI 2020 equation that does not use a race coefficient. Performed By: #### B IVAN, LIVR, , TSHR, CBCA #### [facility] ([id number]) [address] [address] [place] [address] Glucose [Mass/Vol] 83 mg/dL Normal 65-99 [facility] Comment on above: Performed By: #### B MP, LIVR, 26804-2, TSHR, CBCA #### [facility] ([id number]) [address] [address] [place] [address] Potassium [Moles/Vol] 3.9 mmol/L Normal 3.5-5.0 [facility] Comment on above: Performed By: #### B MP, LIVR, 73725-9, TSHR, CBCA #### [facility] ([id number]) [address], [facility] [address] [place] [address] Sodium [Moles/Vol] 141 mmol/L Normal 134-146 [facility] Comment on above: Performed By: #### B MP, LIVR, , TSHR, CBCA #### [facility] ([id number]) [address], [address] [address] Urea nitrogen [Mass/Vol] 12 mg/dL Normal 5-23 [facility] Comment on above: Performed By: #### B MP, LIVR, , TSHR, CBCA #### [facility] ([id number]) [address], [address] [address] Basic metabolic 1998 panelon 05-04-2024 Anion gap [Moles/Vol] 10 mmol/L 5 - 15 mmol/L [facility] Calcium [Mass/Vol] 9.0 mg/dL 8.5 - 10. 5 mg/dL [facility] Chloride [Moles/Vol] 110 mmol/L High 98 - 109 mmol/L [facility] CO2 [Moles/Vol] 21 mmol/L Low 22 - 32 mmol/L [facility] Creatine [Mass/Vol] 0.78 mg/dL 0.40 - 1 .00 mg/dL [facility] Comment on above: METHOD TRACEABLE TO [facility] STANDARD GFR/1.73 sq M.predicted among non-blacks MDRD (S/P/Bld) [Vol rate/Area] mL/min/{1.73_m2} - PINF [facility] Comment on above: Reported eGFR is based on the CKD-EPI 2020 equation that does not use a race coefficient. PERFORMED AT [facility] [address] [facility] [place] [address],[place] [address] Glucose [Mass/Vol] 83 mg/dL 65 - 99 mg/dL [facility] Interpretation and review of laboratory results Abnormal [facility] Potassium [Moles/Vol] 3.9 mmol/L 3.5 - 5.0 mmol/L [facility] Sodium [Moles/Vol] 141 mmol/L 134 - 146 mmol/L [facility] Urea nitrogen [Mass/Vol] 12 mg/dL 5 - 23 mg/dL [facility] CBC AND AUTO DIFFon 05-04-20 24 ABSOLUTE BASOPHIL 0.1 X10E9/L Normal 0.0-0.2 [facility] Comment on above: Performed By: #### B MP, LIVR, 59925-7, TSHR, CBCA #### [facility] ([id number]) [address], [address] [place] [address] ABSOLUTE NEUTROPHIL 4.1 X10E9/L Normal 1.5-6.6 [facility] Comment on above: Performed By: #### B MP, LIVR, , TSHR, CBCA #### [facility] ([id number]) [address], [address] [place] [address] Basophils/100 WBC (Bld) 1.3 % Normal [facility] Comment on above: Performed By: #### B MP, LIVR, , TSHR, CBCA #### [facility] ([id number]) [address], [address] [place] [address] Eosinophils (Bld) [#/Vol] 0.1 10*3/uL Normal 0.0-0.4 [facility] Comment on above: Performed By: #### B MP, LIVR, , TSHR, CBCA #### [facility] ([id number]) [address], [address] [place] [address] Eosinophils/100 WBC (Bld) 1.1 % Normal [facility] Comment on above: Performed By: #### B MP, LIVR, , TSHR, CBCA #### [facility] ([id number]) [address], [address] [place] [address] Erythrocyte distribution width (RBC) [Ratio] 14.0 % Normal 11.5-15.0 [facility] Comment on above: Performed By: #### B MP, LIVR, 55675-3, TSHR, CBCA #### [facility] ([id number]) [address] [address] [place] [address] Hematocrit (Bld) [Volume fraction] 42.3 % Normal 35-47 [facility] Comment on above: Performed By: #### B MP, LIVR, , TSHR, CBCA #### [facility] ([id number]) [address] [address] [place] [address] Hemoglobin (Bld) [Mass/Vol] 14.4 g/dL Normal 11.7-15.5 [facility] Comment on above: Performed By: #### B MP, LIVR, , TSHR, CBCA #### [facility] ([id number]) [address] [address] [place] [address] Lymphocytes (Bld) [#/Vol] 1.4 10*3/uL Normal 1.0-3.5 [facility] Comment on above: Performed By: #### B IVAN, LIVR, , TSHR, CBCA #### [facility] ([id number]) [address] [address] [place] [address] Lymphocytes/100 WBC (Bld) 22.1 % Normal [facility] Comment on above: Performed By: #### B MP, LIVR, 99491-5, TSHR, CBCA #### [facility] ([id number]) [address] [address] [place] [address] MCH (RBC) [Entitic mass] 31.1 pg Normal 27-34 [facility] Comment on above: Performed By: #### B MP, LIVR, 04442-4, TSHR, CBCA #### [facility] ([id number]) [address] [address] [place] [address] MCHC (RBC) [Mass/Vol] 33.9 g/dL Normal 32-36 [facility] Comment on above: Performed By: #### B MP, LIVR, 28668-2, TSHR, CBCA #### [facility] ([id number]) [address], [address] [place] [address] MCV (RBC) [Entitic vol] 92 fL Normal 80-100 [facility] Comment on above: Performed By: #### B MP, LIVR, 29952-3, TSHR, CBCA #### [facility] ([id number]) [address] [address] [place] [address] Monocytes (Bld) [#/Vol] 0.6 10*3/uL Normal 0-0.9 [facility] Comment on above: Performed By: #### B MP, LIVR, 46109-5, TSHR, CBCA #### [facility] ([id number]) [address] [facility] [address] [place] [address] Monocytes/100 WBC (Bld) 9.3 % Normal [facility] Comment on above: Performed By: #### B MP, LIVR, 82578-5, TSHR, CBCA #### [facility] ([id number]) [address], [facility] [address] [place] [address] MPV PLATELET CLUMPS PRECLUDE COUNT Normal 7-12 [facility] Comment on above: Performed By: #### B MP, LIVR, 09562-2, TSHR, CBCA #### [facility] ([id number]) [address], [facility] [address] [place] [address] Neutrophils/100 WBC (Bld) 66.2 % Normal [facility] Comment on above: Performed By: #### B MP, LIVR, 28221-2, TSHR, CBCA #### [facility] ([id number]) [address], [address] [place] [address] PLATELET COUNT ESTIMATE OF PLATELET S, NORMAL Normal 150-450 [facility] Comment on above: Result Comment: PLAT ELET CLUMPS PRECLUDE COUNT Performed By: #### B IVAN, LIVR, , TSHR, CBCA #### [facility] ([id number]) [address], [address] [place] [address] RBC COUNT 4.62 X10E12/L Normal 3.80-5.20 [facility] Comment on above: Performed By: #### B MP, LIVR, , TSHR, CBCA #### [facility] ([id number]) [address], [facility] [address] [place] [address] WBC (Bld) [#/Vol] 6.2 10*3/uL Normal 4.0-11.0 [facility] Comment on above: Performed By: #### B MP, LIVR, , TSHR, CBCA #### [facility] ([id number]) [address], [address] [place] [address] Hepatic function 2000 panelo n 05-04-2024 Albumin [Mass/Vol] 4.5 g/dL 3.2 - 5.3 g/dL NO [facility] ALP [Catalytic activity/Vol] 97 U/L 39 - 130 U/L [facility] ALT No additional P-5'-P [Catalytic activity/Vol] 11 U/L 0 - 31 U/L [facility] AST [Catalytic activity/Vol] 12 U/L 0 - 41 U/L [facility] Bilirubin [Mass/Vol] 0.4 mg/dL 0.3 - 1.2 mg/dL [facility] Bilirubin.direct [Mass/Vol] 0.1 mg/dL 0.0 - 0.4 mg/dL [facility] Protein [Mass/Vol] 7.8 g/dL 6.0 - 8.0 g/dL NO [facility] Comment on above: PERFORMED AT [facility] [address],[place] [address] LIVER PANELon 05-04-2024 Albumin [Mass/Vol] 4.5 g/dL Normal 3.2-5.3 [facility] Comment on above: Performed By: #### B MP, LIVR, 07221-8, TSHR, CBCA #### [facility] ([id number]) [address], [address] [place] [address] ALP [Catalytic activity/Vol] 97 U/L Normal 39-130 [facility] Comment on above: Performed By: #### B MP, LIVR, 20549-8, TSHR, CBCA #### [facility] ([id number]) [address], [address] [place] [address] ALT [Catalytic activity/Vol] 11 U/L Normal 0-31 [facility] Comment on above: Performed By: #### B MP, LIVR, 55242-9, TSHR, CBCA #### [facility] ([id number]) [address], [address] [place] [address] AST [Catalytic activity/Vol] 12 U/L Normal 0-41 [facility] Comment on above: Performed By: #### B MP, LIVR, 75165-7, TSHR, CBCA #### [facility] ([id number]) [address], [address] [place] [address] Bilirubin [Mass/Vol] 0.4 mg/dL Normal 0.3-1.2 [facility] Comment on above: Performed By: #### B MP, LIVR, 73330-9, TSHR, CBCA #### [facility] ([id number]) [address], [address] [place] [address] Bilirubin.direct [Mass/Vol] 0.1 mg/dL Normal 0.0-0.4 [facility] Comment on above: Performed By: #### B MP, LIVR, 75625-6, TSHR, CBCA #### [facility] ([id number]) [address], [address] [place] [address] Protein [Mass/Vol] 7.8 g/dL Normal 6.0-8.0 [facility] Comment on above: Performed By: #### B IVAN, LIVR, , TSHR, CBCA #### [facility] ([id number]) [address], [address] [place] [address] MAGNESIUMon 05-04-2024 Magnesium [Mass/Vol] 2.0 mg/dL Normal 1.8-2.6 [facility] Comment on above: Performed By: #### B IVAN, LIVR, , TSHR, CBCA #### [facility] ([id number]) [address] [place] [address] Magnesiumon 05-04-2024 Magnesium [Mass/Vol] 2.0 mg/dL 1.8 - 2.6 mg/dL [facility] Comment on above: PERFORMED AT [facility] [address],[place] [address] No Panel Informationon 05-04 [facility] TSH WITH REFLEXon 05-04-2024 TSH 1.40 uIU/mL Normal 0.49-4.67 [facility] Comment on above: Performed By: #### B IVAN, LIVR, , TSHR, CBCA #### [facility] ([id number]) [address] [place] [address] ER URINE PROFILEon 3 Bilirubin Ql (U) Negative Normal NEGATIVE [facility] Comment on above: Performed By: #### E RUR, PREGU, DRUGRPD #### [facility] [address] [place] [address] [address] Gino Holt Clarity (U) CLEAR Normal CLEAR [facility] Comment on above: Performed By: #### E RUR, PREGU, DRUGRPD #### [facility] [address] [address] [address] Gino Holt Color (U) LT. YELLOW Normal YELLOW [facility] Comment on above: Performed By: #### E RUR, PREGU, DRUGRPD #### [facility] [address] [address] [address] Gino LR A micrscopic examination will be performed if indicated. Normal [facility] Comment on above: Performed By: #### E RUR, PREGU, DRUGRPD #### [facility] [address] [address] [address] Gino Holt Glucose Ql (U) Negative Normal NEGATIVE [facility] Comment on above: Performed By: #### E RUR, PREGU, DRUGRPD #### [facility] [address] [address] [address] Gino Holt Hemoglobin Ql (U) Negative Normal NEGATIVE [facility] Comment on above: Performed By: #### E RUR, PREGU, DRUGRPD #### [facility] [address] [place] [address] Dr. Gino Holt Ketones Ql (U) Negative Normal NEGATIVE [facility] Comment on above: Performed By: #### E RUR, PREGU, DRUGRPD #### [facility] [address] [address] [address] Gino Holt LEUKOCYTES Negative Normal NEGATIVE [facility] Comment on above: Performed By: #### E RUR, PREGU, DRUGRPD #### [facility] [address] [address] [address] Gino Holt Nitrite Ql (U) Negative Normal NEGATIVE [facility] Comment on above: Performed By: #### E RUR, PREGU, DRUGRPD #### [facility] [address] [address] [address] Gino Holt pH (U) 6.5 [pH] Normal 5-9 [facility] Comment on above: Performed By: #### E RUR, PREGU, DRUGRPD #### [facility] [address] [address] [address] Gino Holt SPEC GRAVITY 1.020 Normal 1.005-<=1.025 [facility] Comment on above: Performed By: #### E RUR, PREGU, DRUGRPD #### [facility] [address] [address] [address] Gino Holt UA PROTEIN Negative Normal NEGATIVE/ TRACE [facility] Comment on above: Performed By: #### E RUR, PREGU, DRUGRPD #### [facility] [address] [address] [address] Gino Holt UR MICRO IND NOT INDICATED Normal [facility] Comment on above: Performed By: #### E RUR, PREGU, DRUGRPD #### [facility] [address] [address] [address] Gino Holt Urobilinogen Qn (U) 0.2 {Phillip'U}/dL Normal 0.2 - 1. 0 [facility] Comment on above: Performed By: #### E RUR, PREGU, DRUGRPD #### [facility] [address] [address] [address] Gino Holt URon 11-19-2022 , QUAL Negative Normal NEGATIVE [facility] Comment on above: Performed By: #### E RUR, PREGU, DRUGRPD #### [facility] [address] [address] [address] Gino Holt XR ABD FLAT UP_PA [...] KIN MORALES Date: 2022-11-19 08:53 Normal [facility] CBC W MANUAL DIFFon 10-26-19 23 ATYPICAL LYMPH # Normal [facility] Comment on above: Performed By: #### E RUR, PREGU, DRUGRPD #### [facility] [address] [address] [address] Gino Holt ATYPICAL LYMPH % Normal [facility] Comment on above: Performed By: #### E RUR, PREGU, DRUGRPD #### [facility] [address] [place] [address] Dr. Gino Holt BAND # 0.0 103/ul Normal 0.0-0.3 [facility] Comment on above: Performed By: #### E RUR, PREGU, DRUGRPD #### [facility] [address] [place] [address] Dr. Gino Holt BAND % 0 % Normal 0-5 [facility] Comment on above: Performed By: #### E RUR, PREGU, DRUGRPD #### [facility] [address] [place] [address] Dr. Gino Holt BASOM # 0.08 103/ul Normal 0.00-0.10 [facility] Comment on above: Performed By: #### E RUR, PREGU, DRUGRPD #### [facility] [address] [place] [address] Dr. Gino Holt BASOM % 1.0 % Normal 0.2-2.0 [facility] Comment on above: Performed By: #### E RUR, PREGU, DRUGRPD #### [facility] [address] [place] [address] Dr. Gino Holt BLAST # Normal [facility] Comment on above: Performed By: #### E RUR, PREGU, DRUGRPD #### [facility] [address] [place] [address] Dr. Gino Holt BLAST % Normal [facility] Comment on above: Performed By: #### E RUR, PREGU, DRUGRPD #### [facility] [address] [place] [address] Dr. Gino Holt CORRECTED WBC Normal 4.0-11.0 [facility] Comment on above: Performed By: #### E RUR, PREGU, DRUGRPD #### [facility] [address] [place] [address] Dr. Gino Holt EOS # 0.00 103/ul Normal 0.00-0.70 [facility] Comment on above: Performed By: #### E RUR, PREGU, DRUGRPD #### [facility] [address] [place] [address] Dr. Gino Holt EOS% 0.0 % Critically low 0.9-7.0 [facility] Comment on above: Performed By: #### E RUR, PREGU, DRUGRPD #### [facility] [address] [place] [address] Dr. Gino Holt HCT 39.0 % Normal 36.0-48.0 [facility] Comment on above: Performed By: #### E RUR, PREGU, DRUGRPD #### [facility] [address] [place] [address] Dr. Gino Holt HGB 13.0 g/dl Normal 12.0-16.0 [facility] Comment on above: Performed By: #### E RUR, PREGU, DRUGRPD #### [facility] [address] [place] [address] Dr. Gino Holt LYMPHM # 0.24 103/ul Critically low 1.20-3.80 [facility] Comment on above: Performed By: #### E RUR, PREGU, DRUGRPD #### [facility] [address] [place] [address] Dr. Gino Holt LYMPHM% 3.0 % Critically low 20.5-60.0 [facility] Comment on above: Performed By: #### E RUR, PREGU, DRUGRPD #### [facility] [address] [place] [address] Dr. Gino Holt MCH 30.0 pg Normal 26.7-34.0 [facility] Comment on above: Performed By: #### E RUR, PREGU, DRUGRPD #### [facility] [address] [place] [address] Dr. Gino Holt MCHC 33.3 g/dl Normal 29.9-35.2 [facility] Comment on above: Performed By: #### E RUR, PREGU, DRUGRPD #### [facility] [address] [address] [address] Gino Holt MCV 90.1 fL Normal 81.0-99.0 [facility] Comment on above: Performed By: #### E RUR, PREGU, DRUGRPD #### [facility] [address] [address] [address] Gino Holt METAMYELOCYTE # Normal [facility] Comment on above: Performed By: #### E RUR, PREGU, DRUGRPD #### [facility] [address] [address] [address] Gino Holt METAMYELOCYTE % Normal [facility] Comment on above: Performed By: #### E RUR, PREGU, DRUGRPD #### [facility] [address] [address] [address] Gino Holt MONOM# 0.00 103/ul Critically low 0.30-0.80 [facility] Comment on above: Performed By: #### E RUR, PREGU, DRUGRPD #### [facility] [address] [address] [address] Gino Holt MONOM% 0.0 % Critically low 1.7-12.0 [facility] Comment on above: Performed By: #### E RUR, PREGU, DRUGRPD #### [facility] [address] [address] [address] Gino Holt MPV 9.1 fL Critically low 9.5-13.5 [facility] Comment on above: Performed By: #### E RUR, PREGU, DRUGRPD #### [facility] [address] [address] [address] Gino Holt MYELOCYTE # Normal [facility] Comment on above: Performed By: #### E RUR, PREGU, DRUGRPD #### [facility] [address] [address] [address] Gino Holt MYELOCYTE % Normal [facility] Comment on above: Performed By: #### E RUR, PREGU, DRUGRPD #### [facility] [address] [address] [address] Gino Holt NRBC Normal [facility] Comment on above: Performed By: #### E RUR PREGU, DRUGRPD #### [facility] [address] [address] [address] Gino Holt PLT 288 103/ul Normal 150-450 [facility] Comment on above: Performed By: #### E RUR, PREGU, DRUGRPD #### [facility] [address] [address] [address] Gino Holt RBC 4.33 106/ul Normal 4.20-5.40 [facility] Comment on above: Performed By: #### E RUR, PREGU, DRUGRPD #### [facility] [address] [place] [address] Dr. Gino Holt RDW 13.4 % Normal 11.0-15.0 [facility] Comment on above: Performed By: #### E RUR, PREGU, DRUGRPD #### [facility] [address] [place] [address] Dr. Gino Holt SEG # 7.58 103/ul Critically high 1.40-6.50 [facility] Comment on above: Performed By: #### E RUR, PREGU, DRUGRPD #### [facility] [address] [place] [address] Dr. Gino Holt SEG % 96.0 % Critically high 43.0-75.0 [facility] Comment on above: Performed By: #### E RUR, PREGU, DRUGRPD #### [facility] [address] [place] [address] Dr. Gino Holt WBC 7.9 103/ul Normal 4.0-11.0 [facility] Comment on above: Performed By: #### E RUR, PREGU, DRUGRPD #### [facility] [address] [place] [address] Dr. Gino Holt PROF 14(COMP METB)on 023 Albumin [Mass/Vol] 4.0 g/dL Normal 3.4-5.0 [facility] Comment on above: Performed By: #### E RUR PREGU, DRUGRPD #### [facility] [address] [place] [address] Dr. Gino Holt Albumin/Globulin [Mass ratio] 1.0 {ratio} Normal [facility] Comment on above: Performed By: #### E RUR PREGU, DRUGRPD #### [facility] [address] [place] [address] Dr. Gino Holt ALP [Catalytic activity/Vol] 90 U/L Normal 46-116 [facility] Comment on above: Performed By: #### E RUSadi PREGU, DRUGRPD #### [facility] [address] [place] [address] Dr. Gino Holt ALT [Catalytic activity/Vol] 17 U/L Normal 14-59 [facility] Comment on above: Performed By: #### E RUSadi PREGU, DRUGRPD #### [facility] [address] [place] [address] Dr. Gino Holt Anion gap [Moles/Vol] 15.6 mmol/L Normal [facility] Comment on above: Performed By: #### Snehal RUSadi PREGU, DRUGRPD #### [facility] [address] [place] [address] Dr. Gino Holt AST [Catalytic activity/Vol] 12 U/L Critically low 15-37 [facility] Comment on above: Performed By: #### E RUR, PREGU, DRUGRPD #### [facility] [address] [place] [address] Dr. Gino Holt Bilirubin [Mass/Vol] 0.1 mg/dL Critically low 0.2-1.0 [facility] Comment on above: Performed By: #### E RUR, PREGU, DRUGRPD #### [facility] [address] [place] [address] Dr. Gino Holt Calcium [Mass/Vol] 9.0 mg/dL Normal 8.5-10.1 [facility] Comment on above: Performed By: #### E RUR, PREGU, DRUGRPD #### [facility] [address] [place] [address] Dr. Gino Holt Chloride [Moles/Vol] 108 mmol/L Critically high 98-107 [facility] Comment on above: Performed By: #### E RUR, PREGU, DRUGRPD #### [facility] [address] [place] [address] Dr. Gino Holt CO2 [Moles/Vol] 21.4 mmol/L Normal 21.0-32.0 [facility] Comment on above: Performed By: #### E RUR, PREGU, DRUGRPD #### [facility] [address] [place] [address] Dr. Gino Holt Creatinine [Mass/Vol] 0.82 mg/dL Normal 0.55-1.02 [facility] Comment on above: Performed By: #### E RUR, PREGU, DRUGRPD #### [facility] [address] [place] [address] Dr. Gino Holt EGFR-AF YEMENI >60 Normal >=60 [facility] Comment on above: Performed By: #### E RUR, PREGU, DRUGRPD #### [facility] [address] [place] [address] Dr. Gino Holt EGFR-NON AF YEMENI >60 Normal >=60 [facility] Comment on above: Performed By: #### E RUR, PREGU, DRUGRPD #### [facility] [address] [place] [address] Dr. Gino Holt Globulin (S) [Mass/Vol] 4.0 g/dL Normal [facility] Comment on above: Performed By: #### E RUR, PREGU, DRUGRPD #### [facility] [address] [place] [address] Dr. Gino Holt Glucose [Mass/Vol] 136 mg/dL Critically high 74-106 [facility] Comment on above: Performed By: #### E RUR, PREGU, DRUGRPD #### [facility] [address] [place] [address] Dr. Gino Holt Potassium [Moles/Vol] 4.0 mmol/L Normal 3.5-5.1 [facility] Comment on above: Performed By: #### MERRICK GUDINOU, DRUGRPD #### [facility] [address] [place] [address] Dr. Gino Holt Protein [Mass/Vol] 8.0 g/dL Normal 6.4-8.2 [facility] Comment on above: Performed By: #### Snehal IBANEZ PREGU, DRUGRPD #### [facility] [address] [place] [address] Dr. Gino Holt Sodium [Moles/Vol] 141 mmol/L Normal 136-145 [facility] Comment on above: Performed By: #### Snehal IBANEZ PREGU, DRUGRPD #### [facility] [address] [place] [address] Dr. Gino Holt Urea nitrogen [Mass/Vol] 18.0 mg/dL Normal 7.0-18.0 [facility] Comment on above: Performed By: #### Snehal RUR, PREGU, DRUGRPD #### [facility] [address] [place] [address] Dr. Gino Holt Urea nitrogen/Creatinine [Mass ratio] 22.0 mg/mg Normal [facility] Comment on above: Performed By: #### E RUR, PREGU, DRUGRPD #### [facility] [address] [place] [address] Dr. Gino Holt CBC AUTO DIFFon 10-12-2022 BASO # 0.0 103/ul Normal 0.0-0.1 [facility] Comment on above: Performed By: #### E RUR, PREGU, DRUGRPD #### [facility] [address] [place] [address] Dr. Gino Holt Basophils/100 WBC (Bld) 0.7 % Normal 0.2-2.0 [facility] Comment on above: Performed By: #### E RUR, PREGU, DRUGRPD #### [facility] [address] [place] [address] Dr. Gino Holt EO # 0.1 103/ul Normal 0.0-0.7 [facility] Comment on above: Performed By: #### E RUR, PREGU, DRUGRPD #### [facility] [address] [place] [address] Dr. Gino Holt Eosinophils/100 WBC (Bld) 1.6 % Normal 0.9-7.0 [facility] Comment on above: Performed By: #### E RUR, PREGU, DRUGRPD #### [facility] [address] [place] [address] Dr. Gino Holt Erythrocyte distribution width (RBC) [Ratio] 13.7 % Normal 11.0-15.0 [facility] Comment on above: Performed By: #### E MARCELLE PREGU, DRUGRPD #### [facility] [address] [place] [address] Dr. Gino Holt Hematocrit (Bld) [Volume fraction] 37.2 % Normal 36.0-48.0 [facility] Comment on above: Performed By: #### E RUR, PREGU, DRUGRPD #### [facility] [address] [place] [address] Dr. Gino Holt Hemoglobin (Bld) [Mass/Vol] 12.0 g/dL Normal 12.0-16.0 [facility] Comment on above: Performed By: #### E RUR, PREGU, DRUGRPD #### [facility] [address] [place] [address] Dr. Gino Holt IG # 0.02 10e3/ul Normal 0.00-0.03 [facility] Comment on above: Performed By: #### E RUR, PREGU, DRUGRPD #### [facility] [address] [place] [address] Dr. Gino Holt IG % 0.3 % Normal 0.0-0.5 [facility] Comment on above: Performed By: #### E RUR, PREGU, DRUGRPD #### [facility] [address] [place] [address] Dr. Gino Holt LYMPH # 2.3 103/ul Normal 1.2-3.8 [facility] Comment on above: Performed By: #### E RUR, PREGU, DRUGRPD #### [facility] [address] [place] [address] Dr. Gino Holt Lymphocytes/100 WBC (Bld) 37.3 % Normal 20.5-60.0 [facility] Comment on above: Performed By: #### E RUR, PREGU, DRUGRPD #### [facility] [address] [place] [address] Dr. Gino Holt MANUAL DIFF REQ NO Normal [facility] Comment on above: Performed By: #### E RUR, PREGU, DRUGRPD #### [facility] [address] [place] [address] Dr. Gino Holt MCH (RBC) [Entitic mass] 29.9 pg Normal 26.7-34.0 [facility] Comment on above: Performed By: #### E RUR, PREGU, DRUGRPD #### [facility] [address] [place] [address] Dr. Gino Holt MCHC (RBC) [Mass/Vol] 32.3 g/dL Normal 29.9-35.2 [facility] Comment on above: Performed By: #### E RUR, PREGU, DRUGRPD #### [facility] [address] [place] [address] Dr. Gino Holt MCV (RBC) [Entitic vol] 92.8 fL Normal 81.0-99.0 [facility] Comment on above: Performed By: #### E RUR, PREGU, DRUGRPD #### [facility] [address] [place] [address] Dr. Gino Holt MONO # 0.7 103/ul Normal 0.3-0.8 [facility] Comment on above: Performed By: #### E RUR, PREGU, DRUGRPD #### [facility] [address] [place] [address] Dr. Gino Holt Monocytes/100 WBC (Bld) 11.3 % Normal 1.7-12.0 [facility] Comment on above: Performed By: #### E RUR, PREGU, DRUGRPD #### [facility] [address] [place] [address] Dr. Gino Holt NEUT # 3.0 103/ul Normal 1.4-6.5 [facility] Comment on above: Performed By: #### E RUR, PREGU, DRUGRPD #### [facility] [address] [place] [address] Dr. Gino Holt Neutrophils/100 WBC (Bld) 48.8 % Normal 43.0-75.0 [facility] Comment on above: Performed By: #### E RUR, PREGU, DRUGRPD #### [facility] [address] [place] [address] Dr. Gino Holt Platelet mean volume (Bld) [Entitic vol] 8.9 fL Critically low 9.5-13.5 [facility] Comment on above: Performed By: #### E RUR, PREGU, DRUGRPD #### [facility] [address] [place] [address] Dr. Gino Holt PLT 312 103/ul Normal 150-450 [facility] Comment on above: Performed By: #### E RUR, PREGU, DRUGRPD #### [facility] [address] [place] [address] Dr. Gino Holt RBC 4.01 106/ul Critically low 4.20-5.40 [facility] Comment on above: Performed By: #### E RUR, PREGU, DRUGRPD #### [facility] [address] [place] [address] Dr. Gino Holt WBC 6.1 103/ul Normal 4.0-11.0 [facility] Comment on above: Performed By: #### E RUR, PREGU, DRUGRPD #### [facility] [address] [place] [address] Dr. Gino Holt CRPon 10-12-2022 CRP 0.6 mg/dL Normal <=1.0 [facility] [facility] Comment on above: Performed By: #### E RUR, PREGU, DRUGRPD #### [facility] [address] [place] [address] Dr. Gino Holt DRUG SCREEN RAPID (URINE)on 10-12-2022 AMP Negative Normal NEGATIVE [facility] Comment on above: Performed By: #### E RUR, PREGU, DRUGRPD #### [facility] [address] [place] [address] Dr. Gino Holt BAR Negative Normal NEGATIVE [facility] Comment on above: Performed By: #### E RUR, PREGU, DRUGRPD #### [facility] [address] [place] [address] Dr. Gino Holt BUP Negative Normal NEGATIVE [facility] Comment on above: Performed By: #### E RUR, PREGU, DRUGRPD #### [facility] [address] [place] [address] Dr. Gino Holt BZO Negative Normal NEGATIVE [facility] Comment on above: Performed By: #### E RUR, PREGU, DRUGRPD #### [facility] [address] [place] [address] Dr. Gino Holt RAMONA Negative Normal NEGATIVE [facility] Comment on above: Performed By: #### E RUR, PREGU, DRUGRPD #### [facility] [address] [place] [address] Dr. Gino Holt CUT-OFFS SEE BELOW Normal [facility] Comment on above: Result Comment: AMP [...] By: #### E RUR, PREGU, DRUGRPD #### [facility] [address] [place] [address] Dr. Gino Holt DRUG CUT HEADER DRUG CLASS TEST SYST EM CUT-OFF CONCENTRATIONS ARE FOLLOWS: Normal [facility] Comment on above: Performed By: #### E RUR, PREGU, DRUGRPD #### [facility] [address] [place] [address] Dr. Gino Holt mAMP Negative Normal NEGATIVE [facility] Comment on above: Performed By: #### E RUR, PREGU, DRUGRPD #### [facility] [address] [place] [address] Dr. Gino Holt MTD Negative Normal NEGATIVE [facility] Comment on above: Performed By: #### E RUR, PREGU, DRUGRPD #### [facility] [address] [place] [address] Dr. Gino Holt OPI Positive Abnormal NEGATIVE [facility] Comment on above: Performed By: #### E RUR, PREGU, DRUGRPD #### [facility] [address] [place] [address] Dr. Gino Holt OXY Negative Normal NEGATIVE [facility] Comment on above: Performed By: #### E RUR, PREGU, DRUGRPD #### [facility] [address] [place] [address] Dr. Gino Holt PCP Negative Normal NEGATIVE [facility] Comment on above: Performed By: #### E RUR, PREGU, DRUGRPD #### [facility] [address] [place] [address] Dr. Gino Holt PPX Negative Normal NEGATIVE [facility] Comment on above: Performed By: #### E RUR, PREGU, DRUGRPD #### [facility] [address] [place] [address] Dr. Gino Holt TCA Negative Normal NEGATIVE [facility] Comment on above: Performed By: #### E RUR, PREGU, DRUGRPD #### [facility] [address] [place] [address] Dr. Gino Holt THC Negative Normal NEGATIVE [facility] Comment on above: Performed By: #### E RUR, PREGU, DRUGRPD #### [facility] [address] [address] [address] Gino Holt ER URINE PROFILEon 3 Bilirubin Ql (U) Negative Normal NEGATIVE [facility] Comment on above: Performed By: #### E RUR, PREGU, DRUGRPD #### [facility] [address] [address] [address] Gino Holt Clarity (U) CLEAR Normal CLEAR [facility] Comment on above: Performed By: #### E RUR, PREGU, DRUGRPD #### [facility] [address] [address] [address] Gino Holt Color (U) LT. YELLOW Normal YELLOW [facility] Comment on above: Performed By: #### E RUR, PREGU, DRUGRPD #### [facility] [address] [place] [address] Dr. Gino LR A micrscopic examination will be performed if indicated. Normal [facility] Comment on above: Performed By: #### E RUR, PREGU, DRUGRPD #### [facility] [address] [address] [address] Gino Holt Glucose Ql (U) Negative Normal NEGATIVE [facility] Comment on above: Performed By: #### E RUR, PREGU, DRUGRPD #### [facility] [address] [address] [address] Gino Holt Hemoglobin Ql (U) Negative Normal NEGATIVE [facility] Comment on above: Performed By: #### E RUR, PREGU, DRUGRPD #### [facility] [address] [address] [address] Gino Holt Ketones Ql (U) Negative Normal NEGATIVE [facility] Comment on above: Performed By: #### E RUR, PREGU, DRUGRPD #### [facility] [address] [place] [address] Dr. Gino Holt LEUKOCYTES Negative Normal NEGATIVE [facility] Comment on above: Performed By: #### E RUR, PREGU, DRUGRPD #### [facility] [address] [address] [address] Gino Holt Nitrite Ql (U) Negative Normal NEGATIVE [facility] Comment on above: Performed By: #### Snehal RUR, PREGU, DRUGRPD #### [facility] [address] [place] [address] Dr. Gino Holt pH (U) 7.0 [pH] Normal 5-9 [facility] Comment on above: Performed By: #### E RUR, PREGU, DRUGRPD #### [facility] [address] [place] [address] Dr. Gino Holt SPEC GRAVITY 1.010 Normal 1.005-<=1.025 [facility] Comment on above: Performed By: #### Snehal RUSadi, PREGU, DRUGRPD #### [facility] [address] [place] [address] Dr. Gino Holt UA PROTEIN Negative Normal NEGATIVE/ TRACE [facility] Comment on above: Performed By: #### Snehal RUR, PREGU, DRUGRPD #### [facility] [address] [place] [address] Dr. Gino Holt UR MICRO IND NOT INDICATED Normal [facility] Comment on above: Performed By: #### Snehal RUR, PREGU, DRUGRPD #### [facility] [address] [place] [address] Dr. Gino Holt Urobilinogen Qn (U) 0.2 {Phillip'U}/dL Normal 0.2 - 1. 0 [facility] Comment on above: Performed By: #### Snehal RUR, PREGU, DRUGRPD #### [facility] [address] [place] [address] Dr. Gino Holt URon 10-12-2022 , QUAL Negative Normal NEGATIVE [facility] Comment on above: Performed By: #### Snehal RUR, PREGU, DRUGRPD #### [facility] [address] [place] [address] Dr. Gino Holt PROF CHEM 8 (BAS METB)on Anion gap [Moles/Vol] 12.9 mmol/L Normal [facility] Comment on above: Performed By: #### E RUR, PREGU, DRUGRPD #### [facility] [address] [address] [address] Gino Holt Calcium [Mass/Vol] 8.6 mg/dL Normal 8.5-10.1 [facility] Comment on above: Performed By: #### E RUR, PREGU, DRUGRPD #### [facility] [address] [place] [address] Dr. Gino Holt Chloride [Moles/Vol] 106 mmol/L Normal 98-107 [facility] Comment on above: Performed By: #### E RUR, PREGU, DRUGRPD #### [facility] [address] [place] [address] Dr. Gino Holt CO2 [Moles/Vol] 24.0 mmol/L Normal 21.0-32.0 [facility] Comment on above: Performed By: #### E RUR, PREGU, DRUGRPD #### [facility] [address] [place] [address] Dr. Gino Holt Creatinine [Mass/Vol] 0.61 mg/dL Normal 0.55-1.02 [facility] Comment on above: Performed By: #### E RUR, PREGU, DRUGRPD #### [facility] [address] [place] [address] Dr. Gino Holt EGFR-AF YEMENI >60 Normal >=60 [facility] Comment on above: Performed By: #### E RUR, PREGU, DRUGRPD #### [facility] [address] [place] [address] Dr. Gino Holt EGFR-NON AF YEMENI >60 Normal >=60 [facility] Comment on above: Performed By: #### E RUR, PREGU, DRUGRPD #### [facility] [address] [place] [address] Dr. Gino Holt Glucose [Mass/Vol] 80 mg/dL Normal 74-106 [facility] Comment on above: Performed By: #### E RUR, PREGU, DRUGRPD #### [facility] [address] [address] [address] Gino Holt Potassium [Moles/Vol] 3.9 mmol/L Normal 3.5-5.1 [facility] Comment on above: Performed By: #### MERRICK GUDINOU, DRUGRPD #### [facility] [address] [address] [address] Gino Holt Sodium [Moles/Vol] 139 mmol/L Normal 136-145 [facility] Comment on above: Performed By: #### Snehal IBANEZ PREGU, DRUGRPD #### [facility] [address] [address] [address] Gino Holt Urea nitrogen [Mass/Vol] 15.0 mg/dL Normal 7.0-18.0 [facility] Comment on above: Performed By: #### MERRICK GUDINOU, DRUGRPD #### [facility] [address] [address] [address] Gino Holt Urea nitrogen/Creatinine [Mass ratio] 24.6 mg/mg Normal [facility] Comment on above: Performed By: #### MERRICK GUDINOU, DRUGRPD #### [facility] [address] [address] [address] Gino Holt XR CHEST 2 Von 10-12-2022 XR CHEST 2 V XR CHEST 2 V 10/13/19 23 12:48 AM EDT CLINICAL INDICATION: Chest pain [...] DOMINIK JOSHI Date: 2022-10-12 02:46 Normal [facility] CBC AUTO DIFFon 08-24-2022 BASO # 0.0 103/ul Normal 0.0-0.1 [facility] Comment on above: Performed By: #### Snehal IBANEZ PREGU, DRUGRPD #### [facility] [address] [place] [address] Dr. Gino Holt Basophils/100 WBC (Bld) 0.7 % Normal 0.2-2.0 [facility] Comment on above: Performed By: #### E RUR, PREGU, DRUGRPD #### [facility] [address] [place] [address] Dr. Gino Holt EO # 0.0 103/ul Normal 0.0-0.7 [facility] Comment on above: Performed By: #### E RUR, PREGU, DRUGRPD #### [facility] [address] [place] [address] Dr. Gino Holt Eosinophils/100 WBC (Bld) 0.6 % Critically low 0.9-7.0 [facility] Comment on above: Performed By: #### E RUR, PREGU, DRUGRPD #### [facility] [address] [place] [address] Dr. Gino Holt Erythrocyte distribution width (RBC) [Ratio] 13.2 % Normal 11.0-15.0 [facility] Comment on above: Performed By: #### E RUR, PREGU, DRUGRPD #### [facility] [address] [place] [address] Dr. Gino Holt Hematocrit (Bld) [Volume fraction] 37.5 % Normal 36.0-48.0 [facility] Comment on above: Performed By: #### E RUR, PREGU, DRUGRPD #### [facility] [address] [place] [address] Dr. Gino Holt Hemoglobin (Bld) [Mass/Vol] 12.8 g/dL Normal 12.0-16.0 [facility] Comment on above: Performed By: #### E RUR, PREGU, DRUGRPD #### [facility] [address] [place] [address] Dr. Gino Holt IG # 0.02 10e3/ul Normal 0.00-0.03 [facility] Comment on above: Performed By: #### E RUR, PREGU, DRUGRPD #### [facility] [address] [address] [address] Gino Holt IG % 0.4 % Normal 0.0-0.5 [facility] Comment on above: Performed By: #### E RUR, PREGU, DRUGRPD #### [facility] [address] [place] [address] Dr. Gino Holt LYMPH # 1.7 103/ul Normal 1.2-3.8 [facility] Comment on above: Performed By: #### E RUR, PREGU, DRUGRPD #### [facility] [address] [place] [address] Dr. Gino Holt Lymphocytes/100 WBC (Bld) 30.6 % Normal 20.5-60.0 [facility] Comment on above: Performed By: #### E RUR, PREGU, DRUGRPD #### [facility] [address] [place] [address] Dr. Gino Holt MANUAL DIFF REQ NO Normal [facility] Comment on above: Performed By: #### E RUR, PREGU, DRUGRPD #### [facility] [address] [place] [address] Dr. Gino Holt MCH (RBC) [Entitic mass] 28.9 pg Normal 26.7-34.0 [facility] Comment on above: Performed By: #### E RUR, PREGU, DRUGRPD #### [facility] [address] [place] [address] Dr. Gino Holt MCHC (RBC) [Mass/Vol] 34.1 g/dL Normal 29.9-35.2 [facility] Comment on above: Performed By: #### E RUR, PREGU, DRUGRPD #### [facility] [address] [place] [address] Dr. Gino Holt MCV (RBC) [Entitic vol] 84.7 fL Normal 81.0-99.0 [facility] Comment on above: Performed By: #### E RUR, PREGU, DRUGRPD #### [facility] [address] [place] [address] Dr. Gino Holt MONO # 0.4 103/ul Normal 0.3-0.8 [facility] Comment on above: Performed By: #### E RUR, PREGU, DRUGRPD #### [facility] [address] [place] [address] Dr. Gino Holt Monocytes/100 WBC (Bld) 7.2 % Normal 1.7-12.0 [facility] Comment on above: Performed By: #### E RUR, PREGU, DRUGRPD #### [facility] [address] [place] [address] Dr. Gino Holt NEUT # 3.3 103/ul Normal 1.4-6.5 [facility] Comment on above: Performed By: #### E RUR PREGU, DRUGRPD #### [facility] [address] [place] [address] Dr. Gino Holt Neutrophils/100 WBC (Bld) 60.5 % Normal 43.0-75.0 [facility] Comment on above: Performed By: #### Snehal RUR, PREGU, DRUGRPD #### [facility] [address] [place] [address] Dr. Gino Holt Platelet mean volume (Bld) [Entitic vol] 8.6 fL Critically low 9.5-13.5 [facility] Comment on above: Performed By: #### E RUR, PREGU, DRUGRPD #### [facility] [address] [place] [address] Dr. Gino Holt PLT 301 103/ul Normal 150-450 [facility] Comment on above: Performed By: #### E RUR, PREGU, DRUGRPD #### [facility] [address] [place] [address] Dr. Gino Holt RBC 4.43 106/ul Normal 4.20-5.40 [facility] Comment on above: Performed By: #### E RUR, PREGU, DRUGRPD #### [facility] [address] [place] [address] Dr. Gino Holt WBC 5.4 103/ul Normal 4.0-11.0 [facility] Comment on above: Performed By: #### E RUR, PREGU, DRUGRPD #### [facility] [address] [address] [address] CSPINE WO CONon CT CSPINE [...] GAURAV ABDI Date: 2022-08-24 02:53 Normal [facility] CT FACIAL BONES WO CONon CT [...] GAURAV ABDI Date: 2022-08-24 02:49 Normal [facility] CT HEAD WO CONon 08-24-2022 CT [...] GAURAV ABDI Date: 2022-08-24 02:43 Normal [facility] ETHANOL (BLD ALC)on 08-24-19 23 ALC NOTE NOTE: 80 mg/dl is th e legal limit for a blood alcohol level Normal [facility] Comment on above: Performed By: #### E RUR, PREGU, DRUGRPD #### [facility] [address] [address] [address] Gino Holt Ethanol [Mass/Vol] 271 mg/dL Normal [facility] Comment on above: Performed By: #### E RUR, PREGU, DRUGRPD #### [facility] [address] [address] [address] Gino Holt URon 08-24-2022 , QUAL Negative Normal NEGATIVE [facility] Comment on above: Performed By: #### P REGU #### [facility] [address] [address] [address] Gino Holt PROF 14(COMP METB)on 023 Albumin [Mass/Vol] 4.1 g/dL Normal 3.4-5.0 [facility] Comment on above: Performed By: #### C MP #### [facility] [address] [address] [address] Gino Holt Albumin/Globulin [Mass ratio] 1.0 {ratio} Normal [facility] Comment on above: Performed By: #### C MP #### [facility] [address] [address] [address] Gino Holt ALP [Catalytic activity/Vol] 100 U/L Normal 46-116 [facility] Comment on above: Performed By: #### C MP #### [facility] [address] [address] [address] Gino Holt ALT [Catalytic activity/Vol] 29 U/L Normal 14-59 [facility] Comment on above: Performed By: #### C MP #### [facility] [address] [place] [address] Dr. Gino Holt Anion gap [Moles/Vol] 13.3 mmol/L Normal [facility] Comment on above: Performed By: #### C MP #### [facility] [address] [address] [address] Gino Holt AST [Catalytic activity/Vol] 22 U/L Normal 15-37 [facility] Comment on above: Performed By: #### C MP #### [facility] [address] [address] [address] Gino Holt Bilirubin [Mass/Vol] 0.1 mg/dL Critically low 0.2-1.0 [facility] Comment on above: Performed By: #### C MP #### [facility] [address] [address] [address] Gino Holt Calcium [Mass/Vol] 9.0 mg/dL Normal 8.5-10.1 [facility] Comment on above: Performed By: #### C MP #### [facility] [address] [address] [address] Gino Holt Chloride [Moles/Vol] 111 mmol/L Critically high 98-107 [facility] Comment on above: Performed By: #### C MP #### [facility] [address] [address] [address] Gino Holt CO2 [Moles/Vol] 26.5 mmol/L Normal 21.0-32.0 [facility] Comment on above: Performed By: #### C MP #### [facility] [address] [address] [address] Gino Holt Creatinine [Mass/Vol] 0.65 mg/dL Normal 0.55-1.02 [facility] Comment on above: Performed By: #### C MP #### [facility] [address] [address] [address] Gino Holt EGFR-AF YEMENI >60 Normal >=60 [facility] Comment on above: Performed By: #### C MP #### [facility] [address] [place] [address] Dr. Gino Holt EGFR-NON AF YEMENI >60 Normal >=60 [facility] Comment on above: Performed By: #### C MP #### [facility] [address] [place] [address] Dr. Gino Holt Globulin (S) [Mass/Vol] 4.1 g/dL Normal [facility] Comment on above: Performed By: #### C MP #### [facility] [address] [place] [address] Dr. Gino Holt Glucose [Mass/Vol] 95 mg/dL Normal 74-106 [facility] Comment on above: Performed By: #### C MP #### [facility] [address] [place] [address] Dr. Gino Holt Potassium [Moles/Vol] 4.8 mmol/L Normal 3.5-5.1 [facility] Comment on above: Performed By: #### C MP #### [facility] [address] [place] [address] Dr. Gino Holt Protein [Mass/Vol] 8.2 g/dL Normal 6.4-8.2 [facility] Comment on above: Performed By: #### C MP #### [facility] [address] [place] [address] Dr. Gino Holt Sodium [Moles/Vol] 146 mmol/L Critically high 136-145 [facility] Comment on above: Performed By: #### C MP #### [facility] [address] [address] [address] Gino Holt Urea nitrogen [Mass/Vol] 11.0 mg/dL Normal 7.0-18.0 [facility] Comment on above: Performed By: #### C MP #### [facility] [address] [place] [address] Dr. Gino Holt Urea nitrogen/Creatinine [Mass ratio] 16.9 mg/mg Normal [facility] Comment on above: Performed By: #### C MP #### [facility] [address] [place] [address] Dr. Gino Holt XR KNEE RT 4V [...] GAURAV ABDI Date: 2022-08-24 03:02 Normal [facility] CBC AUTO DIFFon 02-07-2022 BASO # 0.1 103/ul Normal 0.0-0.1 [facility] Comment on above: Performed By: #### C BC #### [facility] [address] [place] [address] Dr. Gnio Holt Basophils/100 WBC (Bld) 0.6 % Normal 0.2-2.0 [facility] Comment on above: Performed By: #### C BC #### [facility] [address] [place] [address] Dr. Gino Holt EO # 0.1 103/ul Normal 0.0-0.7 [facility] Comment on above: Performed By: #### C BC #### [facility] [address] [place] [address] Dr. Gino Holt Eosinophils/100 WBC (Bld) 0.7 % Critically low 0.9-7.0 [facility] Comment on above: Performed By: #### C BC #### [facility] [address] [place] [address] Dr. Gino Holt Erythrocyte distribution width (RBC) [Ratio] 12.8 % Normal 11.0-15.0 [facility] Comment on above: Performed By: #### C BC #### [facility] [address] [place] [address] Dr. Gino Holt Hematocrit (Bld) [Volume fraction] 38.9 % Normal 36.0-48.0 [facility] Comment on above: Performed By: #### C BC #### [facility] [address] [place] [address] Dr. Gino Holt Hemoglobin (Bld) [Mass/Vol] 12.7 g/dL Normal 12.0-16.0 [facility] Comment on above: Performed By: #### C BC #### [facility] [address] [place] [address] Dr. Gino Holt IG # 0.01 10e3/ul Normal 0.00-0.03 [facility] Comment on above: Performed By: #### C BC #### [facility] [address] [place] [address] Dr. Gino Holt IG % 0.1 % Normal 0.0-0.5 [facility] Comment on above: Performed By: #### C BC #### [facility] [address] [place] [address] Dr. Gino Holt LYMPH # 2.7 103/ul Normal 1.2-3.8 [facility] Comment on above: Performed By: #### C BC #### [facility] [address] [place] [address] Dr. Gino Holt Lymphocytes/100 WBC (Bld) 33.2 % Normal 20.5-60.0 [facility] Comment on above: Performed By: #### C BC #### [facility] [address] [place] [address] Dr. Gino Holt MANUAL DIFF REQ NO Normal [facility] Comment on above: Performed By: #### C BC #### [facility] [address] [address] [address] Gino Holt MCH (RBC) [Entitic mass] 29.3 pg Normal 26.7-34.0 [facility] Comment on above: Performed By: #### C BC #### [facility] [address] [address] [address] Gino Holt MCHC (RBC) [Mass/Vol] 32.6 g/dL Normal 29.9-35.2 [facility] Comment on above: Performed By: #### C BC #### [facility] [address] [place] [address] Dr. Gino Holt MCV (RBC) [Entitic vol] 89.8 fL Normal 81.0-99.0 [facility] Comment on above: Performed By: #### C BC #### [facility] [address] [place] [address] Dr. Gino Holt MONO # 0.7 103/ul Normal 0.3-0.8 [facility] Comment on above: Performed By: #### C BC #### [facility] [address] [place] [address] Dr. Gino Holt Monocytes/100 WBC (Bld) 8.4 % Normal 1.7-12.0 [facility] Comment on above: Performed By: #### C BC #### [facility] [address] [place] [address] Dr. Gino Holt NEUT # 4.7 103/ul Normal 1.4-6.5 [facility] Comment on above: Performed By: #### C BC #### [facility] [address] [place] [address] Dr. Gino Holt Neutrophils/100 WBC (Bld) 57.0 % Normal 43.0-75.0 [facility] Comment on above: Performed By: #### C BC #### [facility] [address] [place] [address] Dr. Gino Holt Platelet mean volume (Bld) [Entitic vol] 8.9 fL Critically low 9.5-13.5 [facility] Comment on above: Performed By: #### C BC #### [facility] [address] [address] [address] Gino Holt PLT 305 103/ul Normal 150-450 [facility] Comment on above: Performed By: #### C BC #### [facility] [address] [address] [address] Gino Holt RBC 4.33 106/ul Normal 4.20-5.40 [facility] Comment on above: Performed By: #### C BC #### [facility] [address] [address] [address] Gino Holt WBC 8.2 103/ul Normal 4.0-11.0 [facility] Comment on above: Performed By: #### C BC #### [facility] [address] [place] [address] Dr. Gino Holt CRPon 02-07-2022 CRP 0.3 mg/dL Normal <=1.0 [facility] Comment on above: Performed By: #### H STROPN, CRP, CMP #### [facility] [address] [place] [address] HEAD WO CONon [...] ROSA VALENTINE Date: 2022-02-07 05:17 Normal [facility] D-DIMERon 02-07-2022 D-DIMER 0.44 mg/L FEU Normal <=0.59 [facility] Comment on above: Performed By: #### E RUR PREGU, DRUGRPD #### [facility] [address] [place] [address] Dr. Gino Holt D-DIMER COMMENTS SEE BELOW Normal [facility] [place] Comment on above: Result Comment: Incr eases [...] and generalized hospitalization. Performed By: #### E RUR PREGU, DRUGRPD #### [facility] [address] [place] [address] Dr. Gino Holt PREG HCG QUALon 02-07-2022 , QUAL Negative Normal NEGATIVE [facility] Comment on above: Performed By: #### P REG #### [facility] [address] [place] [address] Dr. Gino Holt PROF 14(COMP METB)on 022 Albumin [Mass/Vol] 3.9 g/dL Normal 3.4-5.0 [facility] Comment on above: Performed By: #### H STROPN, CRP, CMP #### [facility] [address] [place] [address] Dr. Gino Holt Albumin/Globulin [Mass ratio] 0.9 {ratio} Normal [facility] Comment on above: Performed By: #### H STROPN, CRP, CMP #### [facility] [address] [place] [address] Dr. Gino Holt ALP [Catalytic activity/Vol] 84 U/L Normal 46-116 [facility] Comment on above: Performed By: #### H STROPN, CRP, CMP #### [facility] [address] [place] [address] Dr. Gino Holt ALT [Catalytic activity/Vol] 20 U/L Normal 14-59 [facility] Comment on above: Performed By: #### H STROPN, CRP, CMP #### [facility] [address] [address] [address] Gino Holt Anion gap [Moles/Vol] 14.6 mmol/L Normal [facility] Comment on above: Performed By: #### H STROPN, CRP, CMP #### [facility] [address] [address] [address] Gino Holt AST [Catalytic activity/Vol] 10 U/L Critically low 15-37 [facility] Comment on above: Performed By: #### H STROPN, CRP, CMP #### [facility] [address] [address] [address] Gino Holt Bilirubin [Mass/Vol] 0.3 mg/dL Normal 0.2-1.0 [facility] Comment on above: Performed By: #### H STROPN, CRP, CMP #### [facility] [address] [address] [address] Gino Holt Calcium [Mass/Vol] 8.6 mg/dL Normal 8.5-10.1 [facility] Comment on above: Performed By: #### H STROPN, CRP, CMP #### [facility] [address] [address] [address] Gino Holt Chloride [Moles/Vol] 106 mmol/L Normal 98-107 [facility] Comment on above: Performed By: #### H STROPN, CRP, CMP #### [facility] [address] [address] [address] Gino Holt CO2 [Moles/Vol] 24.8 mmol/L Normal 21.0-32.0 [facility] Comment on above: Performed By: #### H STROPN, CRP, CMP #### [facility] [address] [address] [address] Gino Holt Creatinine [Mass/Vol] 0.83 mg/dL Normal 0.55-1.02 [facility] Comment on above: Performed By: #### H STROPN, CRP, CMP #### [facility] [address] [address] [address] Gino Holt EGFR-AF YEMENI >60 Normal >=60 [facility] Comment on above: Performed By: #### H STROPN, CRP, CMP #### [facility] [address] [address] [address] Gino Holt EGFR-NON AF YEMENI >60 Normal >=60 [facility] Comment on above: Performed By: #### H STROPN, CRP, CMP #### [facility] [address] [address] [address] Gino Holt Globulin (S) [Mass/Vol] 4.2 g/dL Normal [facility] Comment on above: Performed By: #### H STROPN, CRP, CMP #### [facility] [address] [place] [address] Dr. Gino Holt Glucose [Mass/Vol] 105 mg/dL Normal 74-106 [facility] Comment on above: Performed By: #### H STROPN, CRP, CMP #### [facility] [address] [place] [address] Dr. Gino Holt Potassium [Moles/Vol] 3.4 mmol/L Critically low 3.5-5.1 [facility] Comment on above: Performed By: #### H STROPN, CRP, CMP #### [facility] [address] [place] [address] Dr. Gino Holt Protein [Mass/Vol] 8.1 g/dL Normal 6.4-8.2 [facility] Comment on above: Performed By: #### H STROPN, CRP, CMP #### [facility] [address] [address] [address] Gino Holt Sodium [Moles/Vol] 142 mmol/L Normal 136-145 [facility] Comment on above: Performed By: #### H STROPN, CRP, CMP #### [facility] [address] [place] [address] Dr. Gino Holt Urea nitrogen [Mass/Vol] 15.0 mg/dL Normal 7.0-18.0 [facility] Comment on above: Performed By: #### H STROPN, CRP, CMP #### [facility] [address] [place] [address] Dr. Gino Holt Urea nitrogen/Creatinine [Mass ratio] 18.1 mg/mg Normal [facility] Comment on above: Performed By: #### H ANIYA, CRP, CMP #### [facility] [address] [place] [address] Dr. Gino Holt TROPONIN, HIGH SENSITIVITYon 02-07-2022 HSTROP 4.6 pg/mL Normal 4.0-51.3 [facility] Comment on above: Result Comment: CUT- OFF POINTS HAVE BEEN ESTABLISHED BASED ON THE FOURTH UNIVERSAL DEFINITIONS OF MYOCARDIAL INFARCTION. THE UPPER REFERENCE LIMIT (URL) OF TROPONIN, DEFINED THE 99TH PERCENTILE OF cTnI DISTRIBUTION IN A REFERENCE POPULATION, HAS BEEN CONFIRMED THE DECISION THRESHOLD FOR IA DIAGNOSIS. Performed By: #### H ANIYA CRP, CMP #### [facility] [address] [place] [address] Dr. Gino Holt XR CHEST 1 Von [...] ROSA VALENTINE Date: 2022-02-07 05:18 Normal [facility] CBC AUTO DIFFon 11-26-2021 BASO # 0.0 103/ul Normal 0.0-0.1 [facility] Comment on above: Performed By: #### E RUR, PREGU, DRUGRPD #### [facility] [address] [place] [address] Dr. Gino Holt Basophils/100 WBC (Bld) 0.4 % Normal 0.2-2.0 [facility] Comment on above: Performed By: #### E RUR, PREGU, DRUGRPD #### [facility] [address] [place] [address] Dr. Gino Holt EO # 0.1 103/ul Normal 0.0-0.7 [facility] Comment on above: Performed By: #### E RUR, PREGU, DRUGRPD #### [facility] [address] [place] [address] Dr. Gino Holt Eosinophils/100 WBC (Bld) 1.1 % Normal 0.9-7.0 [facility] Comment on above: Performed By: #### E RUR, PREGU, DRUGRPD #### [facility] [address] [place] [address] Dr. Gino Holt Erythrocyte distribution width (RBC) [Ratio] 12.5 % Normal 11.0-15.0 [facility] Comment on above: Performed By: #### E RUR, PREGU, DRUGRPD #### [facility] [address] [place] [address] Dr. Gino Holt Hematocrit (Bld) [Volume fraction] 40.9 % Normal 36.0-48.0 [facility] Comment on above: Performed By: #### E RUR, PREGU, DRUGRPD #### [facility] [address] [place] [address] Dr. Gino Holt Hemoglobin (Bld) [Mass/Vol] 13.3 g/dL Normal 12.0-16.0 [facility] Comment on above: Performed By: #### E RUR, PREGU, DRUGRPD #### [facility] [address] [place] [address] Dr. Gino Holt IG # 0.01 10e3/ul Normal 0.00-0.03 [facility] Comment on above: Performed By: #### E RUR, PREGU, DRUGRPD #### [facility] [address] [place] [address] Dr. iGno Holt IG % 0.2 % Normal 0.0-0.5 [facility] Comment on above: Performed By: #### E RUR, PREGU, DRUGRPD #### [facility] [address] [place] [address] Dr. Gino Holt LYMPH # 1.5 103/ul Normal 1.2-3.8 [facility] Comment on above: Performed By: #### E RUR, PREGU, DRUGRPD #### [facility] [address] [place] [address] Dr. Gino Holt Lymphocytes/100 WBC (Bld) 32.1 % Normal 20.5-60.0 [facility] Comment on above: Performed By: #### E RUR, PREGU, DRUGRPD #### [facility] [address] [place] [address] Dr. Gino Holt MANUAL DIFF REQ NO Normal [facility] Comment on above: Performed By: #### E RUR, PREGU, DRUGRPD #### [facility] [address] [place] [address] Dr. Gino Holt MCH (RBC) [Entitic mass] 29.8 pg Normal 26.7-34.0 [facility] Comment on above: Performed By: #### E RUR, PREGU, DRUGRPD #### [facility] [address] [place] [address] Dr. Gino Holt MCHC (RBC) [Mass/Vol] 32.5 g/dL Normal 29.9-35.2 [facility] Comment on above: Performed By: #### E RUR, PREGU, DRUGRPD #### [facility] [address] [place] [address] Dr. Gino Holt MCV (RBC) [Entitic vol] 91.7 fL Normal 81.0-99.0 [facility] Comment on above: Performed By: #### E RUR, PREGU, DRUGRPD #### [facility] [address] [place] [address] Dr. Gino Holt MONO # 0.5 103/ul Normal 0.3-0.8 [facility] Comment on above: Performed By: #### E RUR, PREGU, DRUGRPD #### [facility] [address] [place] [address] Dr. Gino Holt Monocytes/100 WBC (Bld) 9.7 % Normal 1.7-12.0 [facility] Comment on above: Performed By: #### E RUR, PREGU, DRUGRPD #### [facility] [address] [place] [address] Dr. Gino Holt NEUT # 2.7 103/ul Normal 1.4-6.5 [facility] Comment on above: Performed By: #### E RUR, PREGU, DRUGRPD #### [facility] [address] [place] [address] Dr. Gino Holt Neutrophils/100 WBC (Bld) 56.5 % Normal 43.0-75.0 [facility] Comment on above: Performed By: #### E RUR, PREGU, DRUGRPD #### [facility] [address] [place] [address] Dr. Gino Holt Platelet mean volume (Bld) [Entitic vol] 9.9 fL Normal 9.5-13.5 [facility] Comment on above: Performed By: #### E RUR, PREGU, DRUGRPD #### [facility] [address] [place] [address] Dr. Gino Holt PLT 243 103/ul Normal 150-450 [facility] Comment on above: Performed By: #### E RUR, PREGU, DRUGRPD #### [facility] [address] [place] [address] Dr. Gino Holt RBC 4.46 106/ul Normal 4.20-5.40 [facility] Comment on above: Performed By: #### E RUR, PREGU, DRUGRPD #### [facility] [address] [place] [address] Dr. Gino Holt WBC 4.7 103/ul Normal 4.0-11.0 [facility] Comment on above: Performed By: #### E RUR, PREGU, DRUGRPD #### [facility] [address] [place] [address] Dr. Gino Holt CULTURE URINEon 11-26-2021 CULTURE URINE Culture Observations : LIGHT GROWTH OF MIXED GENITAL KLAUDIA. NO POTENTIAL PATHOGENS SEEN. Normal [facility] Comment on above: Performed By: #### E RUR, PREGU, DRUGRPD #### [facility] [address] [place] [address] Dr. Gino Holt ER URINE PROFILEon 2 Bilirubin Ql (U) Negative Normal NEGATIVE [facility] Comment on above: Performed By: #### E RUR, PREGU, DRUGRPD #### [facility] [address] [place] [address] Dr. Gino Holt Clarity (U) CLEAR Normal CLEAR [facility] Comment on above: Performed By: #### E RUR, PREGU, DRUGRPD #### [facility] [address] [place] [address] Dr. Gino Holt Color (U) LT. YELLOW Normal YELLOW [facility] Comment on above: Performed By: #### E RUR, PREGU, DRUGRPD #### [facility] [address] [place] [address] Dr. Gino LR A micrscopic examination will be performed if indicated. Normal [facility] Comment on above: Performed By: #### E RUR, PREGU, DRUGRPD #### [facility] [address] [place] [address] Dr. Gino Holt Glucose Ql (U) Negative Normal NEGATIVE [facility] Comment on above: Performed By: #### E RUR, PREGU, DRUGRPD #### [facility] [address] [place] [address] Dr. Gino Holt Hemoglobin Ql (U) Negative Normal NEGATIVE [facility] Comment on above: Performed By: #### E RUR, PREGU, DRUGRPD #### [facility] [address] [place] [address] Dr. Gino Holt Ketones Ql (U) Negative Normal NEGATIVE [facility] Comment on above: Performed By: #### E RUR, PREGU, DRUGRPD #### [facility] [address] [place] [address] Dr. Gino Holt LEUKOCYTES TRACE Abnormal NEGATIVE [facility] Comment on above: Performed By: #### E RUR, PREGU, DRUGRPD #### [facility] [address] [place] [address] Dr. Gino Holt Nitrite Ql (U) Negative Normal NEGATIVE [facility] Comment on above: Performed By: #### E RUR, PREGU, DRUGRPD #### [facility] [address] [place] [address] Dr. Gino Holt pH (U) 7.0 [pH] Normal 5-9 [facility] Comment on above: Performed By: #### E RUR, PREGU, DRUGRPD #### [facility] [address] [place] [address] Dr. Gino Holt SPEC GRAVITY 1.010 Normal 1.005-<=1.025 [facility] Comment on above: Performed By: #### E RUR, PREGU, DRUGRPD #### [facility] [address] [place] [address] Dr. Gino Holt UA PROTEIN Negative Normal NEGATIVE/ TRACE [facility] Comment on above: Performed By: #### E RUR, PREGU, DRUGRPD #### [facility] [address] [place] [address] Dr. Gino Holt UR MICRO IND INDICATED Normal [facility] Comment on above: Performed By: #### E RUR, PREGU, DRUGRPD #### [facility] [address] [place] [address] Dr. Gino Holt Urobilinogen Qn (U) 0.2 {Phillip'U}/dL Normal 0.2 - 1. 0 [facility] Comment on above: Performed By: #### E RUR, PREGU, DRUGRPD #### [facility] [address] [place] [address] Dr. Gino Holt LIPASEon 11-26-2021 Lipase [Catalytic activity/Vol] 80.0 U/L Normal 73.0-393.0 [facility] Comment on above: Performed By: #### E RUR, PREGU, DRUGRPD #### [facility] [address] [place] [address] Dr. Gino Holt URon 11-26-2021 , QUAL Negative Normal NEGATIVE [facility] Comment on above: Performed By: #### E RUR, PREGU, DRUGRPD #### [facility] [address] [place] [address] Dr. Gino Holt PROF 14(COMP METB)on 022 Albumin [Mass/Vol] 4.0 g/dL Normal 3.4-5.0 [facility] Comment on above: Performed By: #### E RUR, PREGU, DRUGRPD #### [facility] [address] [place] [address] Dr. Gino Holt Albumin/Globulin [Mass ratio] 1.0 {ratio} Normal [facility] Comment on above: Performed By: #### E RUR, PREGU, DRUGRPD #### [facility] [address] [place] [address] Dr. Gino Holt ALP [Catalytic activity/Vol] 105 U/L Normal 46-116 [facility] Comment on above: Performed By: #### E RUR, PREGU, DRUGRPD #### [facility] [address] [place] [address] Dr. Gino Holt ALT [Catalytic activity/Vol] 26 U/L Normal 14-59 [facility] Comment on above: Performed By: #### E RUR, PREGU, DRUGRPD #### [facility] [address] [place] [address] Dr. Gino Holt Anion gap [Moles/Vol] 12.2 mmol/L Normal [facility] Comment on above: Performed By: #### E RUR, PREGU, DRUGRPD #### [facility] [address] [place] [address] Dr. Gino Holt AST [Catalytic activity/Vol] 16 U/L Normal 15-37 [facility] Comment on above: Performed By: #### E RUR, PREGU, DRUGRPD #### [facility] [address] [place] [address] Dr. Gino Holt Bilirubin [Mass/Vol] 0.5 mg/dL Normal 0.2-1.0 [facility] Comment on above: Performed By: #### E RUR, PREGU, DRUGRPD #### [facility] [address] [place] [address] Dr. Gino Holt Calcium [Mass/Vol] 8.3 mg/dL Critically low 8.5-10.1 [facility] Comment on above: Performed By: #### E RUR, PREGU, DRUGRPD #### [facility] [address] [address] [address] Gino Holt Chloride [Moles/Vol] 105 mmol/L Normal 98-107 [facility] Comment on above: Performed By: #### E RUR, PREGU, DRUGRPD #### [facility] [address] [address] [address] Gino Holt CO2 [Moles/Vol] 23.6 mmol/L Normal 21.0-32.0 [facility] [place] Comment on above: Performed By: #### E RUR, PREGU, DRUGRPD #### [facility] [address] [address] [address] Gion Holt Creatinine [Mass/Vol] 0.85 mg/dL Normal 0.55-1.02 [facility] Comment on above: Performed By: #### E RUR, PREGU, DRUGRPD #### [facility] [address] [address] [address] Gino Holt EGFR-AF YEMENI >60 Normal >=60 [facility] Comment on above: Performed By: #### E RUR, PREGU, DRUGRPD #### [facility] [address] [address] [address] Gino Holt EGFR-NON AF YEMENI >60 Normal >=60 [facility] Comment on above: Performed By: #### E RUR, PREGU, DRUGRPD #### [facility] [address] [address] [address] Gino Holt Globulin (S) [Mass/Vol] 4.1 g/dL Normal [facility] Comment on above: Performed By: #### E RUR, PREGU, DRUGRPD #### [facility] [address] [address] [address] Gino Holt Glucose [Mass/Vol] 84 mg/dL Normal 74-106 [facility] Comment on above: Performed By: #### Snehal IBANEZ PREGU, DRUGRPD #### [facility] [address] [address] [address] Gino Holt Potassium [Moles/Vol] 3.8 mmol/L Normal 3.5-5.1 [facility] Comment on above: Performed By: #### Snehal RUSadi PREGU, DRUGRPD #### [facility] [address] [place] [address] Dr. Gino Holt Protein [Mass/Vol] 8.1 g/dL Normal 6.1-8.2 [facility] Comment on above: Performed By: #### Snehal IBANEZ PREGU, DRUGRPD #### [facility] [address] [place] [address] Dr. Gino Holt Sodium [Moles/Vol] 137 mmol/L Normal 136-145 [facility] Comment on above: Performed By: #### Snehal IBANEZ PREGU, DRUGRPD #### [facility] [address] [place] [address] Dr. Gino Holt Urea nitrogen [Mass/Vol] 10.0 mg/dL Normal 7.0-18.0 [facility] Comment on above: Performed By: #### Snehal IBANEZ PREGU, DRUGRPD #### [facility] [address] [place] [address] Dr. Gino Holt Urea nitrogen/Creatinine [Mass ratio] 11.8 mg/mg Normal [facility] Comment on above: Performed By: #### Snehal RUSadi PREGU, DRUGRPD #### [facility] [address] [place] [address] Dr. Gino Holt URINE MICROSCOPIC ONLYon BACTERIA SMALL Abnormal NONE SEEN [facility] Comment on above: Performed By: #### Snehal RUSadi PREGU, DRUGRPD #### [facility] [address] [place] [address] Dr. Gino Holt Bacteria identified Cx Nom (U) INDICATED Normal [facility] Comment on above: Performed By: #### E RUR PREGU, DRUGRPD #### [facility] [address] [place] [address] Dr. Gino Holt CAST NONE SEEN Normal NONE SEEN [facility] Comment on above: Performed By: #### E RUR, PREGU, DRUGRPD #### [facility] [address] [place] [address] Dr. Gino Holt Crystals LM Nom (Urine sed) NONE SEEN Normal NONE SEEN [facility] Comment on above: Performed By: #### E RUR, PREGU, DRUGRPD #### [facility] [address] [place] [address] Dr. Gino Holt Epithelial cells LM Ql (Urine sed) FEW Abnormal NONE SEEN /RARE [facility] Comment on above: Performed By: #### E RUR, PREGU, DRUGRPD #### [facility] [address] [place] [address] Dr. Gino Holt MUCOUS MODERATE Abnormal NONE SEEN [facility] Comment on above: Performed By: #### E RUR, PREGU, DRUGRPD #### [facility] [address] [place] [address] Dr. Gino Holt RBC NONE SEEN Abnormal 0-2 [facility] Comment on above: Performed By: #### E RUR, PREGU, DRUGRPD #### [facility] [address] [place] [address] Dr. Gino Holt WBC 2-5 Abnormal NONE SEEN [facility] Comment on above: Performed By: #### E RUR, PREGU, DRUGRPD #### [facility] [address] [place] [address] Dr. Gino Holt XR KUB 1 VIEWon 11-26-2021 XR KUB 1 VIEW EXAM: XR KUB 1 VIEW HISTORY: Pain COMPARISON: None. TECHNIQUE: 2 views FINDINGS: The bowel gas pattern is nonobstructed. No free intraperitoneal air. No intra-abdominal calcification. The osseous structures are normal IMPRESSION: Normal x-ray Electronically authenticated by: ROBBY FORBES Date: 2021-11-26 15:50 Normal [facility] Vital Signs Date Time Vital Sign Value Performing Clinician Faci lity 03-02-2025 11:31-0400 Body mass index (BMI) [Ratio] 35.58 kg/m2 Tess Helena DO Work Phone: [facility] 03-02-2025 11:31-0400 Body weight 106.14 kg Tess Helena DO Work Phone: [facility] 03-02-2025 11:31-0400 Diastolic blood pressure 78 mm[Hg] Tess Helena DO Work Phone: [facility] 03-02-2025 11:31-0400 Systolic blood pressure 122 mm[Hg] Tess Helena DO Work Phone: [facility] 02-23-2025 09:04-0400 Body mass index (BMI) [Ratio] 35.55 kg/m2 Sherie OLIVA Work Phone: [facility] 02-23-2025 09:04-0400 Body weight 106.05 kg Sherie OLIVA Work Phone: [facility] 02-23-2025 09:04-0400 Diastolic blood pressure 76 mm[Hg] Sherie OLIVA Work Phone: [facility] 02-23-2025 09:04-0400 Systolic blood pressure 116 mm[Hg] Sherie OLIVA Work Phone: [facility] 02-15-2025 08:45-0400 Body mass index (BMI) [Ratio] 35.73 kg/m2 Tess Helena DO Work Phone: [facility] 02-15-2025 08:45-0400 Body weight 106.59 kg Tess Helena DO Work Phone: [facility] 02-15-2025 08:45-0400 Diastolic blood pressure 82 mm[Hg] Tess Helena DO Work Phone: [facility] 02-15-2025 08:45-0400 Systolic blood pressure 120 mm[Hg] Tess Helena DO Work Phone: [facility] 01-20-2025 09:48-0400 Body mass index (BMI) [Ratio] 35.29 kg/m2 Sherie Lubna PA Work Phone: [facility] 01-20-2025 09:48-0400 Body weight 105.29 kg Sherie Gilboa PA Work Phone: [facility] 01-20-2025 09:48-0400 Diastolic blood pressure 80 mm[Hg] Sherie Lubna PA Work Phone: [facility] 01-20-2025 09:48-0400 Systolic blood pressure 122 mm[Hg] Sherie Lubna PA Work Phone: [facility] 01-06-2025 09:34-0400 Body mass index (BMI) [Ratio] 35.14 kg/m2 Tess Helena DO Work Phone: [facility] 01-06-2025 09:34-0400 Body weight 104.83 kg Tess Helena DO Work Phone: [facility] 01-06-2025 09:34-0400 Diastolic blood pressure 74 mm[Hg] Tess Helena DO Work Phone: [facility] 01-06-2025 09:34-0400 Systolic blood pressure 122 mm[Hg] Tess Helena DO Work Phone: [facility] 12-22-2024 10:07-0400 Body mass index (BMI) [Ratio] 35.73 kg/m2 Sherie Gilboa PA Work Phone: [facility] 12-22-2024 10:07-0400 Body weight 106.59 kg Sherie Gilboa PA Work Phone: [facility] 12-22-2024 10:07-0400 Diastolic blood pressure 80 mm[Hg] Sherie Gilboa PA Work Phone: [facility] 12-22-2024 10:07-0400 Systolic blood pressure 128 mm[Hg] Sherie Gilboa PA Work Phone: [facility] 12-07-2024 10:38-0400 Body mass index (BMI) [Ratio] 35.05 kg/m2 Tess Helena DO Work Phone: [facility] 12-07-2024 10:38-0400 Body weight 104.55 kg Tess Helena DO Work Phone: [facility] 12-07-2024 10:38-0400 Diastolic blood pressure 72 mm[Hg] Tess Helena DO Work Phone: [facility] 12-07-2024 10:38-0400 Systolic blood pressure 112 mm[Hg] Tess Helena DO Work Phone: [facility] 11-08-2024 09:47-0400 Body mass index (BMI) [Ratio] 34.21 kg/m2 Tess Helena DO Work Phone: [facility] 11-08-2024 09:47-0400 Body weight 102.06 kg Tess Helena DO Work Phone: [facility] 11-08-2024 09:47-0400 Diastolic blood pressure 70 mm[Hg] Tess Helena DO Work Phone: [facility] 11-08-2024 09:47-0400 Systolic blood pressure 118 mm[Hg] Tess Helena DO Work Phone: [facility] 05-18-2024 11:44-0400 Body mass index (BMI) [Ratio] 32.54 kg/m2 [facility] Silva MD Work Phone: [facility] 05-18-2024 11:44-0400 Body temperature 97.5 [degF] Dillon Silva MD Work Phone: [facility] 05-18-2024 11:44-0400 Body weight 97.07 kg Dillon Silva MD Work Phone: [facility] 05-18-2024 11:44-0400 Diastolic blood pressure 70 mm[Hg] Dillon Silva MD Work Phone: [facility] 05-18-2024 11:44-0400 Heart rate 78 /min Dillon Silva MD Work Phone: [facility] 05-18-2024 11:44-0400 SaO2% (BldA) [Mass fraction] 99 % Dillon Silva MD Work Phone: [facility] 05-18-2024 11:44-0400 Systolic blood pressure 118 mm[Hg] Dillon Silva MD Work Phone: [facility] 04-21-2024 09:35-0400 Body height 172.7 cm Dillon Silva MD Work Phone: [facility] 04-21-2024 09:35-0400 Body mass index (BMI) [Ratio] 32.39 kg/m2 Dillon Silva MD Work Phone: [facility] 04-21-2024 09:35-0400 Body temperature 97.5 [degF] Dillon Silva MD Work Phone: [facility] 04-21-2024 09:35-0400 Body weight 96.62 kg Dillon Silva MD Work Phone: [facility] 04-21-2024 09:35-0400 Diastolic blood pressure 58 mm[Hg] Dillon Silva MD Work Phone: [facility] 04-21-2024 09:35-0400 Heart rate 79 /min Dillon Silva MD Work Phone: [facility] 04-21-2024 09:35-0400 Respiratory rate 20 /min Dillon Silva MD Work Phone: [facility] 04-21-2024 09:35-0400 SaO2% (BldA) [Mass fraction] 99 % Dillon Silva MD Work Phone: [facility] 04-21-2024 09:35-0400 Systolic blood pressure 104 mm[Hg] Dillon Silva MD Work Phone: [facility] 03-25-2024 14:37-0400 Body height 172.7 cm Dillon Silva MD Work Phone: [facility] 03-25-2024 14:37-0400 Body mass index (BMI) [Ratio] 32.69 kg/m2 Dillon Silva MD Work Phone: [facility] 03-25-2024 14:37-0400 Body temperature 97.81 [degF] Dillon Silva MD Work Phone: [facility] 03-25-2024 14:37-0400 Body weight 97.52 kg Dillon Silva MD Work Phone: [facility] 03-25-2024 14:37-0400 Diastolic blood pressure 78 mm[Hg] Dillon Silva MD Work Phone: [facility] 03-25-2024 14:37-0400 Heart rate 95 /min Dillon Silva MD Work Phone: [facility] 03-25-2024 14:37-0400 Respiratory rate 22 /min Dillon Silva MD Work Phone: [facility] 03-25-2024 14:37-0400 SaO2% (BldA) [Mass fraction] 98 % Dillon Silva MD Work Phone: [facility] 03-25-2024 14:37-0400 Systolic blood pressure 138 mm[Hg] Dillon Silva MD Work Phone: [facility] Healthcare Encounters Encounter Date Encounter Type Care Provider Facility Start: 03-02-2025 End: 03-02-2025 Bamboo flowsheet Tess Helena DO Work Phone: [facility] Start: 03-02-2025 End: 03-02-2025 Bamboo flowsheet Tess Helena DO Work Phone: [facility] Start: 03-02-2025 End: 03-02-2025 Office outpatient visit 15 minutes Tess Helena DO Work Phone: [facility] Comment on above: Third trimester preg jose luis ([facility]); 38 weeks gestation of ([facility]); Urinary tract infection without hematuria, site unspecified Start: 03-02-2025 End: 03-02-2025 ambulatory TESS HELENA Not Available Start: 02-26-2025 End: 02-28-2025 Clinisync Result Encounter Generic External Data Provider [facility] Unsolicited Start: 02-26-2025 End: 02-28-2025 Clinisync Result Encounter Generic External Data Provider [facility] Unsolicited Start: 02-23-2025 End: 02-23-2025 Bamboo flowsheet Sherie OLIVA Work Phone: [facility] Start: 02-23-2025 End: 02-23-2025 Bamboo flowsheet Sherie OLIVA Work Phone: [facility] Start: 02-23-2025 End: 02-23-2025 Office outpatient visit 15 minutes Sherie OLIVA Work Phone: [facility] Comment on above: Third trimester preg jose luis ([facility]); 37 weeks gestation of ([facility]) Start: 02-23-2025 End: 02-23-2025 ambulatory SHERIE CALVO Not Available Start: 02-15-2025 End: 02-15-2025 Bamboo flowsheet Tess Helena DO Work Phone: [facility] Start: 02-15-2025 End: 02-19-2025 Bamboo flowsheet Tess Helena DO Work Phone: [facility] Start: 02-15-2025 End: 02-19-2025 Clinisync Result Encounter Generic External Data Provider [facility] Unsolicited Start: 02-15-2025 End: 02-15-2025 Office outpatient visit 15 minutes Tess Helena DO Work Phone: [facility] Comment on above: 36 weeks gestation o f ([facility]); Third trimester ([facility]); Restless leg; SGA (small for gestational age) ([facility]) Start: 02-15-2025 End: 02-15-2025 ambulatory TESS HELENA Not Available Start: 01-20-2025 End: 01-20-2025 Bamboo flowsheet Sherie OLIVA Work Phone: [facility] Start: 01-20-2025 End: 01-20-2025 Bamboo flowsheet Sherie OLIVA Work Phone: [facility] Start: 01-20-2025 End: 01-20-2025 Office outpatient visit 15 minutes Sherie OLIVA Work Phone: [facility] Comment on above: 32 weeks gestation o f ([facility]); Third trimester ([facility]); Restless leg; SGA (small for gestational age) ([facility]) Start: 01-20-2025 End: 01-20-2025 ambulatory SHERIE CALVO Not Available Start: 01-06-2025 End: 01-06-2025 Bamboo flowsheet Tess Helena DO Work Phone: [facility] Start: 01-06-2025 End: 01-06-2025 Bamboo flowsheet Tess Helena DO Work Phone: [facility] Start: 01-06-2025 End: 01-06-2025 Office outpatient visit 15 minutes Tses Helena DO Work Phone: [facility] Comment on above: Third trimester preg jose luis ([facility]); 30 weeks gestation of ([facility]) Start: 01-06-2025 End: 01-06-2025 ambulatory TESS HELENA Not Available Start: 12-28-2024 End: 12-28-2024 ambulatory SHERIE CALVO Not Available Start: 12-22-2024 End: 12-22-2024 Bamboo flowsheet Sherie OLIVA Work Phone: [facility] Start: 12-22-2024 End: 12-22-2024 Bamboo flowsheet Sherie OLIVA Work Phone: [facility] Start: 12-22-2024 [...] Start: 05-04-2024 End: 05-04-2024 ambulatory DILLON SILVA [facility] Start: 05-04-2024 End: 05-04-2024 ambulatory DILLON SILVA [facility] Start: 05-04-2024 End: 05-04-2024 ambulatory DILLON SILVA [...] Date Procedure Procedure Detail Performing Clinician Start: 03-02-2025 Urnls dip stick/tabl et rgnt non-auto w/o micrscp Tess Helena DO Work Phone: Start: 02-26-2025 Bacteria identified in Urine by Culture Generic External Data Provider Start: 02-23-2025 Urnls dip stick/tabl et rgnt non-auto w/o micrscp Sherie OLIVA Work Phone: Start: 02-15-2025 Urnls dip stick/tabl et rgnt non-auto w/o micrscp Tess Helena DO Work Phone: Start: 02-15-2025 STREP GP B [...] AM EDT Visit [facility] [address] [place] [phone] Tess Malik DO [address] [place], [place] [id number] [facility] Start: 03-31-2025 End: 03-31-2025 Patient encounter procedure 03/31/2025 9:30 AM EDT Procedure Visit [facility] [address] [place] [phone] Tess Malik, DO [address] [place] [address] [facility] Start: 03-28-2025 Influenza vaccination [facility] Start: 03-02-2025 End: 03-02-2025 Patient encounter procedure [facility] Comment on above: Arrived Start: 02-23-2025 End: 02-23-2025 Patient encounter procedure [facility] Comment on above: Arrived Start: 02-15-2025 End: 02-15-2026 CULTURE, GROUP B STREP WITH SUSCEPTIBLITY CULTURE, GROUP B STREP WITH SUSCEPTIBLITY Lab Routine Third trimester ([facility]) Expected: 02/15/2025, Expires: 02/15/2026 [facility] Work Phone: Comment on above: Expected: 02/15/2025 , Expires: 02/15/2026 Start: 02-15-2025 End: 02-15-2025 Patient encounter procedure 02/15/2025 8:40 AM EDT Routine [facility] [address] [place] [phone] Tess Malik, DO [address] [place] [address] Arrived [facility] Comment on above: Arrived Start: 02-07-2025 End: 02-07-2025 Patient encounter procedure 02/07/2025 11:20 AM EDT Routine [facility] [address] [place] [phone] Tess Malik, DO [address] [place] [address] [facility] Start: 01-20-2025 End: 01-20-2025 Patient encounter procedure [facility] Comment on above: Arrived Start: 01-06-2025 End: 01-06-2025 Patient encounter procedure [facility] Comment on above: Arrived Start: 12-28-2024 End: 12-28-2024 Professional / ancillary services management 12/28/2024 8:00 AM EDT Ancillary Procedure [facility] [address] [place] [phone] [facility] Start: 12-22-2024 End: 04-24-2025 [...] [facility] [address] [place] [address] Dillon Silva MD [address] [place] [phone] [facility] Start: 05-25-2024 End: 05-25-2024 Patient encounter procedure 05/25/2024 2:45 PM EDT Office Visit [facility] [address] [place] [address] Dillon Silva MD [address] [place] [phone] [facility] Start: 05-18-2024 End: 05-18-2024 Patient encounter procedure 05/18/2024 11:45 AM EDT Office Visit [facility] [address] [place] [address] Dillon Silva MD [address] [place] [phone] Arrived [facility] Comment on above: Arrived Start: 05-04-2024 End: 05-04-2025 Holter monitor study Holter monitor Imaging Routine Palpitation Expected: 05/04/2024 (Approximate), Expires: 05/04/2025 [facility] Work Phone: Comment on above: Expected: 05/04/2024 (Approximate), Expires: 05/04/2025 Start: 04-21-2024 End: 04-21-2025 Basic metabolic 1998 panel - Serum or Plasma Basic metabolic panel Lab Routine Chest pain, unspecified type Palpitation Expected: 04/21/2024 (Approximate), Expires: 04/21/2025 [facility] Work Phone: Comment on above: Expected: 04/21/2024 (Approximate), Expires: 04/21/2025 Start: 04-21-2024 End: 04-21-2025 Cardiac stress study Procedure STRESS TEST TREADMILL Imaging Routine Chest pain, unspecified type SOB (shortness of breath) on exertion Palpitation Expected: 04/21/2024 (Approximate), Expires: 04/21/2025 [facility] Comment on above: Expected: 04/21/2024 (Approximate), Expires: 04/21/2025 Start: 04-21-2024 End: 04-21-2025 CBC W Auto Differential panel - Blood CBC and differential Lab Routine SOB (shortness of breath) on exertion Palpitation Expected: 04/21/2024 (Approximate), Expires: 04/21/2025 [facility] Comment on above: Expected: 04/21/2024 (Approximate), Expires: 04/21/2025 Start: 04-21-2024 End: 04-21-2026 Echocardiogram 2D complete Echocardiogram 2D complete Echocardiography Routine SOB (shortness of breath) on exertion Palpitation Expected: 04/21/2024 (Approximate), Expires: 04/21/2026 [facility] Comment on above: Expected: 04/21/2024 (Approximate), Expires: 04/21/2026 Start: 04-21-2024 End: 04-21-2025 Hepatic function 2000 panel - Serum or Plasma Hepatic function panel Lab Routine Palpitation Expected: 04/21/2024 (Approximate), Expires: 04/21/2025 [facility] Comment on above: Expected: 04/21/2024 (Approximate), Expires: 04/21/2025 Start: 04-21-2024 End: 04-21-2025 Holter monitor study Holter monitor Imaging Routine Palpitation Expected: 04/21/2024 (Approximate), Expires: 04/21/2025 [facility] Comment on above: Expected: 04/21/2024 (Approximate), Expires: 04/21/2025 Start: 04-21-2024 End: 04-21-2025 Magnesium [Mass/volume] in Serum or Plasma Magnesium Lab Routine Palpitation Expected: 04/21/2024 (Approximate), Expires: 04/21/2025 [facility] Comment on above: Expected: 04/21/2024 (Approximate), Expires: 04/21/2025 Start: 04-21-2024 End: 04-21-2025 TSH W/REFLEX TO FT4 TSH W/REFLEX TO FT4 Lab Routine Palpitation Expected: 04/21/2024 (Approximate), Expires: 04/21/2025 [facility] Comment on above: Expected: 04/21/2024 (Approximate), Expires: 04/21/2025 Start: 04-21-2024 End: 04-21-2024 Patient encounter procedure 04/21/2024 9:15 AM EDT Office Visit [facility] [address] [place] [phone] Dillon Silva MD [address] [place] [phone] Arrived [facility] Comment on above: Arrived Start: 03-28-2024 Influenza vaccination Influenza Vacc ine (#1) [facility] Start: 03-25-2024 End: 03-25-2024 Patient encounter procedure 03/25/2024 2:45 PM EDT Office Visit [facility] [address] [place] [address] Dillon Silva MD [address] [place] [phone] Arrived [facility] Comment on above: Arrived Start: 2020 Screening for malign ant neoplasm of cervix [facility] Start: 10-26-2011 Screening for malign ant neoplasm of cervix Pap Smear [facility] Bacteria identified in Urine by Culture Urine culture Microbiology Routine Urinary tract infection without hematuria, site unspecified Ordered: 03/02/2025 [facility] Work Phone: Comment on above: Ordered: 03/02/2025 CHLAMYDIA TRACHOMATI S (GENITO/STI) CHLAMYDIA TRACHOMATIS (GENITO/STI) Lab Routine STD exposure Ordered: 12/07/2024 [facility] Comment on above: Ordered: 12/07/2024 Cytology Cervical or vaginal smear or scraping study Pap Smear Pathology and Cytology Routine Well woman exam with routine gynecological exam Ordered: 12/07/2024 [facility] Work Phone: Comment on above: Ordered: 12/07/2024 Human papilloma viru s DNA [Presence] in Unspecified specimen by Probe with amplification HPV DNA probe, amplified Microbiology Routine Well woman exam with routine gynecological exam Ordered: 12/07/2024 [facility] Comment on above: Ordered: 12/07/2024 Neisseria gonorrhoea e DNA [Presence] in Unspecified specimen by SUKHJINDER with probe detection Neisseria gonorrhea DNA probe, direct Lab Routine STD exposure Ordered: 12/07/2024 [facility] Comment on above: Ordered: 12/07/2024 Pulmonary function report Pulmonary Function Test Imaging Routine SOB (shortness of breath) on exertion Ordered: 04/21/2024 [facility] Comment on above: Ordered: 04/21/2024 SURESWAB(R) ADVANCED VAGINITIS PLUS, TMA SURESWAB(R) ADVANCED VAGINITIS PLUS, TMA Pathology and Cytology Routine Vaginal discharge Ordered: 12/07/2024 [facility] Comment on above: Ordered: 12/07/2024 Immunizations Immunization Date Immunization Notes Care Provider Fa cility 10-16-2022 influenza virus vacc ine, unspecified formulation Dillon Silva MD Work Phone: [facility] Payers Date Payer Category Payer Private Health Insurance [employer]ST[employer] ZAYAS [id number] 2023 Unknown [employer]INO YASMEEN Torres [employer] [facility] [id number] 2023-Present [phone] [address] [place] [address] [id number] 2023 Unknown [id number] 2019 Medicaid [facility] MEDICAID [place] MEDICAID [id number] 2019-Present [address] [facility] [place] [address] [id number] 2019 Medicaid (Managed Care) 1.2. [id number] 1990 Unknown [id number] 2.16.840.1.124094.3.579.2. 593 1990 Unknown [id number] 2.16.840.1.468425.3.579.2. 593 1990 Unknown [id number] 2.16.840.1.008028.3.579.2. 593 1990 Unknown [id number] 2.16.840.1.949789.3.579.2. 593 1990 Unknown [id number] 2.16.840.1.371848.3.579.2. 593 1990 Unknown [id number] 2.16.840.1.556784.3.579.2. 593 1990 Unknown [id number] 2.16.840.1.795672.3.579.2. 593 1990 Unknown [id number] 2.16.840.1.987984.3.579.2. 593 1990 Unknown [id number] 2.16.840.1.599461.3.579.2. 593 1990 Unknown [id number] 2.16.840.1.074417.3.579.2. 1286 1990 Unknown [id number] 2.16.840.1.001225.3.579.2. 1286 1990 Unknown [id number] 2.16.840.1.030936.3.579.2. 1286 1990 Unknown [id number] 2.16.840.1.762294.3.579.2. 1286 1990 Unknown [id number] 2.16.840.1.525070.3.579.2. 1259 1990 Unknown [id number] 2.16.840.1.830276.3.579.2. 9 1990 Unknown [id number] 2.16.840.1.995955.3.579.2. 1259 1990 Unknown [id number] 2.16840.1.386270.3.579.2. 1259 1990 Unknown [id number] 2.16.840.1.802003.3.579.2. 1259 1990 Unknown [id number] 2.16.840.1.300019.3.579.2. 1259 1990 Unknown [id number] 2.16.840.1.413966.3.579.2. 1259 1990 Unknown [id number] 2.16.840.1.247044.3.579.2. 1259 1990 Unknown [id number] 2.16.840.1.625356.3.579.2. 1259 1990 Unknown [id number] 2.16.840.1.087406.3.579.2. 1259 1990 Unknown [id number] 2.16.840.1.643949.3.579.2. 1259 1990 Unknown [id number] 2.16.840.1.018791.3.579.2. 9 1990 Unknown [id number] 2.16.840.1.345964.3.579.2. 1259 1990 Unknown [id number] 2.16.840.1.290346.3.579.2. 1259 1959 Unknown [id number] Social History Date Type Detail Facility Start: 03-25-2024 Tobacco smoking stat [facility] Ex-smoker [facility] History of tobacco [...] file [facility] Tobacco smoking stat [facility] Tobacco smoking consumption unknown [facility] How often do you nee d to have someone help you when you read instructions, pamphlets, or other written material from your doctor or pharmacy [[facility]] Sometimes [facility] Start: 06-22-2024 [facility] Clinical Notes 03-25-2024 to 03-02-2025 [place] [place] LPN - 03/02/2025 11:30 AM PJ June - 02/23/2025 8:50 AM [place] LPN - 02/15/2025 8:40 AM PJ June - 01/20/2025 10:00 AM PJ June - 01/06/2025 9:20 AM EDT Note Date & Type Note Facility 03-02-2025 History of Presen t illness Narrative Reason [...] nursing note reviewed. Exam conducted with a ed educational aide present. Vitals: Estimated body mass index is 35.58 kg/m as calculated from the following: Height as of 04/21/24: 5' 8 . Weight as of this encounter: 234 lb. BP: 122/78 No LMP recorded. Patient is . ASSESSMENT & PLAN ICD-10-CM 1. Third trimester ([facility]) Z34.93 POCT urinalysis dipstick manually resulted 2. 38 weeks gestation of ([facility]) Z3A.38 3. Urinary tract infection without hematuria, [...] Tess Malik DO documented in this encounter [facility] 02-23-2025 History of Presen t illness Narrative [...] calculated from the following: Height as of 04/21/: 5' 8 . Weight as of this encounter: 233 lb 12.8 oz. BP: 116/76 No LMP recorded. Patient is . ASSESSMENT & PLAN ICD-10-CM 1. Third trimester ([facility]) Z34.93 POCT urinalysis dipstick manually resulted 2. 37 weeks gestation of ([facility]) Z3A.37 POCT urinalysis dipstick manually resulted Return [...] of: PJ Wilson documented in this encounter [facility] 02-15-2025 History of Presen t illness Narrative Reason [...] nursing note reviewed. Exam conducted with a ed educational aide present. Vitals: Estimated body mass index is 35.73 kg/m as calculated from the following: Height as of 04/21/24: 5' 8 . Weight as of this encounter: 235 lb. BP: 120/82 No LMP recorded. Patient is . ASSESSMENT & PLAN ICD-10-CM 1. 36 weeks gestation of ([facility]) Z3A.36 POCT urinalysis dipstick manually resulted 2. Third trimester ([facility]) Z34.93 POCT urinalysis dipstick manually resulted CULTURE, GROUP B STREP WITH SUSCEPTIBLITY CULTURE, GROUP B STREP WITH SUSCEPTIBLITY 3. Restless leg G25.81 4. SGA (small for gestational age) ([facility]) P05.10 Patient is doing well but has complaints of being tired and having maternal discomfort due to . Patient verbalized frequent movement and was instructed to perform kick counts three times per day. labor precautions were given, LARC consent was signed/declined will have nexplanon at 3 week , and GBS was obtained. Cervical check was performed and patient is 1cm dilated. Orders Placed This Encounter Procedures CULTURE, GROUP B STREP WITH SUSCEPTIBLITY POCT urinalysis dipstick manually resulted Follow Up: Patient is to return to office in 1 week for routine OB appointment Documented by [facility] [place] LPN on behalf of: Tess Malik DO documented in this encounter [facility] 01-20-2025 History of Presen t illness Narrative [...] nursing note reviewed. Exam conducted with a ed educational aide present. Vitals: Estimated body mass index is 35.29 kg/m as calculated from the following: Height as of 04/21/24: 5' 8 . Weight as of this encounter: 232 lb 1.9 oz. BP: 122/80 No LMP recorded. Patient is . ASSESSMENT & PLAN ICD-10-CM 1. 32 weeks gestation of ([facility]) Z3A.32 POCT urinalysis dipstick manually resulted 2. Third trimester ([facility]) Z34.93 POCT urinalysis dipstick manually resulted 3. Restless leg G25.81 POCT urinalysis dipstick manually resulted 4. SGA (small for gestational age) ([facility]) P05.10 POCT urinalysis dipstick manually resulted Return [...] of: PJ Wilson documented in this encounter [facility] 01-06-2025 History of Presen t illness Narrative [...] ASSESSMENT & PLAN ICD-10-CM 1. Third trimester ([facility]) Z34.93 2. 30 weeks gestation of ([facility]) Z3A.30 Return OB: Patient presents today for [...] Tess Malik DO documented in this encounter [facility] 12-22-2024 History of Presen t illness Narrative [...] aura and without status migrainosus, not intractable ([facility]) 07/11/2023 Generalized anxiety disorder ([facility]) 03/25/2024 Gastroesophageal reflux disease without esophagitis 03/25/2024 Allergic rhinitis due to pollen 03/25/2024 Moderate major depression, single episode ([facility]) ([facility]) 03/25/2024 Palpitation 04/21/2024 Resolved Ambulatory Problems Diagnosis [...] of: PJ Wilson documented in this encounter [facility] 12-07-2024 History of Presen t illness Narrative [...] aura and without status migrainosus, not intractable ([facility]) 07/11/2023 Generalized anxiety disorder ([facility]) 03/25/2024 Gastroesophageal reflux disease without esophagitis 03/25/2024 Allergic rhinitis due to pollen 03/25/2024 Moderate major depression, single episode ([facility]) ([place]) 03/25/2024 Palpitation 04/21/2024 Resolved Ambulatory Problems Diagnosis [...] nursing note reviewed. Exam conducted with a ed educational aide present. Vitals: Estimated body mass index is [...] Tess Malik DO documented in this encounter [facility] 11-08-2024 History of Presen t illness Narrative [...] aura and without status migrainosus, not intractable ([facility]) 07/11/2023 Generalized anxiety disorder ([facility]) 03/25/2024 Gastroesophageal reflux disease without esophagitis 03/25/2024 Allergic rhinitis due to pollen 03/25/2024 Moderate major depression, single episode ([facility]) ([facility]) 03/25/2024 Palpitation 04/21/2024 Resolved Ambulatory Problems Diagnosis [...] nursing note reviewed. Exam conducted with a ed educational aide present. Vitals: Estimated body mass index is [...] of DRE Delgadillo documented in this encounter [facility] 05-18-2024 History of Presen t illness Narrative [...] to anxiety. Monitor. documented in this encounter [facility] 04-21-2024 History of Presen t illness Narrative [...] TREADMILL Holter monitor documented in this encounter [facility] 03-25-2024 History of Presen t illness Narrative [...] 33 y.o. female who presents for Follow-up ([facility] paperwork). Follow up migraines, depression, anxiety, and [...] Continue qulipta and topamax. Relevant Medications rizatriptan COOK FISH AND CHIPS (Maxalt-COOK FISH AND CHIPS) 10 MG disintegrating tablet Generalized anxiety disorder [...] breath Palpitation Palpitations documented in this encounter [facility] HealthcareEvaluation note* Diagnosis Migraine without aura and [...] disorder Moderate major depression, single episode (HCC) ([facility]) Major depressive disorder, single episode, moderate Migraine without aura and without status migrainosus, not intractable (CMS/HCC) Second trimester state, incidental documented in this encounter [facility] HealthcareEvaluation note* Diagnosis Migraine without aura and [...] disorder Moderate major depression, single episode (HCC) ([facility]/HCC) Major depressive disorder, single episode, moderate Migraine without aura and without status migrainosus, not intractable (CMS/HCC) Well woman exam with routine gynecological exam Routine gynecological examination Second trimester state, incidental 26 weeks gestation of Vaginal discharge Leukorrhea, not specified as infective STD exposure Diabetes mellitus screening Screening for diabetes mellitus documented in this encounter [facility] HealthcareEvaluation note* Diagnosis Migraine without aura and [...] without status migrainosus, not intractable Third trimester ([facility]) state, incidental 30 weeks gestation of ([facility]) documented in this encounter [facility]* [...] migrainosus, not intractable 32 weeks gestation of ([facility]) Third trimester ([facility]) state, incidental Restless leg Restless legs syndrome (RLS) SGA (small for gestational age) ([facility]) Ntqzg-cmj-mevzy without mention of malnutrition, unspecified (weight) documented [...] without status migrainosus, not intractable Third trimester ([facility]) state, incidental 37 weeks gestation of ([facility]) documented in this encounter [facility]* [...] aura and without status migrainosus, not intractable 36 weeks gestation of ([facility]) Third trimester ([facility]) state, incidental Restless leg Restless legs syndrome (RLS) SGA (small for gestational age) ([facility]) Kzkiq-xif-igkdk without mention of malnutrition, unspecified (weight) documented [...] without status migrainosus, not intractable Third trimester ([facility]) state, incidental 38 weeks gestation of ([facility]) Urinary tract infection without hematuria, site unspecified documented in this encounter [facility] Summary [...] monitor Dillon Silva MD [address] [place] [address] Referral ID Status Reason Start Date Expiration Date V isits Requested Visits Authorized [id number] Pending Review 05/04/2024 10/31/2024 1 1 Referral ID Status Reason Start Date Expiration Date V isits Requested Visits Authorized [id number] Pending Review 04/21/2024 10/18/2024 1 1 Specialty Diagnoses / Procedures Referred By Contac t Referred To Contact Radiology Diagnoses Chest pain, unspecified type SOB (shortness of breath) on exertion Palpitation Procedures STRESS TEST TREADMILL Dillon Silva MD [address] [place] [address] Referral ID Status Reason Start Date Expiration Date V isits Requested Visits Authorized [id number] Authorized 04/21/2024 10/18/2024 1 1 Specialty Diagnoses / Procedures Referred By Contac t Referred To Contact Cardiology Diagnoses SOB (shortness of breath) on exertion Palpitation Procedures Echocardiogram 2D complete Dillon Silva MD [address] [place] [address] Referral ID Status Reason Start Date Expiration Date Visits Requested Visits Authorized [id number] Pending Review Perform Procedure 04/21/2024 10/18/2024 1 1 Additional Source Comments INFORMATION SOURCE (unrecogn ized section and content) DATE CREATED AUTHOR 11/20/2022 [facility] DATE CREATED AUTHOR AUTHOR'S ORGANIZ ATION 05/05/2024 [facility] DATE CREATED AUTHOR AUTHOR'S ORGANIZ ATION 03/05/2025 [facility] dical Specialists EPIC Care Teams (unrecognized sec tion and content) Flower Grower Relationship Specialty Start Date End Date Dillon Silva MD [address] [place] [address] PCP - General Family Medicine 02/11/24 Flower Grower Relationship Specialty Start Date End Date Dillon Silva MD [address] [place] [address] PCP - General Family Medicine 02/11/24 Flower Grower Relationship Specialty Start Date End Date Dillon Silva MD [address] [place] [address] PCP - General Family Medicine 02/11/24 Flower Grower Relationship Specialty Start Date End Date Dillon Silva MD [address] [place] [address] PCP - General Family Medicine 02/11/24 Flower Grower Relationship Specialty Start Date End Date Dillon Silva MD [address] [place] [address] PCP - General Family Medicine 02/11/24 Flower Grower Relationship Specialty Start Date End Date Dillon Silva MD [address] [place] [address] PCP - General Family Medicine 02/11/24 Flower Grower Relationship Specialty Start Date End Date Dillon Silva MD [address] [place] [address] PCP - General Family Medicine 02/11/24 Flower Grower Relationship Specialty Start Date End Date Dillon Silva MD [address] [place] [address] PCP - General Family Medicine 02/11/24 Flower Grower Relationship Specialty Start Date End Date Dillon Silva MD [address] [place] [address] PCP - [facility] 02/11/24 Flower Grower Relationship Specialty Start Date End Date Dillon Silva MD [address] [place] [address] PCP - [facility] 02/11/24 Dillon Silva MD [address] [place] [address] [facility] 07/28/24 Flower Grower Relationship Specialty Start Date End Date Dillon Silva MD [address] [place] [address] [facility] 02/11/24 Dillon Silva MD [address] [place] [address] [facility] 07/28/24 Flower Grower Relationship Specialty Start Date End Date Dillon Silva MD [address] [place] [address] PCP [facility] 02/11/24 Dillon Silva MD [address] [place] [address] [facility] 07/28/24 Flower Grower Relationship Specialty Start Date End Date Dillon Silva MD [address] [place] [address] PCP - [facility] 02/11/24 Dillon Silva MD [address] [place] [address] [facility] 07/28/24 Flower Grower Relationship Specialty Start Date End Date Dillon Silva MD [address] [place] [address] PCP - [facility] 02/11/24 Dillon Silva MD [address] [place] [address] [facility] 07/28/24 Flower Grower Relationship Specialty Start Date End Date Dillon Silva MD [address] [place] [address] PCP [facility] 02/11/24 Dillon Silva MD [address] [place] [address] [facility] 07/28/24 Flower Grower Relationship Specialty Start Date End Date Dillon Silva MD [address] [place] [address] PCP [facility] 02/11/24 Dillon Silva MD [address] [place] [address] [facility] 07/28/24 Flower Grower Relationship Specialty Start Date End Date Dillon Silva MD [address] [place] [address] [facility] 02/11/24 Dillon Silva MD [address] [place] [address] [facility] 07/28/24 Flower Grower Relationship Specialty Start Date End Date Dillon Silva MD [address] [place] [address] [facility] 02/11/24 Dillon Silva MD [address] [place] [address] [facility] 07/28/24 Flower Grower Relationship Specialty Start Date End Date Dillon Silva MD [address] [place] [address] [facility] 02/11/24 Dillon Silva MD [address] [place] [address] [facility] 07/28/24 Reason for Visit (unrecogniz ed [...] BE BASED ON THE PRIMARY CLINICAL RECORDS. [facility]. provides no warranty or guarantee of the accuracy or completeness of information in this document.
--- OUTSIDE RECORDS SUMMARY | 2025-03-08 04:58 | XMS_ITS | Encounter Summary ---
Author Organization [facility] Address [address] [place] [address] Care Team Providers Care Audio Visual Equipment Rental Clerk Name Role Phone Dillon Shipman MD Primary Care Provider Dillon Shipman MD Unavailable Encounter Details Date Type Department Care Team (Latest Contact Info) Description 02/28/2025 Travel Social History Tobacco Use Types Packs/Day [...] How often do you attend chur or yazidi services? 1 to 4 times per year 03/25/2024 Do you belong to any clubs o r organizations such as buddhism groups, unions, fraternal or athletic groups, or [...] Recorded Patient Health Questionnaire-2 Score 0 02/14/2025 [facility] of Occupat ional Health - Occupational [...] any time in the past 12 m [facility], were you homeless or living [...] 9:30 AM EDT Procedure Visit [facility] [address] [place] [address] Paul Malik DO [address] [place] [address] documented as of this encounter Visit Diagnoses Not on filedocumented in this encounter Care Teams Audio Visual Equipment Rental Clerk Relationship Specialty Start Date End Date Dillon Shipman MD [address] [place] [address] PCP - General Family Medicine 02/11/24 Dillon Shipman MD [address] [place] [address] PCP - [facility] 07/28/24 documented as of this encounter
--- OUTSIDE RECORDS SUMMARY | 2025-03-08 04:58 | XMS_ITS | Encounter Summary ---
Author Organization [facility] Address [address] [place] [address] Care Team Providers Care Environmental Web Crawler Name Role Phone Dillon Shipman MD Primary Care Provider [phone] Dillon Shipman MD Unavailable Encounter Details Date Type Department Care Team (Late st Contact Info) Description 08/10/2024 Abstract [facility] [address] [place] [address] Paul Malik DO [address] [place], [place] [id number] Social History Tobacco Use Types Packs/Day Years [...] often do you attend chur ch or baptism services? 1 to 4 times per year 03/25/2024 Do you belong to any clubs o r organizations such as sikhism groups, unions, fraternal or athletic groups, or [...] and heating? Not hard at all 03/25/2024 [facility] [place] of Occupat ional Health - Occupational Stress [...] any time in the past 12 m [facility], were you homeless or living in a nursing home (including now)? No 03/25/2024 Comments Unknown Sex and Gender Information Value Date Recorded Sex Assigned at Not on file Legal Sex Female 11:34 PM EDT Gender Identity Not on file Sexual Orientation Not on file documented as of this encounter Plan of Treatment Upcoming Encounters Date Type Department Care Team (Late st Contact Info) Description 03/31/2025 9:30 AM EDT Procedure Visit [facility] [address] [place] [address] Paul Malik DO [address] [place] [address] documented as of this encounter Visit Diagnoses Not on filedocumented in this encounter Care Teams Environmental Web Crawler Relationship Specialty Start Date End Date Dillon Shipman MD [address] [place] [address] PCP - General Family Medicine 02/11/24 Dillon Shipman MD [address] [place] [address] PCP - [facility] 07/28/24 documented as of this encounter
--- OUTSIDE RECORDS SUMMARY | 2025-03-08 04:58 | XMS_ITS | Encounter Summary ---
Author Organization [facility] Address [address] [place] [address] Care Team Providers Care Environmental Property Assessor Name Role Phone Dillon Shipman MD Primary Care Provider [phone] Dillon Shipman MD Unavailable Reason for Visit * Reason Comments Med Refill Encounter Details Date Type Department Care Team (Late st Contact Info) Description 08/12/2024 Refill [facility] [address] [place] [address] Dillon Shipman MD [address] [place] [address] Generalized anxiety disorder Social History Tobacco Use [...] Never 03/25/2024 How often do you attend [facility] or denominational services? 1 to 4 times per year 03/25/2024 Do you belong to any clubs o r organizations such as sikh groups, unions, fraternal or athletic groups, or [...] and heating? Not hard at all 03/25/2024 [facility] [employer] [place] of Occupat ional Health - Occupational Stress [...] time in the past [address] [facility], were you homeless or living in [...] EDT Procedure Visit [facility] [address] [place] [address] Paul Malik DO [address] [place], [place] [phone] documented as of this encounter Visit Diagnoses Diagnosis Generalized anxiety disorder Generalized anxiety disorder documented in this encounter Care Teams Environmental Property Assessor Relationship Specialty Start Date End Date Dillon Shipman MD [address] [place] [address] PCP - General Family Medicine 02/11/24 Dillon Shipman MD [address] [place] [address] PCP - [facility] 07/28/24 documented as of this encounter
--- OUTSIDE RECORDS SUMMARY | 2025-03-08 04:58 | XMS_ITS | Encounter Summary ---
Author Organization [facility] Address [address] [place] [address] Care Team Providers Care Irish Moss Operator Name Role Phone Dillon Shipman MD Primary Care Provider [phone] Dillon Shipman MD Unavailable Encounter Details Date Type Department Care Team (Late st Contact Info) Description 02/26/2025 Clinisync Result Encounter [facility] External Department Unsolicited Provider, Generic External Data Social History Tobacco Use Types Packs/Day Years [...] often do you attend chur ch or roman catholic services? 1 to 4 times per year 03/25/2024 Do you belong to any clubs o r organizations such as rastafari groups, unions, fraternal or athletic groups, or [...] Recorded Patient Health Questionnaire-2 Score 0 02/14/2025 [facility] of Occupat ional [facility] - Occupational Stress Questionnaire Answer Date Recorded [...] any time in the past 12 m [facility], were you homeless or living in a care home (including now)? No 03/25/2024 Estimated Date of [...] Description 03/31/2025 9:30 AM EDT Procedure Visit [facility] [address] [place] [address] Paul Malik DO [address] [address] documented as of this encounter Procedures Procedure Name Priority Date/Time Associated Diagnosis Comments URINE CULTURE, ROUTINE Routine 02/26/2025 2:25 AM EDT documented in this encounter Results * URINE CULTURE, ROUTINE (02/26/2025 2:25 AM EDT) URINE CULTURE, ROUTINE Urine Culture, Routine [facility] URINE CULTURE, ROUTINE Mixed urogenital juan [facility] URINE CULTURE, ROUTINE 10,000-25,000 colony forming units per mL [facility] URINE CULTURE, ROUTINE Performed at: [facility]ULT[facility], ROUTINE [address] [place], [place] [id number] [facility] URINE CULTURE, ROUTINE Packing Line Operator: Osmin Joel PhD, Phone: [phone] [facility] 02/26/2025 2:25 AM EDT 02/26/2025 2:32 AM EDT Narrative [facility] - 02/28/2025 4:07 AM EDT us Generic External Data Provider LAB BLOOD ORDERAB LES Final Result [facility] documented in this encounter Visit Diagnoses Not on filedocumented in this encounter Care Teams Irish Moss Operator Relationship Specialty Start Date End Date Dillon Shipman MD [address] [place] [address] PCP - General Family Medicine 02/11/24 Dillon Shipman MD [address] [place] [address] PCP - [facility] 07/28/24 documented as of this encounter
--- OUTSIDE RECORDS SUMMARY | 2025-03-08 04:58 | XMS_ITS | Encounter Summary ---
Author Organization [facility] Address [address] [place] [address] Care Team Providers Care Finishing And Shipping Supervisor Name Role Phone Dillon Shipman MD Primary Care Provider [phone] Dillon Shipman MD Unavailable Encounter Details Date Type Department Care Team (Late st Contact Info) Description 03/02/2025 Bam[employer] GameWorkso flowsheet [facility] [address] [place] [address] Paul Malik DO [address] [place], [place] [address] Social History Tobacco Use Types Packs/Day Years [...] often do you attend chur ch or faith services? 1 to 4 times per year 03/25/2024 Do you belong to any clubs o r organizations such as baptist groups, unions, fraternal or athletic groups, or [...] Recorded Patient Health Questionnaire-2 Score 0 02/14/2025 [facility] - Occupational Stress Questionnaire Answer Date [...] any time in the past 12 m [facility], were you homeless or living [...] EDT Procedure Visit [facility] [address] [place] [address] Paul Malik DO [address] [place] [address] documented as of this encounter Visit Diagnoses Not on filedocumented in this encounter Care Teams Finishing And Shipping Supervisor Relationship Specialty Start Date End Date Dillon Shipman MD [address] [place] [address] PCP - General Family Medicine 02/11/24 Dillon Shipman MD [address] [place] [address] PCP - [facility] 07/28/24 documented as of this encounter
--- OUTSIDE RECORDS SUMMARY | 2025-03-08 04:58 | XMS_ITS | Clinical Summary ---
Author Organization [employer] Address [id number] [address] [place] [address] Care Team Providers Care Services Rep Name Role Phone Dillon Shipman MD Primary Care Provider [phone] Allergies Active Allergy Reactions Criticality Noted Date Comments Ciprofloxacin Nausea 05/01/2020 Medications JULEBER 0.15-0.03 mg per tablet Take 1 tablet by mouth daily. 0 Active topiramate (TOPAMAX) 50 mg tabletIndication s:Migraine with aura and without status migrainosus, not intractable Take 1 tablet (50 mg total) by mouth 2 (two) times a day. 60 tablet 5 0 Active SUMAtriptan (IMITREX) 100 mg tabletIndication s:Migraine with aura and without status migrainosus, not intractable Take 1 tablet (100 mg total) by mouth as needed for migraine for up to 1 dose. May repeat in 2 hours if unresolved. Do not exceed 200 mg in 24 hours. 9 tablet 5 0 Active meclizine (ANTIVERT) 25 mg tablet Take 1 tablet (25 mg total) by mouth 4 (four) times a day as needed for dizziness. 60 tablet 1 1 Active Additional Information Patient not taking.Reported on 09/30/2022 hydrOXYzine (VISTARIL) 25 mg capsule Take 25 mg by mouth 3 (three) times a day as needed for itching. Active esomeprazole (NexIUM) 20 mg capsule Take 20 mg by mouth every morning before breakfast. Active PARoxetine (PAXIL) 10 mg tablet Take 10 mg by mouth every morning. Active hydrOXYzine (ATARAX) 50 mg tablet Take 1 tablet (50 mg total) by mouth 3 (three) times a day as needed for itching. Active ARIPiprazole (ABILIFY) 10 mg tablet Take 1 tablet (10 mg total) by mouth in the morning. Active atogepant (QULIPTA) 10 mg tablet Take 10 mg by mouth in the morning. Active ibuprofen (MOTRIN) 600 mg tablet Take 1 tablet (600 mg total) by mouth every 6 (six) hours as needed for pain. 30 tablet 3 Active Active Problems Problem Noted Date Diagnosed Date S/P tonsillectomy 07/25/2021 Dysfunction of left eustachian tube 07/25/2021 Nasal congestion 12/06/2020 Peripheral vertigo involving left ear 11/20/2020 Migraine with aura and witho ut status migrainosus, not intractable 11/20/2020 Left ear pain 11/20/2020 Ear pressure, left 11/20/2020 Excessive daytime sleepiness 11/20/2020 Abnormal audiogram 11/20/2020 Chronic tonsillitis 11/14/2020 Intractable headache 06/26/2020 Dizziness 05/01/2020 Family History Medical History Relation Name Comments Cancer Mother Relation Name Status Comments Father Mother Alive Social History Tobacco Use Types Packs/Day Years Used Date Smoking Tobacco: Some Days Cigarettes Smokeless Tobacco: Never Tobacco Cessation:Ready to Q uit: Not Asked; Counseling Given: Not Answered Alcohol Use Standard Drinks/Week Comments Yes 0 (1 standard drink = 0.6 oz pur e alcohol) socially PHQ-2 Answer Date Recorded Total Score 12 07/14/2020 Childcare Answer Date Recorded Childcare Unknown 01/06/2019 Employment Answer Date Recorded Employment Unknown 01/06/2019 Hunger Screening Answer Date Recorded Within the past 12 months we worried whether our food would run out before we got money to buy more. Never True 10/15/2022 Within the past 12 months th e food we bought just didn't last and we didn't have money to get more. Never True 10/15/2022 Purpose - Life Answer Date Recorded Purpose and direction in life Unknown Comments No Sex and Gender Information Value Date Recorded Sex Assigned at Not on file Legal Sex Female 12:12 PM EDT Gender Identity Not on file Sexual Orientation Not on file Last Filed Vital Signs Vital Sign Reading Time Taken Comments Blood Pressure 139/98 10/15/2022 4:00 AM EDT Pulse 82 10/15/2022 4:00 AM EDT Temperature 36.6 C (97.9 F) 10/15/2022 4:00 AM EDT Respiratory Rate 18 10/15/2022 4:00 AM EDT Oxygen Saturation 100% 10/15/2022 4:00 AM EDT Inhaled Oxygen Concentration - - Weight 96.6 kg (213 lb) 05/04/2024 9:27 AM EDT Height 172.7 cm (5' 8 ) 05/04/2024 9:27 AM EDT Body Mass Index 32.39 05/04/2024 9:27 AM EDT Plan of Treatment Health Maintenance Due Date Last Done Comments Tobacco Counseling 1990 Depression Screening 2002 Adult BMI Follow Up Plan 2008 Pap Smear 10/26/2011 Influenza Vaccine 03/28/2025 10/16/2022 Adult BMI Screening 05/04/2025 05/04/2024 Tobacco Screening 05/04/2025 05/04/2024 DTaP,Tdap and Td Vaccines (6 - Tdap) 08/24/2032 08/24/2022, 11/24/1992, 08/30/1991, Additional history exists Medical Devices Implanted Type Area Systems Analyst Device Identifier Shelf Expiration Date Model / Serial / Lot Tube 1.3mm 1.27mm 2.9mm Lucy Clr Btn Shy Vnt - Sna - [id number] Implanted:Qty: 1 on 07/09/2021 by Caleb Austin MD PhD at [facility] Other Implant USE MDTR ENT F/ENT [id number] / NA / [id number] Insurance [place] [employer] Care Teams Services Rep Relationship Specialty Start Date End Date Dillon Shipman MD PCP - General Family Medicine 01/15/19
--- OUTSIDE RECORDS SUMMARY | 2025-03-08 04:58 | XMS_ITS | Encounter Summary ---
Author Organization [facility] Address [address] [place] [address] Care Team Providers Care Laundry Bag Punch Operator Name Role Phone Dillon Shipman MD Primary Care Provider [phone] Dillon Shipman MD Unavailable Encounter Details Date Type Department Care Team (Late st Contact Info) Description 08/16/2024 Abstract [facility] [address] [place] [address] Dillon Shipman MD [address] [place] [phone] Social History Tobacco Use Types Packs/Day Years [...] often do you attend chur ch or oriental orthodox services? 1 to 4 times per year [...] and heating? Not hard at all 03/25/2024 [facility] [place] of Occupat ional Health - Occupational Stress [...] were you homeless or living in a jail (including now)? No 03/25/2024 Comments Unknown Sex [...] EDT Procedure Visit [facility] [address] [place] [address] Paul Malik DO [address] [place] [address] documented as of this encounter Visit Diagnoses Not on filedocumented in this encounter Care Teams Laundry Bag Punch Operator Relationship Specialty Start Date End Date Dillon Shipman MD [address] [place] [phone] PCP - General Family Medicine 02/11/24 Dillon Shipman MD [address] [place] [address] PCP - [facility] 07/28/24 documented as of this encounter
--- OUTSIDE RECORDS SUMMARY | 2025-03-08 04:58 | XMS_ITS | Encounter Summary ---
Author Organization [facility] Address [address] [place] [place] [address] Care Team Providers Care Dyeing Machine Tender Name Role Phone Dillon Shipman MD Primary Care Provider [phone] Dillon Shipman MD Unavailable Encounter Details Date Type Department Care Team (Late st Contact Info) Description 02/15/2025 Abstract [facility] [address] [place] [phone] Sherie Rodriguez, [employer]UCATIONAL [employer] [address] [place] [address] Social History Tobacco Use Types Packs/Day Years [...] often do you attend chur ch or mandaen services? 1 to 4 times per year 03/25/2024 Do you belong to any clubs o r organizations such as hoahaoism groups, unions, fraternal or athletic groups, or [...] Recorded Patient Health Questionnaire-2 Score 0 02/14/2025 [facility] [place] of Occupat ional Health - Occupational Stress [...] any time in the past 12 m [facility], were you homeless or living in a skilled nursing (including now)? No 03/25/2024 Estimated Date of [...] Procedure Visit [facility] [address] [place] [address] Paul Malik DO [address] [place] [address] documented as of this encounter Visit Diagnoses Not on filedocumented in this encounter Care Teams Dyeing Machine Tender Relationship Specialty Start Date End Date Dillon Shipman MD [address] [place] [phone] PCP - General Family Medicine 02/11/24 Dillon Shipman MD [address] [place] [phone] PCP - [facility] 07/28/24 documented as of this encounter
--- OUTSIDE RECORDS SUMMARY | 2025-03-08 04:58 | XMS_ITS ---
Author Organization [facility] Source Produ ction (ClinicalSummary Clone) Address Unknown Care Team Providers Care Public Health Social Worker Name Role Phone Unavailable Primary Care Physician Unavailab le Results * [UNITY] ANEUPLOIDY NIPT Performed by: [facility] Component Value Range Date Fraction 2.4% 10/14/2024 10 :40 pm UTC Rh(D) NIPT RhD DETECTED 10/14/2024 10:4 0 pm UTC Sex Chromosome Aneuploidy NOT DETECTED 10:40 pm UTC Monosomy X LOW RISK <1 in 10,000 2024 10:40 pm UTC Trisomy 13 LOW RISK <1 in 10,000 2024 10:40 pm UTC Trisomy 18 LOW RISK <1 in 10,000 2024 10:40 pm UTC Trisomy 21 LOW RISK <1 in 10,000 2024 10:40 pm UTC Sex MALE 10/14/2024 10:4 0 pm UTC Gestation TREADWELL 10/15/19 10:40 pm UTC For detailed report, see PDF See PDF 10/14/2024 10:40 pm UTC 10/14/2024 10:4 0 pm UTC Social History Observation Value Start Date End Date
--- OUTSIDE RECORDS SUMMARY | 2025-03-08 04:58 | XMS_ITS | Encounter Summary ---
Author Organization [facility] Address [address] [place] [address] Care Team Providers Care Associate Chief Nurse Name Role Phone Dillon Shipman MD Primary Care Provider [phone] Dillon Shipman MD Unavailable Encounter Details Date Type Department Care Team (Late st Contact Info) Description 02/23/2025 Bamboo flowsheet [facility] [address] [place] [address] Sherie Donnelly PA [address] [place], [facility] Social History Tobacco Use Types Packs/Day Years [...] often do you attend chur ch or religion services? 1 to 4 times per year 03/25/2024 Do you belong to any clubs o r organizations such as islam groups, unions, fraternal or athletic groups, or [...] Recorded Patient Health Questionnaire-2 Score 0 02/14/2025 [facility] of Occupat ional Health - [...] any time in the past 12 m [facility], were you homeless or living in a [...] EDT Procedure Visit [facility] [address] [place] [address] Paul Malik DO [address] [place], [place] [id number] documented as of this encounter Visit Diagnoses Not on filedocumented in this encounter Care Teams Associate Chief Nurse Relationship Specialty Start Date End Date Dillon Shipman MD [address] [place] [phone] PCP - General Family Medicine 02/11/24 Dillon Shipman MD [address] [place] [phone] PCP - [facility] 07/28/24 documented as of this encounter
--- OUTSIDE RECORDS SUMMARY | 2025-03-08 04:58 | XMS_ITS | Encounter Summary ---
Author Organization [facility] Address [address] [place] [address] Care Team Providers Care Tax Agent Name Role Phone Dillon Shipman MD Primary Care Provider [phone] Dillon Shipman MD Unavailable Encounter Details Date Type Department Care Team (Late st Contact Info) Description 12/15/2024 Orders Only [facility] [address] [place] [address] Erika Parker MA [address] [place] [address] Social History Tobacco Use Types Packs/Day Years [...] often do you attend chur ch or anabaptism services? 1 to 4 times per year [...] and heating? Not hard at all 03/25/[address] [facility] of Occupat ional Health - Occupational Stress [...] time in the past 12 m [facility], were you homeless or living in a long-term (including now)? No 03/25/2024 Estimated Date of [...] EDT Procedure Visit [facility] [address] [place] [phone] Paul Malik DO [address] [place], [place] [id number] documented as of this encounter Procedures Procedure Name Priority Date/Time Associated Diagnosis Comments PAP SMEAR Routine 12/07/2024 12:00 AM EDT documented in this encounter Results * Pap Smear (12/07/2024 12:00 AM EDT) Swab Cervical swab / Unknown Paul Malik DO LAB CYTOLOGY ORDERABLES Final Re sult EXTERNAL LAB documented in this encounter Visit Diagnoses Not on filedocumented in this encounter Care Teams Tax Agent Relationship Specialty Start Date End Date Dillon Shipman MD [address] [place] [phone] PCP - General Family Medicine 02/11/24 Dillon Shipman MD [address] [place] [phone] PCP - [facility] 07/28/24 documented as of this encounter
--- OUTSIDE RECORDS SUMMARY | 2025-03-08 04:58 | XMS_ITS | Clinical Summary ---
Author Organization [facility] Address [address] [place] [address] Care Team Providers Care Houseman Name Role Phone Dillon Shipman MD Primary Care Provider [phone] Dillon Shipman MD Unavailable Allergies Active Allergy Reactions Criticality Noted Date Comments Ciprofloxacin Nausea Only,GI intolerance 2019 Medications topiramate (Topamax) 100 MG tabletIndication s:Migraine without aura and without status migrainosus, not intractable Take 1 tablet (100 mg) by mouth in the morning and 1 tablet (100 mg) before bedtime. 60 tablet 11 10/07/2024 10/08/19 26 Active meclizine (Antivert) 25 MG tabletIndication s:Dizziness and giddiness TAKE 1 TABLET BY MOUTH FOUR TIMES DAILY NEEDED 60 tablet 1 12/14/2024 Active albuterol HFA 90 mcg/act inhalerIndicatio ns:Shortness of breath INHALE 2 PUFFS BY MOUTH EVERY 4 HOURS NEEDED 18 g 2 12/22/2024 Active magnesium oxide (Mag-Ox) 400 MG tabletIndication s:Restless leg Take 1 tablet (400 mg) by mouth Daily 30 tablet 6 12/22/2024 12/23/19 26 Active esomeprazole (NexIUM) [address] capsuleIndicatio ns:Gastro-esopha geal reflux disease without esophagitis TAKE 1 CAPSULE BY MOUTH DAILY 30 capsule 5 01/21/2025 Active Active Problems Problem Noted Date Diagnosed [...] Encounters Date Type Department Care Team Description 03/02/2025 11:30 [place] [phone] Paul Malik DO Third trimester ([facility]); 38 weeks gestation of ([facility]); Urinary tract infection without hematuria, site unspecified 03/02/2025 [place] [address] Paul Malik DO 02/28/2025 Travel 02/26/2025 Clinisync Result Encounter NOMS External Department Unsolicited Provider, Generic External Data 02/23/2025 8:50 [place] [phone] Sherie Donnelly PA Third trimester ([facility]); 37 weeks gestation of ([facility]) 02/23/2025 Bamboo flowsheet NOMS Chris [address] [place] [phone] Sherie Donnelly PA 02/21/2025 Travel 02/15/2025 8:40 AM EDT Routine [facility] [place] [address] Paul Malik DO 36 weeks gestation of ([facility]); Third trimester ([facility]); Restless leg; SGA (small for gestational age) ([facility]) 02/15/2025 Clinisync Result Encounter NOMS External Department Unsolicited Provider, Generic External Data 02/15/2025 Abstract NOMS [facility] [address] [place] [address] Sherie Rodriguez LPN 02/15/2025 Bamboo flowsheet NOMS [place] [address] Paul Malik, 02/14/2025 Travel 02/14/2025 Patient Outreach NOMS [facility] [address] [place] [address] Sherie Rodriguez LPN 02/01/2025 Travel 01/21/2025 Refill NOMS [facility] [address] [place] [address] Dillon Shipman MD Gastro-esophageal reflux disease without esophagitis 01/20/2025 10:00 AM EDT Routine N[facility] [place] [address] Sherie Donnelly PA 32 weeks gestation of ([facility]); Third trimester ([facility]); Restless leg; SGA (small for gestational age) ([facility]) 01/20/2025 [place] [address] Sherie Donenlly PA 01/17/2025 Travel 01/06/2025 9:20 [place] [address] Paul Malik, DO Third trimester ([facility]); 30 weeks gestation of ([facility]) 01/06/2025 Bamboo flowsheet NOMS [facility] [address] [place] [address] Paul Malik, 01/05/2025 Travel 12/28/2024 8:00 AM EDT Ancillary Procedure N[facility]S [facility] [address] [place] [address] [place] [address] size inconsistent with dates ([facility]) 12/27/2024 Travel 12/22/2024 10:20 AM EDT Routine NOMS Chris [facility] [place] [address] Sherie Donnelly PA Second trimester ([facility]); 28 weeks gestation of ([facility]); Restless leg; size inconsistent with dates ([facility]) 12/22/2024 Refill NOMS [facility] [address] [place] [phone] Dillon Shipman MD Shortness of breath 12/22/2024 Bamboo flowsheet NOMS Chris [facility] [address] [place] [address] [place] [address] Sherie Donnelly PA 12/21/2024 Telephone NOMS [facility] [address] [place] [address] Dillon Shipman MD 12/19/2024 Travel 12/15/2024 Orders Only N[facility]S Chris [facility] [address] [place] [address] [place] [address] Erika Parker MA 12/13/2024 Refill NOMS [facility] [address] [place] [address] Dillon Shipman MD Dizziness and giddiness; Generalized anxiety disorder 12/08/2024 Clinisync Result Encounter NOMS External Department Unsolicited Provider, Generic External Data 12/07/2024 10:20 AM EDT Routine N[facility] [address] [facility] [place] [address] Paul Malik, DO Well woman exam with routine gynecological exam; Second trimester ([facility]); 26 weeks gestation of ([facility]); Vaginal discharge; STD exposure; Diabetes mellitus screening 12/07/2024 Clinisync Result Encounter NOMS External Department Unsolicited Provider, Generic External Data 12/07/2024 Bamboo flowsheet [facility] [address] [facility] [place] [phone] Paul Malik, DO from Last 3 Months Social History Tobacco [...] How often do you attend chur or protestant services? 1 to 4 times per year 03/25/2024 Do you belong to any clubs o r organizations such as christian groups, unions, fraternal or athletic groups, or [...] Recorded Patient Health Questionnaire-2 Score 0 02/14/2025 [facility] Questionnaire Answer Date [...] any time in the past 12 m [facility], were you homeless or living in a alf (including now)? No 03/25/2024 Estimated Date of [...] Pressure 122/78 03/02/2025 11:31 AM EDT Pulse 78 05/18/2024 11:44 AM EDT Temperature 36.4 C (97.5 F) 05/18/2024 11:44 AM EDT Respiratory Rate 20 04/21/2024 9:35 AM EDT Oxygen Saturation 99% 05/18/2024 11:44 AM EDT Inhaled Oxygen Concentration - - Weight 106 kg (234 lb) 03/02/2025 11:31 AM EDT Height 172.7 cm (5' 8 ) 04/21/2024 9:35 AM EDT Body Mass Index 35.58 04/21/2024 9:35 AM EDT Plan of Treatment Upcoming Encounters Date Type Department Care Team (Late st Contact Info) Description 03/31/2025 9:30 AM EDT Procedure Visit NOMS [facility] [address] [place] [phone] Paul Malik DO [address] [place] [address] Health Maintenance Due Date Last Done Comments Influenza Vaccine (#1) 2025 10/16/2022 Cervical Cancer Screening 12/07/2029 HPV/Cotest 12/07/2029 Pap Smear 12/07/2029 12/07/2024 Procedures Procedure Name Priority Date/Time Associated Diagnosis Comments URINARY TRACT INFECTION (HTRX) Routine 03/02/2025 11:42 AM EDT POCT URINALYSIS DIPSTICK Routine 03/02/2025 11:31 AM EDT Third trimester ([facility]) URINE CULTURE, ROUTINE Routine 2:25 AM EDT POCT URINALYSIS DIPSTICK Routine 02/23/2025 9:47 AM EDT Third trimester ([facility]) 37 weeks gestation of ([facility]) POCT URINALYSIS DIPSTICK Routine 02/15/2025 9:24 AM EDT 36 weeks gestation of ([facility]) Third trimester ([facility]) CULTURE, GROUP B STREP WITH SUSCEPTIBLITY Routine 02/15/2025 9:14 AM EDT Third trimester ([facility]) STREP GP B CULTURE+RFLX Routine 02/15/2025 8:40 AM EDT POCT URINALYSIS DIPSTICK Routine 01/20/2025 9:53 AM EDT 32 weeks gestation of ([facility]) Third trimester ([facility]) Restless leg SGA (small for gestational age) ([facility]) US OB FOLLOW UP TRANSABDOMINAL APPROACH Routine 12/28/2024 8:12 AM EDT size inconsistent with dates ([facility]) GLUCOSE 1 HOUR Routine 12/08/2024 10:15 AM EDT ALL CBC WITH AUTO DIFF Routine 10:15 AM EDT RECURRENT VAGINITIS (HTRX) Routine 12/07/2024 11:13 AM EDT POCT URINALYSIS DIPSTICK Routine 12/07/2024 10:45 AM EDT 26 weeks gestation of ([facility]) IGP,APTIMA HPV,AGE GDLN Routine 12/07/2024 10:15 AM EDT PAP SMEAR Routine 12/07/2024 12:00 AM EDT from Last 3 Months Results * URINARY TRACT INFECTION (HTRX) (03/02/2025 11:42 AM EDT) ACINETOBACTER BAUMANII 0 19.961 - 24.689 ppm 03/03/2025 7:13 AM EDT [facility] ACINETOBACTER BAUMANII Not Detected 19.961 - 24.689 ppm 03/03/2025 7:13 AM EDT [facility] CITROBACTER FREUNDII 0 23.000 - 32.015 ppm 03/03/2025 7:13 AM EDT [facility] CITROBACTER FREUNDII Not Detected 23.000 - 32.015 ppm 03/03/2025 7:13 AM EDT [facility] ENTEROBACTER AEROGENES, CLOACAE 0 23.000 - 32.290 ppm 03/03/2025 7:13 AM EDT [facility] ENTEROBACTER AEROGENES, CLOACAE Not Detected 23.000 - 32.290 ppm 03/03/2025 7:13 AM EDT [facility] ENTEROCOCCUS FAECALIS, FAECIUM 0 26.000 - 33.043 ppm 03/03/2025 7:13 AM EDT [facility] ENTEROCOCCUS FAECALIS, FAECIUM Not Detected 26.000 - 33.043 ppm 03/03/2025 7:13 AM EDT [facility] ESCHERICHIA COLI 0 23.000 - 28.500 ppm 03/03/2025 7:13 AM EDT [facility] ESCHERICHIA COLI Not Detected 23.000 - 28.500 ppm 03/03/2025 7:13 AM EDT [facility] KLEBSIELLA PNEUMONIAE, OXYTOCA 0 23.000 - 31.865 ppm 03/03/2025 7:13 AM EDT [facility] KLEBSIELLA PNEUMONIAE, OXYTOCA Not Detected 23.000 - 31.865 ppm 03/03/2025 7:13 AM EDT [facility] MORGANELLA MORGANII 0 19.961 - 24.689 ppm 03/03/2025 7:13 AM EDT [facility] MORGANELLA MORGANII Not Detected 19.961 - 24.689 ppm 03/03/2025 7:13 AM EDT [facility] PROTEUS MIRABILIS, VULGARIS 0 23.000 - 28.500 ppm 03/03/2025 7:13 AM EDT [facility] PROTEUS MIRABILIS, VULGARIS Not Detected 23.000 - 28.500 ppm 03/03/2025 7:13 AM EDT [facility] PSEUDOMONAS AERUGINOSA 0 23.000 - 31.801 ppm 03/03/2025 7:13 AM EDT [facility] PSEUDOMONAS AERUGINOSA Not Detected 23.000 - 31.801 ppm 03/03/2025 7:13 AM EDT [facility] STAPHYLOCOCCUS AUREUS 0 26.000 - 31.595 ppm 03/03/2025 7:13 AM EDT [facility] STAPHYLOCOCCUS AUREUS Not Detected 26.000 - 31.595 ppm 03/03/2025 7:13 AM EDT [facility] STREPTOCOCCUS AGALACTIAE (GROUP B STREP) 0 26.000 - 32.435 ppm 03/03/2025 7:13 AM EDT [facility] STREPTOCOCCUS AGALACTIAE (GROUP B STREP) Not Detected 26.000 - 32.435 ppm 03/03/2025 7:13 AM EDT [facility] RUFINA ALBICANS, PARAPSILOSIS, TROPICALIS 0 23.000 - 30.347 ppm 03/03/2025 7:13 AM EDT [facility] RUFINA ALBICANS, PARAPSILOSIS, TROPICALIS Not Detected 23.000 - 30.347 ppm 03/03/2025 7:13 AM EDT [facility] RUFINA GLABRATA 0 23.000 - 31.618 ppm 03/03/2025 7:13 AM EDT [facility] RUFINA GLABRATA Not Detected 23.000 - 31.618 ppm 03/03/2025 7:13 AM EDT [facility] RUFINA KRUSEI 0 23.000 - 30.873 ppm 03/03/2025 7:13 AM EDT [facility] RUFINA KRUSEI Not Detected 23.000 - 30.873 ppm 03/03/2025 7:13 AM EDT [facility] SERRATIA MARCESCENS 0 23.000 - 31.581 ppm 03/03/2025 7:13 AM EDT [facility] SERRATIA MARCESCENS Not Detected 23.000 - 31.581 ppm 03/03/2025 7:13 AM EDT [facility] STREPTOCOCCUS PYOGENES (GROUP A STREP) 0 19.961 - 24.689 ppm 03/03/2025 7:13 AM EDT [facility] STREPTOCOCCUS PYOGENES (GROUP A STREP) Not Detected 19.961 - 24.689 ppm 03/03/2025 7:13 AM EDT [facility] STAPHYLOCOCCUS EPIDERMIDIS, HAEMOLYTICUS, LUGDUNENSIS, SAPROPHYTICUS (URINA 0 19.961 - 24.689 ppm 03/03/2025 7:13 AM EDT [facility] STAPHYLOCOCCUS EPIDERMIDIS, HAEMOLYTICUS, LUGDUNENSIS, SAPROPHYTICUS (URINA Not Detected 19.961 - 24.689 ppm 03/03/2025 7:13 AM EDT [facility] STAPHYLOCOCCUS EPIDERMIDIS, HAEMOLYTICUS, LUGDUNENSIS, SAPROPHYTICUS (URINA 0 19.961 - 24.689 ppm 03/03/2025 7:13 AM EDT [facility] STAPHYLOCOCCUS EPIDERMIDIS, HAEMOLYTICUS, LUGDUNENSIS, SAPROPHYTICUS (URINA Not Detected 19.961 - 24.689 ppm 03/03/2025 7:13 AM EDT [facility] Urine 03/02/2025 11:4 2 AM EDT 03/03/2025 2:00 AM EDT us Paul Malik DO LAB BLOOD ORDERABLES Final Resul t [facility] [address] [address] * (ABNORMAL) POCT urinalysis dipstick manually resulted (03/02/2025 11:31 AM EDT) Only the most recent of5 resultswithin the time period is included. Color, UA Velia Clarity, UA Clear Glucose, [...] Urine 03/02/2025 11:3 1 AM EDT Paul Helena DO POINT OF CARE TEST ENTER/EDIT OR DERABLES Final Result * URINE CULTURE, ROUTINE (02/26/2025 2:25 AM EDT) URINE CULTURE, ROUTINE Urine Culture, Routine [facility] URINE CULTURE, ROUTINE Mixed urogenital juan [facility] URINE CULTURE, ROUTINE 10,000-25,000 colony forming units per mL [facility] URINE CULTURE, ROUTINE [facility]formed at: [facility], ROUTINE [address] [place] [phone] [facility] URINE CULTURE, ROUTINE Anesthetic Assistant: Osmin Joel PhD, Phone: [phone] [facility] 02/26/2025 2:25 AM EDT 02/26/2025 2:32 AM EDT Narrative CL[facility] - 02/28/2025 4:07 AM EDT Generic External Data Provider LAB BLOOD ORDERAB LES Final Result Performing Organization Address City/[facility]/ZIP Co de Phone Number [facility] * CULTURE, GROUP B STREP WITH SUSCEPTIBLITY (02/15/2025 9:14 AM EDT) Swab 02/15/2025 9:14 AM EDT us Paul Helena DO LAB BLOOD ORDERABLES Final Resul t EXTERNAL LAB * STREP GP B CULTURE+RFLX (02/15/2025 8:40 AM EDT) STREP GP B CULTURE+RFLX Strep Gp B Culture+Rflx [facility] STREP GP B CULTURE+RFLX Negative [facility] STREP GP B CULTURE+RFLX Centers for Disease Control and Prevention (CDC) and [facility] STREP GP B CULTURE+RFLX [place] [employer] [facility] STREP GP B CULTURE+RFLX (ACOG) guidelines for prevention of group B [facility] STREP GP B CULTURE+RFLX streptococcal (GBS) disease specify co-collection of [facility] STREP GP B CULTURE+RFLX a vaginal and rectal swab specimen to maximize [facility] STREP GP B CULTURE+RFLX sensitivity of GBS detection. Per the CDC and ACOG, [facility] STREP GP B CULTURE+RFLX swabbing both the lower vagina and rectum [facility] STREP GP B CULTURE+RFLX substantially increases the yield of detection [facility] STREP GP B CULTURE+RFLX compared with sampling the vagina alone. [facility] STREP GP B CULTURE+RFLX Penicillin G, ampicillin, or cefazolin are indicated [facility] STREP GP B CULTURE+RFLX for intrapartum prophylaxis of GBS [facility] STREP GP B CULTURE+RFLX colonization. Reflex susceptibility testing should be [facility] STREP GP B CULTURE+RFLX performed prior to use of clindamycin only on GBS [facility] STREP GP B CULTURE+RFLX isolates from penicillin-allergi c women who are [facility] STREP GP B CULTURE+RFLX considered a high risk for anaphylaxis. Treatment with [facility] STREP GP B CULTURE+RFLX vancomycin without additional testing is warranted if [facility] STREP GP B CULTURE+RFLX resistance to clindamycin is noted. [facility] STREP GP B CULTURE+RFLX Performed at: [facility]H STREP GP B CULTURE+RFLX [address] [place] [id number] [facility] STREP GP B CULTURE+RFLX Anesthetic Assistant: Osmin Joel PhD, Phone: [phone] [facility] 02/15/2025 8:40 AM EDT 02/15/2025 12:20 PM EDT Narrative MARÍA - 02/19/2025 1:08 PM EDT us Generic External Data Provider LAB BLOOD ORDERAB LES Final Result [facility] * US OB follow up transabdominal approach [...] II, MD, PHD at 30-Dec-2024 08:48:58 AM [facility] Procedure Note Leanna Herrmann MD - 12/30/2024 EXAM: US OB FOLLOW [...] signed by LEANNA HERRMANN II, MD, PHD [id number] 08:48:58 AM [facility] us Sherie OLIVA IMG OB US PROCEDURES Final Resul t * GLUCOSE 1 HOUR (12/08/2024 10:15 AM EDT) Pathologist [facility] GLUCOSE 1 HOUR 88 <130 mg/dL [facility] 12/08/2024 10:1 5 AM EDT 12/08/2024 10:17 AM EDT Narrative CLINISY[facility] - 12/08/2024 11:09 AM EDT us Generic External Data Provider LAB BLOOD ORDERAB LES Final Result [facility] * (ABNORMAL) ALL CBC WITH AUTO DIFF (12/08/2024 10:15 AM EDT) Pathologist [facility] WBC 8.7 4.0 - 11.0 10 3/uL [...] us Paul Helena DO CLINISYNC Final Result [facility] * RECURRENT VAGINITIS (HTRX) (12/07/2024 11:13 AM EDT) Pathologist [facility] ATOPOBIUM VAGINAE 0.000 19.961 - 24.689 ppm 12/08/2024 7:00 AM EDT [facility] ATOPOBIUM VAGINAE Not Detected 19.961 - 24.689 ppm 12/08/2024 7:00 AM EDT [facility] BVAB 2,3 (BACTERIAL VAGINOSIS ASSOCIATED BACTERIA 2, 3); MOBILUNCUS SPP 0.000 19.961 - 24.689 ppm 12/08/2024 7:00 AM EDT [facility] BVAB 2,3 (BACTERIAL VAGINOSIS ASSOCIATED BACTERIA 2, 3); MOBILUNCUS SPP Not Detected 19.961 - 24.689 ppm 12/08/2024 7:00 AM EDT [facility] RUFINA ALBICANS, PARAPSILOSIS, TROPICALIS 0.000 19.961 - 30.770 ppm 12/08/2024 7:00 AM EDT [facility] RUFINA ALBICANS, PARAPSILOSIS, TROPICALIS Not Detected 19.961 - 30.770 ppm 12/08/2024 7:00 AM EDT [facility] RUFINA GLABRATA 0.000 23.000 - 32.138 ppm 12/08/2024 7:00 AM EDT [facility] RUFINA GLABRATA Not Detected 23.000 - 32.138 ppm 12/08/2024 7:00 AM EDT [facility] RUFINA KRUSEI 0.000 23.000 - 32.271 ppm 12/08/2024 7:00 AM EDT [facility] RUFINA KRUSEI Not Detected 23.000 - 32.271 ppm 12/08/2024 7:00 AM EDT [facility] CHLAMYDIA TRACHOMATIS 0.000 23.000 - 31.467 ppm 12/08/2024 7:00 AM EDT [facility] CHLAMYDIA TRACHOMATIS Not Detected 23.000 - 31.467 ppm 12/08/2024 7:00 AM EDT [facility] GARDNERELLA VAGINALIS 0.000 19.961 - 24.689 ppm 12/08/2024 7:00 AM EDT [facility] GARDNERELLA VAGINALIS Not Detected 19.961 - 24.689 ppm 12/08/2024 7:00 AM EDT [facility] MEGASPHAERA (TYPES 1, 2) 0.000 19.961 - 24.689 ppm 12/08/2024 7:00 AM EDT [facility] MEGASPHAERA (TYPES 1, 2) Not Detected 19.961 - 24.689 ppm 12/08/2024 7:00 AM EDT [facility] NEISSERIA GONORRHOEAE 0.000 23.000 - 32.117 ppm 12/08/2024 7:00 AM EDT [facility] NEISSERIA GONORRHOEAE Not Detected 23.000 - 32.117 ppm 12/08/2024 7:00 AM EDT [facility] TRICHOMONAS VAGINALIS 0.000 23.000 - 32.119 ppm 12/08/2024 7:00 AM EDT [facility] TRICHOMONAS VAGINALIS Not Detected 23.000 - 32.119 ppm 12/08/2024 7:00 AM EDT [facility] MYCOPLASMA GENITALIUM 0.000 19.961 - 24.689 ppm 12/08/2024 7:00 AM EDT [facility] MYCOPLASMA GENITALIUM Not Detected 19.961 - 24.689 ppm 12/08/2024 7:00 AM EDT [facility] Tissue 12/07/2024 11:1 3 AM EDT 12/08/2024 2:36 AM EDT us Paul Malik DO LAB BLOOD ORDERABLES Final Resul t [facility] [address] [place] [address] * IGP,APTIMA HPV,AGE GDLN (12/07/2024 10:15 AM EDT) AGE GDLN ACOG TESTING Note . [facility] Comment: TESTS RESULT FLAG UNITS REF RANGE LAB Clinician Provided Cytology Information Source.............Endocervix No. of containers..01 ThinPrep Vial Age Algo ACOG Dimple... 30-65 01 FLAG LEGEND: L-Low Normal,H-High Normal,LL-Alert Low,HH-Alert High <-Panic Low,>-Panic High,A-Abnormal,AA-Critical Abnormal Performed at: 01 =[facility] [phone] Marimar Johnson MD, IGP, APTIMA HPV, RFX 16/18,45 Note . [facility] Comment: TESTS RESULT FLAG UNITS REF RANGE LAB DIAGNOSIS: 02 NEGATIVE FOR INTRAEPITHELIAL LESION OR MALIGNANCY. Specimen adequacy: 02 Satisfactory for evaluation. No endocervical component is identified. Performed by: Hiram Garvey, [employer] ([facility]) . 02 Note: Note 02 [...] <-Panic Low,>-Panic High,A-Abnormal,AA-Critical Abnormal [facility]formed at: 02 [facility] [phone] Marimar Johnson MD, HPV APTIMA Negative Negative [facility] Comment: This nucleic acid amplification test detects fourteen high- risk HPV types (16,18,31,33,35,39,45,51,52,56,58,59,66,68) without differentiation. Performed at: =[facility] [id number] Anesthetic Assistant: Marimar Johnson MD, Phone: [phone] Performed at: [facility] [id number] Anesthetic Assistant: Marimar Johnson MD, Phone: [phone] 12/07/2024 10:1 5 AM EDT 12/08/2024 7:54 AM EDT Narrative [facility] - 12/10/2024 1:09 PM EDT [facility] [employer] [facility] DO LAB BLOOD ORDERABLES Final Resul t Performing Organization Address [facility]/ZIP Co de Phone Number [facility] * Pap Smear (12/07/2024 12:00 AM EDT) Swab Cervical swab / Unknown [facility] [employer] [facility] DO LAB CYTOLOGY ORDERABLES Final Re sult Performing Organization Address [facility]/ZIP Co de Phone Number EXTERNAL LAB from Last 3 Months Insurance [employer] Care Teams Houseman Relationship Specialty Start Date End Date Dillon Shipman MD [address] [place] [phone] PCP - General Family Medicine 02/11/24 Dillon Shipman MD [address] [place] [address] PCP - [facility] 07/28/24
--- OUTSIDE RECORDS SUMMARY | 2025-03-08 04:58 | XMS_ITS | Encounter Summary ---
Author Organization [facility] Address [address] [place] [address] Care Team Providers Care Welding Machine Operator Plasma Arc Name Role Phone Dillon Shipman MD Primary Care Provider [phone] Dillon Shipman MD Primary Care Provider [phone] Dillon Shipman MD Unavailable Encounter Details Date Type Department Care Team (Late st Contact Info) Description 12/10/2023 Abstract [facility] [address] [place] [address] Estrella Slaughter LPN [address] [facility] [place] [id number] Social History Tobacco Use Types Packs/Day Years [...] 03/31/2025 9:30 AM EDT Procedure Visit [facility] [address] [place] [address] Paul Malik DO [address] [place], [place] [id number] documented as of this encounter Visit Diagnoses Not on filedocumented in this encounter Care Teams Welding Machine Operator Plasma Arc Relationship Specialty Start Date End Date Dillon Shipman MD PCP - General Family Medicine 01/20/23 02/10/24 Dillon Shipman MD [address] [place] [address] PCP - General Family Medicine 02/11/24 Dillon Shipman MD [address] [place] [address] PCP [facility] 07/28/24 documented as of this encounter
--- OUTSIDE RECORDS SUMMARY | 2025-03-08 04:59 | XMS_ITS | Encounter Summary ---
Author Organization [facility] Address [address] [place] [address] Care Team Providers Care Edi Manager Name Role Phone Dillon Shipman MD Primary Care Provider Dillon Shipman MD Unavailable Encounter Details Date Type Department Care Team (Late st Contact Info) Description 08/30/2024 Abstract [facility] [address] [place] [address] Dillon Shipman MD [address] [place] [phone] Social History Tobacco Use Types Packs/Day Years [...] any clubs o r organizations such as zoroastrianism groups, unions, fraternal or athletic groups, or [...] and heating? Not hard at all 03/25/2024 [facility] [place] of Occupat ional Health - Occupational Stress [...] any time in the past 12 m [facility], were you homeless or living in a [...] EDT Procedure Visit [facility] [address] [place] [address] Paul Malik DO [address] [facility] [place] [address] documented as of this encounter Visit Diagnoses Not on filedocumented in this encounter Care Teams Edi Manager Relationship Specialty Start Date End Date Dillon Shipman MD [address] [place] [phone] PCP - General Family Medicine 02/11/24 Dillon Shipman MD [address] [place] [address] PCP - [facility] 07/28/24 documented as of this encounter
--- OUTSIDE RECORDS SUMMARY | 2025-03-08 04:59 | XMS_ITS ---
Author Organization [facility] Address [address] [place] [place] [address] Care Team Providers Care Sap Data Analyst Name Role Phone Dillon Shipman MD Primary Care Provider [phone] Dillon Shipman MD Unavailable [facility]) Status:Enrolled (Active) Start date:02/14/2025 Enrollment date:02/14/2025 Enrollment reason:Identified by Health Plan Case Team Name Relationship Phone Sherie Rodriguez LPN(Responsible Staff) Licensed [facility] Nurse [phone] Continued Care and Services Coordination
--- OUTSIDE RECORDS SUMMARY | 2025-03-08 04:59 | XMS_ITS | Encounter Summary ---
Author Organization [facility] Address [address] [place] [address] Care Team Providers Care Debt Management Counselor Name Role Phone Dillon Shipman MD Primary Care Provider [phone] Dillon Shipman MD Unavailable Encounter Details Date Type Department Care Team (Late st Contact Info) Description 05/18/2024 Orders Only [facility] [address] [place] [address] Dillon Shipman MD [address] [place] [address] Social History Tobacco Use Types Packs/Day Years [...] often do you attend chur ch or scientology services? 1 to 4 times per year [...] and heating? Not hard at all 03/25/2024 [facility] [place] of Occupat ional Health - Occupational Stress [...] any time in the past 12 m [facility], were you homeless or living in a [...] EDT Procedure Visit [facility] [address] [place] [address] Paul Malik DO [address] [facility] [address] [place] [address] documented as of this encounter Procedures Procedure Name Priority Date/Time Associated Diagnosis Comments HOLTER MONITOR 48HR Routine 05/18/2024 11:34 AM EDT documented in this encounter Results * HOLTER MONITOR 48HR (05/18/2024 11:34 AM EDT) Anatomical Region Laterality Modality Radiographic Samia ging Dillon Shipman MD IMG XR PROCEDURES Final Result documented in this encounter Visit Diagnoses Not on filedocumented in this encounter Care Teams Debt Management Counselor Relationship Specialty Start Date End Date Dillon Shipman MD [address] [place] [phone] PCP - General Family Medicine 02/11/24 Dillon Shipman MD [address] [place] [address] PCP - [facility] 07/28/24 documented as of this encounter
--- OUTSIDE RECORDS SUMMARY | 2025-03-08 04:59 | XMS_ITS | Encounter Summary ---
Author Organization [facility] Address [address] [place] [address] Care Team Providers Care Lead Java Software Engineer Name Role Phone Dillon Shipman MD Primary Care Provider [phone] Dillon Shipman MD Unavailable Encounter Details Date Type Department Care Team (Late st Contact Info) Description 08/11/2024 Orders Only [facility] [address] [place] [address] Dillon Shipman MD [address] [place] [address] Social History Tobacco Use Types Packs/Day Years [...] often do you attend chur ch or yazidi services? 1 to 4 times [...] and heating? Not hard at all 03/25/2024 [facility] [place] of Occupat ional Health - Occupational Stress [...] any time in the past 12 m [facility], were you homeless or living in [...] EDT Procedure Visit [facility] [address] [place] [address] Paul Malik DO [address] [place] [address] documented as of this encounter Procedures Procedure [...] on filedocumented in this encounter Care Teams Lead Java Software Engineer Relationship Specialty Start Date End Date Dillon Shipman MD [address] [place] [phone] PCP - General Family Medicine 02/11/24 Dillon Shipman MD [address] [place] [phone] PCP - [facility] 07/28/24 documented as of this encounter
--- OUTSIDE RECORDS SUMMARY | 2025-03-08 04:59 | XMS_ITS | Encounter Summary ---
Author Organization [facility] Address [id number] [address] [place] [address] Care Team Providers Care Call Center Operator Name Role Phone Dillon Shipman MD Primary Care Provider [phone] Reason for Visit * Reason Onset Date Comments reschd appt 10/10/2020 Encounter Details Date Type Department Care Team (Late st Contact Info) Description 10/10/2020 Telephone [facility] [address] [place] [address] Charmaine Godoy reschd appt Social History Tobacco Use Types Packs/Day Years Used Date Smoking Tobacco: Former Cigarettes Smokeless Tobacco: Never Alcohol Use Standard Drinks/Week Comments Yes 0 (1 standard drink = 0.6 oz pur e alcohol) socially PHQ-2 Answer Date Recorded Total Score 12 07/14/2020 Childcare Answer Date Recorded Childcare Unknown 01/06/2019 Employment Answer Date Recorded Employment Unknown 01/06/2019 Purpose - Life Answer Date Recorded Purpose and direction in life Unknown Comments No Sex and Gender Information Value Date Recorded Sex Assigned at Not on file Legal Sex Female 12:12 PM EDT Gender Identity Not on file Sexual Orientation Not on file documented as of this encounter Miscellaneous Notes * Telephone Encounter - Charmaine Godoy - 10/10/2020 8:56 AM EDT Patient's appt on 10/13/20 needs to be rescheduled at this time- Left voicemail- Reschedule to next available time slot in [place] documented in this encounter Plan of Treatment Not on file documented as of this encounter Visit Diagnoses Not on filedocumented in this encounter Additional Health Concerns Infection Onset Date Last Indicated Resolved Time COVID-19 Rule-Out 07/06/2021 07/06/2021 07/06/2021 9:46 PM EST Assessment Noted Time PHQ-9 Depression Total Score: 020 12:56 PM EST A Body Mass Index follow-up plan has been documented for the patient 07/15/2020 12:37 AM EST documented as of this encounter Care Teams Call Center Operator Relationship Specialty Start Date End Date Dillon Shipman MD PCP - General Family Medicine 01/15/19 documented as of this encounter
[2025-03-08 05:44] LABS: Hematocrit 32.6 % (36.0-48.0); Hemoglobin 11.1 g/dL (12.0-16.0); Mean Corpuscular HGB Conc 34.0 g/dL (29.9-35.2); Mean Corpuscular Hemoglobin 29.6 pg (26.7-34.0); Mean Corpuscular Volume 86.9 fL (81.0-99.0); Platelet Count 237 10^3/uL (150-450); Red Blood Count 3.75 10^6/uL (4.20-5.40); White Blood Count 8.9 10^3/uL (4.0-11.0)
[2025-03-08] MEDS: 0.9 % SODIUM CHLORIDE 1,000 ML 125 ML IV ×2 (05:45→11:35)
[2025-03-08] MEDS: OXYTOCIN/0.9 % SODIUM CHLORIDE 10 UNITS/500 ML PLAST..BAG 6 UNIT IV (05:57)
[2025-03-08 06:04] LABS: Cannabinoid Screen Urine NEGATIVE (NEGATIVE); Methamphetamines Screen Urine NEGATIVE (NEGATIVE); Tricyclic Antidepressant Urine NEGATIVE (NEGATIVE)
[2025-03-08] MEDS: 0.9 % SODIUM CHLORIDE 1,000 ML 1000 ML IV (10:08)
[2025-03-08] MEDS: ROPIVACAINE HCL/PF 400 MG/200 ML PREMIX 6 MG EPIDURAL (10:25)
[2025-03-08] MEDS: ROPIVACAINE HCL 0.2% PF 40 MG/20 ML VIAL EPIDURAL (10:54)
[2025-03-08] MEDS: FENTANYL CITRATE/PF 100 MCG/2 ML VIAL EPIDURAL (10:54)
[2025-03-08] MEDS: OXYTOCIN/0.9 % SODIUM CHLORIDE 20 UNITS/1,000 ML PLAST..BAG 125 UNIT IV (12:00)
--- NOTE | 2025-03-08 12:07 | PM.OBPRCVD ---
Procedure Intrapartal events: None Induction method: per pitocin protocol Delivery augmentation: rupture of membranes and pitocin Delivery monitor: external FHT and external uterine Route of delivery: Episiotomy Description: none L&D Laceration Description: perineal - 1st degree Estimated blood loss (mL): 200 Anesthesia type: Epidural Disposition: floor Infant Delivery date: 03/08/25 Gender: male presentation: vertex Placental delivery description: Spontaneous cord description: 3 Vessels and Nuchal Cord
[2025-03-08] MEDS: BENZOCAINE/MENTHOL 85 GRAM SPRAY BOTTLE 1 APPLIC TOPICAL (15:21)
[2025-03-08] MEDS: IBUPROFEN 600 MG TABLET PO ×2 (17:47→23:54)
[2025-03-08] MEDS: ACETAMINOPHEN 325 MG TABLET 650 MG PO (22:55)
[2025-03-09] MEDS: IBUPROFEN 600 MG TABLET PO (05:59)
[2025-03-09 06:21] LABS: Hematocrit 27.7 % (36.0-48.0); Hemoglobin 9.3 g/dL (12.0-16.0); Immature Granulocytes Abs Auto 0.04 10^3/uL (0.00-0.03); Immature Granulocytes Pct Auto 0.4 % (0.0-0.5); Lymphocytes Absolute Auto 2.2 10^3/uL (1.2-3.8); Mean Corpuscular HGB Conc 33.6 g/dL (29.9-35.2); Mean Corpuscular Hemoglobin 29.7 pg (26.7-34.0); Mean Corpuscular Volume 88.5 fL (81.0-99.0); Platelet Count 188 10^3/uL (150-450); Red Blood Count 3.13 10^6/uL (4.20-5.40); White Blood Count 10.3 10^3/uL (4.0-11.0)
[2025-03-09 07:30] VITALS: TEMP 36.6
[2025-03-09 07:31] VITALS: BP 122/71; PULSE 50
--- NOTE | 2025-03-09 07:59 | PM.OBPN ---
OB - PN: Subj Subjective Patient comments: no complaints and pain well controlled [place] status: doing well Exam Constitutional Vital Signs, click to edit/add: Last Vital Signs Temp 97.9 F 03/09/25 07:30 Pulse 50 L 03/09/25 07:31 Resp 18 03/09/25 07:30 BP 122/71 03/09/25 07:31 O2 Del Method Room Air 03/09/25 07:42 Documenting provider has reviewed patient's vital signs: yes Common normals: no apparent distress Respiratory Common normals: normal respiratory effort and clear to auscultation bilaterally Cardio Common normals: regular rate and regular rhythm GI Common normals: Normal to inspection, nondistended, normoactive bowel sounds present Extremity Common normals: no clubbing, cyanosis or edema and no calf tenderness Results Labs Labs: Short CBC 03/09/25 Range/Units 06:15 WBC 10.3 (4.0-11.0) 10^3/uL Hgb 9.3 L (12.0-16.0) g/dL Hct 27.7 L (36.0-48.0) % Plt Count 188 (150-450) 10^3/uL OB - PN: A/P Plan - Vaginal Delivery day: 1 Plan: routine care Time Spent with Patient Time: Total time spent is greater than 50% in coordination of care (as documented) at patient's floor/unit and/or counseling patient: Total time spent with greater than 50% in coordination of care (as documented) at patient's floor/unit and/or counseling patient: less than 15 minutes
[2025-03-09] MEDS: DOCUSATE SODIUM 100 MG CAPSULE PO (11:14)
[2025-03-09] MEDS: MEASLES,MUMPS,RUBELLA VACC/PF 0.5 ML VIAL SQ (13:32)
--- NOTE | 2025-03-10 08:16 | SWNOTE1 ---
SW received a call from [facility] CPS. They do have custody of pt's older child. [place] the case finishing machine adjuster voiced that pt has history of severe alcohol use and had voiced to the older child that she does plan on picking this up once she is done being . SW reviewed baby chart while on phone with CPS and looked over nursing notes. SW advised that there is no concerns documented within the chart and SW was not consulted for any concerns. SW advised that baby was discharged home with parents. [facility] will call back if any other information is needed.
== END 2025-03-09 14:10 | disposition home or self-care (01) | DRG 560 ==
PROVIDERS: Admitting Provider Obstetrics & Gynecology; PCP Family Medicine; Visit Provider Obstetrics & Gynecology
DX: O99.62 Diseases of the digestive system complicating childbirth (principal); Z3A.39 39 weeks gestation of pregnancy; Z37.0 Single live birth; K21.9 Gastro-esophageal reflux disease without esophagitis; O99.354 Diseases of the nervous system complicating childbirth; G43.909 Migraine, unspecified, not intractable, without status migrainosus; O70.0 First degree perineal laceration during delivery; O69.81X0 Labor and delivery complicated by cord around neck, without compression, not applicable or unspecified; Z23 Encounter for immunization
CPT/HCPCS: 36415; 59050; 59410; 80307; 85025; 85027; 86850; 86900; 86901; 90707; J0665; J2300; J2795; J3010